=== PATIENT | female | born 1950 | race Caucasian/White ===

== ENCOUNTER 2024-05-01 10:45 | Outpatient (AMB) | payer MEDICARE, SELFPAY ==
--- NOTE | 2024-05-01 10:47 | MHC.OFFVIS ---
Vital Signs 05/01/24 10:48 Height 5 ft 4.5 in Weight 237 lb BMI 40.0 BP 169/80 H Blood Pressure Location Lt brachial Position Sitting Respiration 16 Pulse 108 H Pulse Source Pulse Oximeter Pulse Oximetry (%) 96 Oxygen Delivery Method Room Air Intake Visit Reasons: OCCIPITAL NEURALGIA Allergies cephalexin Allergy (Severe, Verified 05/01/24 10:51) Hives clindamycin Allergy (Severe, Verified 05/01/24 10:51) Hives Penicillins Allergy (Severe, Verified 05/01/24 10:51) Hives vancomycin Allergy (Severe, Verified 05/01/24 10:51) Hives Medication List - Last Reconciled 05/01/24 by Parvin Gifford LPN atorvastatin 10 mg PO BEDTIME cholecalciferol (vitamin D3) 1,250 mcg PO QWEEK folic acid 1 mg PO DAILY hydroxychloroquine (Plaquenil) 200 mg PO BID indapamide 2.5 mg PO QAM leucovorin calcium 5 mg PO DAILY levothyroxine 175 mcg PO DAILY methotrexate sodium 20 mg PO QWEEK montelukast 10 mg PO BEDTIME oxycodone-acetaminophen 5-325 mg (Percocet) 1 tab PO Q8H PRN sulfasalazine 1 g PO BID HPI HPI OCCIPITAL NEURALGIA: Details: 73-year-old female who presents today to the office for evaluation of occipital neuralgia. She was referred to us from [facility]. She has a long-standing history of around 10 years of left facial and occipital pain that started after a possible series of passive concussions. She had a concussion in high school and was diagnosed and treated for trigeminal neuralgia. The pain is described as a stabbing sensation on the left side of her face that starts in the back of her head and travels towards the ear in the front of your face. She describes this pain at 10/10 in intensity with episodes of unbearable pain. She states that the frequency of the pain is about every 3-4 months that lasts for two-three weeks and continue worsening. She states that her symptoms aggravates with stress. She denies any rhinorrhea, erythema, and watery eyes. She states that she was seen in the ER during her first episode of the symptoms and was treated with prednisone. Her pain is mostly continuous but seems to have had episodes of flares in the past. She was receiving occipital nerve blocks that seemed to provide some relief for two to four months at a time. Her primary care physician inquired about cluster headaches but was never diagnosed for them. She has not tried supraorbital nerve block or oxygen therapy. She has tried Celebrex. She also has pain in her left knee extensively secondary to arthritis. 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 History of malignant neoplasm of endometrium Solitary lung nodule Left-sided headache Abnormal gait Fatigue Osteoporosis Osteoarthritis of knee Localized primary osteoarthritis Inflammatory polyarthropathy Rheumatoid arthritis GERD (gastroesophageal reflux disease) Allergic asthma without acute exacerbation or status asthmaticus Adjustment disorder with mixed emotional features Mild major depression, single episode Morbid obesity Hyperlipidemia Mixed hyperlipidemia Vitamin D deficiency Hyperparathyroidism Hypothyroidism Postablative hypothyroidism Candidal intertrigo Review of Systems Const All systems reviewed & are unremarkable except as noted in HPI and below Physical Exam Vital Signs: Last Vital Signs Pulse 108 H 05/01/24 10:48 Resp 16 05/01/24 10:48 BP 169/80 H 05/01/24 10:48 Pulse Ox 96 05/01/24 10:48 Oxygen Delivery Method Room Air 05/01/24 10:48 BMI result Body Mass Index 40.0 General: Appears afebrile. Alert and oriented. Mood and affect appropriate. Follows and participates in conversation appropriately. Respiratory effort is unlabored. Able to transition from sit to stand unassisted. Ambulates with bilaterally normal heel strike and toe off. Results Reviewed Results Reviewed: No imaging is available for review. Assessment & Plan Assessment & Plan (1) Left-sided headache: Code(s): R51.9 - Headache, unspecified Category: Medical Plan 72-year-old female with a complex headache disorder that has been present for many years and has been so far treated as occipital neuralgia. She used to receive injections from her neurologist that provided some relief, but based on her history, I am not convinced that this is actually occipital neuralgia. Given her symptoms of severe debilitating periorbital headaches that come on every two to three months and last for 8 to 10 days at a time, I am concerned that she may have a cluster headache type syndrome, especially given her history of past concussions and symptoms of trigeminal irritation/abnormal activation earlier in her life. I recommended that she trial high-dose oxygen therapy as a potential abortive treatment next time she has flares, which would serve both diagnostic and therapeutic purposes to rule out cluster headache syndrome as a potential cause of her symptoms. We also discussed doing occipital, auricle, temporal, supraorbital/supratrochlear nerve blocks as needed if cluster headache syndrome is definitely ruled out.? If she does get a response to high-dose oxygen therapy with the future flares, then I would recommend referral to neurology for consideration of preventative medication therapy for cluster headaches such as calcium channel blockers or other newer agents. Patient expressed understanding and will visit an ER or urgent care center for high-dose oxygen therapy next time she starts to experience a flare. Scribed for Dr. Mae by Devon Souza, medical reimbursement manager, on 05/01/2024. I, Dr. Mae, have personally reviewed and agree with the information entered by the scribe. Coding Level of Care Code Est Pt Level 4 (75514) Diagnoses Left-sided headache R51.9
[2024-05-01 10:48] VITALS: BP 169/80; PULSE 108; RESP 16; O2SAT 96; BMI 40.0
== END 2024-05-01 11:39 | disposition home or self-care (01) ==
PROVIDERS: PCP Nurse Practitioner Adult Health; Visit Provider Internal Medicine
DX: R51.9 Headache, unspecified (principal)
CPT/HCPCS: 99214

== ENCOUNTER → 2024-05-01 10:45 | Outpatient (BNVA) | payer MEDICARE, SELFPAY | PROVIDERS: PCP Nurse Practitioner Adult Health; Visit Provider Internal Medicine | DX: R51.9 Headache, unspecified (principal) | CPT/HCPCS: 99212 ==

== ENCOUNTER 2024-07-20 11:55 | Outpatient (AMB) | payer MEDICARE, SELFPAY ==
--- NOTE | 2024-07-20 11:56 | MHC.OFFVIS ---
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: No Allergies cephalexin Allergy (Severe, Verified 07/20/24 12:02) Hives clindamycin Allergy (Severe, Verified 07/20/24 12:02) Hives Penicillins Allergy (Severe, Verified 07/20/24 12:02) Hives chlorhexidine [From ChloraPrep Clear] Adverse Reaction (Severe, Verified 07/20/24 12:02) Rash isopropyl alcohol [From ChloraPrep Clear] Adverse Reaction (Severe, Verified 07/20/24 12:02) Rash Medication List - Last Reconciled 07/20/24 by Parvin Gifford LPN atorvastatin 10 mg PO BEDTIME cholecalciferol (vitamin D3) 1,250 mcg PO QWEEK folic acid 1 mg PO DAILY hydroxychloroquine (Plaquenil) 200 mg PO BID indapamide 2.5 mg PO QAM letrozole 2.5 mg PO DAILY leucovorin calcium 5 mg PO DAILY levothyroxine 175 mcg PO DAILY methotrexate sodium 20 mg PO QWEEK montelukast 10 mg PO BEDTIME oxycodone-acetaminophen 5-325 mg (Percocet) 1 tab PO Q8H PRN sulfasalazine 1 g PO BID HPI HPI Follow Up: Details: History of Present Illness The patient is a 74-year-old female presenting with headache management issues. She has a complex psoriatic disorder and has been experiencing cluster headache syndrome. During a previous visit, it was recommended she try high-dose oxygen therapy for her headaches, but she was unable to obtain this treatment from an urgent care facility over the weekend. Her headaches worsened over the weekend, leading to a rough night requiring Excedrin and Xanax. She reports that her pain typically begins with mild symptoms but quickly escalates into an unbearable state. She has a history of neuralgia, which presents with a particular type of pain. Past treatments included nerve blocks performed by her previous neurologist, which involved the occipital nerve and regions around her ear. However, recent treatments have involved only local anesthetic without steroids. Pain Description - Onset: Worsened over the weekend. - Quality and character: Neuralgia type feel. - Primary Location: Left supraorbital and supratrochlear areas. - Radiation: Previously involved occipital and ear regions. - Exacerbating factors: - Relief: Temporary relief from Excedrin and Xanax. - Function interference: Progresses to an unbearable state. Physical Exam Results Pain Management - Affect: Patient's mood is affected due to exacerbation of symptoms. - Analgesia: Previously managed with Excedrin, Xanax, and nerve blocks. - Activities of Daily Living: Pain becomes unbearable, affecting daily functioning. - Aberrant Drug Related Behaviors: None reported. [facility] Medical History (Updated 05/12/24 @ 15:25 by Hermann Mae MD) Mucinous carcinoma of breast On long term care pharmacist 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 History of malignant neoplasm of endometrium Solitary lung nodule Left-sided headache Abnormal gait Fatigue Osteoporosis Osteoarthritis of knee Localized primary osteoarthritis Inflammatory polyarthropathy Rheumatoid arthritis GERD (gastroesophageal reflux disease) Allergic asthma without acute exacerbation or status asthmaticus Adjustment disorder with mixed emotional features Mild major depression, single episode Morbid obesity Hyperlipidemia Mixed hyperlipidemia Vitamin D deficiency Hyperparathyroidism Hypothyroidism Postablative hypothyroidism Candidal intertrigo Physical Exam Vital Signs: Last Vital Signs Pulse 87 07/20/24 12:00 Resp 16 07/20/24 12:00 BP 170/79 H 07/20/24 12:00 Pulse Ox 97 07/20/24 12:00 Oxygen Delivery Method Room Air 07/20/24 12:00 BMI result Body Mass Index 40.0 Office Procedures Nerve Block Details: Supraorbital and supratrochlear nerve block, left Physical exam was used to isolate the location of the targeted nerves. These injection sites were prepped with alcohol. Using sterile technique, a 27 gauge 1.5 inch needle was introduced into each each overlying nerve. A total of 2 mL 0.5% ropivacaine was injected around the left supraorbital and supratrochlear nerves. Time Out: Immediately prior to the procedure, the following was verbally confirmed that there is a signed consent form and that the correct patient, planned procedure, site and side are consistent with documentation and that necessary equipment and/or blood products are available prior to the start of the case. Complications: none EBL: <5 cc [id number] Peripheral Nerve Block Additional procedure code (CPT) needed Assessment & Plan Assessment & Plan (1) Left-sided headache: Code(s): R51.9 - Headache, unspecified Category: Medical Plan Plan - Continue follow-up with neurology for trial with indomethacin. - Arrange for potential high-dose oxygen therapy through ER if needed. Patient was informed and verbally consented to the use of an ambient scribe for clinic note documentation during this visit. Discussion Notes We discussed the patient's inability to access high-dose oxygen therapy at an urgent care facility and the need for ER visits in such cases. I explained that urgent care typically does not offer oxygen therapy. I outlined the proposed nerve blocks as a management strategy, which includes supraorbital, supratrochlear, and articular temporal nerve blocks. I informed the patient that this procedure involves using local anesthetic under the cranium and that it does not affect the brain itself. The patient agreed to the nerve blocks planned for today. Ongoing management of her blood pressure was advised, as it remains uncertain if her hypertension is a trigger or a response to her headache syndrome. Patient Instructions - Follow up with neurology for trial of indomethacin. - Seek high-dose oxygen therapy at the ER if necessary. - Monitor and report any changes in headache severity or patterns. - Continue managing blood pressure with primary care provider. - Rest and avoid activities known to exacerbate symptoms. Coding Level of Care Code Est Pt Level 3 (00729) Diagnoses Left-sided headache R51.9 CPT Codes Nerve Block - Nerve Block 8: [id number] Peripheral Nerve Block ([id number])
[2024-07-20 12:00] VITALS: BP 170/79; PULSE 87; RESP 16; O2SAT 97; BMI 40.0
--- OUTSIDE RECORDS SUMMARY | 2024-07-20 16:42 | XMS_ITS | Data Portability ---
Author Organization [facility], [facility] Address [address] [place] [address] Care Team Providers Care Carrier Operator Name Role Phone HIEU NELSON Referring Provider Assessment Encounter Date Assessment Date Assessment LastModified by Organization Details LastModified Time 10/30/2023 10/30/2023 Assessment: noticeable tightness along (L) biceps femoris during STM, decreased post stretching and STM. An increase in activity tolerance this session, while demonstrating good concentric and eccentric control during SLRs. Plan: Improve flexibility and strength. Frequency: 1x/wk for 4-6 wks Not available 10/30/2023 12:44:10 11/05/2023 11/05/2023 Assessment: Patient introduced to standing hip strengthening and tolerated well. Had increased pain in the (L) knee when trying to perform the standing exercises on the (R) LE. Standing exercises were only performed on the (L). Plan: Improve flexibility and strength. Frequency: 1x/wk for 4-6 wks [email or web address] Not available 11/05/2023 12:20:24 11/11/2023 11/11/2023 Assessment: Unable to shift weight properly during Std. exercises, regressed to weight shifting R/L, demonstrating proper weight bear on (L) without adverse effects. Instructed Pt. to practice weight shifting at home. Plan: Improve flexibility and strength. Frequency: 1x/wk for 4-6 wks [email or web address] Not available 11/11/2023 12:45:42 11/22/2023 11/22/2023 Assessment: Unable to perform SAQ into adduction dt an increase in patellar pain at end range. Continues to have difficulty to perform alternating Std. exercises dt a decrease in (L) LE strength. Plan: Improve flexibility and strength. Frequency: 1x/wk for 4-6 wks [email or web address] Not available 11/22/2023 11:42:27 Plan of Treatment Reminders Order Date Submit Date Provider Last Modified By Organization Details Last Modified Time Details Appointments None record ed. Lab None record ed. Referral None record ed. Procedures None record ed. Surgeries None record ed. Imaging None record ed. Medication Orders None record ed. Patient TargetsNo targets recorded. Patient InstructionsNo instructions recorded. Reason for Referral None Reported. Procedures Surgical History Date Name Laterality Status Provider Name and Address Organization Details Recorded Time 4 54620 Therapeutic Exercise (1:1) completed Mamadou Roman PTA [address], [place], [address], [facility] 11/22/2023 11:43:20 4 85186 Therapeutic Exercise (1:1) completed Mamadou Roman SHRINKING MACHINE OPERATOR [address], [place], [address], [facility] 11/11/2023 11:51:50 4 87495 Therapeutic Exercise (1:1) completed Guillaume Maher DPT [address], [place], [address], [facility] 11/04/2023 14:52:55 4 14389 Therapeutic Exercise (1:1) completed Mamadou Roman PTA [address], [place], [address], [facility] 10/30/2023 12:44:16 4 52688: Manual therapy completed Mamadou Roman SHRINKING MACHINE OPERATOR [address], [place], [address], [facility] 10/30/2023 12:44:14 4 28984 Therapeutic Exercise (1:1) completed Mamadou Roman SHRINKING MACHINE OPERATOR [address], [place], [address], [facility] 10/23/2023 14:56:41 4 41683: Manual therapy completed Mamadou Roman, SHRINKING MACHINE OPERATOR [address], [place], [address], [facility] 10/23/2023 14:56:31 4 42066 Therapeutic Exercise (1:1) completed Guillaume Maher, DPT [address], [place], [address], [facility] 10/01/2023 12:17:57 4 00875: Low complexity PT Eval completed Guillaume Ramachandrani, DPT [address], [place], [address], [facility] 10/01/2023 12:17:54 4 G8417 BMI Above Upper Parameters, F/U Documented completed Guillaume Maher, DPT [address], [place], [address], [facility] 10/01/2023 12:18:12 4 G8427 Current Medication Documented completed Guillaume Maher, DPT [address], [place], [address], [facility] 10/01/2023 12:18:15 Imaging Results None recorded. Procedure Notes None recorded. Medical Equipment None Reported. Allergies Allergen ID Allergen Name Allergen Category Reaction Reaction Severity Criticality Documentation Date Start Date Code Code System Note Provider Name and Address Organization Details Recorded Time 89289 Product containin g penicilli n and antibioti c (product) medicatio n Not available Not available Not available 08/26/20232006 10750 05 SNOMED Aller gyRea ction : 'Skin React ion'; Not Available [facility] 4 11:39:21 91928 clindamyc in phosphate medicatio n Not available Not available Not available 08/26/20232022 60549 2 RxNorm Not Available [facility] 4 11:39:22 69756 Iodinated contrast media (substanc e) medicatio n Not available Not available Not available 08/26/20232022 43282 2003 SNOMED Aller gyNam e: 'cont rast dye'; Not Available [facility] 11:39:22 Medications Name Sig Start Date Stop Date Status Note LastModified by Organization Details LastModified Time prednisone 10 mg tablet PLEASE SEE ATTACHED FOR DETAILED DIRECTIONS active Not Available Not Available N ot Available sulfasalazin e 500 mg tablet TAKE 2 TABLETS BY MOUTH TWICE A DAY WITH FOOD active Not Available Not Available No t Available erythromycin 500 mg tablet take 2 tabs 30 min before dental procedure 2024 active Not Available Not Available Not Avai lable albuterol sulfate 2.5 mg/3 mL (0.083 %) solution for nebulization INHALE 3 MILLILITERS (2.5 MG) BY NEBULIZATIO N ROUTE 3 TIMES PER DAY NEEDED active Not Available Not Available No t Available azithromycin 250 mg tablet TAKE 2 TABLET BY MOUTH DIRECTED TO START THEN TAKE 1 TABLET DAILY UNTIL FINISHED active Not Available Not Available No t Available indapamide 2.5 mg tablet TAKE 1 TABLET BY MOUTH EVERY DAY active Not Available Not Available No t Available ibuprofen 800 mg tablet TAKE 1 TABLET BY MOUTH THREE TIMES A DAY FOR SWELLING active Not Available Not Available No t Available nystatin 100,000 unit/gram topical ointment PLEASE SEE ATTACHED FOR DETAILED DIRECTIONS active Not Available Not Available N ot Available hydrocodone 5 mg-acetamino phen 325 mg tablet TAKE 1 TABLET BY MOUTH EVERY SIX HOURS NEEDED FOR PAIN active Not Available Not Available No t Available famotidine 40 mg tablet TAKE 1 TABLET (40 MG TOTAL) BY MOUTH NIGHTLY AT BEDTIME NEEDED FOR HEARTBURN active Not Available Not Available No t Available triazolam 0.125 mg tablet TAKE 2 TABLET BY MOUTH DIRECTED 90 MINUTES PRIOR TO PROCEDURE active Not Available Not Available No t Available oxycodone-ac etaminophen 5 mg-325 mg tablet TAKE 1 TABLET BY MOUTH EVERY 6 HOURS NEEDED FOR PAIN active Not Available Not Available No t Available alprazolam 0.25 mg tablet TAKE 1-2 TABLETS TWICE A DAY IF NEEDED active Not Available Not Available No t Available triamcinolon e acetonide 0.025 % topical cream APPLY TWICE A DAY NEEDED TO SKIN FOLDS FOR NO LONGER THAN ONE WK active Not Available Not Available No t Available methotrexate sodium 2.5 mg tablet TAKE 8 TABLETS ONCE WEEKLY ON FRIDAYS active Not Available Not Available N ot Available meclizine 25 mg tablet TAKE 1 TABLET BY MOUTH THREE TIMES A DAY NEEDED active Not Available Not Available No t Available benzonatate 100 mg capsule TAKE 1 CAPSULE BY MOUTH THREE TIMES A DAY NEEDED FOR COUGH active Not Available Not Available No t Available pseudoephedr елена-diamond sin ER 80-700 mg tablet,exten ded release DO NOT DRIVE WHILE ON THIS MEDICATION 2010 active Statu s: 'Curr ent'; Not Available Not Available Not Available prednisone 50 mg tablet TAKE 1 TABLET (50 MG TOTAL) BY MOUTH DAILY WITH BREAKFAST FOR 4 DAYS active Not Available Not Available N ot Available levothyroxin e 150 mcg tablet TAKE 1 TABLET BY MOUTH EVERY DAY active Not Available Not Available No t Available omeprazole 20 mg capsule,alla yed release TAKE 1 CAPSULE BY MOUTH EVERY DAY active Not Available Not Available No t Available leucovorin calcium 5 mg tablet TAKE 3 TABLETS BY MOUTH WEEKLY DIRECTED active Not Available Not Available No t Available folic acid 1 mg tablet TAKE 1 TABLET BY MOUTH EVERY DAY active Not Available Not Available No t Available montelukast 10 mg tablet TAKE 1 TABLET BY MOUTH EVERYDAY AT BEDTIME active Not Available Not Available No t Available ergocalcifer ol (vitamin D2) 1,250 mcg (50,000 unit) capsule TAKE 1 CAPSULE (50,000UNIT S) BY MOUTH EVERY WEEK active Not Available Not Available N ot Available nystatin 100,000 unit/gram topical powder APPLY ONCE DAILY TO SKIN FOLDS NEEDED active Not Available Not Available No t Available hydroxychlor oquine 200 mg tablet TAKE 1 TABLET BY MOUTH TWICE A DAY active Not Available Not Available No t Available albuterol sulfate HFA 90 mcg/actuatio n aerosol inhaler INHALE 2 PUFFS BY MOUTH 4 TIMES A DAY NEEDED active Not Available Not Available No t Available clotrimazole 1 % topical cream APPLY TO AFFECTED AREA TWICE A DAY IN THE MORNING AND IN THE EVENING active Not Available Not Available No t Available calcium 200 mg (as calcium citrate 950 mg) tablet TAKE 1 TABLET BY MOUTH TWICE A DAY (NOT COVERED BY INS) active Not Available Not Available No t Available Flovent HFA 220 mcg/actuatio n aerosol inhaler TAKE 2 PUFFS BY MOUTH TWICE A DAY active Not Available Not Available No t Available chlorhexidin e gluconate 0.12 % mouthwash RINSE GENTLY WITH 15 ML BY MOUTH TWICE A DAY SPIT OUT DO NOT SWALLOW active Not Available Not Available No t Available sulfasalazin e sulfaSALAzi ne 500MG Tablet 2022 active Statu s: 'Curr ent'; Not Available Not Available Not Available Advair HFA 115 mcg-21 mcg/actuatio n aerosol inhaler TAKE 2 PUFFS BY MOUTH TWICE A DAY active Not Available Not Available No t Available Xiidra 5 % eye drops in a dropperette active Not Available Not Available Not Available QuickVue At-Home COVID-19 Test kit USE DIRECTED active Not Available Not Available No t Available Vitals None Recorded Social History None recorded. Functional Status None recorded. Mental Status None recorded. Family History Nothing Reported. Medical History No medical history recorded. Gynecological HistoryNo gynecological history recorded. Obstetrics History GPAL:G 0 P 0 0 0 0 Past Encounters Encounter ID Performer Location Encounter Start Date Encounter Closed Date Diagnosis/Indication Diagnosis SNOMED-CT Code Diagnosis ICD10 Code Diagnosis Note [id number] Chas Osborn MD [facility] [address] [place] [address] 10/01/2023 11:01:06 10/01/2023 13:14:05 Osteoarthritis of knee 803423313 M17.12 [id number] Guillaume Maher DPT [facility] [address] [place] [address] 10/23/2023 11:27:42 10/23/2023 15:04:32 Osteoarthritis of knee 782332039 M17.12 [id number] [facility] [address] [place] [address] 10/30/2023 10:58:05 10/30/2023 13:00:46 Osteoarthritis of knee 060997359 M17.12 [id number] Guillaume Maher DPT [facility] [address] [place] [address] 11/05/2023 10:29:04 11/05/2023 12:58:21 Osteoarthritis of knee 787321617 M17.12 [id number] Guillaume Maher DPT [facility] [address] [place] [address] 11/11/2023 11:45:13 11/11/2023 12:56:07 Osteoarthritis of knee 591266346 M17.12 [id number] Guillaume Maher, T [facility] [address] [place] [address] 11/22/2023 10:03:00 11/22/2023 13:02:31 Osteoarthritis of knee 301866004 M17.12 [id number] JAQUELINE Rodriguez [address] [place] [address] 11/23/2023 13:46:01 11/23/2023 13:47:47 Health Concerns Section Related Observation LastModified by Organization Detai ls LastModified Time None Recorded Concern Status LastModified by Organization Details LastModified Time None Recorded Advance Directives Directive None Recorded Payers Encounter Date Sequence Insurance Name Policy Number Policy [place] Covered Member ID [place] Member ID Guarantor Name 10/30/2023 1 [place] [employer] [employer] Teresa Parson [id number] Teresa Parson 10/30/2023 2 [place] [id number] Teresa Parson [id number] Teresa Parson 11/05/2023 1 [place] Teresa Parson [id number] Teresa Parson 11/05/2023 2 [place] [id number] Teresa Parson [id number] Teresa Parson 11/11/2023 1 [place] [place] Teresa Parson [id number] Teresa Parson 11/11/2023 2 [place] [id number] Teresa Parson [id number] Teresa Parson 11/22/2023 1 [place] [place] Teresa Parson [id number] Teresa Parson 11/22/2023 2 [place] [id number] Teresa Parson [id number] Teresa Parson 11/23/2023 1 [place] Teresa Parson [id number] Teresa Parson 11/23/2023 2 [place] [id number] Teresa Parson [id number] Teresa Parson Notes Date Note Type Note Provider Name and Address Organization Details Recorded Time 10/30/2023 text/html Pt. reports mild improvement since last session stating that the stretching has helped. Mamadou Roman SHRINKING MACHINE OPERATOR [address], [place], [address], [facility] 10/30/2023 12:44:53 11/05/2023 text/html Patient reports continuing to be compliant with HEP. States that the supine ITB stretch is very challenging. Guillaume Maher DPT [address], [place], [address], [facility] 11/05/2023 12:20:37 11/11/2023 text/html Pt. reports that her knee is feeling stiff, while also stating that she hasn't been compliant with her HEP dt a busy schedule. Mamadou Roman PTA [address], [place], [address], [facility] 11/11/2023 12:46:13 11/22/2023 text/html Pt. reports to P T with an increase in (L) joint line discomfort with an increase in weightbearing. 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 Patient has upcoming breast surgery and has concerns over prophylactic antibiotics. Reassurance was given and recommended that we would defer to the surgeon for their preferred antibiotic choice. As they know the most likely organisms that she will be at risk for. Patient agrees to this treatment plan will call with any questions Sancho Martínez PA-C [address], [place], [address], [facility] 11/23/2023 13:47:46 OBGyn Episode No OBEpisode recorded.
--- OUTSIDE RECORDS SUMMARY | 2024-07-20 16:42 | XMS_ITS | Clinical Summary ---
Author Organization [facility] [address] [facility] Address [address] [place] [address] Care Team Providers Care Cosmetic Sales Advisor Name Role Phone Obtain, Unable To Primary Care Provider Unavaila ble Allergies Active Allergy Reactions Criticality Noted Date Comments Cats Unknown 03/23/1996 Cephalexin Hives High 01/05/2023 Clindamycin Hives High 01/05/2023 Iodine Rash Low 01/05/2023 Ed provider premedicated the patient on 01/05/23 for pe scan---diffuse rash the patient stated Penicillins Hives High 01/05/2023 Vancomycin GI Upset 01/05/2023 Colitis Social History Tobacco Use Types Packs/Day Years Used Date Smoking Tobacco: Never Assessed Comments Unknown Sex and Gender Information Value Date Recorded Sex Assigned at Female 01/07/2023 9:04 AM EDT Legal Sex Female 5:44 AM EST Gender Identity Female 01/07/2023 9:04 AM EDT Sexual Orientation Lesbian or Obrien 01/07/2023 9: 04 AM EDT Last Filed Vital Signs Vital Sign Reading Time Taken Comments Blood Pressure 149/70 01/05/2023 5:08 PM EDT Pulse 78 01/05/2023 5:08 PM EDT Temperature 36.4 ??C (97.6 ??F) 01/05/2023 5:08 PM ED T Respiratory Rate 15 01/05/2023 5:08 PM EDT Oxygen Saturation 96% 01/05/2023 5:08 PM EDT Inhaled Oxygen Concentration - - Weight 112.9 kg (249 lb) 01/05/2023 8:11 AM EDT Height 162.6 cm (5' 4 ) 01/05/2023 8:11 AM EDT Body Mass Index 42.74 01/05/2023 8:11 AM EDT Plan of Treatment Health Maintenance Due Date Last Done Comments HIV screening 1963 Hepatitis C screening 1968 Tetanus adult (Td q 10,TDAP once) 1970 Breast cancer screening 1990 Lipid disorder screening 1990 Colon cancer screening, Colonoscopy 1995 Shingles vaccine (Shingrix) (1 of 2 - Shingrix (RZV) 2 Dose Standard Series) 2000 RSV Discussion (1 - Risk 60- 74 years 1-dose series) 2010 Osteoporosis screening (bone density) 2015 Pneumo Vaccine 65+ (1 of 1 - PCV) 2015 Influenza vaccine 01/23/2024 03/14/2018 Covid-19 vaccine series (1 - season) 2024 Diabetes screening 01/05/2026 01/05/2023 Cervical cancer screening Discontinued Meningococcal Vaccine Aged Out No clemencia reji eligible based on patient's age to complete this topic Procedures Procedure Name Priority Date/Time Associated Diagnosis Comments BASIC METABOLIC PANEL STAT 01/05/2023 9:37 AM EDT from Last 3 Months or Most Recently Relevant to Health Maintenance Results * (ABNORMAL) Basic metabolic panel (01/05/2023 9:37 AM EDT) Sodium 139 136 - 144 mmol/L 01/05/2023 10:29 AM EDT [facility] DEPARTMENT OF [facility]ORATORY [facility]ICINE [facility] Comment:Sample slightly hemo lyzed. Results may be falsely decreased due to hemolysis. Potassium 01/05/2023 10:29 AM EDT [facility] DEPART[facility]AT[facility]IC[facility] Comment:Sample Hemolyzed. Chloride 101 98 - 107 mmol/L 01/05/2023 10:29 AM EDT [facility] DEPARTMENT OF LABORATORY MEDICINE [facility] CO2 24 20 - 30 mmol/L 01/05/2023 10:29 AM [facility] Anion Gap 14 7 - 17 01/05/2023 10:29 AM [facility] Glucose 135(H) 70 - 100 mg/dL 01/05/2023 10:29 AM [facility] BUN 18 8 - 23 mg/dL 01/05/2023 10:29 AM [facility] Creatinine 0.79 0.40 - 1.30 mg/dL 01/05/2023 10:29 AM [facility] Calcium 9.0 8.8 - 10.2 mg/dL 01/05/2023 10:29 AM [facility] BUN/Creatinine Ratio 22.8 8.0 - 23.0 01/05/2023 10:29 AM [facility] eGFR (Creatinine) >60 >=60 mL/min/1.7 3m2 01/05/2023 10:29 AM [facility] Comment: Values < 60 mL/min/1.73 m2 may indicate CKD if present for more than three months AND creatinine is at steady state. The eGFR provides a rough estimate of kidney function. On 02/06/22 all [facility] Clinical Labs and Epic began using a [id number] formula for estimating GFR called CKD-EPI Creatinine 2020. This equation reports eGFR based on creatinine, patient age, clinical sex, and is standardized to a body surface area of 1.73 m2. For the same creatinine, this new race-free eGFR will be lower than prior reported Black eGFR results and higher than prior Non-Black eGFR results. For further guidance, please refer to the CKD: Adult Satin Finisher Signature pathway. Blood Venipuncture / Unknown 01/05/2023 9:37 AM EDT 01/05/2023 9:42 AM EDT us James Lazo MD LAB BLOOD ORDERABLES Fi nal Result [facility] DEPARTMENT OF LABORATORY MEDICINE [facility] [address] [place] [address], [facility] [phone] from Last 3 Months or Most Recently Relevant to Health Maintenance Insurance MEDICARE [facility] MEDICARE [facility] MEDICARE [facility] Care Teams Cosmetic Sales Advisor Relationship Specialty Start Date End Date Obtain, Unable To PCP - General 01/05/23
--- OUTSIDE RECORDS SUMMARY | 2024-07-20 16:43 | XMS_ITS ---
Author Name [facility] Organization Unknown Results Test Name/Text Value Interpretation Date Range Source BKR LYME TOTAL ANTIBODY INTERPRETATION Negative Normal [id number] - [facility] BKR LYME TOTAL ANTIBODY 0.64Index Normal [id number] [facility] A phagocytoph DNA Bld Ql SUSANNE+probe Not Detected Normal [id number] - [facility] Ehrlichia DNA XXX Ql SUSANNE+probe Not Detected Normal [id number] - [facility] BKR QBC FOR BLOOD PARASITE Negative intra-erythrocy tic parasites Normal [id number] - [facility] BKR HAT AND CAP PARTS CUTTER HAND REVIEW Reviewed Normal [id number] [facility] CRP SerPl HS-mCnc 25.9mg/L Above high normal [id number] - [facility] Glucose Ur Strip.auto-mCnc Negative Normal [id number] - [facility] Color Ur Auto Yellow Normal [id number] - [facility] Hgb Ur Ql Strip.auto Negative Normal [id number] - [facility] Ketones Ur Strip.auto-mCnc Negative Normal [id number] - [facility] Prot Ur Strip.auto-mCnc Negative Normal [id number] - [facility] Bilirub Ur Ql Strip.auto Negative Normal [id number] - [facility] WBC # Ur Strip Negative Normal [id number] - [facility] Nitrite Ur Ql Strip.auto Negative Normal [id number] - [facility] Clarity Ur Refract.auto Clear Normal [id number] - [facility] pH Ur Strip.auto 6.5 Normal [id number] 5.5 - 7.5 [facility] Urobilinogen Ur Strip-mCnc 2mg/dL Normal [id number] - [facility] Sp Gr Ur Refract.auto 1.012 Normal [id number] 1.005 - 1.03 [facility] Troponin T SerPl HS-mCnc 9ng/L Normal [id number] - [facility] BNP Bld-mCnc 18pg/mL Normal [id number] 0 - 100 [facility] BUN SerPl-mCnc 18mg/dL Normal [id number] 8 - 23 [facility] Creat SerPl-mCnc 0.79mg/dL Normal [id number] 0.4 - 1.3 [facility] Anion Gap3 SerPl-sCnc 14 Normal [id number] 7 - 17 [facility] eGFRcr SerPlBld CKD-EPI 1 60mL/min/1.73m2 Normal [id number] - [facility] HCO3 SerPl-sCnc 24mmol/L Normal [id number] 20 - 30 [facility] Glucose SerPl-mCnc 135mg/dL Above high normal [id number] 70 - 100 [facility] BUN/Creat SerPl 22.8 Normal [id number] 8 - 23 [facility] Chloride SerPl-sCnc 101mmol/L Normal [id number] 98 - 10 7 [facility] Calcium SerPl-mCnc 9mg/dL Normal [id number] 8.8 - 10 .2 [facility] Sodium SerPl-sCnc 139mmol/L Normal [id number] 136 - 144 [facility] Potassium SerPl-sCnc Normal [id number] [facility] D dimer FEU PPP-mCnc 0.73mg/LFEU Above high normal [id number] - [facility] ESR Bld Qn 50mm/hr Above high normal [id number] 0 - 20 [facility] Hgb Bld-mCnc 12.4g/dL Normal [id number] 11.7 - 15.5 [facility] Eosinophil # Bld Auto 0.54v5506/uL Normal [id number] 0 - 1 [facility] MCHC RBC Auto-mCnc 34.1g/dL Normal [id number] 31 - 36 [facility] PMV Bld Auto 9.8fL Normal [id number] 8 - 12 [facility] Basophils/leuk NFr Bld Auto 0.9% Normal [id number] 0 - 1.4 [facility] Monocytes/leuk NFr Bld Auto 14.9% Above high normal [id number] 4 - 12 [facility] RDW RBC Auto-Rto 14.7% Normal [id number] 11 - 15 [facility] Monocytes # Bld Auto 0.55h5008/uL Normal [id number] 0 - 1 [facility] Imm Granulocytes # Bld Auto 0.17s1677/uL Normal [id number] 0 - 0.3 [facility] Neutrophils # Bld Auto 3.72f1076/uL Normal [id number] 2 - 7.6 [facility] Hct VFr Bld Auto 36.4% Normal [id number] 35 - 45 [facility] Lymphocytes/leuk NFr Bld Auto 18.4% Normal [id number] 17 - 50 [facility] Lymphocytes # Bld Auto 1.14x8592/uL Normal [id number] 0.6 - 3.7 [facility] nRBC/100 WBC Bld Auto-Rto 0% Normal [id number] 0 - 1 [facility] RBC # Bld Auto 4M/uL Normal [id number] 4 - 6 [facility] Neutrophils/leuk NFr Bld Auto 62.9% Normal [id number] 39 - 72 [facility] Eosinophil/leuk NFr Bld Auto 2.6% Normal [id number] 0 - 5 [facility] Imm Granulocytes/leuk NFr Bld Auto 0.3% Normal [id number] 0 - 1 [facility] WBC # Bld Auto 5.0m1855/uL Normal [id number] 4 - 11 [facility] nRBC # Bld Auto 0v4560/uL Normal [id number] 0 - 1 [facility] MCV RBC Auto 91fL Normal [id number] 80 - 100 [facility] MCH RBC Qn Auto 31pg Normal [id number] 27 - 33 [facility] BKR WAM BASOPHIL ABSOLUTE COUNT. 0.06n2656/uL Normal [id number] 0 - 1 [facility] Platelet # Bld Auto 552u5302/uL Normal [id number] 150 - 420 [facility]
== END 2024-07-20 12:27 | disposition home or self-care (01) ==
PROVIDERS: PCP Nurse Practitioner Adult Health; Visit Provider Internal Medicine
DX: R51.9 Headache, unspecified (principal)
CPT/HCPCS: 64400; 99213

== ENCOUNTER → 2024-07-20 11:55 | Outpatient (BNVA) | payer MEDICARE, SELFPAY | PROVIDERS: PCP Nurse Practitioner Adult Health; Visit Provider Internal Medicine | DX: G44.009 Cluster headache syndrome, unspecified, not intractable (principal) | CPT/HCPCS: 64400; 99212 ==

== ENCOUNTER 2024-11-07 20:36 | Emergency (ER) | payer MEDICARE, SELFPAY ==
[2024-11-07 20:59] VITALS: BP 154/72; PULSE 65; RESP 18; TEMP 36.8; O2SAT 99; BMI 41.0
[2024-11-07 21:19] VITALS: BP 167/72; PULSE 76; RESP 20; TEMP 36.8; O2SAT 99
--- NOTE | 2024-11-07 21:35 | PC.NURSE ---
Patient is a 74-year-old female presenting with headache management issues. She has a complex psoriatic disorder and has been experiencing cluster headache syndrome secondary to occipital neuralgia in which she was getting injections from the pain clinic. c/o left sided headache/ear pain intermittently for the past month. Respirations even and non-labored. Abdomen large, soft, non-tender. Ambulates utilizing a rolling walker
--- NOTE | 2024-11-07 22:27 | ED_ITS ---
HPI - General Adult General Chief complaint: Headache Stated complaint: left side head/ear pain Time Seen by Provider: 11/07/24 22:27 History of Present Illness ED Provider: Nelsy BASS narrative: The patient is a 74-year-old woman who has had problems with a headache syndrome for a decade. She has been seen by Neurology at [facility]. She has been treated for occipital neuralgia. She says that she has gotten injections to our occipital scalp in the past. More recently she was seen at the pain Clinic at [facility] and the pain doctor suggested that perhaps she could have atypical cluster headaches. He recommended that if she h as a bad headache that she come to the emergency department to receive oxygen as a tests to help determine whether these could be atypical cluster headaches. She says that she has had a headache for several days. Yesterday she went to her primary care doctor's and was given oxygen for awhile with some mild improvement in her headache. Her headache was worse today and she came to the emergency room for additional oxygen therapy. She says that she feels the pain in the left side of her head radiating from her left forehead to her left ear. She describes the headache as severe. It is typical of her usual headache syndromes. She says she has had extensive workups for her headaches including a temporal artery biopsy. The patient went on to say that if she does not get significant response to oxygen therapy that she would like an injection of ketorolac a prescription for a Medrol Dosepak. She says narcotics have never worked for her headaches. Related Data Home Medications ?Medication ?Instructions ?Recorded ?Confirmed atorvastatin 10 mg tablet 10 mg PO BEDTIME 05/01/24 07/20/24 cholecalciferol (vitamin D3) 1,250 1,250 mcg PO QWEEK 05/01/24 07/20/24 mcg (50,000 unit) oral wafer folic acid 1 mg tablet 1 mg PO DAILY 05/01/24 07/20/24 hydroxychloroquine 200 mg tablet 200 mg PO BID 05/01/24 07/20/24 (Plaquenil) indapamide 2.5 mg tablet 2.5 mg PO QAM 05/01/24 07/20/24 leucovorin calcium 5 mg tablet 5 mg PO DAILY 05/01/24 07/20/24 levothyroxine 175 mcg capsule 175 mcg PO DAILY 05/01/24 07/20/24 methotrexate sodium 2.5 mg tablet 20 mg PO QWEEK 05/01/24 07/20/24 montelukast 10 mg tablet 10 mg PO BEDTIME 05/01/24 07/20/24 oxycodone-acetaminophen 5 mg-325 1 tab PO Q8H PRN 05/01/24 07/20/24 mg tablet (Percocet) sulfasalazine 500 mg tablet 1 g PO BID 05/01/24 07/20/24 letrozole 2.5 mg tablet 2.5 mg PO DAILY 07/20/24 07/20/24 Previous Rx's ?Medication ?Instructions ?Recorded methylprednisolone 4 mg tablets in 4 mg PO DAILY #21 ea 11/07/24 a dose pack (Medrol (Ralph)) Allergies Allergy/AdvReac Type Severity Reaction Status Date / Time cephalexin Allergy Severe Hives Verified 11/07/24 21:03 clindamycin Allergy Severe Hives Verified 11/07/24 21:03 Penicillins Allergy Severe Hives Verified 11/07/24 21:03 Iodinated Contrast Media Allergy Hives Verified 11/07/24 21:03 chlorhexidine AdvReac Severe Rash Verified 11/07/24 21:03 [From ChloraPrep Clear] isopropyl alcohol AdvReac Severe Rash Verified 11/07/24 21:03 [From ChloraPrep Clear] Review of Systems Review of Systems: Yes all other systems are reviewed and are negative [facility] Past Medical History Medical History (Updated 11/07/24 @ 23:15 by Sandro Whittington MD) Mucinous carcinoma of breast 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 History of malignant neoplasm of endometrium Solitary lung nodule Left-sided headache Abnormal gait Fatigue Osteoporosis Osteoarthritis of knee Localized primary osteoarthritis Inflammatory polyarthropathy Rheumatoid arthritis GERD (gastroesophageal reflux disease) Allergic asthma without acute exacerbation or status asthmaticus Adjustment disorder with mixed emotional features Mild major depression, single episode Morbid obesity Hyperlipidemia Mixed hyperlipidemia Vitamin D deficiency Hyperparathyroidism Hypothyroidism Postablative hypothyroidism Candidal intertrigo Social History Social History Smoked in Last 30 Days: No Advance Directives: No Advance Directives Information Provided: No Physical Exam ED Vital Signs: Vital Signs - 24 hr 11/07/24 20:59 11/07/24 21:19 Temperature 98.2 F 98.2 F Pulse Rate 65 76 Respiratory Rate 18 20 Blood Pressure 154/72 H 167/72 H Pulse Oximetry 99 99 Oxygen Delivery Method Room Air BMI result Body Mass Index 41.0 Const Other: The patient is a 74-year-old woman who at first seemed to be rocking with dis comfort but who, once engaged in conversation, was awake and alert with a normal mental status and able to give a very good history. HENMT Other: Face is symmetrical, mucous membranes moist. Pharynx is normal. Eyes Other: Pupils are very small but equal. Extraocular movements are intact. Conjunctivae are clear. Neck Other: Moving her neck easily Resp Effort & Inspection: normal respiratory effort Auscultation: clear to auscultation bilaterally Cardio Rate: regular rate Rhythm: regular rhythm Heart sounds: S1 normal heart sound present and S2 normal heart sound present Skin Other: Skin is dry and unremarkable Neuro Other: The patient is awake, alert, pleasant, cooperative. Mental status is clear. Pupils are small and equal. Extraocular movements are intact. Face is symmetrical. Speech is clear. She moves her extremities symmetrically. Medical Decision Making Medical Decision Making [facility] Narrative: The patient is a 74-year-old female with a long history of intermittent severe headaches which has been managed as possible manifestations of occipital neuralgia. She says that she has had an extensive workup in the past. She has a neurologist at [facility]. She has received occipital injections in the past. More recently she was seen at the pain Clinic here at [facility]. She says that the pain doctor at that clinic suggested the perhaps her headaches could be atypical cluster headaches. He recommended that she come to the emergency room for a trial of oxygen therapy when she has a significant headache. She presents now with several days of her typical headache. She does not describe any symptoms that make me think this headache is significantly different from her previous headaches or requires any additional workup. The patient was given a 15 minute trial of 12 L/min of oxygen through a non- rebreather. She says that this provided significant improvement but did not abolish the headache. I explained I could not tell her if I felt this was a truly positive response from the therapy with regard to the question of could she have atypical cluster headaches. In any event the patient felt better and seemed comfortable going home. She will also be given a dose of ketorolac and a prescription for a Medrol Dosepak. She should follow up with her neurologist to discuss this trial of oxygen therapy and the significance it might have in her headache management. Discharge Plan Discharge Clinical Impression: Headache Patient Disposition: Home, Self-Care Additional Instructions: Please take the Medrol Dosepak as prescribed starting tomorrow morning. A prescription for this has been sent to the [facility] on [address] in [place]. Please follow up with your neurologist to discuss whether your response to the oxygen today constitutes a positive response with regard to the diagnosis of atypical cluster headaches. Otherwise follow up with your primary care doctor as well. Prescriptions: New methylprednisolone [Medrol (Ralph)] 4 mg tablets,dose pack 4 mg PO DAILY Qty: 21 0RF No Action sulfasalazine 500 mg tablet 1 g PO BID Rx Instructions: give with food (meal/snack) hydroxychloroquine [Plaquenil] 200 mg tablet 200 mg PO BID methotrexate sodium 2.5 mg tablet 20 mg PO QWEEK leucovorin calcium 5 mg tablet 5 mg PO DAILY levothyroxine 175 mcg capsule 175 mcg PO DAILY folic acid 1 mg tablet 1 mg PO DAILY montelukast 10 mg tablet 10 mg PO BEDTIME indapamide 2.5 mg tablet 2.5 mg PO QAM atorvastatin 10 mg tablet 10 mg PO BEDTIME cholecalciferol (vitamin D3) 1,250 mcg (50,000 unit) wafer 1,250 mcg PO QWEEK oxycodone-acetaminophen [Percocet] 5-325 mg tablet 1 tab PO Q8H PRN letrozole 2.5 mg tablet 2.5 mg PO DAILY Print Language: Yi
--- NOTE | 2024-11-07 22:48 | PC.NURSE ---
per MD Whittington pt placed on 12l O2 via non-re breather mask pt to have O2 for 15min. call palafox within reach
--- NOTE | 2024-11-07 23:04 | PC.NURSE ---
upon re-eval after O2 pt reports it has taken the edge off the pain pt reports pain is 9/10, down from 200/10 MD notified
[2024-11-07] MEDS: Ketorolac Tromethamine 30 MG/ML VIAL IM (23:36)
[2024-11-07 23:49] VITALS: BP 176/73; PULSE 64; RESP 16; TEMP 36.7; O2SAT 97
[2024-11-08 00:04] VITALS: BP 176/73; PULSE 64; RESP 16; TEMP 36.7; O2SAT 97
== END 2024-11-08 00:06 | disposition home or self-care (01) ==
PROVIDERS: Emergency Provider Emergency Medicine; PCP Nurse Practitioner Adult Health
DX: R51.9 Headache, unspecified (principal); E78.2 Mixed hyperlipidemia; E21.3 Hyperparathyroidism, unspecified; Z79.899 Other long term (current) 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
CPT/HCPCS: 96372; 99284; J1885

== ENCOUNTER 2025-03-16 11:06 | Outpatient (AMB) | payer MEDICARE, SELFPAY ==
--- NOTE | 2025-03-16 11:18 | A.OFFVIS_ITS ---
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: No Allergies cephalexin Allergy (Severe, Verified 03/16/25 11:20) Hives clindamycin Allergy (Severe, Verified 03/16/25 11:20) Hives Penicillins Allergy (Severe, Verified 03/16/25 11:20) Hives Iodinated Contrast Media Allergy (Verified 03/16/25 11:20) Hives chlorhexidine (From ChloraPrep Clear) Adverse Reaction (Severe, Verified 5 11:20) Rash isopropyl alcohol (From ChloraPrep Clear) Adverse Reaction (Severe, Verified 03/16/25 11:20) Rash Medication List - Last Reconciled 03/16/25 by Ginger Monge, ANAMARIA atorvastatin 10 mg PO BEDTIME cholecalciferol (vitamin D3) 1,250 mcg PO QWEEK divalproex 250 mg PO BID PRN exemestane 25 mg PO DAILY folic acid 1 mg PO DAILY galcanezumab-gnlm (Emgality Pen) mg subcut hydroxychloroquine (Plaquenil) 200 mg PO BID indapamide 2.5 mg PO QAM leucovorin calcium 5 mg PO DAILY levothyroxine 175 mcg PO DAILY methotrexate sodium 20 mg PO QWEEK montelukast 10 mg PO BEDTIME oxycodone-acetaminophen 5-325 mg (Percocet) 1 tab PO Q8H PRN sulfasalazine 1 g PO BID HPI Comments Details: Teresa is a 74-year-old female patient with a past medical history of anxiety, Graves disease, hypothyroid, osteoporosis, RA, bruxism, migraine, and obesity who I was following at [facility] for chronic left-sided headaches. She is here today to reestablish care with me at [facility]. Her headache history includes severe left-sided headaches often lasting a stretch of a couple of weeks with severe pain to the left temporal and parietal areas radiating sometimes into her face and preauricular areas. Her face and preauricular area often become tender to touch. She has historically denied any light sensitivity, dizziness, conjunctival reddening, lacrimation, rhinorrhea, nasal congestion, ptosis, or lid swelling. She does however have a profound history of bruxism. Because of her severe unilateral pain, there has always been some question of whether or not there is a component of TAC. She has however tried oxygen with only minimal improvement in her head pain. She has had some benefit in the past with left occipital nerve blocks and left auricular temporal nerve blocks. In November of 2024, she presented to the clinic at [facility] in severe pain at which time she received a left occipital and left auricular temporal nerve block, was started on Emgality, and was given a 5 day course of Depakote. This combination did improve her pain. Seemingly, after initiation of the Emgality, she has had some overall improvement. I did see her again in January of 2025 at which time she reported an overall improvement though she was starting to have some ?twitching? to the left side of her face which can often be a sign that a headache is coming. During that visit, I performed additional left occipital and left auricular temporal nerve blocks and sent for a trial of Ubrelvy. I also provided her with refills on Depakote (5 day courses 250 mg twice daily for rescue measures). Since that time, she tells me that later in January she developed her left-sided headache once again and at the same time developed left-sided hip pain. Her hip pain however was so severe that she ended up going to the emergency room and was admitted to the hospital for pain management and subsequent rehabilitation. Eventually in the hospital, they did provide her with course of Depakote and soon after a course of prednisone. She did finally have resolution of both her left-sided facial pain and left hip pain. It is at this point unclear whether or not the Depakote or prednisone was helpful in alleviating this acute attack. She has continued on the Emgality injections and did try the Ubrelvy during this most recent attack and she did not find it to be helpful. Today, she is not in any discomfort. She has not had any severe headache/head pains since late January when she was hospitalized. She does note that she had 1 further follow up with [facility]. The provider there did order an MRI of the brain with and without contrast. She has not had this yet. Her primary care also mentioned sending her to the [facility] for a 2nd opinion. [facility] Medical History (Updated 11/09/24 @ 00:00 by Background Alma) Mucinous carcinoma of breast On longterm 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 History of malignant neoplasm of endometrium Solitary lung nodule Left-sided headache Abnormal gait Fatigue Osteoporosis Osteoarthritis of knee Localized primary osteoarthritis Inflammatory polyarthropathy Rheumatoid arthritis GERD (gastroesophageal reflux disease) Allergic asthma without acute exacerbation or status asthmaticus Adjustment disorder with mixed emotional features Mild major depression, single episode Morbid obesity Hyperlipidemia Mixed hyperlipidemia Vitamin D deficiency Hyperparathyroidism Hypothyroidism Postablative hypothyroidism Candidal intertrigo Review of Systems Const All systems reviewed & are unremarkable except as noted in HPI and below Physical Exam Vital Signs: Last Vital Signs Pulse 76 03/16/25 11:19 Resp 16 03/16/25 11:19 BP 132/86 03/16/25 11:19 Pulse Ox 95 03/16/25 11:19 BMI result Body Mass Index 41.3 Const General: cooperative, healthy appearing, comfortable and no acute distress Nutritional Appearance: well nourished Orientation/consciousness: patient oriented x3 Limitations: no limitations HEENT Head: Yes normal to inspection and Yes normocephalic Eyes General: appearance normal, both eyes and all related structures Visual Loyola: normal visual loyola by confrontation Alignment and Position: alignment normal Periorbital: periorbital findings normal Eyelids: Yes eyelids normal Conjunctivae: conjunctivae normal Sclerae: sclerae normal Neuro General: patient oriented x3 and deep tendon reflexes 2+ bilaterally Cranial nerves: Yes CN's II-XII intact bilaterally and Yes Facial sensation intact/muscles of mastication intact Cognition (Neuro): normal cognition Gait exam (Neuro): Normal gait present Motor exam (neuro): 5/5 motor strength present throughout and no tremor noted Sensory Exam: double simultaneous stimulation for sensation normal Romberg Test: Negative Pupils: Normal pupillary reactivity/response: bilateral Psych Appearance: grossly normal Mental Status: mental status grossly normal Speech and movement: Normal speech and movement present and Clear speech present Affect: normal affect Attitude: cooperative Thought process: Normal thought process present Thought content: Normal thought content present Insight: Good insight present (Psych) Judgement: Good judgement present (Psych) Assessment & Plan Assessment & Plan (1) Left-sided headache: Code(s): R51.9 - Headache, unspecified Category: Medical Plan: . Plan Teresa is a 74-year-old female patient with a past medical history of anxiety, Graves disease, hypothyroid, osteoporosis, RA, bruxism, migraine, and obesity who I was following at [facility] for chronic left-sided headaches. She is here today to reestablish care with me at [facility]. Headaches are likely a combination of left occipital neuralgia with component of bruxism. We can not completely exclude possible TAC variant though she has not responded profoundly to oxygen in the past. I think would be reasonable for her to see a provider at the [facility] to get their opinion and to potentially optimize treatment. For now, we will continue her current treatment as outlined below. We will also switch the Ubrelvy to Nurtec as she did not have any profound benefit with the Ubrelvy. -switch Ubrelvy to Nurtec 75 mg as needed for abortive therapy -Depakote 250 mg twice daily for 5 days as needed for 2nd tier of rescue therapy -may consider further nerve blocks including left occipital and left auricular temporal nerve blocks -continue Emgality 120 mg subcutaneous monthly injection -follow-up in 2 months or sooner if needed -MRI of the brain with and without contrast pending from provider at [facility] -primary care has sent over referral to [facility] for 2nd opinion Medications: New divalproex Take 1 tablet twice daily by mouth for 5 days for migraine rescue therapy 250 mg PO BID PRN 14 tabs 3RF migraine headache rimegepant (Nurtec ODT) 75 mg PO DAILY PRN 8 tabs 5RF migraine headache 30 days Coding Level of Care Code New Pt Level 4 (59677) Diagnoses Left-sided headache R51.9
[2025-03-16 11:19] VITALS: BP 132/86; PULSE 76; RESP 16; O2SAT 95; BMI 41.3
--- OUTSIDE RECORDS SUMMARY | 2025-03-16 13:50 | XMS_ITS | Encounter Summary ---
Author Organization [facility] Address [address] [place] [address] Phone Care Team Providers Care Director Of Sports Performance Name Role Phone Imeldaerinkeenan Shahla Miles NP Primary Care Pro vider Self-Referred, Patient Unavailable Unavailab Mariluz Ivy MD Unavailable Soledad Mclean MD, MPH Unavailable Juan Manuel Mota MD Unavailable [phone] Encounter Details Date Type Department Care Team (Late st Contact Info) Description 09/06/2023 Procedure Pass [facility], [facility] [address] [place] [address] Social History Tobacco Use Types Packs/Day Years Used Date Smoking Tobacco: Never Smokeless Tobacco: Never Alcohol Use Standard Drinks/Week Comments No 0 (1 standard drink = 0.6 oz pur e alcohol) Education Answer Date Recorded Are you interested in more education? Not on greta e 10/22/2022 Are you concerned about learning? Not on file 10/22/2022 No 10/22/2022 No 10/22/2022 Digital Access Answer Date Recorded No 11/18/2022 No 11/18/2022 Reliable internet access at home? Not on file 11/18/2022 Device with a working camera? 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 Wish to be (Past 1 Month) No 024 3:50 PM EDT Magali Ya, KATHIE 2. Non-Specific Active Suici mihir Thoughts (Past 1 Month) No 09/06/2023 3:50 PM EDT Magali Ya , KATHIE 6. Suicidal Behavior (Lifetime) No 3:50 PM EDT Magali Ya, KATHIE documented as of this encounter Plan of Treatment Upcoming Encounters Date Type Department Care Team (Late st Contact Info) Description 09/18/2024 Procedure Pass [facility] [place], Mammography, Manjula Lank Imaging Department [address] [place] [address] 03/17/2025 1:00 AM EDT [facility] [address] [place] [address] Unscheduled, [facility] Clinical East [address] [place] [address] 03/18/2025 10:30 AM EDT [facility] [address] [place] [address] Louise Cuadra, PT [address] [place] [address] 03/24/2025 12:30 AM EDT Home [facility] Visit [facility] [address] [place] [address] Pily Miguel, KATHIE [address] [place] [address] 03/31/2025 10:30 AM EDT Office Visit [facility], [facility], [facility] [place] [facility] [place] [address] [address] [place] [address] Paz Naqvi, HEALTH SERVICES INFORMATION SPECIALIST [address] [place] [address] [email or web address] Soledad Mclean MD, MPH [address] [place] [address] Maria [email or web address] 04/01/2025 1:00 AM EDT Home Care Visit [facility] [address] [place] [phone] Pily Miguel RN [address] [place] [address] 04/07/2025 1:00 AM EDT Home Care Visit [facility] [address] [place] [address] Pily Miguel RN [address] [place] [address] 04/14/2025 1:00 AM EDT Home Care Visit [facility] [address] [place] [address] Pily Miguel RN [address] [place] [address] 04/21/2025 12:30 AM EDT Home [facility] Visit [facility] [address] [place] [address] Pily iMguel RN [address] [place] [address] 04/28/2025 1:00 AM EST Appointment [facility] [address] [place] [address] Pily Miguel RN [address] [place] [address] 05/07/2025 10:30 AM EST Office Visit [facility] [address] 3rd Floor, [address] [place] [address] Rober Matson DO 22 [facility] [address] [place] [address] [email or web address] 10/08/2025 10:30 AM EDT Appointment [facility] [place], Mammography, Manjula Lank Imaging Department [address] [place] [address] Fox Martinez MD [address] [place] [address] [email or web address] 10/08/2025 12:00 PM EDT Office Visit [facility], [facility], [facility] [place] [address] [facility], 9th [place] [address] Paz Prado PA-C [address] [place] [address] [email or web address] 11/08/2025 10:00 AM EDT Office Visit [facility] [address] [facility], [address] [place] [address] Raquel Henderson MD, PhD [address] [place] [address] [email or web address] documented as of this encounter Visit Diagnoses Not on filedocumented in this encounter Additional Health Concerns Infection Onset Date Last Indicated Resolved Time CoV-Risk Comment:Per note documentation 06/27/2024 06/27/2024 2:53 AM EST CDiff-Risk 06/28/2024 06/28/2024 06/28/2024 12:3 7 PM EST documented as of this encounter Care Teams Director Of Sports Performance Relationship Specialty Start Date End Date Shahla Madrigal NP [address] [place] [address] [email or web address] PCP - General Family Medicine 01/05/20 Self-Referred, Patient 10/30/23 04/02/24 Mariluz Be MD [email or web address] Obstetrics and Gynecology 10/30/23 Soledad Mclean MD, MPH [address] [place] [address] Maria [email or web address] Medical Oncology 01/14/24 Juan Manuel Mota MD [address] [place] [address] [email or web address] Endocrinology 04/03/24 documented as of this encounter Additional Source Comments The information contained in this document represents components of the legal health record. It is not the complete legal health record.[facility]
--- OUTSIDE RECORDS SUMMARY | 2025-03-16 13:50 | XMS_ITS | Encounter Summary ---
Author Organization [facility] Address [address] [place] [address] Phone Care Team Providers Care Senior Java Web Developer Name Role Phone Shahla Madrigal NP Primary Care Pro vider Mariluz Be MD Unavailable Soledad Mclean MD, MPH Unavailable [phone] Juan Manuel Mota MD Unavailable [phone] Encounter Details Date Type Department Care Team (Late st Contact Info) Description 11/09/2024 Procedure Pass [facility] [address] [place] [address] Social History Tobacco Use Types Packs/Day Years Used Date Smoking Tobacco: Never Smokeless Tobacco: Never Comments:None Alcohol Use Standard Drinks/Week Comments Never 0 (1 standard drink = 0.6 oz pur e alcohol) Home Health Assessment: Transportation Answer Date Recorded Lack of Transportation (Medical) No 08/05/2024 Lack of Transportation (Non-Medical) No 08/05/2024 Patient Unable or Declines to Respond No 08/05/2024 Child or Family Care Answer Date Record ed Do you have problems with on e of the following making it difficult for you to work, study, or receive health care? Family care (i.e. spouse, parents, other family) 11/08/2023 Education Answer Date Recorded Are you interested in more education? Not on greta e 10/22/2022 Are you concerned about learning? Not on file 10/22/2022 No 10/22/2022 No 10/22/2022 Food Answer Date Recorded Within the past 6 months we worried whether our food would run out before we got money to buy more. I choose not to answer 11/09/2024 Within the past 6 months the food we bought just didn't last and we didn't have enough money to get more. I choose not to answer 11/09/2024 Residential Stability Answer Date Recor ded What is your housing situation today? I choose n ot to answer 11/09/2024 How many times have you move d in the past 12 months? I choose not to answer 11/09/2024 Paying for Meds Answer Date Recorded Do you have trouble paying for medicines? I kevin se not to answer 11/09/2024 Paying Utility Bills Answer Date Record ed Do you have trouble paying y our heating or electricity bill? I choose not to answer 11/09/2024 Transportation Answer Date Recorded Has the lack of transportati on kept you from medical appointments or from getting medications? I choose not to answer 11/09/2024 Digital Access Answer Date Recorded No 11/09/2024 No 11/09/2024 Do you have reliable internet access at home? I choose not to answer 11/09/2024 Do you have a device (e.g., phone, tablet, computer) with a working camera? I choose not to answer 11/09/2024 Intimate Partner Violence Answer Date R ecorded Are you denied basic needs s uch as food, clothing, or medical care? No 11/09/2024 In the past 12 months have y ou been in a relationship with a person who hurts, threatens, or tries to control you? No 11/09/2024 Are you denied basic needs s uch as food, clothing, or medical care? No 11/09/2024 In the past 12 months have y ou been in a relationship with a person who hurts, threatens, or tries to control you? 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 Wish to be (Past 1 Month) No 11/09/2024 12:35 PM EDT Joi Carr RN 2. Non-Specific Active Suicidal Thoughts (Past 1 Month) No 11/09/2024 12:35 PM EDT Jio Carr RN 6. Suicidal Behavior (Lifetime) No 11/09/2024 12:35 PM EDT Joi Carr RN documented as of this encounter Plan of Treatment Upcoming Encounters Date Type Department Care Team (Late st Contact Info) Description 09/18/2024 Procedure Pass [facility] [place], Mammography, Manjula Lank Imaging Department [address] [place] [address] 03/17/2025 1:00 AM EDT [facility] [address] [place] [address] Unscheduled, [facility] Clinical East [address] [place] [address] 03/18/2025 10:30 AM EDT [facility] [address] [place] [address] Louise Cuadra, PT [address] [place] [address] 03/24/2025 12:30 AM EDT Home [facility] Visit [facility] [address] [place] [address] Pily Miguel RN [address] [place] [address] 03/31/2025 10:30 AM EDT Office Visit [facility], [facility], [facility] [place] [facility] [place] [address] [facility] [address]th [place] [address] Paz Naqvi, RESIDENTIAL RECYCLE DRIVER [address] [place] [address] [email or web address] Soledad Mclean MD, MPH [address] [place] [address] Maria [email or web address] 04/01/2025 1:00 AM EDT Home Care Visit [facility] [address] [place] [address] Pily Miguel RN [address] [place] [address] 04/07/2025 1:00 AM EDT Home Care Visit [facility] [address] [place] [address] Pily Miguel RN [address] [place] [address] 04/14/2025 1:00 AM EDT Home Care Visit [facility] [address] [place] [phone] Pily Miguel, KATHIE [address] [place] [address] 04/21/2025 12:30 AM EDT Home Care Visit [facility] [address] [place] [phone] Pily Miguel, RN [address] [place] [address] 04/28/2025 1:00 AM EST Appointment [facility] [address] [place] [phone] Pily Miguel RN [address] [place] [address] [email or web address] 05/07/2025 10:30 AM EST Office Visit [facility] [address] [facility] 3rd Floor, [address] [place] [address] Rober Matson DO [address] [facility] [address] [place] [address] [email or web address] 10/08/2025 10:30 AM EDT Appointment [facility] [place], Mammography, Manjula Lank Imaging Department [address] [place] [address] Fox Martinez MD [address] [place] [address] [email or web address] 10/08/2025 12:00 PM EDT Office Visit [facility], [facility], [facility] [address], 9th [place] [address] Paz Prado PA-C [address] [place] [address] [email or web address] 11/08/2025 10:00 AM EDT Office Visit [facility] Special[facility] [address] [facility], [address] [place] [address] Raquel Henderson MD, PhD [address] [place] [address] [email or web address] documented as of this encounter Visit Diagnoses Not on filedocumented in this encounter Care Teams Senior Java Web Developer Relationship Specialty Start Date End Date Shahla Madrigal NP [address] [place] [address] [email or web address] PCP - General Family Medicine 01/05/20 Mariluz Be MD [address] [place] [address] [email or web address] Obstetrics and Gynecology 10/30/23 Soledad Mclean MD, MPH [address] [place] [address] Maria [email or web address] Medical Oncology 01/14/24 Juan Manuel Mota MD [address] [place] [address] [email or web address] Endocrinology 04/03/24 documented as of this encounter Additional Source Comments The information contained in this document represents components of the legal health record. It is not the complete legal health record.[facility]
--- OUTSIDE RECORDS SUMMARY | 2025-03-16 13:50 | XMS_ITS | Encounter Summary ---
Author Organization [facility] Address [address] [facility] [address] [place] [address] Phone Care Team Providers Care Rail Doweling Machine Operator Name Role Phone Shahla Madrigal NP Primary Care Pro vider Mariluz Be MD Unavailable [phone] Soledad Mclean MD, MPH Unavailable [phone] Juan Manuel Mota MD Unavailable [phone] Encounter Details Date Type Department Care Team (Late st Contact Info) Description 02/13/2025 Procedure Pass [facility], Ct Scan [facility] [address] [place] [address] Social History Tobacco Use Types Packs/Day Years [...] as food, clothing, or medical care? No 02/13/2025 In the past 12 months have y ou been in a relationship with a person who hurts, threatens, or tries to control you? No 02/13/2025 Are you denied basic needs s uch as food, clothing, or medical care? No 02/13/2025 In the past 12 months have y ou been in a relationship with a person who hurts, threatens, or tries to control you? No 02/13/2025 Comments No Sex and Gender Information Value [...] Date of Assessment Author No Risk Indicated 02/13/2025 12:17 AM EDT Teresita Tang, KATHIE * [place] Suicide Severity Rating Scale (Screener/Recent Self-Report) Question Answer Date of Assessment Author 1. Wish to be (Past 1 Month) No 02/13/2025 12:17 AM EDT Parth Amador, KATHIE 2. Non-Specific Active Suici mihir Thoughts (Past 1 Month) No 02/13/2025 12:17 AM EDT William Amador, KATHIE 6. Suicidal Behavior (Lifetime) No 12:17 AM EDT Teresita Amador, KATHIE documented as of this encounter Plan of Treatment Upcoming Encounters Date Type Department Care Team (Late st Contact Info) Description 09/18/2024 Procedure Pass [facility] [place], Mammography, Manjula Lank Imaging Department [address] [place] [phone] 03/17/2025 1:00 AM EDT Home [facility] [address] [place], [place] [phone] Unscheduled, [facility] Clinical East [address] [place] [address] 03/18/2025 10:30 AM EDT Home [facility] Visit [facility] [address] [place], [place] [phone] Louise Cuadra, PT [address] [place] [address] 03/24/2025 12:30 AM EDT Home [facility] Visit [facility] [address] [place], [place] [phone] Pily Miguel RN [address] [place] [address] 03/31/2025 10:30 AM EDT Office Visit [facility], [facility], [facility] [place] [facility] [place] [address] [address] Paz Naqvi, MENTAL HYGIENIST 450 [place] [address] [email or web address] Soledad Mclean MD, MPH 450 [place] [address] Maria [email or web address] 04/01/2025 1:00 AM EDT Home [facility] [address] [place] [address] Pily Miguel RN [address] [place] [address] 04/07/2025 1:00 AM EDT Home [facility] [address] [place] [address] Pily Miguel RN [address] [place] [address] 04/14/2025 1:00 AM EDT Home [facility] [address] [place] [address] Pily Miguel, KATHIE [address] [place] [address] 04/21/2025 12:30 AM EDT Home [facility] Visit [facility] [address] [place] [phone] Pily Miguel RN [address] [place] [address] [email or web address] 04/28/2025 1:00 AM EST Appointment [facility] [address] [place] [phone] Pily Miguel RN 30 [place] [address] [email or web address] 05/07/2025 10:30 AM EST Office Visit [facility] [address] [place] [address] 3rd Floor, [address] [place] [address] Rober Matson DO [address] [facility] [address] [place] [address] [email or web address] 10/08/2025 10:30 AM EDT Appointment [facility] [place], Mammography, Manjula Lank Imaging Department [address] [place] [address] Fox Martinez MD [address] [place] [address] [email or web address] 10/08/2025 12:00 PM EDT Office Visit [facility], [facility], [facility] [address], 9th [place] [address] Paz Prado PA-C [address] [place] [address] [email or web address] 11/08/2025 10:00 AM EDT Office [facility] Specialties [address] [facility], [address] [place] [address] Raquel Henderson MD, PhD [address] [place] [address] [email or web address] documented as of this encounter Visit Diagnoses Not on filedocumented in this encounter Care Teams Rail Doweling Machine Operator Relationship Specialty Start Date End Date Kaitlin Shahla KERRY Miles [address] [place] [address] [email or web address] PCP - General Family Medicine 01/05/20 Mariluz Be MD [address] [place] [address] [email or web address] Obstetrics and Gynecology 10/30/23 Soledad Mclean MD, MPH [address] [place] [address] Maria [email or web address] Medical Oncology 01/14/24 Juan Manuel Mota MD [address] [place] [address] [email or web address] Endocrinology 04/03/24 documented as of this encounter Additional Source Comments The information contained in this document represents components of the legal health record. It is not the complete legal health record.[facility]
--- OUTSIDE RECORDS SUMMARY | 2025-03-16 13:50 | XMS_ITS | Encounter Summary ---
Author Organization [facility] Address [address] [facility] [address] [place] [address] Phone Care Team Providers Care Patient Sitter Name Role Phone Imeldamandiryan Shahla Miles PAD ASSEMBLER Primary Care Pro vider Self-Referred, Patient Unavailable Unavailab Mariluz Ivy MD Unavailable [phone] Soledad Mclean MD, MPH Unavailable [phone] Juan Manuel Mota MD Unavailable [phone] Encounter Details Date Type Department Care Team (Late st Contact Info) Description 07/03/2023 Transcribe Orders [facility] 30 [place] [address] Tono Lamb MD [address] [place] [address] [id number] [email or web address] Social History Tobacco Use Types Packs/Day Years [...] on file documented as of this encounter Plan of Treatment Upcoming Encounters Date Type Department Care Team (Late st Contact Info) Description 09/18/2024 Procedure Pass [facility] [place], Mammography, Manjula Lank Imaging Department [address] [place] [address] 03/17/2025 1:00 AM EDT [facility] 30 [place] [address] Unscheduled, [facility] Clinical East [address] [place] [address] 03/18/2025 10:30 AM EDT Home [facility] Visit [facility] 30 [place] [address] Louise Cuadra, PT 168 [place] [address] 03/24/2025 12:30 AM EDT Home Care Visit [facility] 30 [place] [address] Pily Miguel, RN 30 [place] [address] 03/31/2025 10:30 AM EDT Office Visit [facility], [facility], [facility] [place] [facility] [place] 300 [facility] 4th [place] [address] Paz Naqvi, LUMBER RACKER [address] [place] [address] [email or web address] Soledad Mclean MD, MPH 450 [place] [address] Maria [email or web address] 04/01/2025 1:00 AM EDT Home Care Visit [facility] [address] [place] [phone] Pily Miguel RN [address] [place] [address] 04/07/2025 1:00 AM EDT Home [facility] Visit [facility] [address] [place] [phone] Pily Miguel RN [address] [place] [address] 04/14/2025 1:00 AM EDT Home Care Visit [facility] [address] [place] [phone] Pily Miguel RN [address] [place] [address] 04/21/2025 12:30 AM EDT Home Care Visit [facility] [address] [place] [phone] Pily Miguel RN [address] [place] [address] 04/28/2025 1:00 AM EST Appointment [facility] [address] [place] [phone] Pily Miguel, KATHIE [address] [place] [address] 05/07/2025 10:30 AM EST Office Visit [facility] 22 [facility] 3rd Floor, [address] [place] [address] Rober Matson DO [address] [place] [address] [address] [place] [address] [email or web address] 10/08/2025 10:30 AM EDT Appointment [facility] [place], Mammography, Manjula Lank Imaging Department 450 [place] [address] Fox Martinez MD 450 [place] [address] maria [email or web address] 10/08/2025 12:00 PM EDT Office Visit [facility], [facility] [place] [facility], [facility] 450 [facility], 9th [place] [address] Paz Prado PA-C 450 [place] [address] [email or web address] 11/08/2025 10:00 AM EDT Office [facility] Medical [facility] Specialties [address] [facility], [address] [place] [address] Raquel Henderson MD, PhD 55 [place] [address] [email or web address] documented as of this encounter Visit Diagnoses Not on filedocumented in this encounter Additional Health Concerns Infection Onset Date Last Indicated Resolved Time CoV-Risk Comment:Per note documentation 06/27/2024 06/27/2024 2:53 AM EST CDiff-Risk 06/28/2024 06/28/2024 06/28/2024 12:3 7 PM EST documented as of this encounter Care Teams Patient Sitter Relationship Specialty Start Date End Date Kaitlin Shahla RayKERRY hernandez [address] [place] [address] [email or web address] PCP - General Family Medicine 01/05/20 Self-Referred, Patient 10/30/23 04/02/24 Mariluz Be MD [email or web address] Obstetrics and Gynecology 10/30/23 Soledad Mclean MD, MPH [address] [place] [address] Maria [email or web address] Medical Oncology 01/14/24 Juan Manuel Mota MD [address] [place] [address] [email or web address] Endocrinology 04/03/24 documented as of this encounter Additional Source Comments The information contained in this document represents components of the legal health record. It is not the complete legal health record.[facility]"
--- OUTSIDE RECORDS SUMMARY | 2025-03-16 13:50 | XMS_ITS | Encounter Summary ---
Author Organization [facility] Address [address] [facility] [address] [place] [address] Phone Care Team Providers Care Bar Back Name Role Phone Shahla Madrigal NP Primary Care Pro vider Self-Referred, Patient Unavailable Unavailab Mariluz Ivy MD Unavailable [phone] Soledad Mclean MD, MPH Unavailable [phone] Juan Manuel Mota MD Unavailable [phone] Encounter Details Date Type Department Care Team (Late st Contact Info) Description 03/09/2022 Procedure Pass [facility] Endoscopy Admitting Dept Virtual Department 30 [place] [address] Social History Tobacco Use Types Packs/Day Years Used Date Smoking Tobacco: Never Smokeless Tobacco: Never Alcohol Use Standard Drinks/Week Comments No 0 (1 standard drink = 0.6 oz pur e alcohol) Comments Unknown Sex and Gender Information Value [...] st Contact Info) Description 09/18/2024 Procedure Pass [facility] [place], Mammography, Manjula Lank Imaging Department [address] [place] [address] 03/17/2025 1:00 AM EDT [facility] [address] [place] [phone] Unscheduled, [facility] Clinical East 168 [place] [address] 03/18/2025 10:30 AM EDT Home Care Visit [facility] [address] [place] [phone] Louise Cuadra, PT 168 [place] [address] 03/24/2025 12:30 AM EDT Home [facility] [address] [place] [phone] Pily Miguel, KATHIE 30 [place] [address] 03/31/2025 10:30 AM EDT Office Visit [facility], [facility] [place] [facility], [facility] [place] [facility] [place] [address] [address] Paz Naqvi, BUSINESS CONTINUITY GLOBAL DIRECTOR 450 [place] [address] [email or web address] Soledad Mclean MD, MPH 450 [place] [address] [email or web address] 04/01/2025 1:00 AM EDT Home [facility] Visit [facility] [address] [place] [phone] Pily Miguel RN [address] [place] [address] 04/07/2025 1:00 AM EDT Home Care Visit [facility] [address] [place] [phone] Pily Miguel RN [address] [place] [address] 04/14/2025 1:00 AM EDT Home Care Visit [facility] [address] [place] [phone] Pily Miguel RN [address] [place] [address] 04/21/2025 12:30 AM EDT Home Care Visit [facility] [address] [place] [address] Pily Miguel RN [address] [place] [address] 04/28/2025 1:00 AM EST Appointment [facility] [address] [place] [phone] Pily Miguel RN [address] [place] [address] 05/07/2025 10:30 AM EST Office Visit [facility] [address] [place] [address] 3rd Floor, [address] [place] [address] Rober Matson DO [address] [facility] [address] [place] [address] 10/08/2025 10:30 AM EDT Appointment [facility] [place], Mammography, Manjula Lank Imaging Department 450 [place] [address] Fox Martinez MD 450 [place] [address] maria [email or web address] 10/08/2025 12:00 PM EDT Office Visit [facility], [facility] [place] [facility], [facility] [place] 450 [facility], 9th [place] [address] Paz Prado PA-C 450 [place] [address] [email or web address] 11/08/2025 10:00 AM EDT Office Visit [facility] Specialties 52 [facility], [address] [place] [address] Raquel Henderson MD, PhD [address] [place] [address] [email or web address] documented as of this encounter Visit Diagnoses Not on filedocumented in this encounter Additional Health Concerns Infection Onset Date Last Indicated Resolved Time CoV-Risk 01/17/2023 01/17/2023 01/28/2023 1:21 AM EDT CoV-Exposed Comment:Recent close contact documented in the COVID-19 PCR/PRO order 01/17/2023 01/17/2023 01/28/2023 1:21 AM E DT CoV-Risk Comment:Per note documentation 06/27/2024 06/27/2024 2:53 AM EST CDiff-Risk 06/28/2024 06/28/2024 06/28/2024 12:3 7 PM EST documented as of this encounter Care Teams Bar Back Relationship Specialty Start Date End Date Shahla Madrigal NP [address] [place] [address] [email or web address] PCP - General Family Medicine 01/05/20 Self-Referred, Patient 10/30/23 04/02/24 Mariluz Be MD [email or web address] Obstetrics and Gynecology 10/30/23 Soledad Mclean MD, MPH [address] [place] [address] Maria [email or web address] Medical Oncology 01/14/24 Juan Manuel Mota MD [address] [place] [address] [email or web address] Endocrinology 04/03/24 documented as of this encounter Additional Source Comments The information contained in this document represents components of the legal health record. It is not the complete legal health record.[facility]
--- OUTSIDE RECORDS SUMMARY | 2025-03-16 13:50 | XMS_ITS | Encounter Summary ---
Author Organization [facility] Address [address] [facility] [address] [place] [address] Phone Care Team Providers Care Fast Food Team Member Name Role Phone Kaitlin Shahla Miles NP Primary Care Pro vider Self-Referred, Patient Unavailable Unavailab Mariluz Ivy MD Unavailable [phone] Soledad Mclean MD, MPH Unavailable Juan Manuel Mota MD Unavailable [phone] Encounter Details Date Type Department Care Team (Late st Contact Info) Description 03/06/2023 Procedure Pass [facility], Ct Scan - [facility] [address] [place] [address] Social History Tobacco Use Types Packs/Day Years [...] 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 on file Not on file Not on file documented as of this encounter Plan of Treatment Upcoming Encounters Date Type Department Care Team (Late st Contact Info) Description 09/18/2024 Procedure Pass [facility] [place], Mammography, Manjula Lank Imaging Department 450 [place] [address] 03/17/2025 1:00 AM EDT Home [facility] Visit [facility] [address] [place] [phone] Unscheduled, [facility] East 168 [place] [address] 03/18/2025 10:30 AM EDT Home [facility] Visit [facility] 30 [place] [address] Louise Cuadra, PT 168 [place] [address] 03/24/2025 12:30 AM EDT Home Care Visit [facility] 30 [place] [address] Pily Miguel, RN 30 [place] [address] 03/31/2025 10:30 AM EDT Office Visit [facility], [facility], [facility] [place] [facility] [place] 300 [facility] 4th [place] [address] Paz Naqvi, STORE GROCERY MERCHANDISER [address] [place] [address] [email or web address] Soledad Mclean MD, MPH [address] [place] [address] Maria [email or web address] 04/01/2025 1:00 AM EDT Home Care Visit [facility] [address] [place] [address] Pily Miguel RN [address] [place] [address] 04/07/2025 1:00 AM EDT Home Care Visit [facility] [address] [place] [address] Pily Miguel RN [address] [place] [phone] 04/14/2025 1:00 AM EDT Home Care Visit [facility] [address] [place] [phone] Pily Miguel RN [address] [place] [address] 04/21/2025 12:30 AM EDT Home Care Visit [facility] [address] [place] [address] Pily Miguel, RN [address] [place] [address] 04/28/2025 1:00 AM EST Appointment [facility] [address] [place] [phone] Pily Miguel, RN [address] [place] [address] 05/07/2025 10:30 AM EST Office Visit [facility] [address] [place] [address] 3rd Floor, [address] [place], [place] [address] Rober Matson DO [address] [facility] [address] [place] [address] [email or web address] 10/08/2025 10:30 AM EDT Appointment [facility] [place], Mammography, Manjula Lank Imaging Department [address] [place] [address] Fox Martinez MD [address] [place] [address] maria [email or web address] 10/08/2025 12:00 PM EDT Office Visit [facility], [facility], [facility] [place] [address] [place] [address], 9th [place] [address] Paz Prado PA-C [address] [place] [address] [email or web address] 11/08/2025 10:00 AM EDT Office Visit [facility] Specialties 52 [facility], [address] [place] [address] Raquel Henderson MD, PhD 55 [place] [address] [email or web address] documented as of this encounter Visit Diagnoses Not on filedocumented in this encounter Additional Health Concerns Infection Onset Date Last Indicated Resolved Time CoV-Risk Comment:Per note documentation 06/27/2024 06/27/2024 2:53 AM EST CDiff-Risk 06/28/2024 06/28/2024 06/28/2024 12:3 7 PM EST documented as of this encounter Care Teams Fast Food Team Member Relationship Specialty Start Date End Date Shahla Madrigal NP [address] [place] [address] [place] [address] [email or web address] PCP - General Family Medicine 01/05/20 Self-Referred, Patient 10/30/23 04/02/24 Mariluz Be MD [email or web address] Obstetrics and Gynecology 10/30/23 Soledad Mclean MD, MPH [address] [place] [address] Maria [email or web address] Medical Oncology 01/14/24 Juan Manuel Mota MD [address] [place] [address] [email or web address] Endocrinology 04/03/24 documented as of this encounter Additional Source Comments The information contained in this document represents components of the legal health record. It is not the complete legal health record.[facility]
--- OUTSIDE RECORDS SUMMARY | 2025-03-16 13:50 | XMS_ITS | Encounter Summary ---
Author Organization [facility] Address [address] [facility] [address] [place] [address] Phone Care Team Providers Care Condenser Operator Name Role Phone Imeldaerinkeenan Shahla Miles NP Primary Care Pro vider Self-Referred, Patient Unavailable Unavailab Mariluz Ivy MD Unavailable [phone] Soledad Mclean MD, MPH Unavailable Juan Manuel Mota MD Unavailable [phone] Encounter Details Date Type Department Care Team (Late st Contact Info) Description 09/06/2023 Procedure Pass [facility], Ct Scan - [facility] 30 [place] [address] Social History Tobacco Use Types Packs/Day Years [...] 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 Not on file Not on file documented as of this encounter Functional Status * Calculated C-SSRS Risk Score (Lifetime/Recent) Answer Date of Assessment Author No Risk Indicated 09/06/2023 3:50 PM EDT Magali Ya RN * [place] Suicide Severity Rating Scale (Screener/Recent Self-Report) Question [...] st Contact Info) Description 09/18/2024 Procedure Pass [facility] [place], Mammography, Manjula Lank Imaging Department [address] [place] [address] 03/17/2025 1:00 AM EDT [facility] 30 [place] [address] Unscheduled, [facility] Clinical East 168 [place] [address] 03/18/2025 10:30 AM EDT Home Care Visit [facility] 30 [place] [address] Louise Cuadra, PT 168 [place] [address] 03/24/2025 12:30 AM EDT Home Care Visit [facility] 30 [place] [address] Pily Miguel, KATHIE [address] [place] [address] 03/31/2025 10:30 AM EDT Office Visit [facility], [facility] [place] [facility], [facility] [place] [facility] [place] 300 [facility] 4th [place] [address] Paz Naqvi, PACKAGING MACHINE SUPPLIES DISTRIBUTOR 450 [place] [address] [email or web address] Soledad Mclean MD, MPH 450 [place] [address] [email or web address] 04/01/2025 1:00 AM EDT Home Care Visit [facility] [address] [place] [phone] Pily Miguel RN [address] [place] [address] 04/07/2025 1:00 AM EDT Home Care Visit [facility] 30 [place] [address] Pily Miguel RN [address] [place] [address] 04/14/2025 1:00 AM EDT Home Care Visit [facility] 30 [place] [address] Pily Miguel RN [address] [place] [address] 04/21/2025 12:30 AM EDT Home Care Visit [facility] 30 [place] [address] Pily Miguel RN 30 [place] [address] 04/28/2025 1:00 AM EST Appointment [facility] 30 [place] [address] Pily Miguel RN 30 [place] [address] 05/07/2025 10:30 AM EST Office Visit [facility] 22 [facility] 3rd Floor, [address] [place] [address] Rober Matson DO 22 [facility] [address] [place] [address] [email or web address] 10/08/2025 10:30 AM EDT Appointment [facility] [place], Mammography, Manjula Lank Imaging Department [address] [place] [address] Fox Martinez MD [address] [place] [address] maria [email or web address] 10/08/2025 12:00 PM EDT Office Visit [facility], [facility], [facility] [place] [address] [facility], 9th [place] [address] Paz Prado PA-C 450 [place] [address] [email or web address] 11/08/2025 10:00 AM EDT Office Visit [facility] [place] [facility] Specialties [address] [facility], [address] [place] [address] Raquel Henderson MD, PhD 55 [place] [address] [email or web address] documented as of this encounter Visit Diagnoses Not on filedocumented in this encounter Additional Health Concerns Infection Onset Date Last Indicated Resolved Time CoV-Risk Comment:Per note documentation 06/27/2024 06/27/2024 2:53 AM EST CDiff-Risk 06/28/2024 06/28/2024 06/28/2024 12:3 7 PM EST documented as of this encounter Care Teams Condenser Operator Relationship Specialty Start Date End Date Shahla Madrigal NP [address] [place] [address] [email or web address] PCP - General Family Medicine 01/05/20 Self-Referred, Patient 10/30/23 04/02/24 Mariluz Be MD [email or web address] Obstetrics and Gynecology 10/30/23 Soledad Mclean MD, MPH [address] [place] [address] Maria [email or web address] Medical Oncology 01/14/24 Juan Manuel Mota MD [address] [place] [address] [email or web address] Endocrinology 04/03/24 documented as of this encounter Additional Source Comments The information contained in this document represents components of the legal health record. It is not the complete legal health record.[facility]
--- OUTSIDE RECORDS SUMMARY | 2025-03-16 13:50 | XMS_ITS | Encounter Summary ---
Author Organization [facility] Address [address] [place] [address] Phone Care Team Providers Care Shipping And Receiving Clerk Name Role Phone Jocelyn Chacon LAST SORTER Primary Care Provider Shahla Madrigal LAST SORTER Primary Care Pro vider Self-Referred, Patient Unavailable Unavailab Mariluz Ivy MD Unavailable [phone] Soledad Mclean MD, MPH Unavailable [phone] Juan Manuel Mota MD Unavailable Encounter Details Date Type Department Care Team (Late st Contact Info) Description 12/09/2017 Procedure Pass [facility], Ct Scan [facility] [address] [place] [address] Social History Tobacco Use Types Packs/Day Years Used Date Smoking Tobacco: Never Smokeless Tobacco: Never Comments Unknown Sex and Gender Information Value Date Recorded Sex Assigned at Female 09/24/2018 7:50 PM EDT Legal Sex Female 6:36 PM EST Gender Identity Female 09/24/2018 7:50 PM EDT Sexual Orientation Lesbian or Obrien 12/09/2020 3: 05 PM EDT documented as of this encounter Plan of Treatment Upcoming Encounters Date Type Department Care Team (Late st Contact Info) Description 09/18/2024 Procedure Pass [facility] [place], Mammography, Manjula Lank Imaging Department [address] [place] [address] 03/17/2025 1:00 AM EDT Home [facility] Visit [facility] 30 [place] [address] Unscheduled, [facility] Clinical East 168 [place] [address] 03/18/2025 10:30 AM EDT Home Care Visit [facility] [address] [place] [phone] Louise Cuadra, PT 168 [place] [address] 03/24/2025 12:30 AM EDT Home Care Visit [facility] [address] [place] [address] Pily Miguel, RN 30 [place] [address] 03/31/2025 10:30 AM EDT Office Visit [facility], [facility] [place], [facility] [place] [facility] [place] 300 [facility] 4th [place] [address] Paz Naqvi, SOLE TACKER [address] [place] [address] [email or web address] Soledad Mclean MD, MPH 450 [place] [address] Maria [email or web address] 04/01/2025 1:00 AM EDT Home Care Visit [facility] [address] [place] [phone] Pily Miguel RN [address] [place] [address] 04/07/2025 1:00 AM EDT Home Care Visit [facility] [address] [place] [phone] Pily Miguel RN [address] [place] [address] 04/14/2025 1:00 AM EDT Home Care Visit [facility] [address] [place] [phone] Pily Miguel RN [address] [place] [address] 04/21/2025 12:30 AM EDT Home Care Visit [facility] [address] [place] [phone] Pily Miguel RN [address] [place] [address] 04/28/2025 1:00 AM EST Appointment [facility] [address] [place] [phone] Pily Miguel, KATHIE [address] [place] [address] 05/07/2025 10:30 AM EST Office Visit [facility] [address] [place] [address] 3rd Floor, [address] [place] [address] Rober Matson DO [address] [place] [address] 10/08/2025 10:30 AM EDT Appointment [facility] [place], Mammography, Manjula Lank Imaging Department [address] [place] [address] Fox Martinez MD 450 [place] [address] [email or web address] [email or web address] 10/08/2025 12:00 PM EDT Office Visit [facility], [facility], [facility] [place] [address] [facility], 9th [place] [address] Paz Prado PA-C 450 [place] [address] [email or web address] 11/08/2025 10:00 AM EDT Office Visit [facility] Specialties [address] [facility], [address] [place] [address] Raquel Henderson MD, PhD 55 [place] [address] [email or web address] documented as of this encounter Visit Diagnoses Not on filedocumented in this encounter Additional Health Concerns Infection Onset Date Last Indicated Resolved Time Clearance-CoV Comment:Auto-resolved with negative COVID-19 PCR 10/23/2019 10/23/2019 10/23/2019 3:50 PM E DT CoV-Risk 01/17/2023 01/17/2023 01/28/2023 1:21 AM EDT CoV-Exposed Comment:Recent close contact documented in the COVID-19 PCR/PRO order 01/17/2023 01/17/2023 01/28/2023 1:21 AM E DT CoV-Risk Comment:Per note documentation 06/27/2024 06/27/2024 2:53 AM EST CDiff-Risk 06/28/2024 06/28/2024 06/28/2024 12:3 7 PM EST documented as of this encounter Care Teams Shipping And Receiving Clerk Relationship Specialty Start Date End Date Jocelyn Chacon NP [address] [place] [address] [place] [address] PCP - General 04/11/17 01/04/20 UtzShahla hussein NP [address] [place] [address] [email or web address] PCP - General [facility] Medicine 01/05/20 Self-Referred, Patient 10/30/23 04/02/24 Mariluz Be MD [email or web address] Obstetrics and Gynecology 10/30/23 Soledad Mclean MD, MPH [address] [place] [address] Maria [email or web address] Medical Oncology 01/14/24 Juan Manuel Mota MD [address] [place] [address] [email or web address] Endocrinology 04/03/24 documented as of this encounter Additional Source Comments The information contained in this document represents components of the legal health record. It is not the complete legal health record.[facility]
--- OUTSIDE RECORDS SUMMARY | 2025-03-16 13:50 | XMS_ITS | Encounter Summary ---
Author Organization [facility] Address [address] [facility] [address] [place] [address] Phone Care Team Providers Care Hardboard Coating Machine Operator Name Role Phone Jocelyn Chacon STOCKROOM CLERK Primary Care Provider Amaury Mcduffie MD Unavailable [phone] Shahla Madrigal STOCKROOM CLERK Primary Care Pro vider Self-Referred, Patient Unavailable Unavailab Mariluz Ivy MD Unavailable [phone] Soledad Mclean MD, MPH Unavailable [phone] Juan Manuel Mota MD Unavailable [phone] Encounter Details Date Type Department Care Team (Late st Contact Info) Description 08/07/2017 Transcribe Orders [facility] 30 [place] [address] Tono Lamb MD [address] [place] [id number] [email or web address] Social History Tobacco Use Types Packs/Day Years Used Date Smoking Tobacco: Never Smokeless Tobacco: Never Comments Unknown Sex and Gender Information Value Date Recorded Sex Assigned at Female 09/24/2018 7:50 PM EDT Legal Sex Female 6:36 PM EST Gender Identity Female 09/24/2018 7:50 PM EDT Sexual Orientation Lesbian or Obrien 12/09/2020 3 :05 PM EDT documented as of this encounter Plan of Treatment Upcoming Encounters Date Type Department Care Team (Late st Contact Info) Description 09/18/2024 Procedure Pass [facility] [place], Mammography, Manjula Lank Imaging Department [address] [place] [address] 03/17/2025 1:00 AM EDT Home [facility] Visit [facility] 30 [place] [address] Unscheduled, [facility] Clinical East 168 [place] [address] 03/18/2025 10:30 AM EDT Home Care Visit [facility] [address] [place], [place] [phone] Louise Cuadra, PT 168 [place] [address] 03/24/2025 12:30 AM EDT Home [facility] Visit [facility] 30 [place] [address] Pily Miguel, RN 30 [place] [address] 03/31/2025 10:30 AM EDT Office Visit [facility], [facility], [facility] [place] [facility] [place] 300 [facility] 4th [place] [address] Paz Naqvi, NEAR EAST ARCHEOLOGY PROFESSOR 450 [place] [address] [email or web address] Soledad Mclean MD, MPH 450 [place] [address] Maria [email or web address] 04/01/2025 1:00 AM EDT Home [facility] [address] [place] [phone] Pily Miguel, KATHIE [address] [place] [address] 04/07/2025 1:00 AM EDT Home Care Visit [facility] [address] [place] [phone] Pily Miguel RN [address] [place] [address] 04/14/2025 1:00 AM EDT Home Care Visit [facility] [address] [place] [phone] Pily Miguel RN [address] [place] [address] 04/21/2025 12:30 AM EDT Home Care Visit [facility] [address] [place] [phone] Pily Miguel, KATHIE [address] [place] [address] 04/28/2025 1:00 AM EST Appointment [facility] [address] [place] [phone] Pily Miguel, KATHIE [address] [place] [address] 05/07/2025 10:30 AM EST Office Visit [facility] [address] [place] [address] 3rd Floor, [address] [place] [address] Rober Matson DO [address] [facility] [address] [place] [address] 10/08/2025 10:30 AM EDT Appointment [facility] [place], Mammography, Manjula Lank Imaging Department 450 [place] [address] Fox Martinez MD 450 [place] [address] maria [email or web address] 10/08/2025 12:00 PM EDT Office Visit [facility], [facility] [place] [facility], [facility] [place] 450 [facility], 9th [place] [address] Paz Prado PA-C 450 [place] [address] [email or web address] 11/08/2025 10:00 AM EDT Office Visit [facility] Specialties [address] [facility], [address] [place] [address] Raquel Henderson MD, PhD 55 [place] [address] [email or web address] documented as of this encounter Visit Diagnoses [...] documented as of this encounter Care Teams Hardboard Coating Machine Operator Relationship Specialty Start Date End Date Jocelyn Chacon, STOCKROOM CLERK [address] [place] [address] [place] [address] PCP - General 04/11/17 01/04/20 Shahla Madrigal NP [address] [place] [address] [email or web address] PCP - General [facility] Medicine 01/05/20 Amaury Mcduffie MD [address] [place] [address] [place] [address] [email or web address] Rheumatology 09/20/17 09/20/17 Self-Referred, Patient 10/30/23 04/02/24 Mariluz Be MD [email or web address] Obstetrics and Gynecology 10/30/23 Soledad Mclean MD, MPH [address] [place] [address] Maria [email or web address] Medical Oncology 01/14/24 Juan Manuel Mota MD [address] [place] [address] [email or web address] Endocrinology 04/03/24 documented as of this encounter Additional Source Comments The information contained in this document represents components of the legal health record. It is not the complete legal health record.[facility]
--- OUTSIDE RECORDS SUMMARY | 2025-03-16 13:50 | XMS_ITS | Encounter Summary ---
Author Organization [facility] Address [address] [facility] [address] [place] [address] Phone Care Team Providers Care Commercial Intelligence Manager Name Role Phone Shahla Madrigal DIRECTOR REACTOR PROJECTS Primary Care Pro vider Mariluz Be MD Unavailable [phone] Soledad Mclean MD, MPH Unavailable [phone] Juan Manuel Mota MD Unavailable [phone] Reason for Visit * Auth/Cert (Routine) Specialty Diagnoses / Procedures Referred By Contac t Referred To Contact Referral ID Status Reason Start Date Expiration Date Visits Re quested Visits Authorized [id number] 1 1 Encounter Details Date Type Department Care Team (Late st Contact Info) Description 03/16/2025 Home Care Visit [facility] 30 [place] [address] Louise Cuadra, PT 168 [place] [address] [email or web address] TELEPHONE ENCOUNTER Social History Tobacco Use Types Packs/Day Years Used Date Smoking Tobacco: Never Smokeless Tobacco: Never Comments:None Alcohol Use Standard Drinks/Week Comments Never 0 (1 standard drink = 0.6 oz pur e alcohol) Home Health Assessment: Transportation Answer Date Recorded Lack of Transportation (Medical) No 03/03/2025 Lack of Transportation (Non-Medical) No 03/03/2025 Patient Unable or Declines to Respond No 03/03/2025 Child or Family Care Answer Date Record [...] st Contact Info) Description 09/18/2024 Procedure Pass [facility] [place], Mammography, Manjula Lank Imaging Department [address] [place] [address] 03/17/2025 1:00 AM EDT Home [facility] Visit [facility] 30 [place] [address] Unscheduled, [facility] Clinical East 168 [place] [address] 03/18/2025 10:30 AM EDT Home Care Visit [facility] 30 [place] [phone] Louise Cuadra, PT 168 [place] [address] 03/24/2025 12:30 AM EDT Home Care Visit [facility] 30 [place] [address] Pily Miguel, RN 30 [place] [address] 03/31/2025 10:30 AM EDT Office Visit [facility], [facility], [facility] [place] [facility] [place] [address] 4th [place] [address] Paz Naqvi, AIR TUCKER 450 [place] [address] [email or web address] Soledad Mclean MD, MPH 450 [place] [address] Maria [email or web address] 04/01/2025 1:00 AM EDT Home Care Visit [facility] [address] [place] [address] Pily Miguel RN [address] [place] [address] 04/07/2025 1:00 AM EDT Home Care Visit [facility] [address] [place] [address] Pily Miguel RN [address] [place] [address] 04/14/2025 1:00 AM EDT Home Care Visit [facility] [address] [place] [address] Pily Miguel RN [address] [place] [address] 04/21/2025 12:30 AM EDT Home Care Visit [facility] [address] [place] [address] Pily Miguel, KATHIE [address] [place] [address] 04/28/2025 1:00 AM EST Appointment [facility] [address] [place] [address] Pily Miguel, RN [address] [place] [address] [email or web address] 05/07/2025 10:30 AM EST Office Visit [facility] [address] [facility] 3rd Floor, [address] [place] [address] Rober Matson DO [address] [facility] [address] [place] [address] [email or web address] 10/08/2025 10:30 AM EDT Appointment [facility] Cancer [place], Mammography, Manjula Lank Imaging Department 450 [place] [address] Fox Martinez MD 450 [place] [address] maria [email or web address] 10/08/2025 12:00 PM EDT Office Visit [facility], [facility] [place] [facility], [facility] [place] 450 [facility], 9th [place] [address] Paz Prado PA-C 450 [place] [address] [email or web address] 11/08/2025 10:00 AM EDT Office Visit [facility] Specialties [address] [facility], [address] [place] [address] Raquel Henderson MD, PhD 55 [place] [address] [email or web address] documented as of this encounter Visit Diagnoses Not on filedocumented in this encounter Care Teams Commercial Intelligence Manager Relationship Specialty Start Date End Date Shahla Madrigal NP [address] [place] [address] [email or web address] PCP - General Family Medicine 01/05/20 Mariluz Be MD [address] [place] [address] [email or web address] Obstetrics and Gynecology 10/30/23 Soledad Mclean MD, MPH [address] [place] [address] Maria [email or web address] du Medical Oncology 01/14/24 Juan Manuel Mota MD [address] [place] [address] [email or web address] Endocrinology 04/03/24 documented as of this encounter Additional Source Comments The information contained in this document represents components of the legal health record. It is not the complete legal health record.[facility]
--- OUTSIDE RECORDS SUMMARY | 2025-03-16 13:50 | XMS_ITS | Encounter Summary ---
Author Organization [facility] Address [address] [facility] [address] [place] [address] Phone Care Team Providers Care Vp Human Resources Name Role Phone Jocelyn Chacon BRUSH MAKER Primary Care Provider Shahla Madrigal BRUSH MAKER Primary Care Pro vider Self-Referred, Patient Unavailable Unavailab Mariluz Ivy MD Unavailable [phone] Soledad Mclean MD, MPH Unavailable [phone] Juan Manuel Mota MD Unavailable [phone] Encounter Details Date Type Department Care Team (Late st Contact Info) Description 01/28/2018 Procedure Pass [facility] Endoscopy Admitting Dept Virtual Department 30 [place] [address] Social History Tobacco Use Types Packs/Day Years [...] Contact Info) Description 09/18/2024 Procedure Pass [facility] [place], Mammography, Manjula Lank Imaging Department [address] [place] [address] 03/17/2025 1:00 AM EDT Home [facility] Visit [facility] 30 [place] [address] Unscheduled, [facility] Clinical East 168 [place] [address] 03/18/2025 10:30 AM EDT Home Care Visit [facility] [address] [place] [phone] Louise Cuadra, PT [address] [place] [address] 03/24/2025 12:30 AM EDT Home Care Visit [facility] [address] [place] [phone] Pily Miguel, RN 30 [place] [address] 03/31/2025 10:30 AM EDT Office Visit [facility], [facility] [place] [facility], [facility] [place] at [address] [address] Paz Naqvi, TIRE MECHANIC [address] [place] [address] [email or web address] Soledad Mclean MD, MPH 450 [place] [address] Maria [email or web address] 04/01/2025 1:00 AM EDT Home Care Visit [facility] [address] [place] [address] Pily Miguel RN [address] [place] [address] 04/07/2025 1:00 AM EDT Home Care Visit [facility] [address] [place] [phone] Pily Miguel RN [address] [place] [address] 04/14/2025 1:00 AM EDT Home Care Visit [facility] [address] [place] [phone] Pily Miguel RN [address] [place] [address] 04/21/2025 12:30 AM EDT Home Care [facility] [address] [place] [address] Pily Miguel RN [address] [place] [address] 04/28/2025 1:00 AM EST Appointment [facility] [address] [place] [address] Pily Miguel RN [address] [place] [address] 05/07/2025 10:30 AM EST Office Visit [facility] [address] [place] [address] 3rd Floor, [address] [place] [address] Rober Matson DO [address] [place] [address] [place] [address] 10/08/2025 10:30 AM EDT Appointment [facility] [place] [facility] [place], Mammography, Manjula Lank Imaging Department 450 [place] [address] Fox Martinez MD 450 [place] [address] [email or web address] [email or web address] 10/08/2025 12:00 PM EDT Office Visit [facility], [facility], [facility] [place] 450 [facility], 9th [place] [address] Paz Prado PA-C 450 [place] [address] [email or web address] 11/08/2025 10:00 AM EDT Office Visit [facility] Specialties [address] [facility], [address] [place] [address] Raquel Henderson MD, PhD 55 [place] [address] [email or web address] documented as of this encounter Visit [...] documented as of this encounter Care Teams Vp Human Resources Relationship Specialty Start Date End Date Jocelyn Chacon, BRUSH MAKER [address] [place] [address] [place] [address] PCP - General 04/11/17 01/04/20 Shahla Madrigal NP [address] [place] [address] [email or web address] PCP - General Family Medicine 01/05/20 Self-Referred, Patient 10/30/23 04/02/24 Mariluz Be MD [email or web address] Obstetrics and Gynecology 10/30/23 Soledad Mclean MD, MPH [address] [place] [address] Maria [email or web address] Medical Oncology 01/14/24 Juan Manuel Mota MD [address] [place] [address] [email or web address] Endocrinology 04/03/24 documented as of this encounter Additional Source Comments The information contained in this document represents components of the legal health record. It is not the complete legal health record.[facility]
--- OUTSIDE RECORDS SUMMARY | 2025-03-16 13:50 | XMS_ITS | Encounter Summary ---
Author Organization [facility] Address [address] [place] [address] Phone Care Team Providers Care Mannequin Mounter Name Role Phone Shahla Madrigal NP Primary Care Pro vider Mariluz Be MD Unavailable Soledad Mclean MD, MPH Unavailable [phone] Juan Manuel Mota MD Unavailable [phone] Encounter Details Date Type Department Care Team (Late st Contact Info) Description 10/06/2024 Procedure Pass [facility], Ct Scan - [facility] 30 [place] [address] Social History Tobacco Use Types Packs/Day Years [...] before we got money to buy more. Never True 11/08/2023 Within the past 6 months the food we bought just didn't last and we didn't have enough money to get more. Never True Residential Stability Answer Date Recor ded Family situation today data Not on file 10/22 How many times have you move d in the past 12 months? Zero (I did not move) 11/08/2023 Paying for Meds Answer Date Recorded Do you have trouble paying for medicines? No 11/08/2023 Paying Utility Bills Answer Date Record ed Do you have trouble paying your heating or elect ricity bill? No 11/08/2023 Transportation Answer Date Recorded Has the lack of transportati on kept you from medical appointments or from getting medications? No 11/08/2023 Digital Access Answer Date Recorded No 11/18/2022 No 11/18/2022 Reliable internet access at home? Not on file 11/18/2022 Device with a working camera? Not on file Intimate Partner Violence Answer Date R ecorded Are you denied basic needs s uch as food, clothing, or medical care? No 06/27/2024 In the past 12 months have y ou been in a relationship with a person who hurts, threatens, or tries to control you? No 06/27/2024 Are you denied basic needs s uch as food, clothing, or medical care? No 06/27/2024 In the past 12 months have y ou been in a relationship with a person who hurts, threatens, or tries to control you? No 06/27/2024 Comments No Sex and Gender Information Value [...] st Contact Info) Description 09/18/2024 Procedure Pass [facility] [place], Mammography, [facility] Imaging Department [address] [place] [address] 03/17/2025 1:00 AM EDT [facility] 30 [place] [address] Unscheduled, [facility] [address] [place] [address] 03/18/2025 10:30 AM EDT Home Care Visit [facility] [address] [place] [phone] Louise Cuadra, PT 168 [place] [address] 03/24/2025 12:30 AM EDT Home Care Visit [facility] [address] [place] [phone] Pily Miguel, RN 30 [place] [address] 03/31/2025 10:30 AM EDT [facility], [facility] [place] [facility] [place] [address] [address] Paz Naqvi, MANGA ARTIST [address] [place] [address] [email or web address] Soledad Mclean MD, MPH 450 [place] [address] [email or web address] 04/01/2025 1:00 AM EDT Home Care Visit [facility] [address] [place] [phone] Pily Miguel, KATHIE [address] [place] [address] 04/07/2025 1:00 AM EDT Home Care Visit [facility] [address] [place] [phone] Pily Miguel RN [address] [place] [address] 04/14/2025 1:00 AM EDT Home [facility] Visit [facility] [address] [place] [phone] Pily Miguel RN [address] [place] [address] 04/21/2025 12:30 AM EDT Home Care Visit [facility] [address] [place] [phone] Pily Miguel, KATHIE [address] [place] [address] 04/28/2025 1:00 AM EST Appointment [facility] [address] [place] [phone] Pily Miguel, KATHIE [address] [place] [address] 05/07/2025 10:30 AM EST Office Visit [facility] [address] [place] [address] 3rd Floor, [address] [place] [phone] Rober Matson DO [address] [place] [address] [place] [address] 10/08/2025 10:30 AM EDT Appointment [facility], Mammography, Man[facility] Imaging Department [address] [place] [address] Fox Martinez MD 450 [place] [address] [email or web address] 10/08/2025 12:00 PM EDT Office Visit [facility], [facility], [facility] 450 [facility], 9th [place] [address] Paz Prado PA-C [address] [place] [address] [email or web address] 11/08/2025 10:00 AM EDT Office Visit [facility] Specialties [address] [facility], [address] [place] [address] Raquel Henderson MD, PhD [address] [place] [address] [email or web address] documented as of this encounter Visit Diagnoses Not on filedocumented in this encounter Care Teams Mannequin Mounter Relationship Specialty Start Date End Date Shahla Madrigal NP [address] [place] [address] [email or web address] PCP - General Family Medicine 01/05/20 Mariluz Be MD [address] [place] [address] [email or web address] Obstetrics and Gynecology 10/30/23 Soledad Mclean MD, MPH [address] [place] [address] Maria [email or web address] Medical Oncology 01/14/24 Juan Manuel Mota MD [address] [place], [place] [phone] [email or web address] Endocrinology 04/03/24 documented as of this encounter Additional Source Comments The information contained in this document represents components of the legal health record. It is not the complete legal health record.[facility]
--- OUTSIDE RECORDS SUMMARY | 2025-03-16 13:50 | XMS_ITS | Encounter Summary ---
Author Organization [facility] Address [address] [place] [address] Phone Care Team Providers Care Pocket Closer Name Role Phone Jocelyn Chacon ARTIFICIAL FLOWERS SUPERVISOR Primary Care Provider Amaury Mcduffie MD Unavailable [phone] Shahla Madrigal ARTIFICIAL FLOWERS SUPERVISOR Primary Care Pro vider Self-Referred, Patient Unavailable Unavailab Mariluz Ivy MD Unavailable [phone] Soledad Mclean MD, MPH Unavailable [phone] Juan Manuel Mota MD Unavailable [phone] Encounter Details Date Type Department Care Team (Late st Contact Info) Description 03/25/2017 Orders Only VIRTUAL DEPARTMENT Interface Provider, Scanning Social History Tobacco Use Types Packs/Day Years [...] st Contact Info) Description 09/18/2024 [facility] [place], Mammography, Manjula Lank Imaging Department [address] [place] [address] 03/17/2025 1:00 AM EDT Home Care Visit [facility] 30 [place] [address] Unscheduled, [facility] Clinical East 168 [place] [address] 03/18/2025 10:30 AM EDT Home Care Visit [facility] 30 [place] [phone] Louise Cuadra, PT 168 [place] [address] 03/24/2025 12:30 AM EDT Home Care Visit [facility] [address] [place] [phone] Pily Miguel RN 30 [place] [address] 03/31/2025 10:30 AM EDT Office Visit [facility], [facility], [facility] [place] [facility] [place] [address] [facility] [address] [place] [address] Paz Naqvi, BOW STRING MAKER 450 [place] [address] [email or web address] Soledad Mclean MD, MPH 450 [place] [address] [email or web address] 04/01/2025 1:00 AM EDT Home Care Visit [facility] 30 [place] [phone] Pily Miguel, RN [address] [place] [address] 04/07/2025 1:00 AM EDT Home Care Visit [facility] [address] [place] [phone] Piyl Miguel RN [address] [place] [address] 04/14/2025 1:00 AM EDT Home Care Visit [facility] [address] [place] [phone] Pily Miguel RN [address] [place] [address] 04/21/2025 12:30 AM EDT Home Care Visit [facility] [address] [place] [phone] Pily Miguel RN [address] [place] [address] 04/28/2025 1:00 AM EST Appointment [facility] [address] [place] [phone] Pily Miguel RN [address] [place] [address] 05/07/2025 10:30 AM EST Office Visit [facility] [address] [place] [address] 3rd Floor, [address] [place] [address] Rober Matson DO [address] [place] [address] [place] [address] 10/08/2025 10:30 AM EDT Appointment [facility] [place], Mammography, Manjula Lank Imaging Department [address] [place] [address] Fox Martinez MD 450 [place] [address] [email or web address] 10/08/2025 12:00 PM EDT Office Visit [facility], [facility], [facility] [place] [address] [facility], 9th [place] [address] Paz Prado PA-C 450 [place] [address] [email or web address] 11/08/2025 10:00 AM EDT Office Visit [facility] Specialties [address] [facility], [address] [place] [address] Raquel Henderson MD, PhD 55 [place] [address] [email or web address] documented as of this encounter Procedures Procedure Name Priority Date/Time Associated Diagnosis Comments OUTSIDE LAB Routine 03/25/2017 documented in this encounter Results * Outside Lab (03/25/2017) us Historical Provider LAB BLOOD ORDERABLES Paula l Result documented in this encounter Visit Diagnoses Not on filedocumented [...] documented as of this encounter Care Teams Pocket Closer Relationship Specialty Start Date End Date Jocelyn Chacon, ARTIFICIAL FLOWERS SUPERVISOR [address] [place] [address] [place] [address] PCP - General 04/11/17 01/04/20 Shahla Madrigal NP [address] [place] [address] [email or web address] PCP - General [facility] Medicine 01/05/20 Amaury Mcduffie MD [address] [place] [address] [place] [address] [email or web address] Rheumatology 09/20/17 09/20/17 Self-Referred, Patient 10/30/23 04/02/24 Mariluz Be MD [email or web address] Obstetrics and Gynecology 10/30/23 Soledad Mclean MD, MPH [address] [place] [address] Maria [email or web address] Medical Oncology 01/14/24 Juan Manuel Mota MD [address] [place] [address] [email or web address] Endocrinology 04/03/24 documented as of this encounter Additional Source Comments The information contained in this document represents components of the legal health record. It is not the complete legal health record.[facility]
--- OUTSIDE RECORDS SUMMARY | 2025-03-16 13:50 | XMS_ITS | Patient Health Record ---
Author Organization [facility] Address [address] [facility] [address] [place] [address] Care Team Providers Care Extermination Inspector Name Role Phone Oswaldo PAYNE, Jocelyn Primary Care Provider Unavail able Sree Joyce Unavailable [phone] Allergies Allergen (clinical drug ingredient) Drug/Non Drug Allergy documented on EMR Reaction Allergy Type Onset Date Status Iodine-Injectable only (uncoded) Unknown Allergy Active cephalexin Cephalexin Bowel irritation Drug Allergy Active clindamycin Clindamycin HCl Bowel irritation Drug Allergy Active vancomycin Vancomycin HCl Bowel irritation Drug Allergy Active Adhesive Bandages skin irritation Drug Allergy Active Penicillin rash Drug Allergy Active Merthiolate hives Drug Allergy Activ e Reason For Referral No Information Medications Medication SIG (Take, Route, Frequency, Duration) Notes Start Date End Date Status Ventolin HFA Active methylPREDNISolone 4 MG TAKE 6 TABLETS O N DAY 1 DIRECTED ON PACKAGE AND DECREASE BY 1 TAB EACH DAY FOR A TOTAL OF 6 DAYS Oral; Duration: 6 Not-Taking Percocet pt takes as needed for knee px Active Levothyroxine Sodium Active Methotrexate 2.5 MG TAKE 8 TABLETS BY MOUTH EVERY WEEK DIRECTED Oral; Duration: 28 Active ALPRAZolam 0.5 MG 1 tablet Orally pt takes prn Active OptiChamber Lisa - USE DIRECTED; Duration: 30 Active Benadryl Active predniSONE 10 MG TAKE 3 TABLETS BY MOUTH DAILY FOR 4 DAYS ,2TABS DAILY X4DAYS,1 TAB DAILY X4 DAYS. REPEAT IF NEEDED Oral; Duration: 24 Not-Taking Excedrin Migraine Ac tive Omeprazole 20 MG TAKE 1 CAPSULE BY MOUTH EVERY DAY Oral; Duration: 90 Active Leucovorin Calcium 5 MG TAKE 3 TABLETS B Y MOUTH WEEKLY DIRECTED Oral; Duration: 90 Active ProAir HFA 108 (90 Base) MCG/ACT INHALE 2 PUFFS BY MOUTH 4 TIMES A DAY NEEDED Inhalation; Duration: 20 Not-Taking Montelukast Sodium 10 MG TAKE 1 TABLET B Y MOUTH EVERY DAY AT NIGHT Oral; Duration: 90 Active CeleBREX 200 MG Orally Acti ve Plaquenil 200 MG Orally Act alfredo Gabapentin 100 MG TAKE ONE CAPSULE BY MOUTH AT BEDTIME MAY INCREASE BY 1 CAP EVERY 4-5 DAYS NEEDED UP TO 3 AT BED Oral; Duration: 90 Active Magnesium Active sulfaSALAzine 500 MG TAKE 2 TABLETS BY MOUTH TWICE A DAY Oral; Duration: 90 Active Vitamin D Active Erythromycin Base 500 MG TAKE 2 TABLETS BY MOUTH ONE HOUR BEFORE APPOINTMENT Oral; Duration: 15 Active [place] 3 Active Folic Acid 1 MG TAKE 1 TABLET BY MOUTH EVERY DAY Oral; Duration: 90 Active Calcium Active Social History Tobacco Use: Social History Observation Description Date Details (start date - stop date) Never Smoker NA - NA Tobacco Use/Smoking Question Answer Notes Are you a: nonsmoker Additional Findings: Tobacco Non-User Current no n-smoker Alcohol Screen Question Answer Notes Did you have a drink containing alcohol in the p ast year? No Points 0 Interpretation Negative Tobacco use other than smoking: Question Answer Notes Are you an other tobacco user? No Problems Problem Type SNOMED Code ICD Code Onset Dates Problem Status W/U Status Risk Notes Problem Acquired hallux valgus (24745695) Hallux valgus (acquired), left foot (M20.12) Active confirmed Problem Localized, primary osteoarthritis of the ankle and/or foot (735480874) Primary osteoarthrit is, right ankle and foot (M19.071) Active confirmed Problem Localized, primary osteoarthritis of the ankle and/or foot (085441467) Primary osteoarthrit is, left ankle and foot (M19.072) Active confirmed Problem Acquired hallux valgus (44931856) Hallux valgus (acquired), right foot (M20.11) Active confirmed Problem Acquired hammer toe of right foot (2468492226728260) Other hammer toe(s) (acquired), right foot (M20.41) Active confirmed Problem Acquired hammer toe of left foot (7387772662054586) Other hammer toe(s) (acquired), left foot (M20.42) Active confirmed Plan Of Treatment Pending Test Test Name Order Date X ray : Foot, left 2V 05/21/2018 X ray : Foot, right 2V 05/21/2018 96324-Hgun Destruction, 1-14 05/21/2018 16786- Nail Unit Biopsy 05/21/2018 Insurance Providers Payer Name Payer Address Payer Phone Subscriber Number Group Number Insured Name Patient Relationship to Insured Coverage Start Date Coverage End Date Medicare National [facility] [address] [place] [address] [id number] Teresa Parson Self - patient is the insured [employer] [address] [place] [address] [id number] Parson Teresa Self - patient is the insured Medical (General) History Medical History History ICD Code Anxiety Arthritis asthma hip pain Knee Pain Cancer Headaches/Migraines Measles Mumps Chicken pox Lyme disease Joint implants/screws Psoriasis Reflux ( GERD) Sjogren syndrome Thyroid disorder Graves disease Warts Whooping cough (pertussis) Sudanese measles Surgical History Surgery Date(Month/Year) right knee replacement [id number] hysterectomy 2007 fistula repair 2008 dental Hospitalization History Reason Date(Month/Year) [facility]- Asthma- 5 day stay 09/23 019
--- OUTSIDE RECORDS SUMMARY | 2025-03-16 13:50 | XMS_ITS | Encounter Summary ---
Author Organization [facility] Address [address] [place] [address] Phone Care Team Providers Care Chocolate Temperer Name Role Phone Shahla Madrigal NP Primary Care Pro vider Mariluz Be MD Unavailable [phone] Soledad Mclean MD, MPH Unavailable [phone] Juan Manuel Mota MD Unavailable [phone] Encounter Details Date Type Department Care Team (Late st Contact Info) Description 06/27/2024 Procedure Pass [facility], Ct Scan - [facility] 30 [place] [address] Social History Tobacco Use Types Packs/Day Years Used Date Smoking Tobacco: Never Smokeless Tobacco: Never Comments:None Alcohol Use Standard Drinks/Week Comments Never 0 (1 standard drink = 0.6 oz pur e alcohol) Child or Family Care Answer Date Record [...] Date of Assessment Author No Risk Indicated 06/27/2024 6:48 PM Selena Figueroa RN * [place] Suicide Severity Rating Scale (Screener/Recent Self-Report) Question Answer Date of Assessment Author 1. Wish to be (Past 1 Month) No 06/27/2024 6:48 PM Selena Figueroa RN 2. Non-Specific Active Suici mihir Thoughts (Past 1 Month) No 06/27/2024 6:48 PM Pamela Figueroa RN 6. Suicidal Behavior (Lifetime) No 6:48 PM Selena Figueroa RN documented as of this encounter Plan of Treatment Upcoming Encounters Date Type Department Care Team (Late st Contact Info) Description 09/18/2024 Procedure Pass [facility] [place], Mammography, Manjula Lank Imaging Department [address] [place] [address] 03/17/2025 1:00 AM EDT Home [facility] [address] [place] [phone] Unscheduled, [facility] Clinical East 168 [place] [address] 03/18/2025 10:30 AM EDT Home Care Visit [facility] [address] [place] [phone] Louise Cuadra, PT 168 [place] [address] 03/24/2025 12:30 AM EDT Home Care Visit [facility] [address] [place] [phone] Pily Miguel RN 30 [place] [address] 03/31/2025 10:30 AM EDT Office Visit [facility], [facility] [place] at [address] [address] Paz Naqvi, MEDIA ASSOCIATE 450 [place] [address] [email or web address] Soledad Mclean MD, MPH 450 [place] [address] Maria [email or web address] 04/01/2025 1:00 AM EDT Home Care Visit [facility] [address] [place] [phone] Pily Miguel RN [address] [place] [address] 04/07/2025 1:00 AM EDT Home Care Visit [facility] [address] [place] [address] Pily Miguel RN [address] [place] [address] 04/14/2025 1:00 AM EDT Home Care Visit [facility] [address] [place] [phone] Pily Miguel RN [address] [place] [address] 04/21/2025 12:30 AM EDT Home Care Visit [facility] [address] [place] [address] Pily Miguel RN [address] [place] [address] 04/28/2025 1:00 AM EST Appointment [facility] [address] [place] [phone] Pily Miguel RN [address] [place] [address] 05/07/2025 10:30 AM EST Office Visit [facility] [address] [facility] 3rd Floor, [address] [place] [address] Rober Matson DO [address] [facility] [address] [place] [address] 10/08/2025 10:30 AM EDT Appointment [facility] [place], Mammography, Manjula Lank Imaging Department 450 [place] [address] Fox Martinez MD 450 [place] [address] [email or web address] 10/08/2025 12:00 PM EDT Office Visit [facility], [facility], [facility] [place] 450 [facility], 9th [place] [address] Paz Prado PA-C 450 [place] [address] [email or web address] 11/08/2025 10:00 AM EDT Office Visit [facility] Specialties [address] [address], [address] [place] [address] Raquel Henderson MD, PhD [address] [place] [address] [email or web address] documented as of this encounter Visit Diagnoses Not on filedocumented in this encounter Additional Health Concerns Infection Onset Date Last Indicated Resolved Time CoV-Risk Comment:Per note documentation 06/27/2024 06/27/2024 2:53 AM EST CDiff-Risk 06/28/2024 06/28/2024 06/28/2024 12:3 7 PM EST documented as of this encounter Care Teams Chocolate Temperer Relationship Specialty Start Date End Date Shahla Madrigal PRODUCTION PLANNING MANAGER [address] [place] [address] [email or web address] PCP - General Family Medicine 01/05/20 Mariluz Be MD [address] [place] [address] [email or web address] Obstetrics and Gynecology 10/30/23 Soledad Mclean MD, MPH [address] [place] [address] Maria [email or web address] Medical Oncology 01/14/24 Juan Manuel Mota MD [address] [place] [address] [email or web address] Endocrinology 04/03/24 documented as of this encounter Additional Source Comments The information contained in this document represents components of the legal health record. It is not the complete legal health record.[facility]
--- OUTSIDE RECORDS SUMMARY | 2025-03-16 13:50 | XMS_ITS | Encounter Summary ---
Author Organization [facility] Address [address] [facility] [address] [place] [address] Phone Care Team Providers Care Document Control Coordinator Name Role Phone Shahla Madrigal NP Primary Care Pro vider Mariluz Be MD Unavailable Soledad Mclean MD, MPH Unavailable [phone] Juan Manuel Mota MD Unavailable [phone] Encounter Details Date Type Department Care Team (Late st Contact Info) Description 02/15/2025 Procedure Pass [facility], [facility] 30 [place] [address] Social History Tobacco Use Types Packs/Day Years [...] st Contact Info) Description 09/18/2024 Procedure Pass [facility], Mammography, Manjula Lank Imaging Department [address] [place] [address] 03/17/2025 1:00 AM EDT Home [facility] [address] [place] [phone] Unscheduled, [facility] Clinical East [address] [place] [address] 03/18/2025 10:30 AM EDT Home [facility] Visit [facility] [address] [place] [phone] Louise Cuadra, PT [address] [place] [address] 03/24/2025 12:30 AM EDT Home Care Visit [facility] [address] [place] [phone] Pily Miguel RN 30 [place] [address] 03/31/2025 10:30 AM EDT Office Visit [facility], [facility], [facility] [place] [address] [address] Paz Naqvi, BINGO CLERK [address] [place] [address] [email or web address] Soledad Mclean MD, MPH [address] [place] [address] [email or web address] 04/01/2025 1:00 AM EDT Home Care Visit [facility] [address] [place] [phone] Pily Miguel RN [address] [place] [address] 04/07/2025 1:00 AM EDT Home Care Visit [facility] [address] [place] [phone] Pily Miguel RN [address] [place] [address] 04/14/2025 1:00 AM EDT Home Care Visit [facility] [address] [place] [phone] Pily Miguel RN [address] [place] [address] 04/21/2025 12:30 AM EDT Home Care Visit [facility] [address] [place] [phone] Pily Miguel RN [address] [place] [address] 04/28/2025 1:00 AM EST Appointment [facility] [address] [place] [phone] Pily Miguel RN [address] [place] [address] 05/07/2025 10:30 AM EST Office Visit [facility] [address] [place] [address] 3rd Floor, [address] [place] [address] Rober Matson DO [address] [place] [address] [place] [address] 10/08/2025 10:30 AM EDT Appointment [facility], Mammography, Manjula Lank Imaging Department [address] [place] [address] Fox Martinez MD 450 [place] [address] [email or web address] 10/08/2025 12:00 PM EDT Office Visit [facility], [facility] [place] [facility], [facility] 450 [facility], 9th [place] [address] Paz Prado PA-C 450 [place] [address] [email or web address] 11/08/2025 10:00 AM EDT Office Visit [facility] Specialties [address] [facility], [address] [place] [address] Raquel Henderson MD, PhD [address] [place] [address] [email or web address] documented as of this encounter Visit Diagnoses Not on filedocumented in this encounter Care Teams Document Control Coordinator Relationship Specialty Start Date End Date Shahla Madrigal NP [address] [place] [address] [email or web address] PCP - General Family Medicine 01/05/20 Mariluz Be MD [address] [place] [address] [email or web address] Obstetrics and Gynecology 10/30/23 Soledad Mclean MD, MPH [address] [place] [address] Maria [email or web address] Medical Oncology 01/14/24 Juan Manuel Mota MD [address] [place] [address] [email or web address] Endocrinology 04/03/24 documented as of this encounter Additional Source Comments The information contained in this document represents components of the legal health record. It is not the complete legal health record.[facility]
--- OUTSIDE RECORDS SUMMARY | 2025-03-16 13:51 | XMS_ITS | Encounter Summary ---
Author Organization [facility] Address [address] [facility] [address] [place] [address] Phone Care Team Providers Care Rivet Bucker Name Role Phone Shahla Madrigal NP Primary Care Pro vider Self-Referred, Patient Unavailable Unavailab Mariluz Ivy MD Unavailable [phone] Soledad Mclean MD, MPH Unavailable Juan Manuel Mota MD Unavailable [phone] Encounter Details Date Type Department Care Team (Late st Contact Info) Description 11/25/2023 Procedure Pass [facility] Periop 75 [place] [address] Social History Tobacco Use Types Packs/Day Years [...] a working camera? Not on file Comments No Sex and Gender Information Value [...] st Contact Info) Description 09/18/2024 Procedure Pass [facility], Mammography, Manjula Lank Imaging Department 450 [place] [address] 03/17/2025 1:00 AM EDT Home [facility] 30 [place], [place] [phone] Unscheduled, [facility] Clinical East [address] [place] [address] 03/18/2025 10:30 AM EDT Home [facility] Visit [facility] 30 [place], [place] [phone] Louise Cuadra, PT [address] [place] [address] 03/24/2025 12:30 AM EDT Home Care Visit [facility] [address] [place] [address] Pily Miguel RN [address] [place] [address] 03/31/2025 10:30 AM EDT Office Visit [facility], [facility] [place] [facility], [facility] [place] [address] [address] Paz Naqvi, FACILITIES AND GROUNDS DIRECTOR 450 [place] [address] [email or web address] Soledad Mclean MD, MPH 450 [place] [address] Maria [email or web address] 04/01/2025 1:00 AM EDT Home Care Visit [facility] [address] [place] [address] Pily Miguel RN [address] [place] [address] 04/07/2025 1:00 AM EDT Home Care Visit [facility] [address] [place] [address] Pily Miguel RN [address] [place] [address] 04/14/2025 1:00 AM EDT Home Care Visit [facility] [address] [place] [phone] Pily Miguel RN [address] [place] [address] 04/21/2025 12:30 AM EDT Home Care Visit [facility] [address] [place] [phone] Pily Miguel RN [address] [place] [address] 04/28/2025 1:00 AM EST Appointment [facility] [address] [place] [phone] Pily Miguel RN [address] [place] [address] 05/07/2025 10:30 AM EST Office Visit [facility] [address] [place] [address] 3rd [facility], [address] [place] [address] Rober Matson DO [address] [place] [address] 10/08/2025 10:30 AM EDT Appointment [facility] Cancer [place], Mammography, Manjula Lank Imaging Department [address] [place] [address] Fox Martinez MD [address] [place] [address] maria [email or web address] 10/08/2025 12:00 PM EDT Office Visit [facility], [facility], [facility] [address] [place] [address], 9th [place] [address] Paz Prado PA-C [address] [place] [address] [email or web address] 11/08/2025 10:00 AM EDT Office Visit [facility] Specialties [address] [facility], [address] [place] [address] Raquel Henderson MD, PhD 55 [place] [address] [email or web address] documented as of this encounter Visit Diagnoses Not on filedocumented in this encounter Additional Health Concerns Infection Onset Date Last Indicated Resolved Time CoV-Risk Comment:Per note documentation 06/27/2024 06/27/2024 2:53 AM EST CDiff-Risk 06/28/2024 06/28/2024 06/28/2024 12:3 7 PM EST documented as of this encounter Care Teams Rivet Bucker Relationship Specialty Start Date End Date Shahla Madrigal NP [address] [place] [address] [email or web address] PCP - General Family Medicine 01/05/20 Self-Referred, Patient 10/30/23 04/02/24 Mariluz Be MD [email or web address] Obstetrics and Gynecology 10/30/23 Soledad Mclean MD, MPH [address] [place] [address] Maria [email or web address]. du Medical Oncology 01/14/24 Juan Manuel Mota MD [address] [place] [address] [email or web address] Endocrinology 04/03/24 documented as of this encounter Additional Source Comments The information contained in this document represents components of the legal health record. It is not the complete legal health record.[facility]
--- OUTSIDE RECORDS SUMMARY | 2025-03-16 13:51 | XMS_ITS | Encounter Summary ---
Author Organization [facility] Address [address] [facility] [address] [place] [address] Phone Care Team Providers Care Truck Driver Heavy Name Role Phone Shahla Madrigal NP Primary Care Pro vider Self-Referred, Patient Unavailable Unavailab Mariluz Ivy MD Unavailable [phone] Soledad Mclean MD, MPH Unavailable Juan Manuel Mota MD Unavailable [phone] Encounter Details Date Type Department Care Team (Late st Contact Info) Description 04/27/2020 Procedure Pass [place] Admitting Dept - Virtual Department 30 [place] [address] Social History Tobacco Use Types Packs/Day Years [...] st Contact Info) Description 09/18/2024 Procedure Pass [facility] [place], Mammography, Manjula Lank Imaging Department [address] [place] [address] 03/17/2025 1:00 AM EDT Home Care Visit [facility] [address] [place] [phone] Unscheduled, [facility] Clinical East 168 [place] [address] 03/18/2025 10:30 AM EDT Home Care Visit [facility] [address] [place] [phone] Louise Cuadra, PT 168 [place] [address] 03/24/2025 12:30 AM EDT Home Care Visit [facility] [address] [place] [phone] Pily Miguel, RN 30 [place] [address] 03/31/2025 10:30 AM EDT Office Visit [facility], [facility] [place] [facility], [facility] [place] [facility] [place] [address] [address] Paz Naqvi, DRAFTER CARTOGRAPHIC 450 [place] [address] [email or web address] Soledad Mclean MD, MPH 450 [place] [address] Maria [email or web address] 04/01/2025 1:00 AM EDT Home [facility] Visit [facility] [address] [place] [phone] Pily Miguel RN [address] [place] [address] 04/07/2025 1:00 AM EDT Home Care Visit [facility] [address] [place] [phone] Pily Miguel RN [address] [place] [address] 04/14/2025 1:00 AM EDT Home Care Visit [facility] [address] [place] [phone] Pily Miguel RN [address] [place] [address] 04/21/2025 12:30 AM EDT Home Care Visit [facility] [address] [place] [address] Pily Miguel RN [address] [place] [address] 04/28/2025 1:00 AM EST Appointment [facility] [address] [place] [address] Pily Miguel RN [address] [place] [address] 05/07/2025 10:30 AM EST Office Visit [facility] [address] [place] [address] 3rd Floor, [address] [place] [address] Rober Matson DO [address] [place] [address] [place] [address] 10/08/2025 10:30 AM EDT Appointment [facility] [place], Mammography, Manjula Lank Imaging Department 450 [place] [address] Fox Martinez MD 450 [place] [address] maria [email or web address] 10/08/2025 12:00 PM EDT Office Visit [facility], [facility] [place] [facility], [facility] [facility] [place] 450 [facility], 9th [place] [address] Paz Prado PA-C 450 [place] [address] [email or web address] 11/08/2025 10:00 AM EDT Office Visit [facility] Specialties [address] [facility], [address] [place] [address] Raquel Henderson MD, PhD [address] [place] [address] [email or web address] documented as of this encounter Visit [...] documented as of this encounter Care Teams Truck Driver Heavy Relationship Specialty Start Date End Date Shahla Madrigal NP [address] [place] [address] [email or web address] PCP - General Family Medicine 01/05/20 Self-Referred, Patient 10/30/23 04/02/24 Mariluz Be MD [email or web address] Obstetrics and Gynecology 10/30/23 Soledad Mclean MD, MPH [address] [place] [phone] Maria [email or web address] Medical Oncology 01/14/24 Juan Manuel Mota MD [address] [place] [address] [email or web address] Endocrinology 04/03/24 documented as of this encounter Additional Source Comments The information contained in this document represents components of the legal health record. It is not the complete legal health record.[facility]
--- OUTSIDE RECORDS SUMMARY | 2025-03-16 13:51 | XMS_ITS | Encounter Summary ---
Author Organization [facility] Address [address] [facility] [address] [place] [address] Phone Care Team Providers Care Screen Repairer Crusher Name Role Phone Shahla Madrigal NP Primary Care Pro vider Mariluz Be MD Unavailable [phone] Soledad Mclean MD, MPH Unavailable Juan Manuel Mota MD Unavailable [phone] Encounter Details Date Type Department Care Team (Late st Contact Info) Description 04/17/2024 Procedure Pass [facility] [place], Mammography, Manjula Lank Imaging Department 450 [place], [place] [id number] Social History Tobacco Use Types Packs/Day Years [...] st Contact Info) Description 09/18/2024 Procedure Pass [facility] [place], Mammography, Manjula Lank Imaging Department 450 [place] [address] 03/17/2025 1:00 AM EDT Home [facility] Visit [facility] 30 [place] [phone] Unscheduled, [facility] Clinical East [address] [place] [address] 03/18/2025 10:30 AM EDT Home [facility] Visit [facility] 30 [place], [place] [phone] Louise Cuadra, PT 168 [place] [address] 03/24/2025 12:30 AM EDT Home [facility] [address] [place] [address] Pily Miguel RN [address] [place] [address] 03/31/2025 10:30 AM EDT Office Visit [facility], [facility] [place] [facility], [facility] [place] [facility] [place] [address] [address] Paz Naqvi, FRUIT RANCHER 450 [place] [address] [email or web address] Soledad Mclean MD, MPH 450 [place] [address] [email or web address] 04/01/2025 1:00 AM EDT Home Care Visit [facility] [address] [place] [address] Pily Miguel RN 30 [place] [address] 04/07/2025 1:00 AM EDT Home [facility] Visit [facility] [address] [place] [address] Pily Miguel RN 30 [place] [address] 04/14/2025 1:00 AM EDT Home Care Visit [facility] [address] [place] [phone] Pily Miguel RN [address] [place] [address] 04/21/2025 12:30 AM EDT Home [facility] Visit [facility] [address] [place] [phone] Pily Miguel RN [address] [place] [address] 04/28/2025 1:00 AM EST Appointment [facility] [address] [place] [address] Pily Miguel RN [address] [place] [address] 05/07/2025 10:30 AM EST Office Visit [facility] [address] [place] [address] [address] [facility], [address] [place] [address] Rober Matson DO [address] [place] [address] 10/08/2025 10:30 AM EDT Appointment [facility] Cancer [place], Mammography, Manjula Lank Imaging Department [address] [place] [address] Fox Martinez MD [address] [place] [address] maria [email or web address] 10/08/2025 12:00 PM EDT Office Visit [facility], [facility], [facility] [place] [address] [place] [address], 9th [place] [address] Paz Prado PA-C [address] [place] [address] [email or web address] 11/08/2025 10:00 AM EDT Office Visit [facility] Specialties [address] [facility], [address] [place] [address] Raquel Henderson MD, PhD 55 [place] [address] [email or web address] documented as of this encounter Visit Diagnoses Not on filedocumented in this encounter Additional Health Concerns Infection Onset Date Last Indicated Resolved Time CoV-Risk Comment:Per note documentation 06/27/2024 06/27/2024 2:53 AM EST CDiff-Risk 06/28/2024 06/28/2024 06/28/2024 12:3 7 PM EST documented as of this encounter Care Teams Screen Repairer Crusher Relationship Specialty Start Date End Date Shahla Madrigal NP [address] [place] [address] [email or web address] PCP - General Family Medicine 01/05/20 Mariluz Be MD [address] [place] [address] [email or web address] Obstetrics and Gynecology 10/30/23 Soledad Mclean MD, MPH [address] [place] [address] Maria [email or web address]. du Medical Oncology 01/14/24 Juan Manuel Mota MD [address] [place] [address] [email or web address] Endocrinology 04/03/24 documented as of this encounter Additional Source Comments The information contained in this document represents components of the legal health record. It is not the complete legal health record.[facility]
--- OUTSIDE RECORDS SUMMARY | 2025-03-16 13:51 | XMS_ITS ---
Author Name [facility] Organization Unknown Encounters Encounter Type Encounter Reason Primary Diagnosis Location Date Emergency Other dyspnea an d respiratory abnormality [facility] 01/05/2023 Care Team Organization Name Specialty Phone Email Start Date End Da te [facility] 01/06/2002/10/2024 [facility] 01/06/2001/05/2023
--- OUTSIDE RECORDS SUMMARY | 2025-03-16 13:51 | XMS_ITS | Encounter Summary ---
Author Organization [facility] Address [address] [facility] [address] [place] [address] Phone Care Team Providers Care Claim Administrator Name Role Phone ImeldamandiShahla davis SLUBBER FRAME CHANGER Primary Care Pro vider Self-Referred, Patient Unavailable Unavailab Mariluz Ivy MD Unavailable [phone] Soledad Mclean MD, MPH Unavailable Juan Manuel Mota MD Unavailable [phone] Encounter Details Date Type Department Care Team (Latest Contact Info) Description 02/02/2020 Transcribe Orders Virtual Department [address] [place] [address] Daryl Fu MD [address] [facility], [address] [place] [address] [email or web address] Calculus of kidney (Primary Dx) Social History Tobacco Use Types Packs/Day Years [...] Contact Info) Description 09/18/2024 Procedure Pass [facility], Mammography, Manjula Lank Imaging Department [address] [place] [address] 03/17/2025 1:00 AM EDT Home [facility] Visit [facility] [address] [place] [phone] Unscheduled, [facility] East [address] [place] [address] 03/18/2025 10:30 AM EDT Home Care Visit [facility] [address] [place] [phone] Louise Cuadra, PT [address] [place] [address] 03/24/2025 12:30 AM EDT Home Care Visit [facility] [address] [place] [phone] Pily Miguel RN [address] [place] [address] 03/31/2025 10:30 AM EDT [facility], [facility] [place] [address] [address] Paz Naqvi CNP [address] [place] [address] [email or web address] Soledad Mclean MD, MPH [address] [place] [address] [email or web address] 04/01/2025 1:00 AM EDT Home Care Visit [facility] [address] [place] [phone] Pily iMguel RN [address] [place] [address] 04/07/2025 1:00 AM EDT Home [facility] Visit [facility] [address] [place] [phone] Pily Miguel RN [address] [place] [address] 04/14/2025 1:00 AM EDT Home Care Visit [facility] [address] [place] [phone] Pily Miguel RN [address] [place] [address] 04/21/2025 12:30 AM EDT Home Care Visit [facility] [address] [place] [phone] Pily Miguel RN [address] [place] [address] 04/28/2025 1:00 AM EST Appointment [facility] [address] [place] [phone] Pily Miguel RN [address] [place] [address] 05/07/2025 10:30 AM EST Office Visit [facility] [address] [place] [address] 3rd Floor, [address] [place] [address] Rober Matson DO 22 [facility] [address] [place] [address] 10/08/2025 10:30 AM EDT Appointment [facility], Mammography, Manjula Lank Imaging Department [address] [place] [address] Fox Martinez MD [address] [place] [address] [email or web address] [email or web address] 10/08/2025 12:00 PM EDT Office Visit [facility], [facility], [facility] [address] [facility], 9th [place] [address] Paz Prado PA-C [address] [place] [address] [email or web address] 11/08/2025 10:00 AM EDT Office Visit [facility] Medical [facility] Specialties [address] [facility], [address] [place] [address] Raquel Henderson MD, PhD [address] [place] [address] [email or web address] documented as of this encounter Results * US Kidneys and Bladder (05/13/2020 10:11 AM EST) Anatomical Region Laterality Modality Abdomen, Kidney Ultrasound 05/13/2020 10:4 2 AM EST Impressions 05/13/2020 10:46 AM EST 1.Small postvoid bladder residual. 2.Stable nonobstructive left nephrolithiasis and simple mid pole parapelvic cyst. 3.New 3 mm non-shadowing right lower renal pole echogenic focus which may represent a nonobstructive calculus. Narrative 05/13/2020 10:46 AM EST COMPARISON: Renal ultrasound 01/05/2020. CT abdomen pelvis 09/10/2019. RENAL AND BLADDER ULTRASOUND FINDINGS: Bladder: Prevoid volume is 113 cc. Postvoid volume is 16 cc or 14%. Ureteral jets are visualized. No bladder wall thickening, masses or calculi. Kidneys: Right kidney measures 11 x 4 cm. No hydronephrosis or masses. 3 mm lower pole non-shadowing echogenic focus. Cortical echogenicity and thickness are normal. No perinephric fluid collections. Left kidney measures 13 x 6 cm. No hydronephrosis or masses. 4 mm lower pole non-shadowing echogenic focus. 3.4 cm midpole simple parapelvic cyst. Cortical echogenicity and thickness are normal. No perinephric fluid collections. Procedure Note Chas Medeiros MD - 05/13/2020 COMPARISON: Renal ultrasound 01/05/2020. CT abdomen pelvis 09/10/2019. RENAL AND BLADDER ULTRASOUND FINDINGS: Bladder: Prevoid volume is 113 cc. Postvoid volume is 16 cc or 14%.Ureteral jets are visualized. No bladder wall thickening, masses orcalculi. Kidneys: Right kidney measures 11 x 4 cm. No hydronephrosis or masses. 3 mm lowerpole non-shadowing echogenic focus. Cortical echogenicity and thicknessare normal. No perinephric fluid collections. Left kidney measures 13 x 6 cm. No hydronephrosis or masses. 4 mm lowerpole non-shadowing echogenic focus. 3.4 cm midpole simple parapelvic cyst.Cortical echogenicity and thickness are normal. No perinephric fluidcollections. IMPRESSION: 1.Small postvoid bladder residual. 2.Stable nonobstructive left nephrolithiasis and simple mid poleparapelvic cyst. 3.New 3 mm non-shadowing right lower renal pole echogenic focus which mayrepresent a nonobstructive calculus. Daryl Fu MD [facility] Final Result documented in this encounter Visit Diagnoses Diagnosis Calculus of kidney- Primary Calculus of kidney documented in this encounter Additional Health Concerns Infection Onset Date Last Indicated Resolved Time CoV-Risk 01/17/2023 01/17/2023 01/28/2023 1:21 AM EDT CoV-Exposed Comment:Recent close contact documented in the COVID-19 PCR/PRO order 01/17/2023 01/17/2023 01/28/2023 1:21 AM E DT CoV-Risk Comment:Per note documentation 06/27/2024 06/27/2024 2:53 AM EST CDiff-Risk 06/28/2024 06/28/2024 06/28/2024 12:3 7 PM EST documented as of this encounter Care Teams Claim Administrator Relationship Specialty Start Date End Date Shahla Madrigal NP [address] [place] [address] [email or web address] PCP - General Family Medicine 01/05/20 Self-Referred, Patient 10/30/23 04/02/24 Mariluz Be MD [email or web address] Obstetrics and Gynecology 10/30/23 Soledad Mclean MD, MPH [address] [place] [address] [email or web address] du Medical Oncology 01/14/24 Juan Manuel Mota MD [address] [place] [address] [email or web address] Endocrinology 04/03/24 documented as of this encounter Additional Source Comments The information contained in this document represents components of the legal health record. It is not the complete legal health record.[facility]
--- OUTSIDE RECORDS SUMMARY | 2025-03-16 13:51 | XMS_ITS | Encounter Summary ---
Author Organization [facility] Address [address] [facility] [address] [place] [address] Phone Care Team Providers Care Program Evaluation Consultant Name Role Phone Jocelyn Chacon CAR VARNISHER Primary Care Provider [phone] Shahla Madrigal CAR VARNISHER Primary Care Pro vider Self-Referred, Patient Unavailable Unavailab Mariluz Ivy MD Unavailable Soledad Mclean MD, MPH Unavailable [phone] Juan Manuel Mota MD Unavailable Encounter Details Date Type Department Care Team (Late st Contact Info) Description 12/30/2019 Ancillary Orders Virtual Department 30 [place] [address] Zari Quiroga PA [address] [phone] [email or web address] Kidney stones; Flank pain Social History Tobacco Use Types Packs/Day Years [...] st Contact Info) Description 09/18/2024 Procedure Pass [facility], Mammography, Manjula Lank Imaging Department [address] [place] [address] 03/17/2025 1:00 AM EDT Home [facility] Visit [facility] [address] [place] [phone] Unscheduled, [facility] Clinical East [address] [place] [address] 03/18/2025 10:30 AM EDT Home Care Visit [facility] [address] [place] [phone] Louise Cuadra, PT [address] [place] [address] 03/24/2025 12:30 AM EDT Home Care Visit [facility] [address] [place] [phone] Pily Miguel RN [address] [place] [address] 03/31/2025 10:30 AM EDT Office Visit [facility], [facility], [facility] [place] [address] 4th [place] [address] Paz Naqvi, [employer]ORER [address] [place] [address] [email or web address] Soledad Mclean MD, MPH [address] [place] [address] Maria [email or web address] 04/01/2025 1:00 AM EDT Home Care Visit [facility] [address] [place] [phone] Pily Miguel RN [address] [place] [address] 04/07/2025 1:00 AM EDT Home [facility] Visit [facility] [address] [place] [phone] Pily Miguel RN [address] [place] [address] 04/14/2025 1:00 AM EDT Home Care Visit [facility] [address] [place] [phone] Pily Miguel RN [address] [place] [address] 04/21/2025 12:30 AM EDT Home Care Visit [facility] [address] [place] [phone] Pily Miguel RN [address] [place] [address] 04/28/2025 1:00 AM EST Appointment [facility] [address] [place] [phone] Pily Miguel RN [address] [place] [address] 05/07/2025 10:30 AM EST Office Visit [facility] [address] [place] [address] 3rd Floor, [address] [place] [address] Rober Matson DO 22 [facility] [address] [place] [address] 10/08/2025 10:30 AM EDT Appointment [facility] [place], Mammography, Manjula Lank Imaging Department [address] [place] [address] Fox Martinez MD [address] [place] [address] maria [email or web address] 10/08/2025 12:00 PM EDT Office Visit [facility], [facility], [facility] [address], 9th [place] [address] Paz Prado PA-C [address] [place] [address] [email or web address] 11/08/2025 10:00 AM EDT Office Visit [facility] Medical [facility] Specialties [address] [facility], [address] [place] [address] Raquel Henderson MD, PhD [address] [place] [address] [email or web address] documented as of this encounter Results * US Kidneys (01/05/2020 9:00 AM EDT) Anatomical Region Laterality Modality Abdomen, Kidney Ultrasound 01/05/2020 10:5 3 AM EDT Impressions 01/05/2020 10:58 AM EDT 1. Mild pelvocaliectasis on the left. Probable stable 4 mm calculus in the lower pole of the left kidney. 2. Simple cyst measuring near 4 cm in maximal diameter within the interpolar region of the left kidney. 3. Normal right kidney. POS [id number] Narrative 01/05/2020 10:58 AM EDT HISTORY: Flank pain, history of nephrolithiasis. Patient states a ureteral stone was removed 5 weeks ago. COMPARISON: Renal ultrasound 10/23/2019 FINDINGS: Right kidney: The kidney remains normal in size measuring 11.5 cm in the long axis similar to the previous ultrasound. No evidence of masses, calculi, pelvocaliectasis or significant cortical thinning. Left kidney: The kidney remains normal in size measuring 11.9 cm in the long axis. Mild pelvocaliectasis. Stable 4 mm echogenic focus within the lower pole near the cortical medullary junction suspicious for a calculus. Persistent anechoic cyst measuring 3.8 cm in maximal diameter in the lower pole. This is stable or mildly increased but has simple characteristics. No other significant changes. Procedure Note Trey Stanford MD - 01/05/2020 HISTORY: Flank pain, history of nephrolithiasis. Patient states aureteral stone was removed 5 weeks ago. COMPARISON: Renal ultrasound 10/23/2019 FINDINGS: Right kidney: The kidney remains normal in size measuring 11.5 cm in thelong axis similar to the previous ultrasound. No evidence of masses,calculi, pelvocaliectasis or significant cortical thinning. Left kidney: The kidney remains normal in size measuring 11.9 cm in thelong axis. Mild pelvocaliectasis. Stable 4 mm echogenic focus within thelower pole near the cortical medullary junction suspicious for a calculus.Persistent anechoic cyst measuring 3.8 cm in maximal diameter in the lowerpole. This is stable or mildly increased but has simple characteristics.No other significant changes. IMPRESSION: 1. Mild pelvocaliectasis on the left. Probable stable 4 mm calculus in thelower pole of the left kidney. 2. Simple cyst measuring near 4 cm in maximal diameter within theinterpolar region of the left kidney. 3. Normal right kidney. POS [id number] Zari JAIME [facility] Final Resu lt documented in this encounter Visit Diagnoses Diagnosis Kidney stones Calculus of kidney Flank pain Abdominal pain, unspecified site Kidney stones Calculus of kidney Flank pain Abdominal pain, unspecified site documented in this encounter Additional Health Concerns Infection Onset Date Last Indicated Resolved Time CoV-Risk 01/17/2023 01/17/2023 01/28/2023 1:21 AM EDT CoV-Exposed Comment:Recent close contact documented in the COVID-19 PCR/PRO order 01/17/2023 01/17/2023 01/28/2023 1:21 AM E DT CoV-Risk Comment:Per note documentation 06/27/2024 06/27/2024 2:53 AM EST CDiff-Risk 06/28/2024 06/28/2024 06/28/2024 12:3 7 PM EST documented as of this encounter Care Teams Program Evaluation Consultant Relationship Specialty Start Date End Date Jocelyn Chacon NP [address] [place] [address] [place] [address] PCP - General 04/11/17 01/04/20 Shahla Madrigal NP [address] [place], [place] [address] [address] [email or web address] PCP - General Family Medicine 01/05/20 Self-Referred, Patient 10/30/23 04/02/24 Mariluz Be MD [email or web address] Obstetrics and Gynecology 10/30/23 Soledad Mclean MD, MPH [address] [place] [address] Maria [email or web address]. du Medical Oncology 01/14/24 Juan Manuel Mota MD [address] [place] [address] [email or web address] Endocrinology 04/03/24 documented as of this encounter Additional Source Comments The information contained in this document represents components of the legal health record. It is not the complete legal health record.[facility]
--- OUTSIDE RECORDS SUMMARY | 2025-03-16 13:51 | XMS_ITS | Clinical Summary ---
Author Organization [facility] Address [address] [place] [address] Care Team Providers Care Building Rental Manager Name Role Phone Obtain, Unable To Primary [...] 78 01/05/2023 5:08 PM EDT Temperature 36.4 C (97.6 F) 01/05/2023 5:08 PM EDT Respiratory Rate 15 01/05/2023 5:08 PM EDT [...] screening 1990 Colon cancer screening, Colonoscopy 1995 Pneumococcal Vaccine (50+ ye ars) (1 of 1 - PCV) 2000 Shingles vaccine (Shingrix) (1 of 2 - Shingrix (RZV) 2 Dose Standard Series) 2000 RSV Immunization (1 - Risk 6 0-74 years 1-dose series) 2010 Osteoporosis screening (bone density) 2015 Influenza vaccine 01/22/2025 03/14/2018 Covid-19 vaccine series ( - season) 2025 Diabetes screening 01/05/2026 01/05/2023 Cervical cancer screening Discontinued Meningococcal B Vaccine Aged Out No l onger eligible based on patient's age to complete this topic Meningococcal Vaccine Aged Out No clemencia reji [...] [facility] Comment:Sample slightly hemo lyzed. Results may be falsely decreased due to hemolysis. Potassium 01/05/2023 10:29 AM EDT [facility] Comment:Sample Hemolyzed. Chloride 101 98 - 107 mmol/L 01/05/2023 10:29 AM [facility] CO2 24 20 - 30 mmol/L 01/05/2023 10:29 AM [facility] Anion Gap 14 7 - 17 01/05/2023 10:29 AM [facility] Glucose 135(H) 70 - 100 mg/dL 01/05/2023 10:29 AM [facility] BUN 18 8 - 23 mg/dL 01/05/2023 10:29 AM [facility] Creatinine 0.79 0.40 - 1.30 mg/dL 01/05/2023 10:29 AM [facility] Calcium 9.0 8.8 - 10.2 mg/dL 01/05/2023 10:29 AM [facility] BUN/Creatinine Ratio 22.8 8.0 - 23.0 01/05/2023 10:29 AM [facility] eGFR (Creatinine) >60 >=60 mL/min/1.7 3m2 01/05/2023 10:29 AM [facility] Comment: Values < 60 mL/min/1.73 m2 may indicate CKD if present for more than three months AND creatinine is at steady state. The eGFR provides a rough estimate of kidney function. On 02/06/22 all [facility] Clinical Labs and Epic began using a vca-jiwm-yvgnj formula for estimating GFR called CKD-EPI Creatinine 2020. This equation reports eGFR based on creatinine, patient age, clinical sex, and is standardized to a body surface area of 1.73 m2. For the same creatinine, this new race-free eGFR will be lower than prior reported Black eGFR results and higher than prior Non-Black eGFR results. For further guidance, please refer to the CKD: Adult Content Developer Signature pathway. Blood Venipuncture / Unknown 01/05/2023 9:37 AM EDT 01/05/2023 9:42 AM EDT James Lazo MD LAB BLOOD ORDERABLES Fi nal Result [facility] [address] [place] [address], [facility] [phone] from Last 3 Months or Most Recently Relevant to Health Maintenance Insurance MEDICARE [facility] MEDICARE BCBS MEDICARE [facility] Care Teams Building Rental Manager Relationship Specialty Start Date End Date Obtain, Unable To PCP - General 01/05/23
--- OUTSIDE RECORDS SUMMARY | 2025-03-16 13:51 | XMS_ITS | Encounter Summary ---
Author Organization [facility] Address [address] [place] [address] Phone Care Team Providers Care Methods Specialist Name Role Phone Imeldamandiryan Shahla Miles NP Primary Care Pro vider Self-Referred, Patient Unavailable Unavailab Mariluz Ivy MD Unavailable [phone] Soledad Mclean MD, MPH Unavailable Juan Manuel Mota MD Unavailable [phone] Encounter Details Date Type Department Care Team (Late st Contact Info) Description 07/19/2023 Procedure Pass [facility], Ct Scan 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 Not on file Not on file Not on file documented as of this encounter Plan of Treatment Upcoming Encounters Date Type Department Care Team (Late st Contact Info) Description 09/18/2024 Procedure Pass [facility] [place], Mammography, Manjula Lank Imaging Department [address] [place] [address] 03/17/2025 1:00 AM EDT [facility] [address] [place] [phone] Unscheduled, [facility] [address] [place] [address] 03/18/2025 10:30 AM EDT Home Care Visit [facility] [address] [place], [place] [phone] Louise Cuadra, PT 168 [place] [address] 03/24/2025 12:30 AM EDT Home Care Visit [facility] [address] [place], [place] [phone] Pily Miguel RN 30 [place] [address] 03/31/2025 10:30 AM EDT Office Visit [facility], [facility], [facility] [place] [facility] [place] [address] [facility] [address]th [place] [address] Paz Naqvi, POLYMER SCIENTIST [address] [place] [address] [email or web address] Soledad Mclean MD, MPH [address] [place] [address] [email or web address] 04/01/2025 1:00 AM EDT Home Care Visit [facility] [address] [place] [address] Pily Miguel RN [address] [place] [address] 04/07/2025 1:00 AM EDT [facility] Visit [facility] [address] [place] [address] Pily Miguel RN [address] [place] [address] 04/14/2025 1:00 AM EDT [facility] [address] [place] [phone] Pily Miguel, RN [address] [place] [address] 04/21/2025 12:30 AM EDT Home Care Visit [facility] [address] [place] [address] Pily Miguel, RN [address] [place] [address] 04/28/2025 1:00 AM EST Appointment [facility] [address] [place] [phone] Pily Miguel, RN [address] [place] [address] 05/07/2025 10:30 AM EST Office Visit [facility] [address] [place] [address] 3rd Floor, [address] [place] [address] Rober Matson DO [address] [place] [address] [email or web address] 10/08/2025 10:30 AM EDT Appointment [facility] [place], Mammography, Manjula Lank Imaging Department [address] [place] [address] Fox Martinez MD [address] [place] [address] [email or web address] 10/08/2025 12:00 PM EDT Office Visit [facility], [facility], [facility] [address], 9th [place] [address] Paz Prado PA-C [address] [place] [address] [email or web address] 11/08/2025 10:00 AM EDT Office Visit [facility] [address], [address] [place] [address] Raquel Henderson MD, PhD [address] [place] [address] [email or web address] documented as of this encounter Visit Diagnoses Not on filedocumented in this encounter Additional Health Concerns Infection Onset Date Last Indicated Resolved Time CoV-Risk Comment:Per note documentation 06/27/2024 06/27/2024 2:53 AM EST CDiff-Risk 06/28/2024 06/28/2024 06/28/2024 12:3 7 PM EST documented as of this encounter Care Teams Methods Specialist Relationship Specialty Start Date End Date Shahla Madrigal NP [address] [place] [address] [email or web address] PCP - General Family Medicine 01/05/20 Self-Referred, Patient 10/30/23 04/02/24 Mariluz Be MD [email or web address] Obstetrics and Gynecology 10/30/23 Soledad Mclean MD, MPH [address] [place] [address] Maria [email or web address] Medical Oncology 01/14/24 Juan Manuel Mota MD [address] [place] [address] [email or web address] Endocrinology 04/03/24 documented as of this encounter Additional Source Comments The information contained in this document represents components of the legal health record. It is not the complete legal health record.[facility]
--- OUTSIDE RECORDS SUMMARY | 2025-03-16 13:51 | XMS_ITS | Encounter Summary ---
Author Organization [facility] Address [address] [place] [address] Phone Care Team Providers Care Collet Gluer Name Role Phone ImeldamandiShahla davis NP Primary Care Pro vider Self-Referred, Patient Unavailable Unavailab Mariluz Ivy MD Unavailable [phone] Soledad Mclean MD, MPH Unavailable Juan Manuel Mota MD Unavailable [phone] Encounter Details Date Type Department Care Team (Latest Contact Info) Description 10/22/2022 Transcribe Orders Virtual Department [address] [place] [address] Juan Manuel Mota MD [address] [place] [address] [email or web address] Age-related osteoporosis without current pathological fracture (Primary Dx); Other halfway (current) 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 Social History Tobacco Use Types Packs/Day Years Used Date Smoking Tobacco: Never Smokeless Tobacco: Never Alcohol Use Standard Drinks/Week Comments No 0 (1 standard drink = 0.6 oz pur e alcohol) Education Answer Date Recorded Are you interested in more education? Not on greta e 10/22/2022 Are you concerned about learning? Not on file 10/22/2022 No 10/22/2022 No 10/22/2022 Comments Unknown Sex and Gender Information Value [...] Contact Info) Description 09/18/2024 Procedure Pass [facility] [place], Mammography, Manjula Lank Imaging Department [address] [place] [address] 03/17/2025 1:00 AM EDT [facility] [address] [place] [phone] Unscheduled, [facility] 168 [place] [address] 03/18/2025 10:30 AM EDT [facility] Visit [facility] [address] [place] [phone] Louise Cuadra, PT 168 [place] [address] 03/24/2025 12:30 AM EDT Home [facility] Visit [facility] [address] [place] [phone] Pily Miguel RN 30 [place] [address] 03/31/2025 10:30 AM EDT Office Visit [facility], [facility], [facility] [place] [facility] 300 [facility] 4th [place] [address] Paz Naqvi, UNDERWRITING SERVICE REPRESENTATIVE [address] [place] [address] [email or web address] Soledad Mclean MD, MPH 450 [place] [address] [email or web address] 04/01/2025 1:00 AM EDT Home Care Visit [facility] [address] [place] [phone] Pily Miguel RN [address] [place] [address] 04/07/2025 1:00 AM EDT [facility] [address] [place] [phone] Pily Miguel RN [address] [place] [address] 04/14/2025 1:00 AM EDT Home [facility] Visit [facility] [address] [place] [phone] Pily Migeul RN [address] [place] [address] 04/21/2025 12:30 AM EDT Home [facility] Visit [facility] [address] [place] [address] Pily Miguel RN [address] [place] [address] 04/28/2025 1:00 AM EST Appointment [facility] [address] [place] [phone] Pily Miguel RN [address] [place] [address] 05/07/2025 10:30 AM EST Office Visit [facility] [address] [place] [address] 3rd Floor, [address] [place] [address] Rober Matson, [address] [facility] [address] [place] [address] 10/08/2025 10:30 AM EDT Appointment [facility], Mammography, Manjula Lank Imaging Department [address] [place] [address] Fox Martinez MD [address] [place] [address] [email or web address] 10/08/2025 12:00 PM EDT Office Visit [facility], [facility], [address], 9th [place] [address] Paz Prado PA-C [address] [place] [address] [email or web address] 11/08/2025 10:00 AM EDT Office Visit [facility] [address] [facility], [address] [place] [address] Raquel Henderson MD, PhD [address] [place] [address] [email or web address] documented as of this encounter Visit Diagnoses Diagnosis Age-related osteoporosis without current pathological fracture- Primary Other sponge maker (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) 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 documented in this encounter Additional Health Concerns Infection Onset Date Last Indicated Resolved Time CoV-Risk 01/17/2023 01/17/2023 01/28/2023 1:21 AM EDT CoV-Exposed Comment:Recent close contact documented in the COVID-19 PCR/PRO order 01/17/2023 01/17/2023 01/28/2023 1:21 AM E DT CoV-Risk Comment:Per note documentation 06/27/2024 06/27/2024 2:53 AM EST CDiff-Risk 06/28/2024 06/28/2024 06/28/2024 12:3 7 PM EST documented as of this encounter Care Teams Collet Gluer Relationship Specialty Start Date End Date Shahla Madrigal NP [address] [place] [address] [email or web address] PCP - General Family Medicine 01/05/20 Self-Referred, Patient 10/30/23 04/02/24 Mariluz Be MD [email or web address] Obstetrics and Gynecology 10/30/23 Soledad Mclean MD, MPH [address] [place] [address] Maria [email or web address] Medical Oncology 01/14/24 Juan Manuel Mota MD [address] [place] [address] [email or web address] Endocrinology 04/03/24 documented as of this encounter Additional Source Comments The information contained in this document represents components of the legal health record. It is not the complete legal health record.[facility]
--- OUTSIDE RECORDS SUMMARY | 2025-03-16 13:51 | XMS_ITS | Encounter Summary ---
Author Organization [facility] Address [address] [facility] [address] [place] [address] Phone Care Team Providers Care Ceramic Design Engineer Name Role Phone Shahla Madrigal NP Primary Care Pro vider Self-Referred, Patient Unavailable Unavailab Mariluz Ivy MD Unavailable [phone] Soledad Mclean MD, MPH Unavailable Juan Manuel Mota MD Unavailable [phone] Reason for Referral * MRI/CAT Scan - Closed Specialty Diagnoses / Procedures Referred By Jefferson markham Referred To Contact Radiology Diagnoses Calculus of kidney Procedures CT Abdomen/Pelvis Daryl Fu MD Phone: tel: fax: [email or web address] Referral ID Status Reason Start Date Expiration Date Visits Re quested Visits Authorized [id number] Closed 03/28/2021 03/28/2022 1 1 Encounter Details Date Type Department Care Team (Latest Contact Info) Description 03/28/2021 Transcribe Orders Virtual Department 30 [place] [address] Daryl Fu MD [facility], [address] [place] [address] [email or web address] Calculus of kidney (Primary Dx) Social [...] st Contact Info) Description 09/18/2024 Procedure Pass [facility] [place], Mammography, Manjula Lank Imaging Department [address] [place] [address] 03/17/2025 1:00 AM EDT [facility] [address] [place] [phone] Unscheduled, [facility] 168 [place] [address] 03/18/2025 10:30 AM EDT Home [facility] Visit [facility] [address] [place] [address] Louise Cuadra, PT 168 [place] [address] 03/24/2025 12:30 AM EDT Home [facility] Visit [facility] [address] [place] [address] Pily Miguel, RN 30 [place] [address] 03/31/2025 10:30 AM EDT Office Visit [facility], [facility], [facility] [place] [facility] [place] [address] [address] Paz Naqvi, INSIDE SALES SPECIALIST 450 [place] [address] [email or web address] Soledad Mclean MD, MPH 450 [place] [address] Maria [email or web address] 04/01/2025 1:00 AM EDT Home Care Visit [facility] [address] [place] [phone] Pily Miguel RN [address] [place] [address] 04/07/2025 1:00 AM EDT Home Care Visit [facility] [address] [place] [phone] iPly Miguel RN [address] [place] [address] 04/14/2025 1:00 AM EDT Home Care Visit [facility] [address] [place] [phone] Pily Miguel RN [address] [place] [address] 04/21/2025 12:30 AM EDT Home Care Visit [facility] [address] [place] [phone] Pily Miguel RN [address] [place] [address] 04/28/2025 1:00 AM EST Appointment [facility] [address] [place] [phone] Pily Miguel RN 30 [place] [address] [email or web address] 05/07/2025 10:30 AM EST Office Visit [facility] [address] [place] [address] 3rd Floor, [address] [place] [address] Rober Matson DO [address] [place] [address] [place] [address] [email or web address] 10/08/2025 10:30 AM EDT Appointment [facility] [place], Mammography, Manjula Lank Imaging Department [address] [place] [address] Fox Martinez MD [address] [place] [address] [email or web address] [email or web address] 10/08/2025 12:00 PM EDT Office Visit [facility], [facility] [place] [facility], [facility] [address] [facility] [place] [facility], 9th [place] [address] Paz Prado PA-C 450 [place] [address] [email or web address] 11/08/2025 10:00 AM EDT Office Visit [facility] [address] [facility], [address] [place] [address] Raquel Henderson MD, PhD [address] [place] [address] [email or web address] documented as of this encounter Results * CT ABDOMEN/PELVIS (KIDNEY STONE) WITHOUT CONTRAST (06/22/2021 9:42 AM EST) Anatomical Region Laterality Modality Abdomen, Pelvis Computed Tomogra phy 06/22/2021 9:47 AM EST Impressions 06/22/2021 10:08 AM EST 1. No kidney stones or signs of obstruction. 2. Stable left pelvic sidewall benign-appearing cyst. 3. No new/other abdominal or pelvic pathology allowing for lack of contrast. POS - [id number] Narrative 06/22/2021 10:08 AM EST Nonenhanced exam. Compare 09/10/2019 FINDINGS: No intrarenal, ureteral or bladder calculi. Neither collecting system is dilated. Chronic left 3 cm parapelvic cyst unchanged. No new cystic or solid masses identified allowing for lack of IV contrast. Liver, gallbladder, biliary tree, pancreas, spleen and adrenals all unremarkable. Chronic 3.5 x 4 cm left pelvic sidewall cyst unchanged, presumably lymphocele or old seroma. Hysterectomy. No bowel pathology allowing for lack of oral contrast. No adenopathy or ascites. Lung bases and pleural spaces clear. No acute or worrisome bony normalities Procedure Note Yury Emanuel MD - 06/22/2021 Nonenhanced exam. Compare 09/10/2019 FINDINGS: No intrarenal, ureteral or bladder calculi. Neither collecting system isdilated. Chronic left 3 cm parapelvic cyst unchanged. No new cystic or solid massesidentified allowing for lack of IV contrast. Liver, gallbladder, biliary tree, pancreas, spleen and adrenals allunremarkable. Chronic 3.5 x 4 cm left pelvic sidewall cyst unchanged, presumablylymphocele or old seroma. Hysterectomy. No bowel pathology allowing for lack of oral contrast. No adenopathy or ascites. Lung bases and pleural spaces clear. No acute or worrisome bony normalities IMPRESSION: 1. No kidney stones or signs of obstruction. 2. Stable left pelvic sidewall benign-appearing cyst. 3. No new/other abdominal or pelvic pathology allowing for lack ofcontrast. POS - [id number] Daryl Fu MD IMG CT ABD/PELVIS Final Result documented in this encounter Visit [...] documented as of this encounter Care Teams Ceramic Design Engineer Relationship Specialty Start Date End Date Shahla Madrigal NP [address] [place] [address] [email or web address] PCP - General Family Medicine 01/05/20 Self-Referred, Patient 10/30/23 04/02/24 Mariluz Be MD [email or web address] Obstetrics and Gynecology 10/30/23 Soledad Mclean MD, MPH [address] [place] [address] Maria [email or web address] du Medical Oncology 01/14/24 Juan Manuel Mota MD [address] [place] [address] [email or web address] Endocrinology 04/03/24 documented as of this encounter Additional Source Comments The information contained in this document represents components of the legal health record. It is not the complete legal health record.[facility]
--- OUTSIDE RECORDS SUMMARY | 2025-03-16 13:51 | XMS_ITS | Encounter Summary ---
Author Organization [facility] Address [address] [facility] [address] [place] [address] Phone Care Team Providers Care Irrigation Foreman Name Role Phone Jocelyn Chacon NP Primary Care Provider [phone] Shahla Madrigal NP Primary Care Pro vider Self-Referred, Patient Unavailable Unavailab Mariluz Ivy MD Unavailable [phone] Soledad Mclean MD, MPH Unavailable [phone] Juan Manuel Mota MD Unavailable Encounter Details Date Type Department Care Team (Late st Contact Info) Description 12/31/2019 Ancillary Orders Virtual Department 30 [place] [address] Shahla Madrigal NP 31 [facility] [place] [address] [email or web address] Pelvic mass Social History Tobacco Use Types Packs/Day Years [...] st Contact Info) Description 09/18/2024 Procedure Pass [facility] [place], Mammography, Manjula Lank Imaging Department [address] [place] [address] 03/17/2025 1:00 AM EDT [facility] [address] [place] [phone] Unscheduled, [facility] [address] [place] [address] 03/18/2025 10:30 AM EDT Home [facility] Visit [facility] [address] [place] [phone] Louise Cuadra, PT 168 [place] [address] 03/24/2025 12:30 AM EDT Home Care Visit [facility] [address] [place] [phone] Pily Miguel RN 30 [place] [address] 03/31/2025 10:30 AM EDT Office Visit [facility], [facility] [place] [facility] [place] [address] [facility] 4th [place] [address] Paz Naqvi SLOT MACHINE FLOOR PERSON [address] [place] [address] [email or web address] Soledad Mclean MD, MPH [address] [place] [address] Maria [email or web address] 04/01/2025 1:00 AM EDT Home Care Visit [facility] [address] [place] [phone] Pily Miguel RN [address] [place] [address] 04/07/2025 1:00 AM EDT Home [facility] Visit [facility] [address] [place] [phone] Pily Miguel RN [address] [place] [address] 04/14/2025 1:00 AM EDT Home [facility] Visit [facility] [address] [place] [phone] Pily Miguel RN [address] [place] [address] 04/21/2025 12:30 AM EDT Home [facility] Visit [facility] [address] [place] [phone] Pily Miguel RN [address] [place] [address] 04/28/2025 1:00 AM EST Appointment [facility] [address] [place] [phone] Pily Miguel RN [address] [place] [address] 05/07/2025 10:30 AM EST Office Visit [facility] [address] [place] [address] 3rd Floor, [address] [place] [address] Rober Matson DO [address] [facility] [address] [place] [address] 10/08/2025 10:30 AM EDT Appointment [facility] [place], Mammography, Manjula Lank Imaging Department 450 [place] [address] Fox Martinez MD 450 [place] [address] [email or web address] 10/08/2025 12:00 PM EDT Office Visit [facility], [facility], [facility] [place] 450 [facility], 9th [place] [address] Paz Prado PA-C 450 [place] [address] [email or web address] 11/08/2025 10:00 AM EDT Office Visit [facility] Special[facility] [address] [facility], [address] [place] [address] Raquel Henderson MD, PhD [address] [place] [address] [email or web address] documented as of this encounter Visit Diagnoses Diagnosis Pelvic mass Abdominal or pelvic swelling, mass or lump, unspecified site documented in this encounter Additional [...] documented as of this encounter Care Teams Irrigation Foreman Relationship Specialty Start Date End Date Jocelyn Chacon, KERRY [address] [place] [address] [place] [address] PCP - General 04/11/17 01/04/20 Shahla Madrigal NP [address] [place] [address] [place] [address] [email or web address] PCP - General Family Medicine 01/05/20 Self-Referred, Patient 10/30/23 04/02/24 Mariluz Be MD [email or web address] Obstetrics and Gynecology 10/30/23 Soledad Mclean MD, MPH [address] [place] [address] Maria [email or web address] Medical Oncology 01/14/24 Juan Manuel Mota MD [address] [place] [address] [email or web address] Endocrinology 04/03/24 documented as of this encounter Additional Source Comments The information contained in this document represents components of the legal health record. It is not the complete legal health record.[facility]
--- OUTSIDE RECORDS SUMMARY | 2025-03-16 13:51 | XMS_ITS | Encounter Summary ---
Author Organization [facility] Address [address] [facility] [address] [place] [address] Phone Care Team Providers Care Camera Mechanic Name Role Phone Jocelyn Chacon OPTOMETRIST Primary Care Provider Shahla Madrigal OPTOMETRIST Primary Care Pro vider Self-Referred, Patient Unavailable Unavailab Mariluz Ivy MD Unavailable [phone] Soledad Mclean MD, MPH Unavailable Juan Manuel Mota MD Unavailable [phone] Encounter Details Date Type Department Care Team (Late st Contact Info) Description 12/30/2019 Ancillary Orders Virtual Department 30 [place] [address] Daryl Fu MD [address] [facility], [address] [place] [address] [email or web address] Kidney stones; Flank pain Social History Tobacco [...] st Contact Info) Description 09/18/2024 Procedure Pass [facility] [place], Mammography, Manjula Lank Imaging Department [address] [place] [address] 03/17/2025 1:00 AM EDT Home Care Visit [facility] [address] [place] [phone] Unscheduled, [facility] Clinical East [address] [place] [address] 03/18/2025 10:30 AM EDT Home Care Visit [facility] [address] [place] [phone] Louise Cuadra, PT [address] [place] [address] 03/24/2025 12:30 AM EDT Home Care Visit [facility] [address] [place] [phone] Pily Miguel RN 30 [place] [address] 03/31/2025 10:30 AM EDT Office Visit [facility], [facility], [facility] [place] [facility] [place] 300 [facility] 4th [place] [address] Paz Naqvi GAME PROGRAMER [address] [place] [address] [email or web address] Soledad Mclean MD, MPH [address] [place] [address] Maria [email or web address] 04/01/2025 1:00 AM EDT Home Care Visit [facility] [address] [place] [phone] Pily Miguel RN [address] [place] [address] 04/07/2025 1:00 AM EDT Home Care Visit [facility] [address] [place] [phone] Pily Miguel RN [address] [place] [address] 04/14/2025 1:00 AM EDT Home Care Visit [facility] [address] [place] [phone] Pily Miguel RN [address] [place] [address] 04/21/2025 12:30 AM EDT Home Care Visit [facility] [address] [place] [phone] Pily Miguel RN [address] [place] [address] 04/28/2025 1:00 AM EST Appointment [facility] [address] [place] [phone] Pily Miguel RN [address] [place] [address] 05/07/2025 10:30 AM EST Office Visit [facility] [address] [place] [address] 3rd Floor, [address] [place] [address] Rober Matson DO [address] [place] [address] [place] [address] 10/08/2025 10:30 AM EDT Appointment [facility] [place], Mammography, Manjula Lank Imaging Department [address] [place] [address] Fox Martinez MD [address] [place] [address] maria [email or web address] 10/08/2025 12:00 PM EDT Office Visit [facility], [facility], [facility] [address] [place] [address], 9th [place] [address] Paz Prado PA-C 450 [place] [address] [email or web address] 11/08/2025 10:00 AM EDT Office Visit [facility] Specialties [address] [facility], [address] [place] [address] Raquel Henderson MD, PhD [address] [place] [address] [email or web address] documented as of this encounter Visit Diagnoses Diagnosis Kidney stones [...] documented as of this encounter Care Teams Camera Mechanic Relationship Specialty Start Date End Date Jocelyn Chacon NP [address] [place] [address] [place] [address] PCP - General 04/11/17 01/04/20 Shahla Madrigal NP [address] [place] [address] [email or web address] PCP - General Family Medicine 01/05/20 Self-Referred, Patient 10/30/23 04/02/24 Mariluz Be MD [email or web address] Obstetrics and Gynecology 10/30/23 Soledad Mclean MD, MPH [address] [place] [address] Maria [email or web address] Medical Oncology 01/14/24 Juan Manuel Mota MD [address] [place] [address] [email or web address] Endocrinology 04/03/24 documented as of this encounter Additional Source Comments The information contained in this document represents components of the legal health record. It is not the complete legal health record.[facility]
--- OUTSIDE RECORDS SUMMARY | 2025-03-16 13:51 | XMS_ITS | Encounter Summary ---
Author Organization [facility] Address [address] [facility] [address] [place] [address] Phone Care Team Providers Care Program Advocate Name Role Phone Shahla Madrigal NP Primary Care Pro vider Self-Referred, Patient Unavailable Unavailab Mariluz Ivy MD Unavailable [phone] Soledad Mclean MD, MPH Unavailable Juan Manuel Mota MD Unavailable [phone] Encounter Details Date Type Department Care Team (Late st Contact Info) Description 09/27/2020 Procedure Pass [facility], [address] [place] [address] Social History Tobacco Use Types Packs/Day Years [...] st Contact Info) Description 09/18/2024 Procedure Pass [facility] [place], Mammography, Manjula Lank Imaging Department [address] [place] [address] 03/17/2025 1:00 AM EDT Home Care [facility] [address] [place] [phone] Unscheduled, [facility] Clinical East [address] [place] [address] 03/18/2025 10:30 AM EDT Home Care Visit [facility] [address] [place] [phone] Louise Cuadra, PT 168 [place] [address] 03/24/2025 12:30 AM EDT Home [facility] Visit [facility] [address] [place] [phone] Pily Miguel, KATHIE 30 [place] [address] 03/31/2025 10:30 AM EDT Office Visit [facility], [facility] [place] [facility], [facility] [place] [facility] [place] [address] [address] Paz Naqvi, REED OR WIND INSTRUMENT TUNER [address] [place] [address] [email or web address] Soledad Mclean MD, MPH 450 [place] [address] Maria [email or web address] 04/01/2025 1:00 AM EDT Home Care Visit [facility] [address] [place] [phone] Pily Miguel RN [address] [place] [address] 04/07/2025 1:00 AM EDT Home Care Visit [facility] [address] [place] [phone] Pily Miguel RN [address] [place] [address] 04/14/2025 1:00 AM EDT Home Care Visit [facility] [address] [place] [phone] Pily Miguel RN [address] [place] [address] 04/21/2025 12:30 AM EDT Home Care Visit [facility] [address] [place] [address] Pily Miguel RN [address] [place] [address] 04/28/2025 1:00 AM EST Appointment [facility] [address] [place] [phone] Pily Miguel RN [address] [place] [address] 05/07/2025 10:30 AM EST Office Visit [facility] [address] [place] [address] 3rd Floor, [address] [place] [address] Rober Matson DO [address] [facility] [address] [place] [address] 10/08/2025 10:30 AM EDT Appointment [facility] [place], Mammography, Manjula Lank Imaging Department [address] [place] [address] Fox Martinez MD [address] [place] [address] maria [email or web address] 10/08/2025 12:00 PM EDT Office Visit [facility], [facility] [place] [facility], [facility] [facility] [address] [facility], 9th [place] [address] Paz Prado PA-C 450 [place] [address] [email or web address] 11/08/2025 10:00 AM EDT Office Visit [facility] Specialties 52 [facility], [address] [place] [address] Raquel Henderson MD, PhD [address] [place] [address] [email or web address] documented as of this encounter Visit Diagnoses [...] as of this encounter Care Teams Program Advocate Relationship Specialty Start Date End Date Shahla Madrigal NP [address] [place] [address] [email or web address] PCP - General Family Medicine 01/05/20 Self-Referred, Patient 10/30/23 04/02/24 Mariluz Be MD [email or web address] Obstetrics and Gynecology 10/30/23 Soledad Mclean MD, MPH [address] [place] [address] Maria [email or web address] Medical Oncology 01/14/24 Juan Manuel Mota MD [address] [place] [address] [email or web address] Endocrinology 04/03/24 documented as of this encounter Additional Source Comments The information contained in this document represents components of the legal health record. It is not the complete legal health record.[facility]
--- OUTSIDE RECORDS SUMMARY | 2025-03-16 13:51 | XMS_ITS | Encounter Summary ---
Author Organization [facility] Address [address] [facility] [address] [place] [address] Phone Care Team Providers Care General Handling Supervisor Name Role Phone Shahla Madrigal NP Primary Care Pro vider Self-Referred, Patient Unavailable Unavailab Mariluz Ivy MD Unavailable [phone] Soledad Mclean MD, MPH Unavailable Juan Manuel Mota MD Unavailable [phone] Encounter Details Date Type Department Care Team (Late st Contact Info) Description 03/28/2021 Procedure Pass [facility], [facility] 30 [place] [address] Social History Tobacco Use Types Packs/Day Years [...] st Contact Info) Description 09/18/2024 Procedure Pass [facility] [place], Mammography, Manjula Lank Imaging Department [address] [place] [address] 03/17/2025 1:00 AM EDT Home Care Visit [facility] [address] [place] [phone] Unscheduled, [facility] Clinical East [address] [place] [address] 03/18/2025 10:30 AM EDT Home Care Visit [facility] [address] [place] [phone] Louise Cuadra, PT [address] [place] [address] 03/24/2025 12:30 AM EDT Home [facility] Visit [facility] [address] [place] [phone] Pily Miguel, RN 30 [place] [address] 03/31/2025 10:30 AM EDT Office Visit [facility], [facility] [place] [facility], [facility] [place] [facility] [place] [address] [address] Paz Naqvi, URBAN DESIGNER [address] [place] [address] [email or web address] Soledad Mclean MD, MPH 450 [place] [address] Maria [email or web address] 04/01/2025 1:00 AM EDT Home Care Visit [facility] [address] [place] [phone] Pily Miguel RN [address] [place] [address] 04/07/2025 1:00 AM EDT Home Care Visit [facility] [address] [place] [phone] Pily Miguel RN [address] [place] [address] 04/14/2025 1:00 AM EDT Home Care Visit [facility] [address] [place] [phone] Pily Miguel RN [address] [place] [address] 04/21/2025 12:30 AM EDT Home Care Visit [facility] [address] [place] [address] Pily Miguel RN [address] [place] [address] 04/28/2025 1:00 AM EST Appointment [facility] [address] [place] [phone] Pily Miguel RN [address] [place] [address] 05/07/2025 10:30 AM EST Office Visit [facility] [address] [place] [address] 3rd Floor, [address] [place] [address] Rober Matson DO 22 [facility] [address] [place] [address] 10/08/2025 10:30 AM EDT Appointment [facility] [place], Mammography, Manjula Lank Imaging Department [address] [place] [address] Fox Martinez MD 450 [place] [address] maria [email or web address] 10/08/2025 12:00 PM EDT Office Visit [facility], [facility] [place] [facility], [facility] [place] 450 [facility], 9th [place] [address] Paz Prado PA-C 450 [place] [address] [email or web address] 11/08/2025 10:00 AM EDT Office Visit [facility] Specialties [address] [facility], [address] [place] [address] Raquel Henderson MD, PhD [address] [place] [address] [email or web address] documented as of this encounter Visit [...] documented as of this encounter Care Teams General Handling Supervisor Relationship Specialty Start Date End Date Shahla Madrigal NP [address] [place] [address] [email or web address] PCP - General Family Medicine 01/05/20 Self-Referred, Patient 10/30/23 04/02/24 Mariluz Be MD [email or web address] Obstetrics and Gynecology 10/30/23 Soledad Mclean MD, MPH [address] [place] [address] Maria [email or web address] Medical Oncology 01/14/24 Juan Manuel Mota MD [address] [place] [address] [email or web address] Endocrinology 04/03/24 documented as of this encounter Additional Source Comments The information contained in this document represents components of the legal health record. It is not the complete legal health record.[facility]
--- OUTSIDE RECORDS SUMMARY | 2025-03-16 13:51 | XMS_ITS | Encounter Summary ---
Author Organization [facility] Address [address] [place] [address] Phone Care Team Providers Care Fur Mixer Operator Name Role Phone Shahla Madrigal NP Primary Care Pro vider Self-Referred, Patient Unavailable Unavailab Mariluz Ivy MD Unavailable [phone] Soledad Mclean MD, MPH Unavailable Juan Manuel Mota MD Unavailable [phone] Reason for Referral * Outpatient Procedure - Closed Specialty Diagnoses / Procedures Referred By [facility] t Referred To Contact Radiology Diagnoses Malignant neoplasm of upper-outer quadrant of right breast in female, estrogen receptor positive Procedures LONG TERM Breast Needle Localization (Right) Mammogram Needle Localization (Right) VT PERQ DEVICE PLACEMT BREAST LOC 1ST LES W Fox Whitney MD Phone: tel: fax: mailto:[email or web address] Referral ID Status Reason Start Date Expiration Date Visits Re quested Visits Authorized [id number] Closed 11/19/2023 02/23/2024 1 1 Encounter Details Date Type Department Care Team (Late st Contact Info) Description 11/25/2023 Ancillary Orders [facility] Breast Center Surgery [id number] [place] [address] Fox Martinez MD [address] [place] [address] 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 Not on file Not on file Not on file documented as of this encounter Plan of Treatment Upcoming Encounters Date Type Department Care Team (Late st Contact Info) Description 09/18/2024 Procedure Pass [facility] [place], Mammography, Manjula Lank Imaging Department [address] [place] [address] 03/17/2025 1:00 AM EDT Home Care Visit [facility] [address] [place] [phone] Unscheduled, [facility] Clinical East [address] [place] [address] 03/18/2025 10:30 AM EDT Home Care Visit [facility] [address] [place] [phone] Louise Cuadra, PT [address] [place] [address] 03/24/2025 12:30 AM EDT Home [facility] Visit [facility] [address] [place] [address] Pily Miguel, RN 30 [place] [address] 03/31/2025 10:30 AM EDT Office Visit [facility], [facility], [facility] [place] [facility] [place] [address] [facility] [address] [place] [address] Paz Naqvi, HOME OFFICE CLAIMS EXAMINER [address] [place] [address] [email or web address] Soledad Mclean MD, MPH [address] [place] [address] [email or web address] 04/01/2025 1:00 AM EDT Home Care Visit [facility] [address] [place] [address] Pily Miguel RN [address] [place] [phone] 04/07/2025 1:00 AM EDT Home Care Visit [facility] [address] [place] [address] Pily Miguel RN [address] [place] [address] 04/14/2025 1:00 AM EDT Home Care Visit [facility] [address] [place] [phone] Pily Miguel RN [address] [place] [address] 04/21/2025 12:30 AM EDT Home Care Visit [facility] [address] [place] [address] Pily Miguel, RN [address] [place] [address] 04/28/2025 1:00 AM EST Appointment [facility] [address] [place] [phone] Pily Miguel, RN [address] [place] [phone] 05/07/2025 10:30 AM EST Office Visit [facility] [address] [place] [address] [address]rd Floor, [address] [place], [place] [phone] Rober Matson [address] [facility] [facility] [address] [place] [address] [email or web address] 10/08/2025 10:30 AM EDT Appointment [facility], Mammography, [facility] Imaging Department [address] [place] [address] Fox Martinez MD [address] [place] [address] maria [email or web address] 10/08/2025 12:00 PM EDT Office Visit [facility], [facility], [address], 9th [place] [address] Paz Prado PA-C [address] [place] [address] [email or web address] 11/08/2025 10:00 AM EDT Office Visit [facility] Specialties [address], [address] [place] [address] Raquel Henderson MD, PhD [address] [place] [address] [email or web address] documented as of this encounter Results * LONG TERM Breast Needle Localization (Right) (11/25/2023 12:27 PM EDT) Anatomical Region Laterality Modality Breast Right, Breast Bilateral Right U ltrasound 11/25/2023 12:2 5 PM EDT Impressions 11/25/2023 12:37 PM EDT Mammographically guided needle localization of the right breast - please see report content for details. The attending physician, Henry Schultz, was present for the entire radiologic and bob portions of the procedure and was immediately available for the non-critical/bob portions. 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 The patient presents for single-site localization prior to surgery scheduled on another day. COMPARISON: Comparison is made with relevant prior imaging. TECHNIQUE: The procedure was explained to the patient, including discussion of risks and benefits, and written informed consent was obtained. A preprocedural timeout was performed to confirm patient identity with multiple identifiers, as well as the side of the procedure to be performed. Mammographic imaging was performed to localize the target. The procedure site was prepped using standard aseptic technique. Local anesthesia was administered and documented in the EMR. Under mammographic guidance, needle localization was performed of the target lesion. FINDINGS: SITE #1 Location: Right breast 10:00, 8 cm from the nipple. Target: A wing-shaped marker clip. Localizer device: Seed (radioactivity/dose documented in EMR). Mammogram: Localizer device in good position relative to the target. Specimen radiograph: Will be performed separately and dictated separately. The patient was discharged home in stable condition. Procedure Note Henry Schultz MD - 11/25/2023 BI MAMMOGRAM NEEDLE LOCALIZATION (RIGHT) Additional patient information: 73-year-old woman status postultrasound-guided core biopsy of a mass at 10:00, 8 cm from the nipple inthe right breast, showing mucinous carcinoma (denoted by a wing-shapedmarker clip). The patient presents for single-site localization prior tosurgery scheduled on another day. COMPARISON: Comparison is made with relevant prior imaging. TECHNIQUE: The procedure was explained to the patient, including discussion of risksand benefits, and written informed consent was obtained. A preproceduraltimeout was performed to confirm patient identity with multipleidentifiers, as well as the side of the procedure to be performed. Mammographic imaging was performed to localize the target. The proceduresite was prepped using standard aseptic technique. Local anesthesia wasadministered and documented in the EMR. Under mammographic guidance,needle localization was performed of the target lesion. FINDINGS: SITE #1 Location: Right breast 10:00, 8 cm from the nipple. Target: A wing-shaped marker clip. Localizer device: Seed (radioactivity/dose documented in EMR). Mammogram: Localizer device in good position relative to the target. Specimen radiograph: Will be performed separately and dictatedseparately. The patient was discharged home in stable condition. IMPRESSION: Mammographically guided needle localization of the right breast - pleasesee report content for details. The attending physician, Henry Schultz, was present for the entireradiologic and bob portions of the procedure and was immediately availablefor the non-critical/bob portions. [facility] Maddy Martinez MD IMG BI IRP GUIDED BREAST PROC Final Result documented in this encounter Visit Diagnoses Diagnosis Malignant neoplasm of upper-outer quadrant of right breast in female, estrogen receptor positive Malignant neoplasm of upper-outer quadrant of right breast in female, estrogen receptor positive- Primary documented in this encounter Additional Health Concerns Infection Onset Date Last Indicated Resolved Time CoV-Risk Comment:Per note documentation 06/27/2024 06/27/2024 2:53 AM EST CDiff-Risk 06/28/2024 06/28/2024 06/28/2024 12:3 7 PM EST documented as of this encounter Care Teams Fur Mixer Operator Relationship Specialty Start Date End Date Shahla Madrigal NP [address] [place] [phone] [email or web address] PCP - General Family Medicine 01/05/20 Self-Referred, Patient 10/30/23 04/02/24 Mariluz Be MD [email or web address] Obstetrics and Gynecology 10/30/23 Soledad Mclean MD, MPH [address] [place] [phone] Maria [email or web address] [facility] Medical Oncology 01/14/24 Juan Manuel Mota MD [address] [place] [address] [email or web address] Endocrinology 04/03/24 documented as of this encounter Additional Source Comments The information contained in this document represents components of the legal health record. It is not the complete legal health record.[facility]
--- OUTSIDE RECORDS SUMMARY | 2025-03-16 13:51 | XMS_ITS | Encounter Summary ---
Author Organization [facility] Address [address] [place] [address] Phone Care Team Providers Care Self Propelled Dredge Operator Name Role Phone Shahla Madrigal NP Primary Care Pro vider Self-Referred, Patient Unavailable Unavailab Mariluz Ivy MD Unavailable Soledad Mclean MD, MPH Unavailable [phone] Juan Manuel Mota MD Unavailable [phone] Encounter Details Date Type Department Care Team (Late st Contact Info) Description 09/27/2020 Procedure Pass [facility], [address] [place] [address] Social History Tobacco Use Types Packs/Day Years [...] st Contact Info) Description 09/18/2024 Procedure Pass [facility] [place], Mammography, Manjula Lank Imaging Department [address] [place] [address] 03/17/2025 1:00 AM EDT Home [facility] [address] [place] [phone] Unscheduled, [facility] Clinical East [address] [place] [address] 03/18/2025 10:30 AM EDT Home Care Visit [facility] [address] [place] [phone] Louise Cuadra, PT [address] [place] [address] 03/24/2025 12:30 AM EDT Home Care Visit [facility] [address] [place] [phone] Pily Miguel, KATHIE [address] [place] [address] 03/31/2025 10:30 AM EDT Office Visit [facility], [facility], [facility] [place] [facility] [place] [address] [address] Paz Naqvi, UMBRELLA TIPPER [address] [place] [address] [email or web address] Soledad Mclean MD, MPH [address] [place] [address] [email or web address] 04/01/2025 1:00 AM EDT Home [facility] Visit [facility] [address] [place] [phone] Pily Miguel RN [address] [place] [address] 04/07/2025 1:00 AM EDT Home [facility] Visit [facility] [address] [place] [phone] Pily Miguel RN [address] [place] [address] 04/14/2025 1:00 AM EDT Home Care Visit [facility] [address] [place] [phone] Pily Miguel RN [address] [place] [address] 04/21/2025 12:30 AM EDT Home Care Visit [facility] [address] [place] [address] Pily Miguel RN [address] [place] [address] 04/28/2025 1:00 AM EST Appointment [facility] [address] [place] [phone] Pily Miguel RN [address] [place] [address] 05/07/2025 10:30 AM EST Office Visit [facility] [address] [place] [address] 3rd Floor, [address] [place] [address] Rober Matson DO [address] [facility] [address] [place] [address] 10/08/2025 10:30 AM EDT Appointment [facility] [place], Mammography, Manjula Lank Imaging Department [address] [place] [address] Fox Martinez MD 450 [place] [address] maria [email or web address] 10/08/2025 12:00 PM EDT Office Visit [facility], [facility], [facility] [place] [address] [facility], 9th [place] [address] Paz Prado PA-C [address] [place] [address] [email or web address] 11/08/2025 10:00 AM EDT Office Visit [facility] Special[facility] [address] [place] [address] Raquel Henderson MD, PhD [address] [place] [address] [email or web address] documented as of [...] documented as of this encounter Care Teams Self Propelled Dredge Operator Relationship Specialty Start Date End Date Shahla Madrigal NP [address] [place] [address] [email or web address] PCP - General Family Medicine 01/05/20 Self-Referred, Patient 10/30/23 04/02/24 Mariluz Be MD [email or web address] Obstetrics and Gynecology 10/30/23 Soledad Mclean MD, MPH [address] [place] [address] Maria [email or web address] Medical Oncology 01/14/24 Juan Manuel Mota MD [address] [place] [address] [email or web address] Endocrinology 04/03/24 documented as of this encounter Additional Source Comments The information contained in this document represents components of the legal health record. It is not the complete legal health record.[facility]
--- OUTSIDE RECORDS SUMMARY | 2025-03-16 13:51 | XMS_ITS | Encounter Summary ---
Author Organization [facility] Address [address] [place] [address] Phone Care Team Providers Care Bean Picker Machine Operator Name Role Phone Jocelyn Chacon SENIOR SUSTAINABILITY CONSULTANT Primary Care Provider Shahla Madrigal SENIOR SUSTAINABILITY CONSULTANT Primary Care Pro vider Self-Referred, Patient Unavailable Unavailab Mariluz Ivy MD Unavailable [phone] Soledad Mclean MD, MPH Unavailable Juan Manuel Mota MD Unavailable Encounter Details Date Type Department Care Team (Late st Contact Info) Description 10/28/2019 Procedure Pass [place] Admitting Dept - Virtual Department [address] [place] [address] Social History Tobacco Use Types Packs/Day Years [...] st Contact Info) Description 09/18/2024 Procedure Pass [facility] [place], Mammography, Manjula Lank Imaging Department [address] [place] [address] 03/17/2025 1:00 AM EDT Home [facility] Visit [facility] [address] [place] [phone] Unscheduled, [facility] Clinical East [address] [place] [address] 03/18/2025 10:30 AM EDT Home Care Visit [facility] [address] [place] [phone] Louise Cuadra, PT [address] [place] [address] 03/24/2025 12:30 AM EDT Home Care Visit [facility] [address] [place] [phone] Pily Miguel RN 30 [place] [address] 03/31/2025 10:30 AM EDT Office Visit [facility], [facility], [facility] [place] [facility] [place] [address] [address] Paz Naqvi, MODERN LANGUAGES PROFESSOR [address] [place] [address] [email or web address] Soledad Mclean MD, MPH [address] [place] [address] Maria [email or web address] 04/01/2025 1:00 AM EDT Home Care Visit [facility] [address] [place] [phone] Pily Miguel RN [address] [place] [address] 04/07/2025 1:00 AM EDT Home Care Visit [facility] [address] [place] [phone] Pily Miguel RN [address] [place] [address] 04/14/2025 1:00 AM EDT Home Care Visit [facility] [address] [place] [phone] Pily Miguel RN [address] [place] [address] 04/21/2025 12:30 AM EDT Home Care Visit [facility] [address] [place] [phone] Pily Miguel RN [address] [place] [address] 04/28/2025 1:00 AM EST Appointment [facility] [address] [place] [phone] Pily Miguel RN [address] [place] [address] 05/07/2025 10:30 AM EST Office Visit [facility] [address] [place] [address] 3rd Floor, [address] [place] [phone] Rober Matson DO [address] [place] [address] 10/08/2025 10:30 AM EDT Appointment [facility] [place], Mammography, Manjula Lank Imaging Department [address] [place] [address] Fox Martinez MD 450 [place] [address] [email or web address] [email or web address] 10/08/2025 12:00 PM EDT Office Visit [facility], [facility] [place] [facility], [facility] [place] 450 [facility], 9th [place] [address] Paz Prado PA-C 450 [place] [address] [email or web address] 11/08/2025 10:00 AM EDT Office Visit [facility] [address] [facility], [address] [place] [address] Raquel Henderson MD, PhD 55 [place] [address] [email or web address] documented as of this encounter Visit Diagnoses [...] documented as of this encounter Care Teams Bean Picker Machine Operator Relationship Specialty Start Date End Date Jocelyn Chacon, KERRY [address] [place] [address] PCP - General 04/11/17 01/04/20 Shahla Madrigal NP [address] [place] [address] [email or web address] PCP - General Family Medicine 01/05/20 Self-Referred, Patient 10/30/23 04/02/24 Mariluz Be MD [email or web address] Obstetrics and Gynecology 10/30/23 Soledad Mclean MD, MPH [address] [place] [phone] Maria [email or web address] Medical Oncology 01/14/24 Juan Manuel Mota MD [address] [place] [address] [email or web address] Endocrinology 04/03/24 documented as of this encounter Additional Source Comments The information contained in this document represents components of the legal health record. It is not the complete legal health record.[facility]
--- OUTSIDE RECORDS SUMMARY | 2025-03-16 13:52 | XMS_ITS | Encounter Summary ---
Author Organization [facility] Address [address] [place] [address] Phone Care Team Providers Care Director Public Policy Name Role Phone Jocelyn Chacon [employer]IE[employer]ERK Primary Care Provider Shahla Madrigal [employer]IE[employer] CLERK Primary Care Pro vider Self-Referred, Patient Unavailable Unavailab Mariluz Ivy MD Unavailable [phone] Soledad Mclean MD, MPH Unavailable [phone] Juan Manuel Mota MD Unavailable Encounter Details Date Type Department Care Team (Late st Contact Info) Description 10/24/2019 Procedure Pass OR Admitting Dept - Virtual Department [address] [place] [address] Social History Tobacco Use Types Packs/Day Years [...] st Contact Info) Description 09/18/2024 Procedure Pass [facility] [place], Mammography, Manjula [facility] Imaging Department [address] [place] [phone] 03/17/2025 1:00 AM EDT Home Care Visit [facility] [address] [place] [phone] Unscheduled, [facility] [address] [place] [address] 03/18/2025 10:30 AM EDT Home Care Visit [facility] [address] [place] [phone] Louise Cuadra, PT [address] [place] [address] 03/24/2025 12:30 AM EDT Home Care Visit [facility] [address] [place] [phone] Pily Miguel RN [address] [place] [address] 03/31/2025 10:30 AM EDT Office Visit [facility], [facility], [facility] [place] [facility] [place] [address] [address] Paz Naqvi, GRAIN ELEVATOR AGENT [address] [place] [address] [email or web address] Soledad Mclean MD, MPH [address] [place] [address] [email or web address] 04/01/2025 1:00 AM EDT Home Care Visit [facility] [address] [place] [phone] Pily Miguel RN [address] [place] [phone] 04/07/2025 1:00 AM EDT Home Care Visit [facility] [address] [place] [phone] Pily Miguel RN [address] [place] [phone] 04/14/2025 1:00 AM EDT Home Care Visit [facility] [address] [place] [phone] Pily Miguel RN [address] [place] [phone] 04/21/2025 12:30 AM EDT Home Care Visit [facility] [address] [place] [phone] Pily Miguel RN [address] [place] [phone] 04/28/2025 1:00 AM EST Appointment [facility] [address] [place] [phone] Pily Miguel RN [address] [place] [phone] 05/07/2025 10:30 AM EST Office Visit [facility] [address] [place] [address] [address]rd Floor, [address] [place] [phone] Rober Matson DO [address] [place] [phone] 10/08/2025 10:30 AM EDT Appointment [facility] [place], Mammography, [facility] Imaging Department [address] [place] [phone] Fox Martinez MD [address] [place] [address] [email or web address] 10/08/2025 12:00 PM EDT Office Visit [facility], [facility], [facility] [place] [address] [place] [address] Paz Prado PA-C [address] [place] [address] [email or web address] 11/08/2025 10:00 AM EDT Office Visit [facility] [address], [address] [place] [address] Raquel Henderson MD, PhD [address] [place] [address] [email or web address] documented as of this encounter [...] as of this encounter Care Teams Director Public Policy Relationship Specialty Start Date End Date Jocelyn Chacon, KERRY [address] [place] [address] PCP - General 04/11/17 01/04/20 Shahla Madrigal NP [address] [place] [phone] [email or web address] PCP - General Family Medicine 01/05/20 Self-Referred, Patient 10/30/23 04/02/24 Mariluz Be MD [email or web address] Obstetrics and Gynecology 10/30/23 Soledad Mclean MD, MPH [address] [place] [phone] [email or web address] Medical Oncology 01/14/24 Juan Manuel Mota MD [address] [place] [phone] [email or web address] Endocrinology 04/03/24 documented as of this encounter Additional Source Comments The information contained in this document represents components of the legal health record. It is not the complete legal health record.[facility]
--- OUTSIDE RECORDS SUMMARY | 2025-03-16 13:52 | XMS_ITS | Clinical Summary ---
Author Organization [facility] Address [address] [place] [address] Phone Care Team Providers Care Manager Qa Name Role Phone Shahla Madrigal NP Primary Care Pro vider Mariluz Be MD Unavailable [phone] Soledad Mclean MD, MPH Unavailable Juan Manuel Mota MD Unavailable Allergies Active Allergy Reactions Criticality Noted Date Comments Adhesive Dermatitis 01/12/2025 Animal Dander 03/23/1996 Other reaction(s): Unknown Cephalexin Hives 03/04/2017 Chlorhexidin-Isopropyl Alcohol Rash Low 06/22/2024 Presumed allergic vs. contact dermatitis Clindamycin Hcl Hives 03/04/2017 Other Reaction(s): Bowel irritation Iodinated Contrast Media Itching,Rash Medium Ultravist 300 non ionic contrast. 09/04/07 patient developed a mild-moderate grade I-II reaction to Ultravist which was treated with Diphenhydramine 50 mg orally. Based on this event, recommnedations for future studies include pretreatement with corticosteroids followed by non-ionic contrast media. Other reaction(s): hives Penicillin Rash Low 01/12/2025 Penicillin G Potassium Itching 01/02/2018 After PCN allergy skin testing Amoxacillin OK Vancomycin Hcl Unknown 03/04/2017 Other Reaction(s): Bowel irritation Medications hydroxychloroqu ine (PLAQUENIL) 200 mg tablet Take 200 mg by mouth 2 (two) times a day. Active methotrexate 2.5 MG Oral tablet Take 20 mg by mouth every 7 days. Fridays Active OMEGA-3S/DHA/EP A/FISH OIL (OMEGA 3 ORAL)Indication s:1 tab daily Take 1 tablet by mouth every morning. Indications: 1 tab daily Active albuterol 90 mcg/actuation inhaler 2 puffs as needed Active aspirin-acetami nophen-caffeine (EXCEDRIN MIGRAINE) 250-250-65 mg per tablet Take 1 tablet by mouth every 6 (six) hours as needed for pain (specific location in comments). Active cetirizine (ZYRTEC) 10 MG tablet Take 10 mg by mouth daily as needed for allergies. 023 Active leucovorin (WELLCOVORIN) 5 mg tablet Take 10 mg by mouth once a week. Once a week after methotrexate 023 Active NYSTOP powder Apply 1 Application topically 2 (two) times a day as needed (rash). Apply to right groin/abdominal fold 2 times a day 025 Active triamcinolone acetonide 0.025 % cream Apply 1 Application topically 2 (two) times a day as needed (rash). 023 Active Medication-Free Text Nerve block every 3-4 months for occipital neuralgia Active atorvastatin (LIPITOR) 10 MG tablet Take 10 mg by mouth daily. Active indapamide (LOZOL) 2.5 mg tablet Take 2.5 mg by mouth daily. Active levothyroxine (SYNTHROID, LEVOTHROID) 175 MCG tablet Take 175 mcg by mouth daily. Active albuterol 2.5 mg /3 mL (0.083 %) nebulizer solution Take 2.5 mg by nebulization every 6 (six) hours as needed for wheezing. Active diphenhydrAMINE (BENADRYL) 25 mg capsule Take 25 mg by mouth every 6 (six) hours as needed for itching. Active sulfaSALAzine (AZULFIDINE ENTABS) 500 MG EC tablet Take 1,000 mg by mouth 2 (two) times a day. Active folic acid (FOLVITE) 1 MG tablet Take 1 mg by mouth daily. Active fluticasone propion-salmete roL (ADVAIR HFA) 115-21 mcg/actuation inhalerIndicati ons:Mild persistent asthma, unspecified whether complicated Inhale 2 puffs into the lungs 2 (two) times a day. 36 g 3 Active montelukast (SINGULAIR) 10 mg tabletIndicatio ns:Mild persistent asthma, unspecified whether complicated TAKE 1 TABLET BY MOUTH EVERYDAY AT BEDTIME 90 tablet 3 Active EMGALITY PEN 120 mg/mL subcutaneous injection Inject 120 mg under the skin every 30 (thirty) days. Active XIIDRA 5 % ophthalmic solution ISNTILL 1 DROP INTO BOTH EYES TWICE DAILY FOR 3 MONTHS Active ALPRAZolam (XANAX) 0.5 MG tablet Take 0.5 mg by mouth nightly at bedtime as needed for sleep. Just for procedure Active UBRELVY 100 mg tablet Take 100 mg by mouth daily as needed for migraine. Active carboxymethylce llulose-glyceri n, PF, (REFRESH OPTIVE SENSITIVE) 0.5-0.9 % Dpet Place into each eye 4 (four) times a day as needed. Active DEPAKOTE [address] tablet Take 250 mg by mouth 2 (two) times a day as needed (pain). 2 times a day for 5 days as needed for acute head and ear pain Active celecoxib (CELEBREX) 200 MG capsule Take 200 mg by mouth daily as needed for pain (specific location in comments). Active bisacodyl (DULCOLAX) 5 mg EC tablet Take 5 mg by mouth nightly at bedtime as needed for constipation. Active acetaminophen (TYLENOL) 325 mg tablet Take 3 tablets (975 mg total) by mouth every 8 (eight) hours. For one week then q 8 hrs prn moderate pain Active docusate sodium (COLACE) 100 MG capsule [The details of the medication are not available because there are pending changes by a home health clinician.] Active Additional Information Patient taking differently:100 mg Oral 2 times daily,taking PRN, Reported on 03/03/2025 famotidine (PEPCID) 20 MG tabletIndicatio ns:Gastroesopha geal reflux disease Take 1 tablet (20 mg total) by mouth daily. Active lidocaine 4 % [The details of the medication are not available because there are pending changes by a home health clinician.] Active Additional Information Patient taking differently:2 patch Transdermal Every 24 hours,using PRN, Reported on 03/03/2025 oxyCODONE HCl 10 mg Tab Take 0.5 tablets (5 mg total) by mouth every 6 (six) hours as needed (severe pain). Partial fill ok 20 tablet Active predniSONE (DELTASONE) 20 MG tablet [The details of the medication are not available because there are pending changes by a home health clinician.] Active Additional Information Patient not taking.Reason: Therapy complete, Reported on 03/03/2025 senna (SENOKOT) 8.6 mg tablet [The details of the medication are not available because there are pending changes by a home health clinician.] Active Additional Information Patient taking differently:2 tablet OralNightly PRN, constipation, Reported on 03/03/2025 tiZANidine (ZANAFLEX) 4 MG tablet Take 2 tablets (8 mg total) by mouth every 8 (eight) hours as needed (spasm). 20 tablet Active clotrimazole (LOTRIMIN) 1 % cream Apply 1 Application topically 2 (two) times a day. Active lactobacillus rhamnosus, GG, (CULTURELLE) 10 billion cell capsule Take 1 capsule by mouth daily. Active exemestane (AROMASIN) 25 mg tablet Take 25 mg by mouth daily. Active CALCIUM CITRATE ORAL Take 200 mg by mouth 3 (three) times a day. Active ID-ergocalcifer ol <CRC 1868> ([id number]) 88478 units capsule Take 50,000 Units by mouth once a week. Active B-complex with vitamin C (VITAMIN B COMPLEX WITH C ORAL) Take 1 tablet by mouth daily. Active L.brandan,acid,ferm ,rhm-B.bif,long (CONTROLLED DELIVERY PROBIOTIC) 126 mg (2 billion cell) TaDE daily. 2024 Discontinued(T herapy Completed/No Longer Necessary) nystatin ointment 023 2024 Discontinued clotrimazole (LOTRIMIN) 1 % cream 024 2024 Discontinued meclizine (ANTIVERT) 25 mg tablet Take 1 tablet (25 mg total) by mouth 3 (three) times a day as needed. 20 tablet 024 2024 Discontinued calcium citrate/vitamin D3 (CALCIUM CITRATE + ORAL) Take 200 mg by mouth 2 (two) times a day (once in the morning and once in the afternoon). 025 2024 Discontinued(N o longer taking) famotidine (PEPCID) 20 MG tabletIndicatio ns:Gastroesopha geal reflux disease Take 1-2 tablets (20-40 mg total) by mouth nightly at bedtime as needed for heartburn. 180 tablet 3 025 2024 Discontinued oxyCODONE-aceta minophen (PERCOCET) 5-325 mg per tablet TAKE 1 TABLET BY MOUTH EVERY SIX HOURS NEEDED FOR PAIN PARTIAL FILL OK 025 2024 Discontinued exemestane (AROMASIN) 25 mg tabletIndicatio ns:Malignant neoplasm of upper-outer quadrant of right breast in female, estrogen receptor positive Take 1 tablet (25 mg total) by mouth daily. 90 tablet 3 025 2024 Discontinued Medication-Free Text Periogard mouth wash 2024 Discontinued(T herapy Completed/No Longer Necessary) galcanezumab-gn lm (EMGALITY PEN SUBQ) Inject under the skin every 28 days. 2024 Discontinued ZINC LOZENGES ORAL Take by mouth. 2024 Discontinued(N o longer taking) Active Problems Problem Noted Date Diagnosed Date Elevated uric acid in blood 02/16/2025 Assessment & Plan (02/17/2025 12:48 PM EDT): Uric acid is mildly elevated at 7.8. Gout arthropathy is in the differential as above Assessment & Plan (02/16/2025 12:21 PM EDT): Uric acid is mildly elevated at 7.8. Gout arthropathy was considered for possible left hip pain though less likely given MRI findings. No indication for urate lowering therapy for now. Patient's diet is heavy on tuna, salmon. - Recommended to reduce her tuna, salmon intake -Recheck uric acid with PCP in a month Nonintractable headache, uns pecified chronicity pattern, unspecified headache type 02/14/2025 Assessment & Plan (02/17/2025 12:48 PM EDT): trigeminal and occipital neuralgia with possible cluster headaches, has had nerve blocks in the past with limited success. Follows up with neurology, possibility of cluster headaches. Has been on Emgality recently with limited improvement in symptoms. Has also tried divalproex PRN. Improved - Continue with Depakote 250 mg twice daily-day 4/5 Assessment & Plan (02/16/2025 12:20 PM EDT): Has a history of trigeminal and occipital neuralgia with possible cluster headaches, has had nerve blocks in the past with limited success. Follows up with neurology, possibility of cluster headaches. Has been on Emgality recently with limited improvement in symptoms. Has also tried divalproex PRN. There is improvement, patient anxious about there being rebound. - Continue with Depakote 250 mg twice daily-day 3 of 5 -Scheduling Toradol will complete this afternoon -As needed ibuprofen available following Toradol Assessment & Plan (02/15/2025 9:22 AM EDT): Has a history of trigeminal and occipital neuralgia with possible cluster headaches, has had nerve blocks in the past with limited success. Follows up with neurology, possibility of cluster headaches. Has been on Emgality recently with limited improvement in symptoms. Has also tried divalproex PRN. Some mild improvement overnight. - Continue with Depakote 250 mg twice daily-day 2 of 5 -Scheduling Toradol with above regimen Assessment & Plan (02/14/2025 9:33 PM EDT): Has a history of trigeminal and occipital neuralgia with possible cluster headaches, has had nerve blocks in the past with limited success. Follows up with neurology, possibility of cluster headaches. Has been on Emgality recently with limited improvement in symptoms. Has also tried divalproex, but not significantly improved, continue for now. Acute hip pain, left 02/14/2025 Assessment & Plan (02/17/2025 1:59 PM EDT): Sudden onset, trauma. No evidence of fracture or dislocation on CT hip, however there is trace hip effusion. Less likely to be septic arthritis, no fever, but could be considered. Inflammatory arthritis is a possibility given rheumatoid arthritis history, though no prior presentation similar. Hemarthrosis is on the differential as is gout/pseudogout. Will consult ortho. MRI is negative for fracture. Shows mild strain of left gluteus medial muscle with small intramuscular hematoma. Mild strain of the left obturator externus and adductor muscles. Mild left hip OA with focal cartilage defect. Small left hip joint effusion. - Pain management with scheduled Tylenol, lidocaine patch, tizanidine, heat or cold depending on response to treatment, NSAIDs, as needed oxycodone Ortho consult, check Lyme, RPR Assessment & Plan (02/16/2025 12:20 PM EDT): Sudden onset, no evidence of fracture or dislocation on CT hip, however there is trace hip effusion. Less likely to be septic arthritis, no fever, but could be considered. Inflammatory arthritis is a possibility given rheumatoid arthritis history, though no prior presentation similar. No recent trauma, but could osteoarthritis could be considered. Crystal arthropathy possible, but no history of gout. MRI is negative for fracture. Shows mild strain of left gluteus medial muscle with small intramuscular hematoma. Mild strain of the left obturator externus and adductor muscles. Mild left hip OA with focal cartilage defect. Small left hip joint effusion. Pain is improving with current regimen. Plan to transition scheduled Toradol to as needed ibuprofen this afternoon. Patient work with PT immobilized with assistance, slight flareup in her pain following this. Anticipating rehab. Patient is still waiting on bowel movement. - Pain management with scheduled Tylenol, lidocaine patch, tizanidine, ice scheduled Transitioning scheduled Toradol to as needed ibuprofen this afternoon As needed oxycodone for breakthrough - PT/OT; recommending rehab - Trending ESR/CRP; downtrending -Bowel regimen with MiraLAX, senna, Colace, Dulcolax - Holding steroids until there is more clarity in etiology Assessment & Plan (02/15/2025 9:22 AM EDT): Sudden onset, no evidence of fracture or dislocation on CT hip, however there is trace hip effusion. Less likely to be septic arthritis, no fever, but could be considered. Inflammatory arthritis is a possibility given rheumatoid arthritis history, though no prior presentation similar. No recent trauma, but could osteoarthritis could be considered. Crystal arthropathy possible, but no history of gout. Possible bursitis given history of this and tenderness with palpation of left bursa. Drug-induced arthralgia from Aromasin is considered. Will evaluate further with MRI as she is at risk for osteoporosis related fracture. -MRI hip to rule out occult fracture, pending - Pain management with scheduled Tylenol, Toradol, lidocaine patch, tizanidine As needed oxycodone for breakthrough - PT/OT following MRI - Considering Ortho consult for tap pending clinical course, MRI results - Trending ESR/CRP - Holding steroids until there is more clarity in etiology Assessment & Plan (02/14/2025 9:33 PM EDT): Sudden onset, no evidence of fracture or dislocation on CT hip, however there is trace hip effusion. Less likely to be septic arthritis, no fever, but could be considered. Inflammatory arthritis is a possibility given rheumatoid arthritis history. No recent trauma, but could osteoarthritis could be considered. Crystal arthropathy possible, but no history of gout. Check CRP. If pain not improving, consider orthopedics or IR consult for arthrocentesis, MRI hip. PT consulted Pain management, multimodal analgesia planned. Acetaminophen scheduled, oxycodone prn, ketorolac prn, tizanidine, lidocaine patch. MRI left hip if not improving. Holding steroids until there is more clarity in etiology Allergic contact dermatitis due to adhesives Overview (01/12/2025): Medical adhesive Assessment & Plan (01/12/2025 10:16 AM EDT): Contact dermatitis from medical adhesive from heart monitor. Tolerating gel. Should not can use with paper tape. For current rash, recommend medium to high potency topical steroid. She will check at home but if none remains, will send refill/new prescription. Palpitations 11/09/2024 Assessment & Plan (01/25/2025 4:13 PM EDT): Patient's recent monitor (preliminary report) reveals very rare ventricular and supraventricular ectopy, patient's symptoms do at times seem consistent with PACs/PVCs which we will continue to monitor. Monitor also reveals 13 short runs of SVT. She gives history of 3 episodes in recent months of tachycardia likely SVT, 1 episode did last 1 hour 45 minutes which is concerning which we did discuss, The other 2 less than 10 minutes. She had a recent echocardiogram which was unremarkable. Triggers discussed and patient recommended to continue to strive for better sleep and stress reduction. We discussed medical therapy, BB or CCB but will hold off at this time. Continue to monitor and add medical therapy if needed in the future as well as Repeat external monitoring or consider ILR should symptoms progress or change. Also reviewed blood work which was essentially unrevealing for culprit, will check a mag at the lab. Follow-up in 3 months. Assessment & Plan (11/09/2024 9:11 AM EDT): As mentioned they happen infrequent enough I usually order 7-day MCT monitors but for this patient I will get a 30-day Neck pain 06/30/2024 Assessment & Plan (06/30/2024 1:11 PM EST): Presented with neck pain, stiffness. No headache. No recent fall. No C-spine tenderness. Negative Kernig sign. She is able to touch her chin to chest. No encephalopathy. Neck discomfort has improved with muscle relaxant treatment. No systemic signs to suggest meningitis or encephalitis currently. -Monitor -Continue with Soma as needed Hypokalemia 06/30/2024 Assessment & Plan (02/17/2025 12:48 PM EDT): Resolved Assessment & Plan (02/16/2025 12:20 PM EDT): Mild hypokalemia at 3 on 02/16, likely due to reduced intake days prior. - Supplementing -Magnesium within normal limits -Trend Assessment & Plan (06/30/2024 1:11 PM EST): Presented with hypokalemia, persist today. This is secondary to poor intake in setting of GI viral illness. Her intake is just started to improve. -Supplement -Magnesium within normal limits -Monitor daily Enteritis 06/28/2024 Assessment & Plan (06/30/2024 1:11 PM EST): Presented with body aches, then vomiting and then diarrhea, in the setting of recent exposure to some sort of gastroenteritis in [place]. Notably patient is immunosuppressed on methotrexate and a recent steroid taper. She needed admission due to weakness and pre-syncopal feelings after large volume loss from diarrhea. There is a national and local uptake in norovirus cases. Influenza and SARS-CoV-[address] abdomen and pelvis showed small amount of fat stranding in the upper abdomen, felt to likely be inflammatory. Mild mesenteric fat stranding centrally, nonspecific infectious versus inflammatory. No bleeding, doubt ischemic colitis Vital signs stable no fever LFTs were normal on arrival 06/30: Still with mild hypokalemia, tolerating regular diet thus far. Feels uneasy, unsteady and anxious about possible discharge today. Giving ongoing electrolyte abnormalities we will replenish and monitor for any recurrence. Anticipate discharge tomorrow. -Ova and parasite testing pending -Stool culture negative. -C. difficile negative -Monitor off IV fluids -PRN zofran -Advance to regular diet today -Fall precautions -PT/OT, ambulate every shift, out of bed with meals Assessment & Plan (06/29/2024 10:15 AM EST): Presented with body aches, then vomiting and then diarrhea, in the setting of recent exposure to some sort of gastroenteritis in [place]. Notably patient is immunosuppressed on methotrexate and a recent steroid taper. She needed admission due to weakness and pre-syncopal feelings after large volume loss from diarrhea. There is a national and local uptake in norovirus cases. Influenza and SARS-CoV-[address] abdomen and pelvis showed small amount of fat stranding in the upper abdomen, felt to likely be inflammatory. Mild mesenteric fat stranding centrally, nonspecific infectious versus inflammatory. No bleeding, doubt ischemic colitis Signs stable no fever Phosphorus is borderline low, 2.4, I will replete, potassium 3.3, replete LFTs were normal on arrival Patient does not yet feel hungry but no longer feels nauseous, she had 1 loose stool this morning, still feels very tired and has bilateral neck pain, able to touch chin to chest, no stiffness or photophobia stool studies, culture pending C. difficile negative IV fluid PRN zofran clr liquids- abdvance to regular Fall precautions Will add muscle relaxant to see if this helps her neck, she is also on heat therapy lidocaine and Tylenol Assessment & Plan (06/28/2024 3:43 AM EST): Presented with body aches, then vomiting and then diarrhea, in the setting of recent exposure to some sort of gastroenteritis in [place]. Notably patient is immunosuppressed on methotrexate and a recent steroid taper. She needed admission due to weakness and pre-syncopal feelings after large volume loss from diarrhea. Check stool studies, culture, C diff IV fluid PRN zofran Monitor and replete electrolytes NPO except for meds and sips for now advance diet as tolerated Fall precautions Multiple drug allergies 04/21/2024 Assessment & Plan (01/12/2025 10:15 AM EDT): Multiple drug allergies with negative skin testing to ropivacaine. However, today reports was also administered bupivacaine. Will schedule for skin testing to bupivacaine. Assessment & Plan (10/06/2024 12:16 PM EDT): Local reaction following recent administration of ropivacaine. Requesting records from pain clinic to confirm and that no other drug was included. Once confirmed, we will schedule patient for local anesthetic skin testing. Ideally before upcoming cataract surgery but if not, certainly by the fall before knee replacement. She is aware will need to be off antihistamines for 5 days prior to testing. Assessment & Plan (04/21/2024 12:30 PM EDT): Patient with multiple medication allergies, including cephalexin and clindamycin and penicillin though tolerates amoxicillin. Recent reaction to either vancomycin or skin prep which presumably is tinted chlorhexidine. Teresa will contact our office to confirm. Given limited options for surgical prophylaxis, we will have her return for skin testing to vancomycin and skin prep solution. Will also check total IgE, eosinophil count and tryptase level to ensure there is no systemic mast cell disorder or significant atopy. Depending on skin test findings, if positive in particular, may refer to [place] for more extensive testing. Malignant neoplasm of upper- outer quadrant of right breast in female, estrogen receptor positive 11/15/2023 Assessment & Plan (02/17/2025 12:48 PM EDT): Has been on multiple aromatase inhibitors including anastrozole and exemestane, encouraged to continue outpatient regimen Patient is worried that the exemestane may be contributing to her symptoms of joint pain Assessment & Plan (02/16/2025 12:20 PM EDT): Has been on multiple aromatase inhibitors including anastrozole and exemestane, currently not taking. Patient had concerned that exemestane was contributing to left hip arthralgia though this is less likely given MRI findings. Agreeable to restart on discharge. 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 IHC was not repeated, but the biopsy was ER strongly positive >95%, IL positive 60%, and HER2 negative by IHC. No lymph nodes were sampled. 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 IHC was not repeated, but the biopsy was ER strongly positive >95%, IL positive 60%, and HER2 negative by IHC. No lymph nodes were sampled. Final margins were negative February 16- March 10, 2024 - adjuvant breast radiation Solitary pulmonary nodule on lung CT 03/06/2023 Assessment & Plan (01/12/2025 10:14 AM EDT): Tiny multiple pulmonary nodules many of which are either atelectasis or calcified representing granulomas. Several small nodules however are stable. Given her history of breast cancer, we will plan to repeat CT without contrast in 1 year. Assessment & Plan (10/06/2024 12:15 PM EDT): Stable right middle lobe nodule, no further follow-up required. New 6 to 7 mm right lower lobe lateral pleural-based nodule. Likely inflammatory but given increased risk of family history, will repeat CT in 3 months for a total 6-month follow-up. Assessment & Plan (04/21/2024 12:31 PM EDT): Stable 5 mm right middle lobe nodule since December 2022. Due for repeat in June with plans for at least 2 years of close monitoring. Assessment & Plan (07/19/2023 11:59 AM EST): Stable will approximate 5 mm right middle lobe nodule on recent 6-month follow- up scan. Given increased compared to 2018, we will continue to monitor. Repeat with 12 months follow-up study. Assessment & Plan (03/06/2023 2:54 PM EDT): Reported 5 mm right middle lobe nodule of unclear significance. Last available images here at [facility] from 2018 with a 3 mm right middle lobe nodule, unclear if it is the same nodule and representing growth, or new nodule of no clear significance. Given family history of lung cancer and concern for possible growth, we will repeat CT scan for 6-month follow-up. We will try to request images from [facility]. Obstructive uropathy 10/23/2019 Assessment & Plan (10/23/2019 3:47 PM EDT): History of nephrolithiasis, managed as an outpatient by Dr. Fu. Planned outpatient procedure was delayed due to COVID-19. Recurrent left flank pain now unmanageable at home with outpatient medications. Now with nausea and poor oral intake. Case was discussed with urology team. Patient brought into the hospital for inpatient management until procedure on 10/23 for stent and lithotripsy. -Urology consult pending. Case discussed between the covering urologist and the ED physician. -Levofloxacin 500 mg daily recommended by the urology team initiated in the ED. -N.p.o. at midnight for her procedure. Gentle IV fluids after midnight for hydration. -Regular diet today as tolerated -1 dose of Xanax available for preprocedure anxiety which has been a problem in the past -Continue pain management with scheduled acetaminophen, oxycodone 5 mg every 6 hours for moderate pain or IV morphine 2 mg for severe pain. -Antiemetic available if needed -MiraLAX as needed for constipation Mild persistent asthma without complication 09/2018 Assessment & Plan (01/12/2025 10:15 AM EDT): Asthma well-controlled currently on medium dose Advair typically once daily. Does have morning asthma symptoms frequently however. Encouraged twice daily use. Continue albuterol as needed. Once asthma well-controlled, can try holding montelukast to see if necessary/beneficial. Assessment & Plan (11/09/2024 9:11 AM EDT): Present but stable Assessment & Plan (06/30/2024 1:11 PM EST): Currently not in exacerbation, followed as an outpatient by Dr. Lamb Assessment & Plan (06/29/2024 10:15 AM EST): Currently in exacerbation, followed as an outpatient by Dr. Lamb Assessment & Plan (07/19/2023 12:02 PM EST): Mild asthma and likely intermittent with normal spirometry and no evidence of bronchial reactivity. Does have episodes where asthma is triggered with persistent symptoms lasting several weeks, these she believes are different from his other shortness of breath. Recommend have ICS/laba on hold that she can use for 2 weeks at a time if needed with worsening asthma symptoms. Sample of AirSupra (albuterol/budesonide) to use in place of her standard albuterol as an alternative to ICS/LABA. Assessment & Plan (10/23/2019 3:48 PM EDT): No current wheezing or concern for acute exacerbation. Patient does have inhalers and nebulizers which she rarely uses at home. Nebulizers not indicated per protocol during the COVID-19 pandemic. Albuterol inhaler available if needed for mild wheezing or shortness of breath refugio-procedurally. Assessment & Plan (05/04/2019 12:16 PM EST): Currently well controlled on montelukast with PRN albuterol. Exhaled nitric oxide test in office normal, though may be suppressed due to systemic prednisone. If asthma control worsens, recommend repeating off prednisone. Given severe exacerbation 6 months ago in the setting of respiratory infection, recommend have combination high-dose inhaled steroid / long-acting bronchodilator on hand. Should be used at first sign of persistent or worsening asthma symptoms. For mild symptoms, PRN albuterol should still suffice. Assessment & Plan (09/27/2018 6:37 PM EDT): Patient admitted for asthma exacerbation and bronchitis. Placed on steroids nebs antibiotics. Improving slowly over the hospital stay. Her lungs have fairly good air movement she is not hypoxic Describes shortness of breath with mild exertion still. She reports she sees Dr. Lamb, saw him in February 2018. He reports diagnosis asthma COPD overlap syndrome versus chronic obstructive asthma. Note he thought GERD played a significant role in her symptoms. Is she supposed to be on Zantac and omeprazole? (Acute hypoxic respiratory failure resolved) Rheumatoid arthritis involvi ng multiple sites with positive rheumatoid factor 09/25/2018 Assessment & Plan (06/30/2024 1:11 PM EST): Patient is immunocompromised, normally on methotrexate, hydroxychloroquine, sulfasalazine. She does regularly take sulfasalazine but not when she is sick with infection. -Holding methotrexate, sulfasalazine; resumed next week -Continues on hydroxychloroquine Assessment & Plan (06/29/2024 10:15 AM EST): Patient is immunocompromised, normally on methotrexate and hydroxychloroquine From her med dispense report, it looks like she was on prednisone briefly earlier and in May this does not look like a chronic medication for her. She does regularly take sulfasalazine but not when she is sick with infection, and is currently on hold. Assessment & Plan (09/27/2018 6:35 PM EDT): Continue plaquenil Continue sulfasalazine Will hold methotrexate which was due yesterday Is she on leucovorin as well? Acquired hypothyroidism 09/25/2018 Assessment & Plan (02/17/2025 12:48 PM EDT): Continue levothyroxine Assessment & Plan (02/16/2025 12:20 PM EDT): Continue levothyroxine Assessment & Plan (02/15/2025 9:22 AM EDT): Continue levothyroxine Assessment & Plan (02/14/2025 12:55 PM EDT): Continue levothyroxine Assessment & Plan (10/23/2019 3:42 PM EDT): History of Graves' disease status post treatment now on long-term management of hypothyroidism with levothyroxine. Home dose continued. Assessment & Plan (09/27/2018 6:33 PM EDT): Continue usual levothyroxine Rheumatoid arteritis 12/09/2017 Assessment & Plan (02/17/2025 12:48 PM EDT): On MTX (Fridays) and sulfasalazine and hydroxychloroquine Doubt RA flare Assessment & Plan (02/16/2025 12:20 PM EDT): On MTX (Fridays) and sulfasalazine and hydroxychloroquine Assessment & Plan (02/15/2025 9:22 AM EDT): On MTX (Fridays) and sulfasalazine and hydroxychloroquine Assessment & Plan (02/14/2025 9:33 PM EDT): On MTX and sulfasalazine and hydroxychloroquine Assessment & Plan (12/09/2017 10:08 AM EDT): Chest imaging as above. SOB (shortness of breath) on exertion 06/26/2017 Assessment & Plan (01/12/2025 10:14 AM EDT): Resolved shortness of breath related to atypical GERD. Remain on acid suppression therapy. Assessment & Plan (11/09/2024 9:11 AM EDT): Currently she is not complaining of this but I am going to get an echo to evaluate this Assessment & Plan (07/19/2023 12:00 PM EST): Episodes of shortness of breath with features of possible asthma versus GERD. RECOMMENDATIONS: If develops persistent symptoms, would start ICS/LABA for possible asthma. Similarly, could start famotidine 40 mg nightly. If no relief after a week, could convert to omeprazole 20 to 40 mg in the morning Assessment & Plan (03/06/2023 2:55 PM EDT): Presentation to the emergency room at an outside hospital 2 months ago with severe shortness of breath of unclear etiology. Patient did not feel it was related to asthma at that time, subsequently developing URI with asthma 2 weeks later. Etiologies could include atypical dyspnea related to GERD, vocal cord dysfunction or other. No PE seen on chest imaging. At this point, would continue to monitor clinically and if develops more subacute atypical dyspnea, could always resume PPI therapy. Assessment & Plan (03/14/2018 1:31 PM EDT): Gradual improvement in dyspnea since aggressive treatment for GERD. No evidence of significant cardiopulmonary disease without interstitial changes noted on CT despite history of rheumatoid arthritis. Continue regular exercise and therapy as outlined below. Assessment & Plan (12/09/2017 9:59 AM EDT): Improved with aggressive GERD therapy. Recommend continue to monitor with changes to med regimen. Assessment & Plan (09/11/2017 10:38 AM EDT): Modest improvement with initiation of low dose acid suppressant therapy. Suspect significant component related to GERD. Unclear if asthma also contributing. We will start with increase GERD therapy and then add on allergy and asthma therapy stepwise fashion. Assessment & Plan (06/26/2017 12:27 PM EST): Supect not due to lung or cardiac causes. Suspect may be from atypical GERD or vocal cord dysfunction. Will treate former and observe for any improvement. If resolves after 4-6 weeks on twice daily omeprazole, could then cancel Methacholine challenge chest and follow up with [facility]. Gastroesophageal reflux disease 06/26/2017 Assessment & Plan (01/12/2025 10:14 AM EDT): Continue famotidine 20 to 40 mg once daily as needed. Assessment & Plan (10/06/2024 12:14 PM EDT): Mild GERD masquerading as difficulty taking a full breath. Symptoms markedly better on famotidine 40 mg nightly. Okay to decrease to 20 mg nightly as tolerates. Assessment & Plan (04/21/2024 12:29 PM EDT): Atypical GERD findings with sensation of difficulty taking a full breath. Will continue as needed famotidine, or continue daily if necessary. Assessment & Plan (10/23/2019 3:47 PM EDT): PPI continued. Pantoprazole substituted per hospital formulary. Assessment & Plan (03/14/2018 1:33 PM EDT): Mild esophagitis noted on endoscopy though shortness of breath appears to be current equivalent. Given control of symptoms, recommend try stopping a.m. ranitidine dose. If symptoms worsen, but then resume twice daily therapy. Assessment & Plan (12/09/2017 10:09 AM EDT): SOB improved with acid suppressant therapy. Otherwise typically silent reflux. Given active therapy for rheumatoid arthritis and otherwise silent symptoms, will refer back to GI to determine if endoscopy indicated. Assessment & Plan (09/11/2017 10:41 AM EDT): likely GERD as a major cause of shortness of breath. Discussed mechanisms including laryngopharyngeal reflux as well as esophageal dysfunction alone. Could consider barium swallow, but would first trial of twice daily high-dose ranitidine for 2 months. After which, can decrease to once daily for 1 month and then try stopping. Information provided and reviewed regarding multiple lifestyle modifications. Assessment & Plan (06/26/2017 4:19 PM EST): Suspect element of silent reflux contributing to intermittent shortness of breath and/or vocal cord dysfunction. Recommend 1-2 month trial of twice daily omeprazole. Instructed to take on an empty stomach. After completing two-month trial, would decrease to once daily for 2 weeks before trying to stop completely in order to avoid rebound heartburn. Daytime somnolence 06/26/2017 Assessment & Plan (09/11/2017 10:40 AM EDT): May be related to excess nocturnal limb movements. Recommend follow-up with sleep medicine regarding indicated therapies. Should check with PCP and remote sensing specialist to ensure no evidence of iron deficiency anemia which can be a contributing factor. Assessment & Plan (06/26/2017 12:22 PM EST): Refer for sleep eval for possible sleep apnea Voice disturbance 06/26/2017 Assessment & Plan (06/26/2017 12:24 PM EST): Consider speech therapy referral if does not improve following acid reduction measure trial. History of positive PPD 06/26/2017 Assessment & Plan (09/11/2017 10:40 AM EDT): Negative QuantiFERON gold testing consistent with no evidence of latent TB infection. Assessment & Plan (06/26/2017 12:23 PM EST): Will check Quantiferon Gold. If negative, may be candidate for TNF inhibitors. Abnormal diffusion capacity determined by pulmonary function test 06/26/2017 Overview (06/26/2017): On PFT 02/04/17 Assessment & Plan (12/09/2017 10:10 AM EDT): Given history of rheumatoid arthritis, despite negative chest x-ray, will obtained chest CT to rule out interstitial disease and/or bronchial changes. Assessment & Plan (09/11/2017 10:42 AM EDT): Depending on results of above interventions, consider repeat PFTs in the future. Assessment & Plan (06/26/2017 4:20 PM EST): Given normal echocardiogram and chest x-ray, suspect related to basilar atelectasis from abdominal obesity rather than primary parenchymal lung process. Rheumatoid arthritis Overview (10/23/2019): on MTX and sulfasalazine and Plaquenil Assessment & Plan (10/23/2019 3:43 PM EDT): Rheumatoid arthritis for which she takes multiple chronic medications including methotrexate, sulfasalazine, Plaquenil and Celebrex. Well controlled. No acute flare. Home medical regimen continued. -Daily EKG monitoring to watch QTC with the addition of levofloxacin, Zofran as needed and underlying use of Plaquenil. Panic attack as reaction to stress Assessment & Plan (11/09/2024 9:11 AM EDT): She has been known to have panic attacks but this symptom does not sound like this at all Assessment & Plan (10/23/2019 3:49 PM EDT): As above, 1 dose of Xanax available preprocedure. Graves disease Asthma Overview (10/23/2019): Extrinsic Assessment & Plan (02/17/2025 4:14 PM EDT): Assessment & Plan (02/17/2025 12:48 PM EDT): No signs or symptoms of exacerbation Continue Duonebs every 6 hours, advair twice daily Assessment & Plan (02/16/2025 12:20 PM EDT): Not in exacerbation Continue Duonebs every 6 hours, advair twice daily Assessment & Plan (02/15/2025 9:22 AM EDT): Not in exacerbation Continue Duonebs every 6 hours, advair twice daily Assessment & Plan (02/14/2025 9:33 PM EDT): Not in exacerbation Continue Duonebs every 6 hours, advair twice daily Assessment & Plan (10/06/2024 12:15 PM EDT): Mild persistent asthma, much better on twice daily medium dose ICS/LAMA. Encouraged to continue twice daily use of her Advair HFA. Continue montelukast. Will continue albuterol as needed. At follow-up visit can recheck insurance formulary to see if Airsupra is covered. Assessment & Plan (04/21/2024 12:32 PM EDT): Would continue montelukast and continue albuterol as needed. Will prescribe medium dose Advair to use for mild exacerbations. Ideally, when covered by insurance, would switch to budesonide-formoterol which can be used as both maintenance and rescue. Assessment & Plan (03/06/2023 2:56 PM EDT): Essentially mild intermittent asthma versus mild persistent. Previously on montelukast given extensive allergies. Unclear whether needs ICS maintenance therapy now. We will obtain full pulmonary function studies and monitor closely off therapy. Resolved Problems Problem Noted Date Diagnosed Date Resolved Date Allergy to penicillin 12/09/20172024 Assessment & Plan (03/14/2018 1:34 PM EDT): Delayed reaction to penicillin skin testing. Would consider allergic to penicillin. In past has tolerated amoxicillin and thus can safely use unless rash develops subsequently. Assessment & Plan (01/01/2018 12:55 PM EDT): Negative skin testing to penicillins and ampicillin. Reviewed with patient very high negative predictive value though not 100%. However, given remote history of unclear severity of reaction, previous tolerance of amoxicillin, and negative skin testing, patient can safely take oral penicillins and amoxicillin without restriction. If were to develop urticarial rash in the future, would then need to determine specificity to particular agent. Assessment & Plan (12/09/2017 10:10 AM EDT): Remote childhood history of possible penicillin allergy, though reports historically tolerated ampicillin. Given additional multiple medication allergies, feels testing would be beneficial to attempt to rule out significant penicillin allergy. Arrange for penicillin allergy testing. Encounters Date Type Department Care Team Description 03/16/2025 Home Care Visit [facility] [address] [place] [phone] Louise Cuadra, PT TELEPHONE ENCOUNTER 03/08/2025 Episode Documentation Update [facility] [address] [place] [phone] Grecia Diehl 03/05/2025 Home Care Visit [facility] [address] [place] [phone] Evie Trinh, OT TELEPHONE ENCOUNTER 03/03/2025 12:30 PM EDT Home Care Visit [facility] [address] [place] [address] Renetta Lovett, RN SN OASIS START OF CARE (SOC) 03/03/2025 Plan of Care Documentation [facility] [address] [place] [address] 03/01/2025 Orders Only [facility] [address] [place] [phone] Homehealth, Interface MD Alison 02/19/2025 7:20 AM EDT - 02/19/2025 11:59 PM EDT Hospital Encounter [facility] [address] [place] [phone] Leonardo Sky MD Discharge Disposition: Home or Self Care 02/15/2025 Procedure Pass [facility], Mri - [address] [address] 02/13/2025 Procedure [facility], Ct Scan - [address] [address] 02/12/2025 11:46 PM EDT - 02/18/2025 4:32 PM EDT Hospital Encounter [facility] [address] [place] [address] Chas Gibbs MD Brewer, Allison V, MD Andrade, Olyn Amanda, MD Steinberg, Benjamin G, MD Perez, Alberto Juan Ignacio, MD Arepally, Sandeep, MD Altman, Evan K DO, MPH Mirta Lopez DO, MPH Felipe Echols MD Discharge Disposition: Long-Term Facility 02/10/2025 9:30 AM EDT Nurse Only [facility] [address] [facility] [place], [place] [id number] Tono Lamb MD Multiple drug allergies (Primary Dx) 01/26/2025 Orders Only [address] 3[address] Floor, [address] [place] [address] Rober Matson DO 01/25/2025 1:15 PM EDT - 01/25/2025 11:59 PM EDT Hospital Encounter [facility] [address] [place] [address] Bri Ramos PA-C Discharge Disposition: Home or Self Care 01/25/2025 12:30 PM EDT Office Visit [address] 3[address] Floor, [address] [place] [address] Bri Ramos PA-C Palpitations (Primary Dx) 01/14/2025 Telephone [facility], [facility], [facility] [address] [facility], [address]th [place] [address] Francy Hamilton RN 01/12/2025 9:30 AM EDT Office Visit [facility] [address] [place] [address] Tono Lamb MD Solitary pulmonary nodule on lung CT (Primary Dx); SOB (shortness of breath) on exertion; Gastroesophageal reflux disease, unspecified whether esophagitis present; Mild persistent asthma without complication; Multiple drug allergies; Allergic contact dermatitis due to adhesives 01/11/[address] 3rd [facility], [address] [place] [address] Yue Wong MA 01/07/2025 10:05 AM EDT - 01/07/2025 11:59 PM EDT Hospital Encounter [facility] [place] [place] [address] Rober Matson DO Discharge Disposition: Home or Self Care 01/01/2025 Orders Only [facility], [facility], [facility] [address] [facility], [address] [place] [address] Soledad Mclean MD, MPH Malignant neoplasm of upper-outer quadrant of right breast in female, estrogen receptor positive (Primary Dx) 01/01/2025 Telephone [facility], [facility], [facility] [address] [place] [address], [address] [place] [address] Vee Cook RN Care Coordination 12/23/2024 10:56 AM EDT - 12/23/2024 11:59 PM EDT Hospital Encounter [facility], [address] [address] Tono Lamb MD Discharge Disposition: Home or Self Care 11/09/2024 Procedure Pass [facility] [place] [place] [address] 10/06/2024 Procedure Pass [address] [address] from Last 3 Months Immunizations Immunization Administration Dates Next Due Influenza High-Dose Trivalent Preservative Free IM 03/14/2018 PPD Test 12/07/2020 Family History Medical History Relation Comments Lung cancer Brother Allergic rhinitis Father Cancer Father Lung Lung cancer Father Prostate cancer Father Breast cancer Mother Cancer Mother Colon Colon cancer Mother Prostate cancer Paternal Grandfather Breast cancer Sister 1 Cancer Sister 1 Melanoma Basal cell carcinoma Sister 2 Cancer Sister 2 Lung, & melanoma , my BROTHER, not listed as a choice Prostate cancer Sister 2 My Brother - not a listed choice Cancer Sister 3 CTCL, Melanoma Melanoma Sister 3 Cancer Sister 4 Basal cell carci noma Lymphoma Sister 4 Melanoma Sister 4 Breast cancer Sister 5 Left Relation Status Comments Brother Alive Father Mother Paternal Grandfather Sister 1 Alive Sister 2 Alive Sister 3 Alive Sister 4 Alive Sister 5 Social History Tobacco Use Types Packs/Day Years Used Date Smoking Tobacco: Never Smokeless Tobacco: Never Tobacco Cessation:Counseling Given: Not Answered Comments:None Alcohol Use Standard Drinks/Week Comments Never [...] file Not on file Not on file Last Filed Vital Signs Vital Sign Reading Time Taken Comments Blood Pressure 106/60 03/03/2025 12:36 PM EDT Pulse 65 03/03/2025 12:36 PM EDT Temperature 35.8 C (96.4 F) 03/03/2025 12:36 PM EDT Respiratory Rate 18 03/03/2025 12:36 PM EDT Oxygen Saturation 96% 03/03/2025 12:36 PM EDT Inhaled Oxygen Concentration - - Weight 99.9 kg (220 lb 3.8 oz) 02/17/2025 5:46 A M EDT Height 160.6 cm (5' 3.23 ) 02/14/2025 1:00 PM ED T Body Mass Index 38.73 02/14/2025 1:00 PM EDT Plan of Treatment Upcoming Encounters Date Type Department Care Team (Late st Contact Info) Description 09/18/2024 Procedure Pass [facility], Mammography, Manjula Lank Imaging Department [address] [place] [phone] 03/17/2025 1:00 AM EDT Home Care Visit [facility] [address] [place] [phone] Unscheduled, [facility] [address] [place] [address] 03/18/2025 10:30 AM EDT Home Care Visit [facility] [address] [place] [phone] Louise Cuadra, PT [address] [place] [address] 03/24/2025 12:30 AM EDT Home Care Visit [facility] [address] [place] [phone] Pily Miguel RN [address] [place] [phone] 03/31/2025 10:30 AM EDT Office Visit [facility], [facility], [facility] [place] [address] [address] Paz Naqvi, MARKETING AREA MANAGER [address] [place] [address] [email or web address] Soledad Mclean MD, MPH [address] [place] [address] [email or web address] 04/01/2025 1:00 AM EDT Home Care Visit [facility] [address] [place] [address] Pily Miguel RN [address] [place] [phone] 04/07/2025 1:00 AM EDT Home Care Visit [facility] [address] [place] [address] Pily Miguel RN [address] [place] [phone] 04/14/2025 1:00 AM EDT Home Care Visit [facility] [address] [place] [address] Pily Miguel, KATHIE [address] [place] [address] 04/21/2025 12:30 AM EDT Home Care Visit [facility] [address] [place] [phone] LafPily meléndez RN [address] [place] [address] 04/28/2025 1:00 AM EST Appointment [facility] [address] [place] [phone] Pily Miguel RN [address] [place] [address] 05/07/2025 10:30 AM EST Office Visit [facility] [address] [facility] 3rd Floor, [address] [place] [address] Rober Matson DO [address] [facility] [address] [place] [phone] [email or web address] 10/08/2025 10:30 AM EDT Appointment [facility], Mammography, Manjula Lank Imaging Department [address] [place] [address] [id number] Fox Martinez MD [address] [place] [id number] [email or web address] 10/08/2025 12:00 PM EDT Office Visit [facility], [facility], [facility] [address] [facility], 9th [place] [address] Paz Prado PA-C [address] [place] [phone] [email or web address] 11/08/2025 10:00 AM EDT Office Visit [facility] [address] [facility], [address] [place] [address] Raquel Henderson MD, PhD [address] [place] [address] [email or web address] Health Maintenance Due Date Last Done Comments LIPID PANEL 1950 TSH LEVEL 1950 VALPROIC ACID (DEPAKENE) LEVEL 1950 DEPRESSION SCREENING 1962 HEPATITIS C SCREENING 1968 COLOGUARD 1995 FIT TEST 1995 FOBT 1995 SIGMOIDOSCOPY 1995 VIRTUAL COLONOSCOPY 1995 RSV VACCINE (1 - Risk 60-74 years 1-dose series) 2010 OSTEOPOROSIS SCREENING INITIAL (ONE-TIME) 2015 Adult Td,Tdap Booster 09/01/2023 08/31/2013, 003 INFLUENZA VACCINE (#1) 2025 , 05/01/2023, 04/12/2022, Additional history exists COVID-19 VACCINE (9 - Moderna risk 2023- season) 2025 01/21/2025, 10/03/2023, 10/03/2023, Additional history exists POTASSIUM LEVEL 02/19/2026 02/19/2025, 01/23, 02/17/2025, Additional history exists MAMMOGRAM 09/18/2026 09/18/2024, 09/23, 09/12/2023, Additional history exists COLONOSCOPY 03/09/2032 03/09/2022 COLORECTAL CANCER SCREENING 03/09/2032 PNEUMOCOCCAL VACCINES (50+ years) Completed 08/28/2022, 05/28/2016, 04/09/2011, Additional history exists ZOSTER VACCINES Completed 03/29/2023, 0312/2022, 11/22/2012 SMOKING STATUS SCREENING (Once After 26 Yrs) Completed 01/25/2025 HEPATITIS A VACCINES Aged Out No long er eligible based on patient's age to complete this topic HIB VACCINES Aged Out No longer eligi ble based on patient's age to complete this topic MENINGOCOCCAL VACCINES (ACWY) Aged Out No longer eligible based on patient's age to complete this topic MENINGOCOCCAL VACCINES (B) Aged Out N o longer eligible based on patient's age to complete this topic Medical Devices Implanted Type Area Aeronautical Inspector Device Identifier Shelf Expiration Date Model / Serial / Lot Right Knee Hardware Seed Loose 7cm Needle W/Trailing Spacer For 2070 - [id number] Implanted:Qty: 1 on 11/25/2023 at [facility] Right: Breast [employer] 04/04/[id number] / / Explanted Type Area Aeronautical Inspector Device Identifier Shelf Expiration Date Model / Serial / Lot Stent Ureteral 6fr 22 To 30cm Stretch Coated Vincent - [id number] Implanted:Qty: 1 on 10/24/2019 by Daryl Fu MD at [facility] Left: Ureter [employer] ELVIA 04/14/2022 [id number] / / [id number] Procedures Procedure Name Priority Date/Time Associated Diagnosis Comments CBC Routine 02/19/2025 5:28 AM EDT Illness, unspecified BASIC METABOLIC PANEL Routine 02/19/2025 5:28 AM EDT Illness, unspecified SYPHILIS ANTIBODY SCREEN ASSAY Routine 02/18/2025 6:07 AM EDT C-REACTIVE PROTEIN Routine 02/18/2025 6: 07 AM EDT COMPREHENSIVE METABOLIC PANEL Routine 02/18/2025 6:07 AM EDT CBC Routine 02/18/2025 6:07 AM EDT LYME SCREEN WITH REFLEX TO WESTERN BLOT, BLOOD Routine 02/18/2025 6:07 AM EDT COMPREHENSIVE METABOLIC PANEL Routine 02/17/2025 6:10 AM EDT CBC Routine 02/17/2025 6:10 AM EDT MAGNESIUM Routine 02/16/2025 5:20 AM EDT SEDIMENTATION RATE (ESR) Routine 02/16/2025 5:20 AM EDT C-REACTIVE PROTEIN Routine 02/16/2025 5: 20 AM EDT COMPREHENSIVE METABOLIC PANEL Routine 02/16/2025 5:20 AM EDT CBC Routine 02/16/2025 5:20 AM EDT MRI HIP WITHOUT CONTRAST (LEFT) Routine 02/15/2025 11:49 AM EDT URIC ACID Routine 02/15/2025 5:21 AM EDT C-REACTIVE PROTEIN Routine 02/15/2025 5: 21 AM EDT SEDIMENTATION RATE (ESR) Routine 02/15/2025 5:21 AM EDT PHOSPHORUS Routine 02/15/2025 5:21 AM EDT MAGNESIUM Routine 02/15/2025 5:21 AM EDT COMPREHENSIVE METABOLIC PANEL Routine 02/15/2025 5:21 AM EDT CBC Routine 02/15/2025 5:[address] HIP WITHOUT CONTRAST (LEFT) Routine 02/13/2025 5:05 AM EDT C-REACTIVE PROTEIN Routine 02/13/2025 1: 42 AM EDT SEDIMENTATION RATE (ESR) Routine 02/13/2025 1:42 AM EDT BASIC METABOLIC PANEL STAT 02/13/2025 1:42 AM EDT CBC AND DIFFERENTIAL STAT 02/13/2025 1:42 AM EDT XR HIP 2 VW LEFT PLUS PELVIS Routine 02/13/2025 1:29 AM EDT OUTSIDE MONITOR Routine 01/26/2025 10:11 AM EDT MAGNESIUM Routine 01/25/2025 1:55 PM EDT Palpitations TTE COMPREHENSIVE Routine 01/07/2025 10: [address] CHEST WITHOUT CONTRAST Routine 12/23/2024 11:06 AM EDT Solitary pulmonary nodule on lung CT BI MAMMOGRAM SCREENING WITH TOMOSYNTHESIS WITH CAD (BILATERAL) Routine 09/18/2024 10:17 AM EDT Malignant neoplasm of upper-outer quadrant of right breast in female, estrogen receptor positive ENDOSCOPY, COLON 03/09/2022 9:21 AM EDT from Last 3 Months or Most Recently Relevant to Health Maintenance Results * (ABNORMAL) CBC (02/19/2025 5:28 AM EDT) Only the most recent of5 resultswithin the time period is included. WBC 8.30 4.00 - 11.00 K/uL [facility] RBC 3.87(L) 4.00 - 5.20 M/uL [facility] HGB 11.6(L) 12.0 - 16.0 g/dL [facility] HCT 36.1 36.0 - 46.0 % [facility] PLT 274 150 - 450 K/uL [facility] MCV 93.3 80.0 - 100.0 fL [facility] MCH 30.0 27.0 - 31.0 pg [facility] MCHC 32.1 32.0 - 36.0 g/dL [facility] RDW 14.9(H) 11.5 - 14.5 % [facility] MPV 10.2 8.4 - 12.0 fL [facility] NRBC 0.00 0.00 /100 WBCs [facility] ABSOLUTE NRBC 0.00 0.00 K/uL [facility] 02/19/2025 5:28 AM EDT 02/19/2025 7:30 AM EDT us Leonardo Sky MD LAB BLOOD ORDERABLES Final Resul t [facility] [address] [place] [address] * (ABNORMAL) Basic metabolic panel (02/19/2025 5:28 AM EDT) Only the most recent of2 resultswithin the time period is included. [facility] SODIUM 137 133 - 146 mmol/L [facility] CHLORIDE 99 96 - 108 mmol/L [facility] POTASSIUM 4.3 3.3 - 5.1 mmol/L [facility] CO2 26 21 - 35 mmol/L [facility] BUN 23(H) 6 - 19 mg/dL [facility] CREATININE 0.90 0.5 - 1.5 mg/dL [facility] GLUCOSE 111(H) 70 - 99 mg/dL [facility] CALCIUM 10.0 8.4 - 10.3 mg/dL [facility] EGFR 67 >59 mL/min/1.7 3m2 [facility] Comment:Estimated glomerular filtration rate calculated using the CKD-EPI refit equation. ANION GAP 16 10 - 20 mmol/L [facility] 02/19/2025 5:28 AM EDT 02/19/2025 7:30 AM EDT us Leonardo Sky MD LAB BLOOD ORDERABLES Final Resul t [address] [address] * Lyme Screen with Reflex to Immunoblot, Blood (02/18/2025 6:07 AM EDT) [facility] Lyme AB IgG Negative Negative [facility] Lyme AB IgM Negative Negative [facility] Blood 02/18/2025 6:07 AM EDT 02/18/2025 6:20 AM EDT us Kary Cancino NP LAB BLOOD ORDERABLES Fi nal Result [address] [address] * (ABNORMAL) Comprehensive metabolic panel (02/18/2025 6:07 AM EDT) Only the most recent of4 resultswithin the time period is included. [facility] SODIUM 136 133 - 146 mmol/L [facility] POTASSIUM 4.5 3.3 - 5.1 mmol/L [facility] CHLORIDE 101 96 - 108 mmol/L [facility] CO2 24 21 - 35 mmol/L [facility] BUN 17 6 - 19 mg/dL [facility] CREATININE 0.80 0.5 - 1.5 mg/dL [facility] GLUCOSE 134(H) 70 - 99 mg/dL [facility] ALBUMIN 4.1 3.9 - 4.8 g/dL [facility] TOTAL PROTEIN 7.2 6.5 - 8.0 g/dL [facility] CALCIUM 9.8 8.4 - 10.3 mg/dL [facility] ALKALINE PHOSPHATASE 85 39 - 117 U/L [facility] TOTAL BILIRUBIN <0.2 0.0 - 1.2 mg/dL [facility] AST 39(H) 0 - 37 U/L [facility] ALT 36 0 - 40 U/L [facility] GLOBULIN 3.1 1 - 4.8 g/dL [facility] EGFR 77 >59 mL/min/1.7 3m2 [facility] Comment:Estimated glomerular filtration rate calculated using the CKD-EPI refit equation. ANION GAP 16 10 - 20 mmol/L [facility] Blood 02/18/2025 6:07 AM EDT 02/18/2025 6:20 AM EDT us Kary Rosarioperance [employer] LAB BLOOD ORDERABLES Fi nal Result Performing Organization Address City/[facility] Co de Phone Number [address] [address] * Syphilis antibody screen (02/18/2025 6:07 AM EDT) RPR NON-REACTIV E NON-REACTI VE [facility] Blood 02/18/2025 6:07 AM EDT 02/18/2025 6:20 AM EDT Kary Covarrubias Julita [employer] [employer] [facility] LAB BLOOD ORDERABLES Fi nal Result Performing Organization Address [facility] Co de Phone Number [address] [address] * (ABNORMAL) C-Reactive Protein (02/18/2025 6:07 AM EDT) Only the most recent of4 resultswithin the time period is included. C REACTIVE PROTEIN 23.8(H) 0.0 - 4.0 mg/L [facility] Blood 02/18/2025 6:07 AM EDT 02/18/2025 6:20 AM EDT us Kary Cancino [employer] LAB BLOOD ORDERABLES Fi nal Result Performing Organization Address [facility] de Phone Number [address] [address] * (ABNORMAL) Sedimentation rate (ESR) (02/16/2025 5:20 AM EDT) Only the most recent of3 resultswithin the time period is included. ESR 48(H) 0 - 30 mm/h [facility] Blood 02/16/2025 5:20 AM EDT 02/16/2025 5:43 AM EDT us Kehinde Talley PA-C LAB BLOOD ORDERABLES Fi nal Result Performing Organization Address [facility] de Phone Number [address] [address] * Magnesium (02/16/2025 5:20 AM EDT) Only the most recent of3 resultswithin the time period is included. MAGNESIUM 2.1 1.6 - 2.6 mg/dL [facility] 02/16/2025 5:20 AM EDT 02/16/2025 5:43 AM EDT us Darryl Beltre MD LAB BLOOD ORDERABLES Final R esult Performing Organization Address [facility] Co de Phone Number [address] [place] [address] * MRI HIP WITHOUT CONTRAST (LEFT) (02/15/2025 11:49 AM EDT) Anatomical Region Laterality Modality Hip Left Magnetic Resonan ce 02/15/2025 1:26 PM EDT Impressions 02/15/2025 2:00 PM EDT 1. No fracture. 2. Mild strain of the left gluteus medius muscle with a small intramuscular hematoma. 3. Mild strain of the left obturator externus and adductor muscles. 4. Mild left hip OA with focal cartilage defect, as described above. 5. Small left hip joint effusion. Narrative 02/15/2025 2:00 PM EDT MRI HIP WITHOUT CONTRAST (LEFT) Referring clinician's provided indication for this examination in Epic: * Fracture, hip; * Hip pain, stress fracture suspected, neg xray TECHNIQUE: Multi-sequence, multi-planar MRI of the hip without intravenous contrast. COMPARISON: CT HIP WITHOUT CONTRAST (LEFT) ; XR HIP 2 VW LEFT PLUS PELVIS ; CT ABDOMEN/PELVIS (KIDNEY STONE) WITHOUT CONTRAST FINDINGS: ENTIRE PELVIS SCREENING: L4-5 disc desiccation. No fracture, sacroiliitis, or focal bone lesion. Moderate right hip OA on the large [id number]. Mild peritendinous edema surrounding the right gluteus medius/minimus. Low-grade partial-thickness tear of the right proximal hamstring tendon (3:21). 3.7 x 2.6 cm T2 hyperintense/T1 hypointense left adnexal cystic structure (8:10), previously 3.9 x 3.4 cm on the prior CT scan abdomen, O-RADS 2 lesion (almost certainly benign). DEDICATED HIP: Bone: No fracture or osteonecrosis. Joint: Intermediate signal along the anterosuperior labrum (7:18), likely degeneration. Intermediate signal at the superior labrum (5:10). Focal cartilage delamination at the superior acetabulum (7:19). Small joint effusion. Tendons: Mild peritendinous edema surrounding the gluteus medius/minimus. Mild intramuscular edema within the gluteus medius with a focal 1.2 x 0.9 x 1.9 cm intramuscular hematoma (4:18 and 3:15). The Iliopsoas, rectus femoris, and proximal hamstring tendons are intact. Soft Tissues: Mild intramuscular edema within the obturator externus and adductor muscles, likely strain. Mild subcutaneous edema overlying the left hip. No soft tissue mass. No bursal collection. Procedure Note Amaury Dawn MD - 02/15/2025 MRI HIP WITHOUT CONTRAST (LEFT) Referring clinician's provided indication for this examination in Epic: *Fracture, hip; * Hip pain, stress fracture suspected, neg xray TECHNIQUE: Multi-sequence, multi-planar MRI of the hip without intravenouscontrast. COMPARISON: CT HIP WITHOUT CONTRAST (LEFT) ; XR HIP 2 VW LEFTPLUS PELVIS ; CT ABDOMEN/PELVIS (KIDNEY STONE) WITHOUT [id number] FINDINGS: ENTIRE PELVIS SCREENING: L4-5 disc desiccation. No fracture, sacroiliitis,or focal bone lesion. Moderate right hip OA on the large [id number].Mild peritendinous edema surrounding the right gluteus medius/minimus.Low-grade partial-thickness tear of the right proximal hamstring tendon(3:21). 3.7 x 2.6 cm T2 hyperintense/T1 hypointense left adnexal cysticstructure (8:10), previously 3.9 x 3.4 cm on the prior CT scan abdomen,O-RADS 2 lesion (almost certainly benign). DEDICATED HIP: Bone: No fracture or osteonecrosis. Joint: Intermediate signal along the anterosuperior labrum (7:18), likelydegeneration. Intermediate signal at the superior labrum (5:10). Focalcartilage delamination at the superior acetabulum (7:19). Small jointeffusion. Tendons: Mild peritendinous edema surrounding the gluteus medius/minimus.Mild intramuscular edema within the gluteus medius with a focal 1.2 x 0.9x 1.9 cm intramuscular hematoma (4:18 and 3:15). The Iliopsoas, rectusfemoris, and proximal hamstring tendons are intact. Soft Tissues: Mild intramuscular edema within the obturator externus andadductor muscles, likely strain. Mild subcutaneous edema overlying theleft hip. No soft tissue mass. No bursal collection. IMPRESSION: 1. No fracture. 2. Mild strain of the left gluteus medius muscle with a smallintramuscular hematoma. 3. Mild strain of the left obturator externus and adductor muscles. 4. Mild left hip OA with focal cartilage defect, as described above. 5. Small left hip joint effusion. Kehinde Talley PA-C IMG MR EXTREMITY Final Result * (ABNORMAL) Uric acid (02/15/2025 5:21 AM EDT) URIC ACID 7.8(H) 2.4 - 7.0 mg/dL [facility] 02/15/2025 5:21 AM EDT 02/15/2025 5:52 AM EDT Darryl Beltre MD LAB BLOOD ORDERABLES Final R esult [address] [address] * Phosphorus (02/15/2025 5:21 AM EDT) PHOSPHORUS 3.2 2.7 - 4.5 mg/dL [facility] Blood 02/15/2025 5:21 AM EDT 02/15/2025 5:52 AM EDT Darryl Beltre MD LAB BLOOD ORDERABLES Final R esult Performing Organization Address [facility]/ZIP Co de Phone Number [address] [address] * CT HIP WITHOUT CONTRAST (LEFT) (02/13/2025 5:05 AM EDT) Anatomical Region Laterality Modality Hip Left Computed Tomogra phy 02/13/2025 7:14 AM EDT Impressions 02/13/2025 7:19 AM EDT 1. No acute fracture or dislocation. 2. Trace hip effusion. Narrative 02/13/2025 7:[address] HIP WITHOUT CONTRAST (LEFT) Referring clinician's provided indication for this examination in [facility]: * Hip pain, stress fracture suspected, neg xray TECHNIQUE: Multidetector-row CT of the hip, without intravenous contrast using dose-modulation techniques. Images were reconstructed in the axial, coronal, and sagittal planes. COMPARISON: June 2024 FINDINGS: Bones and Joints: No fracture. Normal alignment. Trace effusion. Mild degenerative changes. Soft Tissues: No soft tissue hematoma. Similar benign-appearing 3 cm left adnexal cyst. Procedure Note Anthony Tellez MBBS - 02/13/2025 CT HIP WITHOUT CONTRAST (LEFT) Referring clinician's provided indication for this examination in [facility]: *Hip pain, stress fracture suspected, neg xray TECHNIQUE: Multidetector-row CT of the hip, without intravenous contrastusing dose-modulation techniques. Images were reconstructed in the axial,coronal, and sagittal planes. COMPARISON: June 2024 FINDINGS: Bones and Joints: No fracture. Normal alignment. Trace effusion. Milddegenerative changes. Soft Tissues: No soft tissue hematoma. Similar benign-appearing 3 cm leftadnexal cyst. IMPRESSION: 1. No acute fracture or dislocation. 2. Trace hip effusion. us Xochitl Courtney PA-C IMG CT EXTREMITY Final Resu lt * (ABNORMAL) CBC and differential (02/13/2025 1:42 AM EDT) WBC 12.91(H) 4.00 - 11.00 K/uL [facility] RBC 4.16 4.00 - 5.20 M/uL [facility] HGB 12.7 12.0 - 16.0 g/dL [facility] HCT 39.0 36.0 - 46.0 % [facility] PLT 229 150 - 450 K/uL [facility] MCV 93.8 80.0 - 100.0 fL [facility] MCH 30.5 27.0 - 31.0 pg [facility] MCHC 32.6 32.0 - 36.0 g/dL [facility] RDW 15.4(H) 11.5 - 14.5 % [facility] MPV 9.7 8.4 - 12.0 fL [facility] NRBC 0.00 0.00 /100 WBCs [facility] ABSOLUTE NRBC 0.00 0.00 K/uL [facility] DIFF METHOD Auto [facility] NEUTS 83.1(H) 48.0 - 76.0 % [facility] LYMPHS 5.7(L) 18.0 - 41.0 % [facility] MONOS 9.9 4.0 - 11.0 % [facility] EOS 0.4 0.0 - 5.0 % [facility] BASOS 0.4 0.0 - 1.5 % [facility] Granulocytes, immature (%) 0.5 0.0 - 0.9 % [facility] ABSOLUTE NEUTS 10.74(H) 1.92 - 7.60 K/uL [facility] ABSOLUTE LYMPHS 0.73 0.72 - 4.10 K/uL [facility] ABSOLUTE MONOS 1.28(H) 0.16 - 1.10 K/uL [facility] ABSOLUTE EOS 0.05 0.00 - 0.50 K/uL [facility] ABSOLUTE BASOS 0.05 0.00 - 0.15 K/uL [facility] Granulocytes, immature 0.06 0.00 - 0.09 K/uL [facility] Blood 02/13/2025 1:42 AM EDT 02/13/2025 1:54 AM EDT us Xochitl Courtney PA-C LAB BLOOD ORDERABLES Final Result [facility] [address] [place] [address] * XR HIP 2 VW LEFT PLUS PELVIS (02/13/2025 1:29 AM EDT) Anatomical Region Laterality Modality Hip Left Computed Radiogr aphy 02/13/2025 3:00 AM EDT Impressions 02/13/2025 3:21 AM EDT No displaced fracture or malalignment of the pelvis or left hip. ATTESTATION: Yannick Rocha as teaching physician, have reviewed the images for this case and if necessary edited the report originally created by Pia Worrell. Narrative 02/13/2025 3:21 AM EDT XR HIP 2 VW LEFT PLUS PELVIS Referring clinician's provided indication for this examination in [facility]: Pain COMPARISON: CT ABDOMEN/PELVIS WITHOUT CONTRAST FINDINGS: Pelvis: No displaced fracture. Intact sacroiliac joints and pubic symphysis. Frontal evaluation of the right hip demonstrates mild degenerative changes. Left hip: No displaced fracture. Normal alignment. Mild degenerative changes. Procedure Note Yannick Farah MD - 02/13/2025 XR HIP 2 VW LEFT PLUS PELVIS Referring clinician's provided indication for this examination in [facility]:Pain COMPARISON: CT ABDOMEN/PELVIS WITHOUT CONTRAST FINDINGS: Pelvis: No displaced fracture. Intact sacroiliac joints and pubicsymphysis. Frontal evaluation of the right hip demonstrates milddegenerative changes. Left hip: No displaced fracture. Normal alignment. Mild degenerativechanges. IMPRESSION: No displaced fracture or malalignment of the pelvis or left hip. ATTESTATION: Yannick Rocha as teaching physician, have reviewedthe images for this case and if necessary edited the report originallycreated by Pia Worrell. us Xochitl Courtney PA-C IMG XR PELVIS Final Resul t * Outside Monitor Report Only (01/26/2025 10:11 AM EDT) us Rober Matson DO [facility] ORDERABLE S Final Result * TTE COMPREHENSIVE (01/07/2025 10:54 AM EDT) Height 163 cm Weight 109 kg Systolic BP 129 mmHg Diastolic BP 65 mmHg Interventricular Septum Thickness 9 6 - 11 mm Left Ventricle Internal Diameter End Diastole 48 37 - 52 mm Left Ventricle Internal Diameter End Systole 33 <35 mm Left Ventricular Outflow Tract Diameter 22.0 mm Left Ventricular Posterior Wall Thickness 8 6 - 11 mm Left Ventricle Ea Lateral Wave Speed 6.2 cm/s Left Ventricle Ea Septal Wave Speed 8.8 cm/s Ejection Fraction 60 50 - 75 Percent Aortic Valve Mean Gradient 5 mmHg Aortic Valve Time Velocity Integral 321.0 mm Aortic Valve Peak Velocity 1.6 m/s Aortic Valve Peak Gradient 10 mmHg Aortic Arch Diameter 25 mm Aortic Sinus Diameter 28 <40 mm Ascending Aorta Diameter 31 <36 mm Inferior Vena Cava Diameter 19 <21 mm Mitral Valve Deceleration Time 208 ms Left Ventricle A Wave Speed 77.7 cm/s Left Ventricle E Wave Speed 59.1 cm/s Right Ventricle Basal Diameter 35 25 - 41 mm Tricuspid Valve Peak Velocity 1.9 m/s Raw LV EF% 53 % MV E/E' Tissue Velocity Lateral 9.53 Relative Wall Thickness 0.33 0.22 - 0.42 MV E/A ratio 0.8 MV E/e' septal 6.72 Left Ventricle E/e' Average 8.1 Aortic Valve Prosthetic Peak Gradient 10 mmHg Aorta Sinus Index by Height 1.72 cm/m Aorta Sinus CSA index by Height 3.78 cm2/m Asc Aorta CSA Index by Height 4.63 cm2/m Right Ventricle to Right Atrium Pressure Gradient 14 mmHg Right Ventricle Peak Systolic Pressure (Assuming RAP 10) 24 mmHg MGB CV ECHO TV RVSP (ASSUMING RAP OF 5) 19 mmHg RVSP (Exclusive of RAP) 14 mmHg Echo E/Ea 6.72 Body Surface Area 2.11 m2 Left Ventricle indexed to BSA 65.0 g/m2 Aortic Valve Prosthetic Mean Gradient 5 mmHg Aortic Valve Sinus Index by BSA 13 mm/m2 Ascending Aorta Index 15 mm/m2 Ascending Aorta Index 15 mm Aortic Sinus Index 13 mm Ascending Aorta Diameter 15 mm Aortic Valve Sinus Index 1 13 19 - 27 mm AO ASC DIAM BSA INDEX 14.69 Left Atrial Volume Index 20 16 - 34 mL/m2 Right Ventricle Peak Systolic Pressure 17 mmHg Right Ventricle TAPSE 29 >=17 mm Right Ventricle Pulse Doppler S Wave 12.9 >=9.5 cm/s Left Atrial Volume 42 mL Left Atrial Volume Index by Height 26 mL/m Right Atrium Area 10 cm2 Right Atrium Area index 5 cm2/m2 Right Atrium Pressure Estimated 3 mmHg Anatomical Region Laterality Modality Heart Ultrasound Narrative 01/07/2025 12:09 PM EDT Images from the original result were not included. 1. The indication is palpitations the estimated ejection fraction of the left ventricle is 60 to 65%. Left ventricular thickness is normal left jugular wall motion is normal and diastolic function is normal. 2. Normal RV size and function 3. Trileaflet aortic valve there is no evidence of aortic stenosis with a mean gradient of 5 mmHg. The ascending aortic root is normal size. 4. Trace mitral and trace tricuspid and there is no prior echo available for comparison Left Ventricle The left ventricle is normal in size. There is normal wall thickness. There is normal left ventricular systolic function. The LV ejection fraction is 60% (calculated via the single dimension method). There are no wall motion abnormalities. LV diastolic function appears within normal limits for age. The E/A ratio is 0.8. The e' septal wave velocity is 8.8 cm/s. The e' lateral wave velocity is 6.2 cm/s. The average E/e' ratio is 8.1. Right Ventricle The right ventricle is normal in size. The RV basal dimension is 35 mm. There is normal right ventricular systolic function. TAPSE is 29 mm. RV S' wave is 12.9 cm/s. Left Atrium The left atrium is normal in size. The left atrial volume is 42 mL. There are normal flow patterns in the pulmonary vein. Right Atrium The right atrium is normal in size. The right atrial area is 10 cm2. The IVC is normal in size with normal inspiratory collapse. This is consistent with normal RA pressure. The IVC diameter is 19 mm (normal: <= 21 mm). Hepatic veins are normal in size. Mitral Valve There is mitral valve thickening. There is no mitral stenosis. There is trace mitral regurgitation. Tricuspid Valve The tricuspid valve appears normal. There is no tricuspid stenosis. There is trace tricuspid regurgitation. The RV systolic pressure was calculated at 17 mmHg (using TR peak velocity of 1.9 m/s and assuming an RA pressure of 3 mmHg). Aortic Valve The morphology of the valve cannot be determined (cannot rule out bicuspid valve). There is leaflet thickening without stenosis. The aortic valve peak velocity is 1.6 m/s. The peak and mean aortic valve gradients are 10 mmHg and 5 mmHg respectively. There is no aortic regurgitation. The visualized portions of the thoracic aorta appear normal in size. Pulmonic Valve The pulmonic valve appears normal. Pericardium There is no pericardial effusion. There are no pleural effusions. General Findings The study was technically difficult (4). Study quality explanation: obesity. Technique(s) used in the evaluation: Color flow Doppler and Spectral Doppler. The predominant rhythm during the study was sinus. IAS/IVS The interatrial septum appears normal. There is no evidence of patent foramen ovale (PFO). The interventricular septum appears normal. There is no evidence of a ventricular septal defect. us Rober Pierceolekassandra DO CV ECHO ORDERABLES Final Resu lt * CT CHEST WITHOUT CONTRAST (12/23/2024 11:06 AM EDT) Anatomical Region Laterality Modality Chest Computed Tomogra phy 12/24/2024 3:14 PM EDT Impressions 12/24/2024 4:01 PM EDT 1. Previously described as new right lower lobe lateral nodule is less prominent, and with the current appearance of a linear atelectasis. 2. Unchanged multiple additional pulmonary nodules. Narrative 12/24/2024 4:[address] CHEST WITHOUT CONTRAST Referring clinician's provided indication for this examination in Epic: * Lung nodule, 6-8mm TECHNIQUE: Multidetector CT of the chest was performed without intravenous contrast using tailored dose modulation. COMPARISON: CT CHEST WITHOUT CONTRAST FINDINGS: Devices/Tubes/Lines: None. Lungs: Central airways are patent. No focal consolidation. Scattered calcified granulomas. Similar linear scarring in the right middle lobe. Previously described decreasing right middle lobe nodule is unchanged measuring 2 mm (4:220). Previously suggested as new right lower lobe inferolateral nodule is less prominent, and appears to represent linear atelectasis in the current examination (4:272). Additional pulmonary nodules are unchanged, for example right upper lobe (4:67), 3 mm groundglass nodule in the left upper lobe (4:121), right middle lobe (4:220), right lower lobe along the fissure (4:230), right lower lobe (4:242), left lower lobe (4:257) Pleura: No pleural effusion or pneumothorax. Mediastinum: Heart is normal in size. No pericardial effusion. Mild amount of coronary calcifications. Scattered calcifications along the thoracic aorta. Lymph Nodes: No enlarged supraclavicular, axillary, mediastinal, or hilar lymph nodes. Upper Abdomen: Vascular calcifications. Chest Wall: Postsurgical changes with surgical clips in the right axilla, incompletely evaluated. Bones: Similar chronic sclerosis of the medial aspect of the right T9 posterior rib (5:87), and in lesser degree of the left 9th and 6th posterior ribs. Procedure Note Jerry Snow MD - 12/24/2024 CT CHEST WITHOUT CONTRAST Referring clinician's provided indication for this examination in Epic: *Lung nodule, 6-8mm TECHNIQUE: Multidetector CT of the chest was performed without intravenouscontrast using tailored dose modulation. COMPARISON: CT CHEST WITHOUT CONTRAST FINDINGS: Devices/Tubes/Lines: None. Lungs: Central airways are patent. No focal consolidation. Scatteredcalcified granulomas. Similar linear scarring in the right middle lobe.Previously described decreasing right middle lobe nodule is unchangedmeasuring 2 mm (4:220). Previously suggested as new right lower lobeinferolateral nodule is less prominent, and appears to represent linearatelectasis in the current examination (4:272). Additional pulmonarynodules are unchanged, for example right upper lobe (4:67), 3 mmgroundglass nodule in the left upper lobe (4:121), right middle lobe(4:220), right lower lobe along the fissure (4:230), right lower lobe(4:242), left lower lobe (4:257) Pleura: No pleural effusion or pneumothorax. Mediastinum: Heart is normal in size. No pericardial effusion. Mild amountof coronary calcifications. Scattered calcifications along the thoracicaorta. Lymph Nodes: No enlarged supraclavicular, axillary, mediastinal, or hilarlymph nodes. Upper Abdomen: Vascular calcifications. Chest Wall: Postsurgical changes with surgical clips in the right axilla,incompletely evaluated. Bones: Similar chronic sclerosis of the medial aspect of the right H7wfwldoowc rib (5:87), and in lesser degree of the left 9th and 6thposterior ribs. IMPRESSION: 1. Previously described as new right lower lobe lateral nodule is lessprominent, and with the current appearance of a linear atelectasis. 2. Unchanged multiple additional pulmonary nodules. Tono Lamb MD IMG CT CHEST Final Result * BI MAMMOGRAM SCREENING WITH TOMOSYNTHESIS WITH CAD (BILATERAL) (09/18/2024 10:17 AM EDT) Anatomical Region Laterality Modality Breast Left, Breast Right, Breast Bilateral Bila teral Mammography Other 09/20/2024 5:23 PM EDT Impressions 09/20/2024 5:27 PM EDT No mammographic evidence of malignancy in either breast. Annual screening mammography is recommended. BI-RADS 2 BENIGN The patient will be notified of the results and recommendations. Narrative 09/20/2024 5:27 PM EDT BI MAMMOGRAM SCREENING WITH TOMOSYNTHESIS WITH CAD (BILATERAL) Additional patient information: Screening. History of right breast cancer status post breast conserving therapy. This is the patient's first postlumpectomy mammogram. COMPARISON: Comparison is made with relevant prior imaging. Breast composition: There are scattered areas of fibroglandular density. FINDINGS: Post-treatment changes are present in the right breast. No abnormal masses, suspicious calcifications, or other significant findings are identified mammographically in either breast. Procedure Note Lynette Bellamy MD - 09/20/2024 BI MAMMOGRAM SCREENING WITH TOMOSYNTHESIS WITH CAD (BILATERAL) Additional patient information: Screening. History of right breast cancerstatus post breast conserving therapy. This is the patient's firstpostlumpectomy mammogram. COMPARISON: Comparison is made with relevant prior imaging. Breast composition: There are scattered areas of fibroglandular density. FINDINGS: Post-treatment changes are present in the right breast. No abnormal masses, suspicious calcifications, or other significantfindings are identified mammographically in either breast. IMPRESSION: No mammographic evidence of malignancy in either breast. Annual screening mammography is recommended. BI-RADS 2 BENIGN The patient will be notified of the results and recommendations. us Fox Martinez MD IMG MG EXAMS Final Result * ENDOSCOPY, COLON (03/09/2022 9:21 AM EDT) Narrative Transcriptions Trey Martinez MD - 03/09/2022 9:21 AM EDT Patient Name: Teresa Leyvaarthy Attending MD:: TREY MARITNEZ MD Procedure Date: 03/09/2022 9:21 AM Date of : 1950 Age: 71 Admit Type: Outpatient Gender: Female Room: [place] [address] Referring MD: Shahla Madrigal Exam Type: Colonoscopy Indications: Screening patient at increased risk: Family historyof 1st-degree relative with colorectal cancer at age60 years (or older) Medications: Monitored Anesthesia Care Procedure: Informed consent was obtained from the patientafter discussion of the indications, limitations, alternatives, benefits, and risks of the procedure. Risks specifically discussed include but are not limited to medication reactions, missed lesions, bleeding, perforation, or the need for emergent surgery. Throughout the procedure, the patient's blood pressure, pulse, end-tidal CO2, and oxygensaturations were monitored continuously. The Olympus adult variable colonoscope [id number] #4 was introduced through the anus and advanced to the terminal ileum. The colonoscopy was performedwithout difficulty. The patient tolerated the procedurewell. The quality of the bowel preparation was adequateto identify polyps. Anatomical landmarks were photographed. Complications: No immediate complications. Estimated blood loss:None. Findings: The perianal and digital rectal examinations were normal. Two sessile polyps were found in the transversecolon and ascending colon. The polyps were 5 mm in size. These polyps were removed with a cold snare.Resection and retrieval were complete. The rectum, recto-sigmoid colon, sigmoid colon, descending colon, splenic flexure, hepatic flexure, cecum, appendiceal orifice and rectum (on retroflexion) appeared normal. Impression: - Two 5 mm polyps in the transverse colon and inthe ascending colon, removed with a cold snare.Resected and retrieved. - The rectum, sigmoid colon, descending colon,splenic flexure, hepatic flexure, cecum, rectum (on retroflexion), recto-sigmoid colon and appendiceal orifice are normal. Recommendation: - Discharge patient to home. - Resume previous diet. - Continue present medications. - Await pathology results. - Repeat colonoscopy in 5 years for surveillance. - I will send you pathology results by letter. Ifyou do not get results in 3 weeks telephone myoffice. TREY MARTINEZ MD 03/09/2022 9:50:04 AM This report has been signed electronically. Number of Addenda: 0 Note Initiated On: 03/09/2022 9:21 AM Procedure Code(s): --- Professional --- 52047, Colonoscopy, flexible; with removal of tumor(s), polyp(s), or other lesion(s) by snare technique --- Technical --- 06896, Colonoscopy, flexible; with removal of tumor(s), polyp(s), or other lesion(s) by snare technique Diagnosis Code(s): --- Professional --- Z80.0, Family history of malignant neoplasm of digestive organs K63.5, Polyp of colon --- Technical --- Z80.0, Family history of malignant neoplasm of digestive organs K63.5, Polyp of colon CPT copyright 2020 [employer]. All rights reserved. The codes documented in this report are preliminary and upon radiation control worker reviewmay be revised to meet current compliance requirements. Procedure Date: 03/09/2022 9:21:31 AM [address] [place] [address] Shahla Madrigal [facility] GI PROCEDURE SAMARA GAMA Final Result from Last 3 Months or Most Recently Relevant to Health Maintenance Insurance MEDICARE PART A & B [facility] MEDEX SUPPLEMENT MEDICARE PART A & B [email or web address] MEDEX SUPPLEMENT MEDICARE PART A & B [email or web address] MEDEX SUPPLEMENT MEDICARE PART A & B [employer] MEDEX SUPPLEMENT MEDICARE PART A & B [employer] MEDEX SUPPLEMENT MEDICARE PART A & B Member Subscriber Plan / Payer (Ef fective 2015-Present) Name:Teresa Parson Member ID:[id number] Relation to Subscriber:Self Name:Teresa Parson Subscriber ID:[id number] Payer ID:[id number] Group ID:Not on file Type:Medicare Address: [employer] 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 10/23/2019 health care proxy * Full Code (Latest Code Status on File) Date Activated Date Inactivated Comments 02/14/2025 12:55 PM Question Answer Comments Code Status Confirmed With: Patient * Full Code Date Activated Date Inactivated Comments 06/28/2024 3:09 AM 02/14/2025 12:55 PM Question Answer Comments Code Status Confirmed With: Patient * Full Code (Confirmed) Date Activated Date Inactivated Comments 10/23/2019 3:45 PM 06/28/2024 3:09 AM Question Answer Comments Code Status Confirmed With: Patient * Full Code (Presumed) Date Activated Date Inactivated Comments 09/25/2018 7:24 AM 09/28/2018 6:51 PM Care Teams Manager Qa Relationship Specialty Start Date End Date Shahla Madrigal NP [address] [place] [id number] [email or web address] PCP - General Family Medicine 01/05/20 Mariluz Be MD [address] [place] [phone] [email or web address] Obstetrics and Gynecology 10/30/23 Soledad Mclean MD, MPH [address] [place] [phone] [email or web address] 01/14/24 Juan Manuel Mota MD [address] [place] [phone] [email or web address] End[facility]ology 04/03/24 Additional Source Comments The information contained in this document represents components of the legal health record. It is not the complete legal health record.[facility]
== END 2025-03-16 12:46 | disposition home or self-care (01) ==
LOC: HO.HSM 11:06
PROVIDERS: PCP Nurse Practitioner Adult Health; Visit Provider Nurse Practitioner
DX: R51.9 Headache, unspecified (principal)
CPT/HCPCS: 99204

== ENCOUNTER → 2025-03-16 11:06 | Outpatient (BNVA) | payer MEDICARE, SELFPAY | PROVIDERS: PCP Nurse Practitioner Adult Health; Visit Provider Nurse Practitioner | DX: R51.9 Headache, unspecified (principal); G89.29 Other chronic pain; F45.8 Other somatoform disorders; E05.00 Thyrotoxicosis with diffuse goiter without thyrotoxic crisis or storm; E03.9 Hypothyroidism, unspecified; M06.9 Rheumatoid arthritis, unspecified | CPT/HCPCS: 99202 ==

== ENCOUNTER 2025-05-11 11:04 | Outpatient (AMB) | payer MEDICARE, SELFPAY ==
--- NOTE | 2025-05-11 11:16 | A.OFFVIS_ITS ---
Vital Signs 05/11/25 11:23 Height 5 ft 3.5 in Weight 226 lb BMI 39.4 BP 122/64 Blood Pressure Location Lt brachial Position Sitting Respiration 16 Pulse 78 Pulse Oximetry (%) 96 Oxygen Delivery Method Room Air Intake Visit Reasons: 2m Circulation Supervisor Required: No Allergies cephalexin Allergy (Severe, Verified 05/11/25 11:27) Hives clindamycin Allergy (Severe, Verified 05/11/25 11:27) Hives Penicillins Allergy (Severe, Verified 05/11/25 11:27) Hives Iodinated Contrast Media Allergy (Verified 05/11/25 11:27) Hives chlorhexidine (From ChloraPrep Clear) Adverse Reaction (Severe, Verified 05/11/25 11:27) Rash HPI Comments Details: Teresa is a 74-year-old female patient with a past medical history of anxiety, Graves disease, hypothyroid, osteoporosis, RA, bruxism, migraine, and obesity who I was following at [facility] for chronic left-sided headaches. She is here today to reestablish care with me at [facility]. Her headache history includes severe left-sided headaches often lasting a stretch of a couple of weeks with severe pain to the left temporal and parietal areas radiating sometimes into her face and preauricular areas. Her face and preauricular area often become tender to touch. She has historically denied any light sensitivity, dizziness, conjunctival reddening, lacrimation, rhinorrhea, nasal congestion, ptosis, or lid swelling. She does however have a profound history of bruxism. Because of her severe unilateral pain, there has always been some question of whether or not there is a component of TAC. She has however tried oxygen with only minimal improvement in her head pain. She has had some benefit in the past with left occipital nerve blocks and left auricular temporal nerve blocks. In November of 2024, she presented to the clinic at [facility] in severe pain at which time she received a left occipital and left auricular temporal nerve block, was started on Emgality, and was given a 5 day course of Depakote. This combination did improve her pain. Seemingly, after initiation of the Emgality, she has had some overall improvement. Since this time, she has had only a couple of breakthrough headache events. She did try the Ubrelvy as prescribed for abortive therapy however this was not successful. She was prescribed Nurtec in place of the Ubrelvy for abortive therapy. When I saw her last, she had explain that she had gone in the hospital once for left-sided hip pain at which time she developed a left-sided headache and she had a course of prednisone and Depakote while in the hospital which did eventually alleviate the attack. Since this time, headaches has been stable. She has not had any further severe headaches and recently had her knee replaced. She premedicated with Tylenol prior to her knee replacement and has since then been taking morphine or tramadol for pain control though she has been using this sparingly. She has not had any recurrence of her headache since she has had her knee replaced. She has been consistent with her Emgality injections. She has not yet had the chance to try a Nurtec 75 mg that she is now prescribed for her abortive therapy. She is very happy with her headache control at this time though does worry that when she tapers off of the opiates that she is using for her knee, she is afraid for rebound headaches. 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 History of malignant neoplasm of endometrium Solitary lung nodule Left-sided headache Abnormal gait Fatigue Osteoporosis Osteoarthritis of knee Localized primary osteoarthritis Inflammatory polyarthropathy Rheumatoid arthritis GERD (gastroesophageal reflux disease) Allergic asthma without acute exacerbation or status asthmaticus Adjustment disorder with mixed emotional features Mild major depression, single episode Morbid obesity Hyperlipidemia Mixed hyperlipidemia Vitamin D deficiency Hyperparathyroidism Hypothyroidism Postablative hypothyroidism Candidal intertrigo Review of Systems Const All systems reviewed & are unremarkable except as noted in HPI and below Physical Exam Const General: cooperative, healthy appearing, comfortable and no acute distress Nutritional Appearance: well nourished Orientation/consciousness: patient oriented x3 Limitations: no limitations HEENT Head: Yes normal to inspection and Yes normocephalic Eyes General: appearance normal, both eyes and all related structures Visual Vee: normal visual vee by confrontation Alignment and Position: alignment normal Periorbital: periorbital findings normal Eyelids: Yes eyelids normal Conjunctivae: conjunctivae normal Sclerae: sclerae normal Neuro General: patient oriented x3 Cranial nerves: Yes CN's II-XII intact bilaterally and Yes Facial sensation intact/muscles of mastication intact Cognition (Neuro): normal cognition Gait exam (Neuro): Assisted gait required Gait assisted method: walker Motor exam (neuro): no tremor noted Sensory Exam: double simultaneous stimulation for sensation normal Romberg Test: Negative Pupils: Normal pupillary reactivity/response: bilateral Psych Appearance: grossly normal Mental Status: mental status grossly normal Speech and movement: Normal speech and movement present and Clear speech present Affect: normal affect Attitude: cooperative Thought process: Normal thought process present Thought content: Normal thought content present Insight: Good insight present (Psych) Judgement: Good judgement present (Psych) Assessment & Plan Assessment & Plan (1) Left-sided headache: Code(s): R51.9 - Headache, unspecified Category: Medical Plan: . Plan Teresa is a 74-year-old female patient with a past medical history of anxiety, Graves disease, hypothyroid, osteoporosis, RA, bruxism, migraine, and obesity who I was following at [facility] for chronic left-sided headaches. She is here today for a follow up visit. I think for the 1st time, may reports that she has been headache-free for a few weeks now. Her typical headaches are likely a combination of left occipital neuralgia with a component of bruxism though we can not completely exclude a possible TAC variant. For now, we will continue her current treatment as outlined below. -continue Emgality 120 mg subcutaneous monthly injection -Nurtec 75 mg as needed for abortive therapy -Depakote 250 mg twice daily for 5 days as needed for 2nd tier of rescue therapy -may consider further nerve blocks including left occipital and left auricular temporal nerve blocks -follow-up in 2 months or sooner if needed Coding Level of Care Code Est Pt Level 3 (46587) Diagnoses Left-sided headache R51.9
[2025-05-11 11:23] VITALS: BP 122/64; PULSE 78; RESP 16; O2SAT 96; BMI 39.4
== END 2025-05-11 11:42 | disposition home or self-care (01) ==
LOC: HO.HSM 11:04
PROVIDERS: PCP Nurse Practitioner Adult Health; Visit Provider Nurse Practitioner
DX: R51.9 Headache, unspecified (principal)
CPT/HCPCS: 99213

== ENCOUNTER → 2025-05-11 11:04 | Outpatient (BNVA) | payer MEDICARE, SELFPAY | PROVIDERS: PCP Nurse Practitioner Adult Health; Visit Provider Nurse Practitioner | DX: R51.9 Headache, unspecified (principal); E66.01 Morbid (severe) obesity due to excess calories; Z68.39 Body mass index [BMI] 39.0-39.9, adult; Z96.639 Presence of unspecified artificial wrist joint | CPT/HCPCS: 99212 ==

== ENCOUNTER 2025-06-04 12:03 | Outpatient (AMB) | payer MEDICARE, SELFPAY ==
--- NOTE | 2025-06-04 12:06 | MHC.OFFVIS ---
Vital Signs 06/04/25 12:15 Height 5 ft 3 in Weight 223 lb BMI 39.5 BP 116/72 Blood Pressure Location Lt brachial Position Sitting Respiration 16 Pulse 91 Pulse Oximetry (%) 98 Oxygen Delivery Method Room Air Intake Visit Reasons: nerve block Allergies cephalexin Allergy (Severe, Verified 06/04/25 12:18) Hives clindamycin Allergy (Severe, Verified 06/04/25 12:18) Hives Penicillins Allergy (Severe, Verified 06/04/25 12:18) Hives Iodinated Contrast Media Allergy (Verified 06/04/25 12:18) Hives chlorhexidine (From ChloraPrep Clear) Adverse Reaction (Severe, Verified 06/04/25 12:18) Rash HPI Comments Details: Teresa is a 74-year-old female patient with a past medical history of anxiety, Graves disease, hypothyroid, osteoporosis, RA, bruxism, migraine, and obesity who I follow for chronic left-sided headaches. Her headache history includes severe left-sided headaches often lasting a stretch of a couple of weeks with severe pain to the left temporal and parietal areas radiating sometimes into her face and preauricular areas. Her face and preauricular area often become tender to touch. She has historically denied any light sensitivity, dizziness, conjunctival reddening, lacrimation, rhinorrhea, nasal congestion, ptosis, or lid swelling. She does however have a profound history of bruxism. Because of her severe unilateral pain, there has always been some question of whether or not there is a component of TAC. She has however tried oxygen with only minimal improvement in her head pain. She has had some benefit in the past with left occipital nerve blocks and left auricular temporal nerve blocks. In November of 2024, she presented to the clinic at [facility] in severe pain at which time she received a left occipital and left auricular temporal nerve block, was started on Emgality, and was given a 5 day course of Depakote. This combination did improve her pain. Seemingly, after initiation of the Emgality, she has had some overall improvement. Since this time, she has had only a couple of breakthrough headache events. She did try the Ubrelvy as prescribed for abortive therapy however this was not successful. She was prescribed Nurtec in place of the Ubrelvy for abortive therapy. When I saw her last, she had explain that she had gone in the hospital once for left-sided hip pain at which time she developed a left-sided headache and she had a course of prednisone and Depakote while in the hospital which did eventually alleviate the attack. At the time of her last visit about 1 month ago, headaches has been stable. She had not had any further severe headaches and recently had her knee replaced. She premedicated with Tylenol prior to her knee replacement and has since then had been taking morphine or tramadol for pain control though she has been using this sparingly. She had been consistent with her Emgality injections. She at that point had not yet had the chance to try a Nurtec 75 mg that she is now prescribed for her abortive therapy. She was very happy with her headache control at that time though did worry that when she tapers off of the opiates that she is using for her knee, she is afraid for rebound headaches. She presents to the clinic today for the last couple of days her left sided headaches have started to set in. She has not tried the nurtec as she was not clear that she could take it when she was on NSAIDs. She would like to have a nerve block conducted today. In the past we have had success with left occipital and left auricular temporal nerve blocks. 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 History of malignant neoplasm of endometrium Solitary lung nodule Left-sided headache Abnormal gait Fatigue Osteoporosis Osteoarthritis of knee Localized primary osteoarthritis Inflammatory polyarthropathy Rheumatoid arthritis GERD (gastroesophageal reflux disease) Allergic asthma without acute exacerbation or status asthmaticus Adjustment disorder with mixed emotional features Mild major depression, single episode Morbid obesity Hyperlipidemia Mixed hyperlipidemia Vitamin D deficiency Hyperparathyroidism Hypothyroidism Postablative hypothyroidism Candidal intertrigo Review of Systems Const All systems reviewed & are unremarkable except as noted in HPI and below Physical Exam Const General: cooperative, healthy appearing, comfortable and no acute distress Nutritional Appearance: well nourished Orientation/consciousness: patient oriented x3 Limitations: no limitations HEENT Head: Yes normal to inspection and Yes normocephalic Eyes General: appearance normal, both eyes and all related structures Visual Loyola: normal visual loyola by confrontation Alignment and Position: alignment normal Periorbital: periorbital findings normal Eyelids: Yes eyelids normal Conjunctivae: conjunctivae normal Sclerae: sclerae normal Back/Spine/Pelvis Other: Left occipital notch tenderness, left auricular temporal tenderness, and a left-sided trigger point to the upper trapezius area Neuro General: patient oriented x3 Cranial nerves: Yes CN's II-XII intact bilaterally and Yes Facial sensation intact/muscles of mastication intact Cognition (Neuro): normal cognition Gait exam (Neuro): Assisted gait required Gait assisted method: walker Motor exam (neuro): no tremor noted Sensory Exam: double simultaneous stimulation for sensation normal Romberg Test: Negative Pupils: Normal pupillary reactivity/response: bilateral Psych Appearance: grossly normal Mental Status: mental status grossly normal Speech and movement: Normal speech and movement present and Clear speech present Affect: normal affect Attitude: cooperative Thought process: Normal thought process present Thought content: Normal thought content present Insight: Good insight present (Psych) Judgement: Good judgement present (Psych) Office Procedures Nerve Block Details: Auriculotemporal Nerve Block Procedure: Laterally:Left Indications:Headache/bruxism/TMJ dysfunction Allergies to medications reviewed with patient prior to procedure, consent was obtained, procedure was explained in detail to the patient prior to starting, time-out was performed prior to the procedure. Following universal hygiene protocol, patient's left auricular temporal area was located by drawing a line between the corner of the eye to the tragus. The site was located 1 fingerbreadth toward the midline. This corresponded to the point of maximum tenderness. Alcohol was applied to this area topically to the skin. A 30 gauge 0.5 inch needle was injected into the skin (aspirating during insertion). This was inserted at a 90 degree angle. The medication chosen by the provider and as documented in this office note was injected to this site. Pressure with gauze was applied to the site briefly after the puncture to minimize bleeding and to further spread the anesthetic subcutaneously. Patient tolerated the procedure well and was monitored postprocedure for 15 minutes. No complications occurred during or after the procedure. The patient was discharged home with instructions to apply ice to the injection site as needed throughout the remainder of the day. Bilateral Greater Occipital Nerve block procedure: Laterally: Left Indications: Occipital neuralgia Current allergies and current list of medications were reviewed prior to procedure, verbal consent was obtained, procedure was explained in detail to the patient prior to starting. Time-out was performed prior to procedure. Following universal hygiene protocols, patient's left occipital area was located by drawing a line between the external occipital protuberance and the mastoid process. The greater occipital nerve was located approximately 2/3 along this commercial lines assistant to the occiput, and corresponded with the point of maximum tenderness. Alcohol was applied topically to the skin. A 27 gauge needle (aspirating during insertion) was inserted at a 45 degree angle until just above the periosteum. The providers selected agent (s)/medications (as documented in this note) were injected on the left side (directing needle to center, left and right of painful focus any fanning technique). Pressure with gauze pad was held briefly upon the site of puncture to minimize bleeding and to further spread anesthetic subcutaneously. The patient was monitored for 15 minutes after the procedure and no complications were observed. Post procedure care was reviewed with the patient including application of ice intermittently to the injection sites over the course of the day to reduce inflammation. CPT: 83102-Whyjphe Occipital 74001 - Auriculotemporal Left Procedure code (CPT) selection complete Therapeutic Injection Therapeutic Injection Details: Trigger point injection procedure: Laterally:Left trapezius muscle Indications: Chronic headaches, myofascial pain Following universal hygiene protocol, after explaining the risks and benefits as well as hazards of the procedure to the patient, consent was signed and placed in the chart. Time-out prior to starting the procedure was performed. The areas over the left trapezius muscle were cleansed with alcohol. 1 Site in the left trapezius muscle injected with a 27 gauge 1.5 in needle with myofascial spasm. Patient tolerated the procedure well, localized bleeding was controlled. Patient monitored in the clinic for 15 minutes for complications. Patient was discharged home with instructions to apply ice to the back of their head as needed. 24032-Urtbkdq Point Injection 1 or 2 sites All charges added?: Procedure code (CPT) selection complete Office Meds bupivacaine (PF) 0.5 % (5 mg/mL) injection solution Performing Provider: Ginger Monge CNP Performing Location: [facility] [place] [facility] Administered by: Ginger Monge CNP on 06/04/25 12:46 Dose Route Admin Location Dispensed Lot Number Expiration Date [facility] [employer] 4 mL Infiltration 10 mL [id number] [employer] Total Dispensed Waste 10 mL 60 % bupivacaine (PF) 0.5 % (5 mg/mL) injection solution Performing Provider: Ginger Monge CNP Performing Location: [facility] [place] [facility] Administered by: Ginger Monge CNP on 06/04/25 12:46 Dose Route Admin Location Dispensed Lot Number Expiration Date [facility] [employer] 1.5 mL Infiltration 10 mL [id number] [employer] Total Dispensed Waste 10 mL 85 % Assessment & Plan Assessment & Plan (1) Left-sided headache: Code(s): R51.9 - Headache, unspecified Category: Medical (2) Bruxism: Code(s): F45.8 - Other somatoform disorders Category: Medical (3) Occipital neuralgia of left side: Code(s): M54.81 - Occipital neuralgia Category: Medical (4) Muscle pain, myofascial: Code(s): M79.18 - Myalgia, other site Category: Medical Plan Teresa is a 74-year-old female patient with a past medical history of anxiety, Graves disease, hypothyroid, osteoporosis, RA, bruxism, migraine, and obesity who I follow for chronic left-sided headaches. She is currently on Emgality which has been helpful in reducing the frequency and intensity of her headaches. She does however get breakthrough headaches which start off mild and often intensified. She has a responded well to left auricular temporal and left occipital nerve blocks in the past. On examination today, she also had a significant left-sided trigger point. I performed an injection there as well today. She tolerated all procedures well without any complications. She has not yet tried Nurtec. I have encouraged her to try Nurtec when she starts to feel headache onset. -continue Emgality injections monthly -try Nurtec 75 mg for abortive therapy -left auricular temporal nerve block, left occipital nerve block and left trigger point injections performed in office today -follow up in 1 month or sooner if needed Orders: Orders AMB Nerve Block Today F45.8 - Other somatoform disorders, M54.81 - Occipital neuralgia, R51.9 - Headache, unspecified AMB Trigger Point Injection Today M54.81 - Occipital neuralgia, M79.18 - Myalgia, other site Coding Level of Care Code Est Pt Level 3 (55872) Diagnoses Left-sided headache R51.9 Bruxism F45.8 Occipital neuralgia of left side M54.81 Muscle pain, myofascial M79.18 CPT Codes Nerve Block - CPT: 56339-Iotueib Occipital ([id number]) Therapeutic Injection - Ther Injection 1: 05941-Ijqqrdn Point Injection 1 or 2 sites ([id number])
[2025-06-04 12:15] VITALS: BP 116/72; PULSE 91; RESP 16; O2SAT 98; BMI 39.5
--- OUTSIDE RECORDS SUMMARY | 2025-06-04 17:21 | XMS_ITS | Clinical Summary ---
Author Organization [facility] [address] [facility] Address [address] [place] [address] Care Team Providers Care Manager Of Administration Name Role Phone Obtain, Unable To Primary [...] ars) (1 of 1 - PCV) 2000 RSV Immunization (1 - Risk 5 0-74 years 1-dose series) 2000 Shingles vaccine (Shingrix) (1 of 2 - Shingrix (RZV) 2 Dose Standard Series) 2000 Osteoporosis screening (bone density) 2015 Influenza vaccine [...] - 144 mmol/L 01/05/2023 10:29 AM EDT [facility] DEPARTMENT OF LABORATORY [facility] Comment:Sample slightly hemo lyzed. Results may be falsely decreased due to hemolysis. Potassium 01/05/2023 10:29 AM EDT [facility] DEPARTMENT OF LABORATORY [facility] Comment:Sample Hemolyzed. Chloride 101 98 - 107 mmol/L 01/05/2023 10:29 AM [facility] CO2 24 20 - 30 mmol/L 01/05/2023 10:29 AM [facility] Anion Gap 14 7 - 17 01/05/2023 10:29 AM [facility] Glucose 135(H) 70 - 100 mg/dL 01/05/2023 10:29 AM [facility] BUN 18 8 - 23 mg/dL 01/05/2023 10:29 AM [facility] Creatinine 0.79 0.40 - 1.30 mg/dL 01/05/2023 10:29 AM [facility] Calcium 9.0 8.8 - 10.2 mg/dL 01/05/2023 10:29 AM [facility] BUN/Creatinine Ratio 22.8 8.0 - 23.0 01/05/2023 10:29 AM [facility] eGFR (Creatinine) >60 >=60 mL/min/1.7 3m2 01/05/2023 10:29 AM [facility] Comment: Values < 60 mL/min/1.73 m2 may indicate CKD if present for more than three months AND creatinine is at steady state. The eGFR provides a rough estimate of kidney function. On 02/06/[address] [facility] Clinical Labs and Epic began using a [id number] formula for estimating GFR called CKD-EPI Creatinine 2020. This equation reports eGFR based on creatinine, patient age, clinical sex, and is standardized to a body surface area of 1.73 m2. For the same creatinine, this new race-free eGFR will be lower than prior reported Black eGFR results and higher than prior Non-Black eGFR results. For further guidance, please refer to the CKD: Adult Inweaver Signature pathway. Blood Venipuncture / Unknown 01/05/2023 9:37 AM EDT 01/05/2023 9:42 AM EDT James Lazo MD LAB BLOOD ORDERABLES Fi nal Result [facility] DEPARTMENT OF LABORATORY [facility] [address] [place] [address], [facility] [phone] from Last 3 Months or Most Recently Relevant to Health Maintenance Insurance MEDICARE [facility] MEDICARE BCBS MEDICARE [facility] Care Teams Manager Of Administration Relationship Specialty Start Date End Date Obtain, Unable To PCP - General 01/05/23
--- OUTSIDE RECORDS SUMMARY | 2025-06-04 17:21 | XMS_ITS | Continuity of Care Document ---
Author Organization [facility] Address [address] [place] [address] Assessment Encounter Date Assessment Date Assessment LastModified by Organization Details LastModified Time 04/07/2025 04/07/2025 DATE OF SURGERY:04/14/2025 ADMITTING DIAGNOSIS: Osteoarthritis LEFT knee REASON FOR ADMISSION: Left total knee arthroplasty at [facility] SURGEON: Dr. Osborn HISTORY: The patient presents today at the request of their surgeon for a preoperative history and physical examination, with the goal of risk assessment and medical optimization prior to surgery. This is a 74-year-old female who complains of knee pain related to osteoarthritis. The patient has failed conservative measures, their joint pain is having a significant impact on their daily activities and joint replacement is now planned. PAST MEDICAL HISTORY: Osteoarthritis Left Knee Asthma: Using maintenance inhaler and rescue inhaler more frequently last week d/t fall allergies. Anxiety Endometrial cancer Breast Cancer Epidermal cyst of vulva Graves' disease - Hypothyroid History of Infected prothetic knee joint in 2011 for which she completed 6 weeks of IV antibiotics. Obesity BMI 40.7 Osteoporosis Rheumatoid arthritis - Currently stable on poly-pharmacy for this, followed by Dr. Mari Pre-diabetes with A1c 6.1. Vaginal inclusion cyst Bruxism Migraine ALBERT / Recurrent Occipital and Trigeminal Neuralgia - Gets nerve blocks from the headache clinic, last one in the summer. She was in the [facility] with an exacerbation in January and was on a 2 week Prednisone Taper. POST OP NAUSEA PAST SURGICAL HISTORY: -Cystourethroscopy, with ureteroscopy and/or pyeloscopy; with lithotripsy including insertion of indwelling ureteral stent (eg, Castellano or double-J type) 10/24/2019 F istula Repair 2007 H istory of hysterectomy 2006 D ental implants R ight Knee replacement with Dr. Osborn 2010 R ight knee I&D, synovectomy and liner exchange for infection [address] Paul. - Breast lumpectomy Patient denies previous surgical or anesthetic complications, Difficulties with intubation or Family history of anesthesia problems. POST OP NAUSEA PERTINENANT FAMILY HISTORY: None MEDICATIONS: Advair bid Albuterol(albuterol 0.083% inhalation solution), 2.5 mg= 3 mL, Inhalation, Every 6 hours, PRN Albuterol(ProAir HFA 90 mcg/inh inhalation aerosol with adapter), 1 puffs, Inhalation, Every 4 hours, Atorvastatin 10 mg MG Celecoxib(Celebrex 200 mg oral capsule), 1 capsule, By Mouth, Daily PRN Exemestane 25 mg daily AM Famotidine 20 to 40 mg PM Folic Acid, Daily Hydroxychloroquine( Plaquenil Tablet), 200 mg, By Mouth, 2 times a day Indapamide(indapami de 2.5 mg oral tablet), 2.5 mg= 1 tablet, By Mouth, Daily in AM Leucovorin(leucovor in 5 mg oral tablet), 15 mg= 3 tablet, By Mouth, Every week Saturdays Levothyroxine(levot hyroxine 175 mcg (0.175 mg) oral tablet) AM Methotrexate(methot rexate 2.5 mg oral tablet), 12.5 mg= 5 tablet, By Mouth, Every week Montelukast(montelu kast 10 mg oral tablet) PM Nystatin Topical(Nystop 079295 u/gm powder) Nystatin Topical(Nystatin Ointment) SulfaSALAZINE(sulfa salazine 500 mg oral tablet), 1000 mg= 2 tablet, By Mouth, 2 times a day Refresh Eye Drops 2 to 4 times/day Xiidra Eye Drops bid galcanezumab(Emgali ty) 240 mg, Subcutaneous injection, Once per month ALLERGIES: Contrast Dye hives Cordran Tape rash, hives cephalexin clindamycin hives penicillins hives REACTION to CHLORAPREP SOCIAL HISTORY: Tobacco: none Alcohol: none Other substance use: Other CBD - AT NIGHT REVIEW OF SYSTEMS Constitutional: No weight change, No fever, No chills, No night sweats HEENT / DENTAL: no changes in vision, hearing: no changes, no dental concerns Cardiovascular: No chest pain, No palpitations, No dyspnea on exertion, No peripheral edema, Respiratory: No shortness of breath, No cough, No sputum production. Gastrointestinal: No nausea, No vomiting, OCC Heartburn, No dysphagia, No diarrhea, No abdominal pain, No Black stools or rectal bleeding, LUQ PAIN 04/07/25 Genitourinary: No urinary changes Neurologic: YES headache, -dizziness, - vertigo Musculoskeletal: No back pain, No Neck pain, + joint pain Psychiatric: No mood complaints Skin: No rash or open wounds PHYSICAL EXAM GENERAL: No acute distress, alert. SKIN: Warm, no rashes. HEENT: Supple, no masses. Conjunctiva clear, PERRL. No nasal discharge, hearing intact. LUNGS: Non l abored respirations. Lungs CTA b/L CARDIOVASCULAR: Regular rhythm, no edema. No R/G/M MUSCULOSKELETAL: Antalgic Gait, knee ROM R 0-120 , L 5-120 NEUROLOGIC: CN II X II intact. DIAGNOSTIC STUDIES: Orthopedic X-ray: End stage knee osteoarthritis EKG 04/07/25 in office today NSR 67 bpm LABORATORY DATA: CBC: WNL BMP: WNL A1C: 6.1 Coags: WNL ASSESSMENT AND PLAN: The patient has end stage osteoarthritis of the left knee and is now scheduled for left knee replacement surgery. This patient has no absolute medical contraindication to proceeding with surgery. See Below for Assessment and Recommendations. Specific Anesthesia Concerns: NONE The patient is an ASA Class: III Surgical Procedural Risk: Intermediate CARDIAC EVALUATION: The patient is at Low Cardiac Ischemic Risk of Complications. The patients GSCRI Score is 0.9%, they have a Adequate FUNCTIONAL CAPACITY, and according to the patients DASI score, they can perform 4 Mets without cardio-pulmonary complaints. This meets ACC/AHA guidelines for proceeding to non-cardiac surgery without additional testing. Hypertension: Controlled , initial BP elevate, however repeat manual blood pressure was very good. PULMONARY EVALUATION: LowRisk - ARISCAT Score: 3 points - The patient has the following intrinsic pulmonary disease: Asthma Asthma - Stable without recent exacerbation. She states she used albuterol last week more frequently. Lung exam clear, O2 sat good. - The patient was instructed to use and bring their inhaler with them to the hospital. - Post Operative Recommendations: Early mobilization, Incentive spirometry, Pulmonary toilet, Pain control with Epidurals or nerve blocks if possible. - EARNEST risk STOP BANG Score 2 points : Low Risk EARNEST Rheumatoid arthritis: Seen and evaluated by her fish egg packer who stated that she can continue with all her prescribed medications without interruption. HEMATOLOGIC EVALUATION - Surgical Bleeding Risk: Average - Patient Bleeding Risk: Average VTE Prophylaxis/Thrombo tic risk: - Joint Replacement Surgery is elevated thrombotic risk - VTE Prophylaxis Recommendations: 4 weeks of post operative Chemical prophylaxis with: Aspirin ENDOCRINE EVALUATION: No Concerns RENAL RISK: Low HEPATIC RISK: Low PONV and Vertigo: Consider multimodal prophylaxis. Patient may need ondanetron rx for home. Consider scopolamine patch if patient at high risk. Migraine Headache / Occipital-Trigimal Neuralgia - Prednisone taper in January. She states she usually is on a few prednisone tapers throughout the year d/t either asthma, rheumatoid or neuralgia. Patient may meet criteria for secondary adrenal insufficiency due toexogenous steroid exposure. Would monitor for adrenal insufficiency in the post operative period. Obesity (BMI 40) and immunosuppression with history refugio-prosthetic infection of prior of joint replacement: - Increased risk for wound-healing complications and surgical site infections. - Consider extended postoperative antibiotic prophylaxis as clinically appropriate. Geriatric Refugio-Operative Risk Assessment (Ages > 65) Frailty assessment: Clinical Frailty Scale Not Frail - No additional work up advised. Mobility/falls Fall Risk: Diaz Fall Scale High risk; implement comprehensive fall prevention strategies. Nutrition Risk: Mini Nutritional Assessment Normal nutritional status. Delirium risk factors: Maracantonio Clnical Prediction Rule Low Risk: Routine perioperative care. Encourage normal sleep, mobility, and pain management. MEDICATION RECOMMENDATION Summary: Medications to be taken the morning of surgery: Advair Albuterol Levothyroxine Special Medication Recommendations: NONE SUMMARY Refugio/Post Op Medication Recommendations: IV TXA Intraoperatively ASA DVT prophylaxis for 4 weeks post operatively Famotidine for GI protection while on A/C Colace and Miralax for constipation prophylaxis Celebrex for post op inflammation Narcotics: Tramadol, Oxycodone MONITORING RECOMMENDATIONS: POCs with SSI coverage DISCHARGE DISPOSITION: Home with services, overnight stay POST OP PRESCRIPTIONS PROVIDED BY SURGICAL TEAM UPON DISCHARGE: Tramadol Oxycodone Colace Miralax ASA Pantoprazole Zofran Cefadroxil *Celebrex rx sent at todays visit POST OP CONTACT: Thank you for referring your patient to [facility] for preoperative risk assessment. Please do not hesitate to reach out should you have any questions or if we can be of further service to you or your patients. Warm regards, Barbara Joseph PA-C Total time spent: 62 minutes today reviewing the chart/medical records, speaking with the patient, formulating and discussing the treatment plan, and documenting the findings and encounter. [email or web address] Not available 04/07/2025 12:32:47 Plan of Treatment Reminders Order Date Submit Date Provider Last Modified By Organization Details Last Modified Time Details Appointments None recorded. Lab None recorded. Referral None recorded. Procedures electrocard iogram, routine ECG, 12 leads min; interpretat ion and report (PROC) 2024 [id number] [email or web address] Not available 11:58:51 Surgeries None recorded. Imaging None recorded. Medication Orders None recorded. Patient TargetsNo targets recorded. Patient InstructionsNo instructions recorded. Reason for Referral None Reported. Medical Equipment None Reported. Medications Name Sig Start Date Stop Date Status Note LastModified by Organization Details LastModified Time carisoprodo l 350 mg tablet TAKE 1 TABLET TWICE A DAY BY ORAL ROUTE NEEDED. active Not Available Not Available No t Available celecoxib 200 mg capsule TAKE 1 CAPSULE BY MOUTH EVERY DAY NEEDED active Not Available Not Available No t Available levothyroxi ne 175 mcg tablet TAKE 6.5 TABS WEEK: 1/2 TAB ONCE WEEKLY BY MOUTH AND 1 TAB 6D A WEEK BY MOUTH active Not Available Not Available No t Available anastrozole 1 mg tablet TAKE 1 TABLET BY MOUTH EVERY DAY active Not Available Not Available No t Available butalbital- acetaminoph en-caffeine 50 mg-325 mg-40 mg capsule TAKE 1 CAPSULE BY MOUTH EVERY 4 HOURS NEEDED active Not Available Not Available No t Available prednisone 10 mg tablet TAKE 2 TABLETS DAILY FOR 3 DAYS, THEN TAKE 1 TABLET DAILY FOR 3 DAYS active Not Available Not Available No t Available sulfasalazi ne 500 mg tablet TAKE 2 TABLETS BY MOUTH TWICE A DAY WITH FOOD active Not Available Not Available No t Available erythromyci n 500 mg tablet TAKE 2 TABLETS BY MOUTH 30 MIN BEFORE DENTAL PROCEDURE 04/05 completed Not Available Not Available Not Available divalproex 250 mg tablet,alla yed release TAKE 1 TABLET TWICE DAILY BY MOUTH NEEDED FOR 5 DAYS FOR MIGRAINE RESCUE THERAPY active Not Available Not Available No t Available atorvastati n 10 mg tablet TAKE 1 TABLET BY MOUTH EVERY DAY active Not Available Not Available No t Available azithromyci n 250 mg tablet TAKE 2 TABLET BY MOUTH DIRECTED TO START THEN TAKE 1 TABLET DAILY UNTIL FINISHED 04/05 completed Not Available Not Available Not Available indapamide 2.5 mg tablet TAKE 1 [...] Not Available Not Available No t Available prednisone 20 mg tablet PLEASE SEE ATTACHED FOR DETAILED DIRECTION S active Not Available Not Available No t Available triazolam 0.125 mg tablet TAKE 2 TABLET BY MOUTH DIRECTED 90 MINUTES PRIOR TO PROCEDURE active Not Available Not Available No t Available ketorolac 0.5 % eye drops PLEASE SEE ATTACHED FOR DETAILED DIRECTION S active Not Available Not Available No t Available oxycodone-a cetaminophe n 5 mg-325 mg tablet TAKE 1 TABLET BY MOUTH EVERY SIX HOURS NEEDED FOR PAIN PARTIAL FILL OK active Not Available Not Available No t Available alprazolam 0.25 mg tablet TAKE 1-2 TABLETS TWICE A DAY NEEDED active Not Available Not Available No t Available famotidine 20 mg tablet TAKE 1-2 TABLETS (20-40 MG TOTAL) BY MOUTH NIGHTLY AT BEDTIME NEEDED FOR HEARTBURN . active Not Available Not Available No t Available exemestane 25 mg tablet TAKE 1 TABLET BY MOUTH EVERY DAY active Not Available Not Available No t Available methotrexat e sodium 2.5 mg tablet TAKE 8 TABLETS ONCE WEEKLY ON FRIDAYS active Not Available Not Available No t Available tamsulosin 0.4 mg capsule TAKE 1 CAPSULE BY MOUTH EVERY DAY active Not Available Not Available No t Available benzonatate 100 mg capsule TAKE 1 CAPSULE BY MOUTH THREE TIMES A DAY NEEDED FOR COUGH active Not Available Not Available No t Available prednisone 50 mg tablet TAKE 1 TABLET BY MOUTH DAILY WITH BREAKFAST . active Not Available Not Available No t Available indomethaci n 25 mg capsule PLEASE SEE ATTACHED FOR DETAILED DIRECTION S active Not Available Not Available No t Available betamethaso ne dipropionat e 0.05 % topical cream APPLY SPARINGLY TO AFFECTED AREA EVERY DAY active Not Available Not Available No t Available folic acid 1 mg tablet TAKE 1 TABLET BY MOUTH EVERY DAY active Not Available Not Available No t Available montelukast 10 mg tablet TAKE 1 TABLET BY MOUTH EVERYDAY AT BEDTIME active Not Available Not Available No t Available codeine 10 mg-guaifene sin 100 mg/5 mL oral liquid TAKE 10 MILLILITE RS BY MOUTH EVERY 4 TO 6 HOURS NEEDED active Not Available Not Available No t Available ergocalcife rol (vitamin D2) 1,250 mcg (50,000 unit) capsule TAKE 1 CAPSULE (50,000UN ITS) BY MOUTH EVERY OTHER WEEK active Not Available Not Available No t Available nystatin 100,000 unit/gram topical powder APPLY ONCE DAILY TO SKIN FOLDS NEEDED active Not Available Not Available No t Available hydroxychlo roquine 200 mg tablet TAKE 1 TABLET BY MOUTH TWICE A DAY active Not Available Not Available No t Available letrozole 2.5 mg tablet TAKE 1 TABLET BY MOUTH EVERY DAY active Not Available Not Available No t Available methylpredn isolone 4 mg tablets in a dose pack TAKE 6 TABLETS ON DAY 1 DIRECTED ON PACKAGE AND DECREASE BY 1 TAB EACH DAY FOR A TOTAL OF 6 DAYS active Not Available Not Available No t Available oxycodone 5 mg tablet TAKE 1 TABLET BY MOUTH EVERY SIX HOURS NEEDED FOR PAIN FOR 14 DAYS active Not Available Not Available No t Available moxifloxaci n 0.5 % eye drops PLEASE SEE ATTACHED FOR DETAILED DIRECTION S active Not Available Not Available No t Available chlorhexidi ne gluconate 0.12 % mouthwash SWITH AND SPIT 15 ML BY MOUTH TWICE A DAY GENTLY RINSE. DO NOT SWALLOW active Not Available Not Available No t Available Advair HFA 115 mcg-21 mcg/actuati on aerosol inhaler USE 2 INHALATIO NS ORALLY TWICE DAILY active Not Available Not Available No t Available Xiidra 5 % eye drops in a dropperette ISNTILL 1 DROP INTO BOTH EYES TWICE DAILY FOR 3 MONTHS active Not Available Not Available No t Available Lidocaine Pain Relief 4 % topical patch APPLY 1 PATCH ONTO THE SKIN DAILY FOR 5 DAYS active Not Available Not Available No t Available Emgality Pen 120 mg/mL subcutaneou s pen injector INJECT 1 PEN UNDER THE SKIN EVERY 30 DAYS (MAINTENA NCE DOSE) active Not Available Not Available No t Available Ubrelvy 100 mg tablet PLEASE SEE ATTACHED FOR DETAILED DIRECTION S active Not Available Not Available No t Available Nurtec ODT 75 mg disintegrat ing tablet TAKE 1 TABLET DAILY NEEDED FOR MIGRAINE HEADACHE FOR 30 DAYS active Not Available Not Available No t Available Paxlovid 300 mg (150 mg x 2)-100 mg tablets in a dose pack TAKE 3 TABLETS BY MOUTH TWICE A DAY FOR 5 DAYS active Not Available Not Available No t Available Vitals Date Recorded Heart rate Oxygen saturation Body temperature Body weight Body mass index (BMI) Body height Systolic And Diastolic Systolic And Diastolic Provider Name and Address Organization Details Last Updated DateTime 5 73 /min 99 % 97.3 [degF] 445163. 25 g 39.5 kg/m2 162.56 cm 160/87 mm[Hg] 118/70 mm[Hg] YENI HARMON [address], [place], [place], [address], [place] [facility] 5 10:51:05 Social History None recorded. Functional Status None recorded. Mental Status None recorded. Family History Nothing Reported. Medical History No medical history recorded. Gynecological HistoryNo gynecological history recorded. Obstetrics History GPAL:G 0 P 0 0 0 0 Past Encounters Encounter ID Performer Location Encounter Start Date Encounter Closed Date Diagnosis/Indication Diagnosis SNOMED-CT Code Diagnosis ICD10 Code Diagnosis IMO Codes Diagnosis Note [id number] Fortunato Méndez MD [facility] [address] [place] [address] 04/07/2025 09:28:25 04/07/2025 10:35:17 Preprocedural examination done 1214829105 56058 Z01.818 862382 Osteoarthr itis of left knee joint 8849521520 56362 M17.12 5184280 History of asthma 893109 007 Z87.09 477941 Rheumatoid arthritis of multiple joints 990588501 M06.9 [id number] Patient immunocompromised 067870255 D84.9 116785 Postoperat alfredo nausea and vomiting 5180322 R11.2 Z98.890 532120 Cervico-oc cipital neuralgia 10683812 M54.81 [id number] Health Concerns Section Related Observation LastModified by Organization Detai ls LastModified Time None Recorded Concern Status LastModified by Organization Details LastModified Time None Recorded Payers Encounter Date Sequence Insurance Name Policy Number Policy [place] Covered Member ID [place] Member ID Guarantor Name 04/07/2025 2 [place] [id number] Teresa Parson [id number] Teresa Parson 04/07/2025 1 [place] [facility] Teresa Parson [id number] Teresa Parson Notes Date Note Type Note Provider Name and Address Organization Details Recorded Time 04/07/2025 text/html Preop HPIReporte d by Patient Patient presents today for pre-operative evaluation. BARBARA HANNA-YENI GLYNN [address] [facility] [address], [place], [address], [place] [facility] [place] [facility] [place] [facility] 04/07/2025 12:34:07 OBGyn Episode No OBEpisode recorded.
--- OUTSIDE RECORDS SUMMARY | 2025-06-04 17:21 | XMS_ITS | Clinical Summary ---
Author Organization 299 [facility] Address [address] [place] [address] Phone Care Team Providers Care Applications Developer Name Role Phone Jocelyn Chacon NP Primary Care Provider Encounters Date Type Department Care Team Description 04/26/[address] [facility] Lab [address] [place] [address] Maria D Pringle PA Encounter for screening for other infectious and parasitic diseases 04/20/[address] [facility] Lab [address] [place] [address] Maria D Pringle PA Encounter for other general examination from Last 3 Months Social History Tobacco Use Types Packs/Day Years Used Date Smoking Tobacco: Never Assessed Comments Unknown Sex and Gender Information Value Date Recorded Sex Assigned at Not on file Legal Sex Female 11:55 PM EST Gender Identity Not on file Sexual Orientation Not on file Plan of Treatment Health Maintenance Due Date Last Done Comments Breast Cancer Screening 1950 Colorectal Cancer Screening: Colonoscopy 1950 DTaP,Tdap,and Td Vaccines (1 - Tdap) 1969 Pneumococcal Vaccine: 50+ Ye ars (1 of 1 - PCV) 2000 Zoster Vaccines (1 of 2) 2000 Falls Risk Assessment 07/24/2023 Hepatitis C Screening 07/24/2023 Medicare Annual Wellness Visit 07/24/2023 Osteoporosis Screening (Bone Density Screening) 07/24/2023 Social Influencers of Health Screening 07/24/2023 Depression Screening 06/24/2024 COVID-19 Vaccine (1 - 2024-2 6 season) 2025 Influenza Vaccine (#1) 2025 RSV Immunization Adult Patie nts (1 - 1-dose 75+ series) 2025 HIB Vaccines Aged Out No longer eligi ble based on patient's age to complete this topic HPV Vaccines Aged Out No longer eligi ble based on patient's age to complete this topic Hepatitis A Vaccines Aged Out No long er eligible based on patient's age to complete this topic Hepatitis B Vaccines Aged Out No long er eligible based on patient's age to complete this topic IPV Vaccines Aged Out No longer eligi ble based on patient's age to complete this topic MMR Vaccines Aged Out No longer eligi ble based on patient's age to complete this topic Meningococcal ACWY Vaccine Aged Out N o longer eligible based on patient's age to complete this topic Meningococcal B Vaccine Aged Out No l onger eligible based on patient's age to complete this topic RSV Immunization Patients Un jessica 20 months Aged Out No longer eligible b ased on patient's age to complete this topic Varicella Vaccines Aged Out No longer eligible based on patient's age to complete this topic Procedures Procedure Name Priority Date/Time Associated Diagnosis Comments CBC WITH AUTO DIFFERENTIAL Routine 04/26/2025 5:38 AM EST Encounter for screening for other infectious and parasitic diseases BASIC METABOLIC PANEL Routine 04/26/2025 5:38 AM EST Encounter for screening for other infectious and parasitic diseases CBC AND DIFFERENTIAL Routine 04/26/2025 5:38 AM EST Encounter for screening for other infectious and parasitic diseases CBC WITH AUTO DIFFERENTIAL Routine 04/20/2025 6:14 AM EDT Encounter for other general examination MAGNESIUM Routine 04/20/2025 6:14 AM EDT Encounter for other general examination COMPREHENSIVE METABOLIC PANEL Routine 04/20/2025 6:14 AM EDT Encounter for other general examination CBC AND DIFFERENTIAL Routine 04/20/2025 6:14 AM EDT Encounter for other general examination from Last 3 Months Results * (ABNORMAL) CBC auto differential (04/26/2025 5:38 AM EST) Only the most recent of2 resultswithin the time period is included. WBC 5.4 4.8 - 10.8 K/mcL LAB HEMETOLOGY METHOD 04/26/2025 9:05 AM [facility] LAB RBC 3.30(L) 3.80 - 4.80 M/mcL LAB HEMETOLOGY METHOD 04/26/2025 9:05 AM [facility] LAB Hemoglobin 9.3(L) 11.5 - 16.0 g/dL LAB HEMETOLOGY METHOD 04/26/2025 9:05 AM [facility] LAB Hematocrit 30.3(L) 35.0 - 47.0 % LAB HEMETOLOGY METHOD 04/26/2025 9:05 AM [facility] LAB MCV 92.9 79.0 - 98.0 FL LAB HEMETOLOGY METHOD 04/26/2025 9:05 AM [facility] LAB MCH 28.5 27.0 - 32.0 pcg LAB HEMETOLOGY METHOD 04/26/2025 9:05 AM [facility] LAB MCHC 30.7(L) 32.0 - 37.0 g/dL LAB HEMETOLOGY METHOD 04/26/2025 9:05 AM [facility] LAB RDW 15.7(H) 11.0 - 15.0 % LAB HEMETOLOGY METHOD 04/26/2025 9:05 AM [facility] LAB Platelets 358 130 - 400 K/mcL LAB HEMETOLOGY METHOD 04/26/2025 9:05 AM [facility] LAB MPV 8.9 7.0 - 11.0 FL LAB HEMETOLOGY METHOD 04/26/2025 9:05 AM [facility] LAB NRBC 0.0 <1.0 % LAB HEMETOLOGY METHOD 04/26/2025 9:05 AM [facility] LAB NRBC Absolute 0.00 <0.10 K/mcL LAB HEMETOLOGY METHOD 04/26/2025 9:05 AM [facility] LAB Neutrophils Relative 59.6 % LAB HEMETOLOGY METHOD 04/26/2025 9:05 AM [facility] LAB Lymphocytes Relative 20.7 % LAB HEMETOLOGY METHOD 04/26/2025 9:05 AM [facility] LAB Monocytes Relative 13.3 % LAB HEMETOLOGY METHOD 04/26/2025 9:05 AM [facility] LAB Eosinophils Relative 4.4 % LAB HEMETOLOGY METHOD 04/26/2025 9:05 AM [facility] LAB Basophils Relative 0.9 % LAB HEMETOLOGY METHOD 04/26/2025 9:05 AM [facility] LAB Immature Granulocytes Relative 1.1 % LAB HEMETOLOGY METHOD 04/26/2025 9:05 AM [facility] LAB Neutrophils Absolute 3.23 1.50 - 7.00 K/mcL LAB HEMETOLOGY METHOD 04/26/2025 9:05 AM [facility] LAB Lymphocytes Absolute 1.12 1.00 - 5.00 K/mcL LAB HEMETOLOGY METHOD 04/26/2025 9:05 AM [facility] LAB Monocytes Absolute 0.72 0.20 - 1.00 K/mcL LAB HEMETOLOGY METHOD 04/26/2025 9:05 AM [facility] LAB Eosinophils Absolute 0.24 0.00 - 0.50 K/mcL LAB HEMETOLOGY METHOD 04/26/2025 9:05 AM [facility] LAB Basophils Absolute 0.05 0.00 - 0.20 K/mcL LAB HEMETOLOGY METHOD 04/26/2025 9:05 AM [facility] LAB Immature Granulocytes Absolute 0.06(H) 0.00 - 0.03 K/mcL LAB HEMETOLOGY METHOD 04/26/2025 9:05 AM [facility] LAB Blood Venous blood specimen / Unknown Venipuncture / Unknown 04/26/2025 5:38 AM EST 04/26/2025 8:20 AM EST us Maria D JAIME LAB BLOOD ORDERABLES Final Resu lt [facility] LAB [address] [place] [address], [place] [phone] * Basic metabolic panel (04/26/2025 5:38 AM EST) Sodium 139 133 - 145 mmol/L LAB CHEMISTRY METHOD 04/26/2025 9:08 AM [facility] LAB Potassium 4.4 3.5 - 5.5 mmol/L LAB CHEMISTRY METHOD 04/26/2025 9:08 AM [facility] LAB Chloride 105 96 - 110 mmol/L LAB CHEMISTRY METHOD 04/26/2025 9:08 AM [facility] LAB CO2 30 21 - 32 mmol/L LAB CHEMISTRY METHOD 04/26/2025 9:08 AM [facility] LAB Anion Gap 4 3 - 11 LAB CHEMISTRY METHOD 04/26/2025 9:08 AM [facility] LAB Glucose 84 70 - 100 mg/dL LAB CHEMISTRY METHOD 04/26/2025 9:08 AM [facility] LAB BUN 13 5 - 25 mg/dL LAB CHEMISTRY METHOD 04/26/2025 9:08 AM [facility] LAB Creatinine 0.82 0.50 - 1.10 mg/dL LAB CHEMISTRY METHOD 04/26/2025 9:08 AM [facility] LAB eGFR 75 >=60 mL/min/1. 73m2 LAB CHEMISTRY METHOD 04/26/2025 9:08 AM [facility] LAB Comment:Calculation based on the Chronic Kidney Disease Epidemiology Collaboration (CKD-EPI) equation refit without adjustment for race. BUN/Creatinine Ratio 15.9 LAB CHEMISTRY METHOD 04/26/2025 9:08 AM EST [facility] Calcium 9.4 8.5 - 10.5 mg/dL LAB CHEMISTRY METHOD 04/26/2025 9:08 AM EST [facility] Blood Venous blood specimen / Unknown Venipuncture / Unknown 04/26/2025 5:38 AM EST 04/26/2025 8:20 AM EST Maria D JAIME LAB BLOOD ORDERABLES Final Resu lt [facility] [address] [place] [address], [place] [phone] * Magnesium (04/20/2025 6:14 AM EDT) Magnesium 2.5 1.9 - 2.6 mg/dL LAB CHEMISTRY METHOD 04/20/2025 11:40 AM EDT [facility] Blood Venous blood specimen / Unknown Venipuncture / Unknown 04/20/2025 6:14 AM EDT 04/20/2025 10:01 AM EDT Maria D JAIME LAB BLOOD ORDERABLES Final Resu lt [facility] [address] [place] [address], [place] [phone] * (ABNORMAL) Comprehensive metabolic panel (04/20/2025 6:14 AM EDT) Sodium 136 133 - 145 mmol/L LAB CHEMISTRY METHOD 04/20/2025 11:40 AM EDT [facility] Potassium 4.6 3.5 - 5.5 mmol/L LAB CHEMISTRY METHOD 04/20/2025 11:40 AM EDT [facility] Chloride 104 96 - 110 mmol/L LAB CHEMISTRY METHOD 04/20/2025 11:40 AM EDT [facility] CO2 28 21 - 32 mmol/L LAB CHEMISTRY METHOD 04/20/2025 11:40 AM [facility] LAB Anion Gap 4 3 - 11 LAB CHEMISTRY METHOD 04/20/2025 11:40 AM [facility] LAB Glucose 87 70 - 100 mg/dL LAB CHEMISTRY METHOD 04/20/2025 11:40 AM [facility] LAB BUN 16 5 - 25 mg/dL LAB CHEMISTRY METHOD 04/20/2025 11:40 AM [facility] LAB Creatinine 0.66 0.50 - 1.10 mg/dL LAB CHEMISTRY METHOD 04/20/2025 11:40 AM [facility] LAB eGFR 92 >=60 mL/min/1. 73m2 LAB CHEMISTRY METHOD 04/20/2025 11:40 AM [facility] LAB Comment:Calculation based on the Chronic Kidney Disease Epidemiology Collaboration (CKD-EPI) equation refit without adjustment for race. BUN/Creatinine Ratio 24.2 LAB CHEMISTRY METHOD 04/20/2025 11:40 AM [facility] LAB Calcium 8.4(L) 8.5 - 10.5 mg/dL LAB CHEMISTRY METHOD 04/20/2025 11:40 AM [facility] AST (SGOT) 20 10 - 42 unit/L LAB CHEMISTRY METHOD 04/20/2025 11:40 AM [facility] ALT (SGPT) 15 10 - 60 unit/L LAB CHEMISTRY METHOD 04/20/2025 11:40 AM [facility] LAB Alkaline Phosphatase 71 42 - 121 unit/L LAB CHEMISTRY METHOD 04/20/2025 11:40 AM [facility] LAB Total Protein 5.7(L) 6.0 - 8.0 g/dL LAB CHEMISTRY METHOD 04/20/2025 11:40 AM [facility] LAB Albumin 2.9(L) 3.2 - 5.0 g/dL LAB CHEMISTRY METHOD 04/20/2025 11:40 AM EDT [facility] Total Bilirubin 0.5 0.0 - 1.4 mg/dL LAB CHEMISTRY METHOD 04/20/2025 11:40 AM EDT [facility] Blood Venous blood specimen / Unknown Venipuncture / Unknown 04/20/2025 6:14 AM EDT 04/20/2025 10:01 AM EDT us Maria D JAIME LAB BLOOD ORDERABLES Final Resu lt [facility] [address] [place] [address], from Last 3 Months Insurance MEDICARE [facility] Care Teams Applications Developer Relationship Specialty Start Date End Date Jocelyn Chacon NP [address] [place] [id number] PCP - General 01/19/11
--- OUTSIDE RECORDS SUMMARY | 2025-06-04 17:21 | XMS_ITS | Data Portability ---
Author Organization [place] [facility], autoContract - [facility] Address [address], [address] [place] [address] Assessment Encounter Date Assessment Date Assessment LastModified by Organization Details LastModified Time 04/07/2025 04/07/2025 DATE OF SURGERY:04/14/2025 ADMITTING DIAGNOSIS: Osteoarthritis LEFT knee REASON FOR ADMISSION: Left total knee arthroplasty at [facility] SURGEON: Dr. Osborn HISTORY: The patient presents [...] in the summer. She was in the [facility] with an exacerbation in January and was on a 2 week Prednisone Taper. POST OP NAUSEA PAST SURGICAL HISTORY: -Cystourethroscopy, with ureteroscopy and/or pyeloscopy; with lithotripsy including insertion of indwelling ureteral stent (eg, Castellano or double-J type) 10/24/2019 F istula Repair 2008 H istory of hysterectomy 2006 D ental [...] 10 mg oral tablet) PM Nystatin Topical(Nystop 758341 u/gm powder) Nystatin Topical(Nystatin Ointment) SulfaSALAZINE(sulfa salazine [...] BANG Score 2 points : Low Risk EARNETS Rheumatoid arthritis: Seen and evaluated by her finished cigar maker who stated that she can continue with [...] Obesity (BMI 40) and immunosuppression with 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 - Consider extended postoperative antibiotic prophylaxis as clinically appropriate. Geriatric Sonya-Operative Risk Assessment (Ages > 65) Frailty assessment: [...] Albuterol Levothyroxine Special Medication Recommendations: NONE SUMMARY Sonya/Post Op Medication Recommendations: IV TXA Intraoperatively ASA [...] Thank you for referring your patient to [facility] for preoperative risk assessment. Please do [...] 5 73 /min 99 % 97.3 [degF] 568423. 25 g 39.5 kg/m2 162.56 cm 160/87 mm[Hg] 118/70 mm[Hg] YENI HARMON [address], [place], [place], [phone] 5 10:51:05 [...] Codes Diagnosis Note 547 Fortunato Méndez MD [facility] [address] [place] [address] 04/07/2025 09:28:25 04/07/2025 10:35:17 Preprocedural examination done 1232080348 96989 Z01.818 233692 Osteoarthr itis of left knee joint 3809431993 01795 M17.12 9157905 History of asthma 477629 007 Z87.09 300865 Rheumatoid arthritis of multiple joints 071353585 M06.9 [id number] Patient immunocompromised [id number] D84.9 253053 Postoperat alfredo nausea and vomiting 2613992 R11.2 Z98.890 523060 Cervico-oc cipital neuralgia 81189891 M54.81 [id number] Health Concerns Section Related Observation LastModified by Organization Detai ls LastModified Time None Recorded Concern Status LastModified by Organization Details LastModified Time None Recorded Advance Directives Directive None Recorded Payers Insurance Date Sequence Insurance Name Policy Number Policy Florence Covered Member ID [place] Member ID Guarantor Name 04/05/2025 2 [place] [id number] Teresa Parson [id number] Teresa Parson 04/05/2025 1 [place] B[place] [facility] Teresa Parson [id number] Teresa Parson Notes Date Note Type Note Provider Name and Address Organization Details Recorded Time 04/07/2025 text/html Preop HPIReporte d by Patient Patient presents today for pre-operative evaluation. BARBARA AHNNA-YENI GLYNN [address] [facility] [address], [place], [address], [place] 04/07/2025 12:34:07 OBGyn Episode No OBEpisode recorded.
--- OUTSIDE RECORDS SUMMARY | 2025-06-04 17:21 | XMS_ITS | Encounter Summary ---
Author Organization [facility] Address [address] [place] [phone] Care Team Providers Care Alumni Relations Manager Name Role Phone OswaldoJocelyn KERRY Primary Care Provider Encounter Details Date Type Department Care Team (Late st Contact Info) Description 04/26/2025 Lab Requisition [facility] [address] [place] [address] Maria D rPingle PA [address] [place] [phone] Encounter for screening for other infectious and parasitic diseases Social History Tobacco Use Types Packs/Day Years Used Date Smoking Tobacco: Never Assessed Comments Unknown Sex and Gender Information Value Date Recorded Sex Assigned at Not on file Legal Sex Female 11:55 PM EST Gender Identity Not on file Sexual Orientation Not on file documented as of this encounter Plan of Treatment Not on file documented as of this encounter Procedures Procedure [...] screening for other infectious and parasitic diseases documented in this encounter Results * (ABNORMAL) CBC auto differential (04/26/2025 5:38 AM EST) WBC 5.4 4.8 - 10.8 K/mcL LAB HEMETOLOGY METHOD 04/26/2025 9:05 AM [facility] RBC 3.30(L) 3.80 - 4.80 M/mcL LAB HEMETOLOGY METHOD 04/26/2025 9:05 AM [facility] LAB Hemoglobin 9.3(L) 11.5 - 16.0 g/dL LAB HEMETOLOGY METHOD 04/26/2025 9:05 AM [facility] LAB Hematocrit 30.3(L) 35.0 - 47.0 % LAB HEMETOLOGY METHOD 04/26/2025 9:05 AM [facility] LAB MCV 92.9 79.0 - 98.0 FL LAB HEMETOLOGY METHOD 04/26/2025 9:05 AM [facility] LAB MCH 28.5 27.0 - 32.0 pcg LAB HEMETOLOGY METHOD 04/26/2025 9:05 AM [facility] LAB MCHC 30.7(L) 32.0 - 37.0 g/dL LAB HEMETOLOGY METHOD 04/26/2025 9:05 AM [facility] LAB RDW 15.7(H) 11.0 - 15.0 % LAB HEMETOLOGY METHOD 04/26/2025 9:05 AM [facility] Platelets 358 130 - 400 K/mcL LAB HEMETOLOGY METHOD 04/26/2025 9:05 AM [facility] MPV 8.9 7.0 - 11.0 FL LAB HEMETOLOGY METHOD 04/26/2025 9:05 AM [facility] LAB NRBC 0.0 <1.0 % LAB HEMETOLOGY METHOD 04/26/2025 9:05 AM [facility] NRBC Absolute 0.00 <0.10 K/mcL LAB HEMETOLOGY METHOD 04/26/2025 9:05 AM [facility] Neutrophils Relative 59.6 % LAB HEMETOLOGY METHOD 04/26/2025 9:05 AM [facility] Lymphocytes Relative 20.7 % LAB HEMETOLOGY METHOD 04/26/2025 9:05 AM [facility] Monocytes Relative 13.3 % LAB HEMETOLOGY METHOD 04/26/2025 9:05 AM [facility] Eosinophils Relative 4.4 % LAB HEMETOLOGY METHOD 04/26/2025 9:05 AM [facility] Basophils Relative 0.9 % LAB HEMETOLOGY METHOD 04/26/2025 9:05 AM [facility] Immature Granulocytes Relative 1.1 % LAB HEMETOLOGY METHOD 04/26/2025 9:05 AM [facility] Neutrophils Absolute 3.23 1.50 - 7.00 K/mcL LAB HEMETOLOGY METHOD 04/26/2025 9:05 AM [facility] Lymphocytes Absolute 1.12 1.00 - 5.00 K/mcL LAB HEMETOLOGY METHOD 04/26/2025 9:05 AM [facility] Monocytes Absolute 0.72 0.20 - 1.00 K/mcL LAB HEMETOLOGY METHOD 04/26/2025 9:05 AM [facility] Eosinophils Absolute 0.24 0.00 - 0.50 K/mcL LAB HEMETOLOGY METHOD 04/26/2025 9:05 AM [facility] Basophils Absolute 0.05 0.00 - 0.20 K/mcL LAB HEMETOLOGY METHOD 04/26/2025 9:05 AM [facility] Immature Granulocytes Absolute 0.06(H) 0.00 - 0.03 K/mcL LAB HEMETOLOGY METHOD 04/26/2025 9:05 AM [facility] Blood Venous blood specimen / Unknown Venipuncture / Unknown 04/26/2025 5:38 AM EST 04/26/2025 8:20 AM EST us Maria D JAIME LAB BLOOD ORDERABLES Final Resu lt [facility] [address] [place] [address], [place] [phone] * Basic metabolic panel (04/26/2025 5:38 AM EST) Sodium 139 133 - 145 mmol/L LAB CHEMISTRY METHOD 04/26/2025 9:08 AM [facility] Potassium 4.4 3.5 - 5.5 mmol/L LAB CHEMISTRY METHOD 04/26/2025 9:08 AM [facility] Chloride 105 96 - 110 mmol/L LAB CHEMISTRY METHOD 04/26/2025 9:08 AM [facility] CO2 30 21 - 32 mmol/L LAB CHEMISTRY METHOD 04/26/2025 9:08 AM [facility] Anion Gap 4 3 - 11 LAB CHEMISTRY METHOD 04/26/2025 9:08 AM [facility] Glucose 84 70 - 100 mg/dL LAB CHEMISTRY METHOD 04/26/2025 9:08 AM [facility] BUN 13 5 - 25 mg/dL LAB CHEMISTRY METHOD 04/26/2025 9:08 AM [facility] Creatinine 0.82 0.50 - 1.10 mg/dL LAB CHEMISTRY METHOD 04/26/2025 9:08 AM [facility] eGFR 75 >=60 mL/min/1. 73m2 LAB CHEMISTRY METHOD 04/26/2025 9:08 AM [facility] Comment:Calculation based on the Chronic Kidney Disease Epidemiology Collaboration (CKD-EPI) equation refit without adjustment for race. BUN/Creatinine Ratio 15.9 LAB CHEMISTRY METHOD 04/26/2025 9:08 AM [facility] Calcium 9.4 8.5 - 10.5 mg/dL LAB CHEMISTRY METHOD 04/26/2025 9:08 AM EST [facility] Blood Venous blood specimen / Unknown Venipuncture / Unknown 04/26/2025 5:38 AM EST 04/26/2025 8:20 AM EST us Maria D JAIME LAB BLOOD ORDERABLES Final Resu lt [facility] [address] [place] [address], documented in this encounter Visit Diagnoses Diagnosis Encounter for screening for other infectious and parasitic diseases documented in this encounter Care Teams Alumni Relations Manager Relationship Specialty Start Date End Date Jocelyn Chacon, STEM FRAZER [address] [place] [address] PCP - General 01/19/11 documented as of this encounter
--- OUTSIDE RECORDS SUMMARY | 2025-06-04 17:21 | XMS_ITS | Encounter Summary ---
Author Organization [facility] Address [id number] [place] [phone] Care Team Providers Care Inspector Canvas Products Name Role Phone OswaldoJocelyn KERRY Primary Care Provider [phone] Encounter Details Date Type Department Care Team (Late st Contact Info) Description 04/20/2025 Lab Requisition [facility] - Main Lab [address] [place] [address] Maria D Pringle PA [address] [place] [phone] Encounter for other general examination Social History Tobacco Use Types Packs/Day Years [...] Diagnosis Comments CBC WITH AUTO DIFFERENTIAL Routine 04/20/2025 6:14 AM EDT Encounter for other general examination CBC AND DIFFERENTIAL Routine 04/20/2025 6:14 AM EDT Encounter for other general examination MAGNESIUM Routine 04/20/2025 6:14 AM EDT Encounter for other general examination COMPREHENSIVE METABOLIC PANEL Routine 04/20/2025 6:14 AM EDT Encounter for other general examination documented in this encounter Results * (ABNORMAL) CBC auto differential (04/20/2025 6:14 AM EDT) [facility] WBC 5.7 4.8 - 10.8 K/mcL LAB HEMETOLOGY METHOD 04/20/2025 11:00 AM [facility] LAB RBC 3.30(L) 3.80 - 4.80 M/mcL LAB HEMETOLOGY METHOD 04/20/2025 11:00 AM [facility] LAB Hemoglobin 9.5(L) 11.5 - 16.0 g/dL LAB HEMETOLOGY METHOD 04/20/2025 11:00 AM [facility] LAB Hematocrit 30.3(L) 35.0 - 47.0 % LAB HEMETOLOGY METHOD 04/20/2025 11:00 AM [facility] LAB MCV 92.7 79.0 - 98.0 FL LAB HEMETOLOGY METHOD 04/20/2025 11:00 AM [facility] LAB MCH 29.1 27.0 - 32.0 pcg LAB HEMETOLOGY METHOD 04/20/2025 11:00 AM [facility] LAB MCHC 31.4(L) 32.0 - 37.0 g/dL LAB HEMETOLOGY METHOD 04/20/2025 11:00 AM [facility] LAB RDW 15.1(H) 11.0 - 15.0 % LAB HEMETOLOGY METHOD 04/20/2025 11:00 AM [facility] LAB Platelets 300 130 - 400 K/mcL LAB HEMETOLOGY METHOD 04/20/2025 11:00 AM [facility] LAB MPV 9.6 7.0 - 11.0 FL LAB HEMETOLOGY METHOD 04/20/2025 11:00 AM [facility] LAB NRBC 0.0 <1.0 % LAB HEMETOLOGY METHOD 04/20/2025 11:00 AM [facility] LAB NRBC Absolute 0.00 <0.10 K/mcL LAB HEMETOLOGY METHOD 04/20/2025 11:00 AM [facility] LAB Neutrophils Relative 64.2 % LAB HEMETOLOGY METHOD 04/20/2025 11:00 AM [facility] LAB Lymphocytes Relative 15.8 % LAB HEMETOLOGY METHOD 04/20/2025 11:00 AM [facility] LAB Monocytes Relative 14.7 % LAB HEMETOLOGY METHOD 04/20/2025 11:00 AM [facility] LAB Eosinophils Relative 4.0 % LAB HEMETOLOGY METHOD 04/20/2025 11:00 AM [facility] Basophils Relative 0.9 % LAB HEMETOLOGY METHOD 04/20/2025 11:00 AM [facility] LAB Immature Granulocytes Relative 0.4 % LAB HEMETOLOGY METHOD 04/20/2025 11:00 AM [facility] Neutrophils Absolute 3.66 1.50 - 7.00 K/mcL LAB HEMETOLOGY METHOD 04/20/2025 11:00 AM [facility] Lymphocytes Absolute 0.90(L) 1.00 - 5.00 K/mcL LAB HEMETOLOGY METHOD 04/20/2025 11:00 AM [facility] Monocytes Absolute 0.84 0.20 - 1.00 K/mcL LAB HEMETOLOGY METHOD 04/20/2025 11:00 AM [facility] LAB Eosinophils Absolute 0.23 0.00 - 0.50 K/mcL LAB HEMETOLOGY METHOD 04/20/2025 11:00 AM [facility] Basophils Absolute 0.05 0.00 - 0.20 K/mcL LAB HEMETOLOGY METHOD 04/20/2025 11:00 AM [facility] Immature Granulocytes Absolute 0.02 0.00 - 0.03 K/mcL LAB HEMETOLOGY [facility] Blood Venous blood specimen / Unknown Venipuncture / Unknown 04/20/2025 6:14 AM EDT 04/20/2025 10:01 AM EDT Maria D JAIME LAB BLOOD ORDERABLES Final Resu lt [facility] [address] [place] [address], [place] [phone] * Magnesium (04/20/2025 6:14 AM EDT) Magnesium 2.5 1.9 - 2.6 mg/dL LAB CHEMISTRY METHOD 04/20/2025 11:40 AM EDT [facility] Blood Venous blood specimen / Unknown Venipuncture / Unknown 04/20/2025 6:14 AM EDT 04/20/2025 10:01 AM EDT Maria D JAIME LAB BLOOD ORDERABLES Final Resu lt [facility] [address] [place] [address], [place] [phone] * (ABNORMAL) Comprehensive metabolic panel (04/20/2025 6:14 AM EDT) Sodium 136 133 - 145 mmol/L LAB CHEMISTRY METHOD 04/20/2025 11:40 AM EDT [facility] Potassium 4.6 3.5 - 5.5 mmol/L LAB CHEMISTRY METHOD 04/20/2025 11:40 AM EDT [facility] Chloride 104 96 - 110 mmol/L LAB CHEMISTRY METHOD 04/20/2025 11:40 AM EDT [facility] CO2 28 21 - 32 mmol/L LAB CHEMISTRY METHOD 04/20/2025 11:40 AM EDT [facility] Anion Gap 4 3 - 11 LAB CHEMISTRY METHOD 04/20/2025 11:40 AM [facility] Glucose 87 70 - 100 mg/dL LAB CHEMISTRY METHOD 04/20/2025 11:40 AM [facility] BUN 16 5 - 25 mg/dL LAB CHEMISTRY METHOD 04/20/2025 11:40 AM [facility] Creatinine 0.66 0.50 - 1.10 mg/dL LAB CHEMISTRY METHOD 04/20/2025 11:40 AM [facility] LAB eGFR 92 >=60 mL/min/1. 73m2 LAB CHEMISTRY METHOD 04/20/2025 11:40 AM [facility] LAB Comment:Calculation based on the Chronic Kidney Disease Epidemiology Collaboration (CKD-EPI) equation refit without adjustment for race. BUN/Creatinine Ratio 24.2 LAB CHEMISTRY METHOD 04/20/2025 11:40 AM [facility] Calcium 8.4(L) 8.5 - 10.5 mg/dL LAB CHEMISTRY METHOD 04/20/2025 11:40 AM [facility] AST (SGOT) 20 10 - 42 unit/L LAB CHEMISTRY METHOD 04/20/2025 11:40 AM [facility] ALT (SGPT) 15 10 - 60 unit/L LAB CHEMISTRY METHOD 04/20/2025 11:40 AM [facility] Alkaline Phosphatase 71 42 - 121 unit/L LAB CHEMISTRY METHOD 04/20/2025 11:40 AM [facility] Total Protein 5.7(L) 6.0 - 8.0 g/dL LAB CHEMISTRY METHOD 04/20/2025 11:40 AM [facility] Albumin 2.9(L) 3.2 - 5.0 g/dL LAB CHEMISTRY METHOD 04/20/2025 11:40 AM [facility] Total Bilirubin 0.5 0.0 - 1.4 mg/dL LAB CHEMISTRY METHOD 04/20/2025 11:40 AM [facility] Blood Venous blood specimen / Unknown Venipuncture / Unknown 04/20/2025 6:14 AM EDT 04/20/2025 10:01 AM EDT Maria D JAIME LAB BLOOD ORDERABLES Final Resu lt [facility] [address] [place] [address], documented in this encounter Visit Diagnoses Diagnosis Encounter for other general examination documented in this encounter Care Teams Inspector Canvas Products Relationship Specialty Start Date End Date Jocelyn Chacon NP [address] [place] [address] [address] [place] [address] PCP - General 01/19/11 documented as of this encounter
== END 2025-06-04 12:42 | disposition home or self-care (01) ==
LOC: HO.HSM 12:04
PROVIDERS: PCP Nurse Practitioner Adult Health; Visit Provider Nurse Practitioner
DX: R51.9 Headache, unspecified (principal); F45.8 Other somatoform disorders; M54.81 Occipital neuralgia; M79.18 Myalgia, other site
CPT/HCPCS: 20552; 64405; 99213

== ENCOUNTER → 2025-06-04 12:03 | Outpatient (BNVA) | payer MEDICARE, SELFPAY | PROVIDERS: PCP Nurse Practitioner Adult Health; Visit Provider Nurse Practitioner | DX: R51.9 Headache, unspecified (principal); M79.18 Myalgia, other site; M54.81 Occipital neuralgia | CPT/HCPCS: 20552; 64405; 99212; J0665 ==

== ENCOUNTER 2025-06-10 14:16 | Emergency (ER) | payer MEDICARE, SELFPAY ==
--- OUTSIDE RECORDS SUMMARY | 2025-06-01 14:30 | XMS_ITS | Encounter Summary ---
Author Organization [facility] Address [address] [place] [address] Phone Care Team Providers Care Book Agent Name Role Phone Shahla Madrigal FILLETER Primary Care Pro vider Mariluz Be MD Unavailable [phone] Soledad Mclean MD, MPH Unavailable [phone] Juan Manuel Mota MD Unavailable [phone] Encounter Details Date Type Department Care Team (Latest Contact Info) Description 06/01/2025 2:30 PM EST Office Visit [facility] [address] [place] [address] 3rd Floor, [address] [place] [address] Sheree Devi, FARHANA 22 [facility], [address] [phone] Palpitations (Primary Dx); SOB (shortness of breath) on exertion Social History Tobacco Use Types Packs/Day Years Used Date Smoking Tobacco: Never Smokeless Tobacco: Never Tobacco Cessation:Counseling Given: Not Answered Comments:None Alcohol Use Standard Drinks/Week Comments Never 0 (1 standard drink = 0.6 oz pur e alcohol) Home Health Assessment: Transportation Answer Date Recorded Lack of Transportation (Medical) No 03/23/2025 Lack of Transportation (Non-Medical) No 03/23/2025 Patient Unable or Declines to Respond No 03/23/2025 Child or Family Care Answer Date Record [...] on file documented as of this encounter Last Filed Vital Signs Vital Sign Reading Time Taken Comments Blood Pressure 138/58 06/01/2025 2:25 PM EST Pulse 94 06/01/2025 2:25 PM EST Temperature - - Respiratory Rate - - Oxygen Saturation 95% 06/01/2025 2:25 PM EST Inhaled Oxygen Concentration - - Weight 101.6 kg (224 lb) 06/01/2025 2:25 PM EST Height 160.6 cm (5' 3.23 ) 06/01/2025 2:25 PM ES T Body Mass Index 39.39 06/01/2025 2:25 PM EST documented in this encounter Progress Notes * Sheree Devi, FARHANA - 06/01/2025 2:30 PM EST Identification: Teresa Parson is a 74 y.o. female; 1950 [id number] Reason for visit: Follow-up visit Ms. Parson is a 74-year-old female with a medical history for rheumatoid arthritis on methotrexate, Sjogren's, breast cancer s/p radiation, GERD, and possible vocal cord dysfunction with pulmonary nodule and multiple drug allergies, headaches resulting in hypertensive episodes, who is here today for a follow-up visit. She was last seen in the office by Bri in January 2025. During her last visitshe felt some palpitations and fast heart rates. Relevant testing- Echocardiogram 12/2024- . The indication is palpitations the estimated ejection fraction of the left ventricle is 60 to 65%. Left ventricular thickness is normal left jugular wall motion is normal and diastolic function isnormal. 2. Normal RV size and function 3. Trileaflet aortic valve there is no evidence of aortic stenosis with a mean gradient of 5 mmHg. The ascending aortic root is normal size. 4. Trace mitral and trace tricuspid and there is no prior echo available for comparison 11/2024 Holter monitor: MCT report Analysis duration-18 days and 21 hours Location-palpitations Heart rate ranged from 51 to 163 bpm with an average of 72 bpm Ventricular ectopic and supraventricular ectopic burden of less than 1% 13 runs of SVT noted up to 18 beats No episodes of A-fib, VT, pauses, AV block 2 symptomatic patient triggered events recorded, upon further review, consistent with sinus rhythm with PACs Recommendation-correlate clinically Today she reports she is doing okay from a cardiovascular standpoint though she continues to have episodes of palpitations that are usually not long in duration. She does have a lot of anxiety and stress in her life. She denies chest pain, shortness of breath, lightheadedness or syncopal episodes. Past Medical History: Diagnosis Date Abnormal gait Adverse effect of anesthetic Asthma Extrinsic Colon polyp 2022 Enteritis 06/28/2024 Fatigue Gastroesophageal reflux disease Graves disease History of hysterectomy Fall 2006 History of malignant neoplasm of endometrium History of oophorectomy, unilateral Fall 2006 Hx of breast cancer September 2023 Right Hx of radiation therapy 02/17/24 Hyperparathyroidism Malignant neoplasm Malignant neoplasm of endometrium 2006 Nephrolithiasis surgical removal of stone Obesity Occipital neuralgia Osteoarthritis Osteoporosis Panic attack as reaction to stress Post-operative nausea and vomiting PPD positive Recurrent occipital headache Rheumatoid arthritis on MTX and sulfasalazine and Plaquenil Shortness of breath Sjogren's syndrome Somnolence negative PSG (excess limb movements) Vertigo Past Surgical History: Procedure Laterality Date BREAST LUMPECTOMY BREAST NEEDLE BIOPSY cataract surgery October & November 2024 COLONOSCOPY N/A 03/09/2022 Performed by Trye Galeana MD at [facility] ENDOSCOPY ESOPHAGOGASTRODUODENOSCOPY N/A 03/09/2022 Performed by Trey Galeana MD at [facility] ENDOSCOPY ESOPHAGOGASTRODUODENOSCOPY N/A 01/28/2018 Performed by Trey Galeana MD at [facility] ENDOSCOPY fistual repair HYSTERECTOMY 2007 hysterectomy KIDNEY STONE SURGERY KNEE SURGERY R TKR, then infected and redone LASER LITHOTRIPSY CYSTOSCOPY URETEROSCOPY RETROGRADE STENT PLACEMENT Left 10/24/2019 Performed by Daryl Fu MD at [facility] OR OOPHORECTOMY 2007 OTHER EXTREMITY SURGERY 2010, 2011 Right knee replacement RIGHT LUMPECTOMY BREAST WITH RADIOACTIVE SEED LOCALIZATION Right 11/25/2023 [facility]OTAL ABDOMINAL HYSTERECTOMY Social History Tobacco Use Smoking status: Never Smokeless tobacco: Never Tobacco comments: None Vaping Use Vaping status: never used Substance Use Topics Alcohol use: Never Drug use: No Comment: CBD oil rarely Family History Problem Relation Age of Onset Breast cancer Mother Colon cancer Mother Cancer Mother Colon Allergic rhinitis Father Lung cancer Father Prostate cancer Father Cancer Father Lung Breast cancer Sister Cancer Sister Melanoma Basal cell carcinoma Sister Cancer Sister Lung, & melanoma, my BROTHER, not listed as a choice Prostate cancer Sister My Brother - not a listed choice Melanoma Sister Cancer Sister CTCL, Melanoma Lymphoma Sister Melanoma Sister Cancer Sister Basal cell carcinoma Lung cancer Brother Prostate cancer Paternal Grandfather Breast cancer Sister Left Current Outpatient Medications Medication Sig Dispense Refill Last Dispense acetaminophen (TYLENOL) 325 mg tablet Take 3 tablets (975 mg total) by mouth every 8 (eight) hours.For one week then q 8 hrs prn moderate pain Unknown (no pharmacy) albuterol 2.5 mg /3 mL (0.083 %) nebulizer solution Take 2.5 mg by nebulization every 6 (six) hoursas needed for wheezing. Unknown (patient-reported) albuterol 90 mcg/actuation inhaler 2 puffs as needed Unknown (patient-reported) ALPRAZolam (XANAX) 0.5 MG tablet Take 0.5 mg by mouth nightly at bedtime as needed for sleep. Just for procedure Unknown (patient-reported) atorvastatin (LIPITOR) 10 MG tablet Take 10 mg by mouth daily. Unknown (patient-reported) B-complex with vitamin C (VITAMIN B COMPLEX WITH C ORAL) Take 1 tablet by mouth daily. Unknown (patient-reported) CALCIUM CITRATE ORAL Take 200 mg by mouth 2 (two) times a day. Unknown (patient-reported) carboxymethylcellulose-glycerin, PF, (REFRESH OPTIVE SENSITIVE) 0.5-0.9 % Dpet Place into each eye 4 (four) times a day as needed. Unknown (patient-reported) celecoxib (CELEBREX) 200 MG capsule Take 200 mg by mouth daily as needed for pain (specific location in comments). Unknown (patient-reported) cetirizine (ZYRTEC) 10 MG tablet Take 10 mg by mouth daily as needed for allergies. Unknown (patient-reported) clotrimazole (LOTRIMIN) 1 % cream Apply 1 Application topically 2 (two) times a day. Unknown (patient-reported) diphenhydrAMINE (BENADRYL) 25 mg capsule Take 25 mg by mouth every 6 (six) hours as needed for itching. Unknown (patient-reported) EMGALITY PEN 120 mg/mL subcutaneous injection Inject 120 mg under the skin every 30 (thirty) days. Unknown (patient-reported) exemestane (AROMASIN) 25 mg tablet Take 1 tablet (25 mg total) by mouth daily. 90 tablet 3 Unknown (outside pharmacy) fluticasone propion-salmeteroL (ADVAIR HFA) 115-21 mcg/actuation inhaler Inhale 2 puffs into the lungs 2 (two) times a day. 36 g 3 Unknown (outside pharmacy) folic acid (FOLVITE) 1 MG tablet Take 1 mg by mouth daily. Unknown (patient-reported) hydroxychloroquine (PLAQUENIL) 200 mg tablet Take 200 mg by mouth 2 (two) times a day. Unknown (patient-reported) ID-ergocalciferol <[facility] 1868> ([id number]) 81364 units capsule Take 50,000 Units by mouth once a week. Unknown (patient-reported) indapamide (LOZOL) 2.5 mg tablet Take 2.5 mg by mouth daily. Unknown (patient-reported) lactobacillus rhamnosus, GG, (CULTURELLE) 10 billion cell capsule Take 1 capsule by mouth daily. Unknown (patient-reported) leucovorin (WELLCOVORIN) 5 mg tablet Take 10 mg by mouth once a week. Once a week after methotrexate Unknown (patient-reported) levothyroxine (SYNTHROID, LEVOTHROID) 175 MCG tablet Take 175 mcg by mouth daily. Unknown (patient-reported) methotrexate 2.5 MG Oral tablet Take 20 mg by mouth every 7 days. Fridays Unknown (patient-reported) montelukast (SINGULAIR) 10 mg tablet TAKE 1 TABLET BY MOUTH EVERYDAY AT BEDTIME 90 tablet 3 Unknown(outside pharmacy) NURTEC ODT 75 mg tablet Take 75 mg by mouth once as needed. Unknown (patient-reported) NYSTOP powder Apply 1 Application topically 2 (two) times a day as needed (rash). Apply to right groin/abdominal fold 2 times a day Unknown (patient-reported) OMEGA-3S/DHA/EPA/FISH OIL (OMEGA 3 ORAL) Take 1 tablet by mouth every morning. Indications: 1 tab daily Unknown (patient-reported) oxyCODONE HCl 10 mg Tab Take 0.5 tablets (5 mg total) by mouth every 6 (six) hours as needed (severe pain). Partial fill ok 20 tablet 0 Unknown (no pharmacy) sulfaSALAzine (AZULFIDINE ENTABS) 500 MG EC tablet Take 1,000 mg by mouth 2 (two) times a day. Unknown (patient-reported) triamcinolone acetonide 0.025 % cream Apply 1 Application topically 2 (two) times a day as needed (rash). Unknown (patient-reported) XIIDRA 5 % ophthalmic solution ISNTILL 1 DROP INTO BOTH EYES TWICE DAILY FOR 3 MONTHS Unknown (patient-reported) zoledronic acid (RECLAST) 5 mg/100 mL PgBk Inject 5 mg into the vein once. Unknown (patient-reported) propranoloL (INDERAL) 10 MG immediate release tablet Take 1 tablet (10 mg total) by mouth as needed(palpiations). 30 tablet 0 Unknown (outside pharmacy) No current facility-administered medications for this visit. GENERAL ROS: General Negative for:, fever, chills. HEENT Negative for: headache, sore throat, congestion. Cardiovascular Negative for:, chest pain. Respiratory Negative for:, cough, shortness of breath. GI/ Negative for:, abdominal pain, nausea, vomiting, diarrhea. Musculoskeletal Negative for:, joint pain, muscle pain. Extremities Negative for, edema. Skin Negative for:, rash, Negative. Neurological negative for headaches. Psychiatric Negative for:, anxiety, depression. Endocrinology negative for:, polyuria, polydipsia, polyphagia, weight loss. Examination BP 138/58 Pulse 94 Ht 160.6 cm (5' 3.23 ) Wt 101.6 kg (224 lb) SpO2 95% BMI 39.39 kg/m?? GENERAL APPEARANCE: NAD. Looks well. HEENT: NC/AT, conjunctiva pink and sclera clear. JVD: normal. HEART SOUNDS: normal S1, S2 LUNGS: clear to auscultation. ABDOMEN: no hepatomegaly; no hepato-jugular reflux. EXTREMITIES: no leg edema. PERIPHERAL PULSES: intact. NEUROLOGIC: grossly intact. Palpitations Everything was clear she did have a Holter monitor which did reveal 13 short runs of SVT. She does continue to have episodes of palpitations at times and has a lot of anxiety and stress in her life. We are going to go ahead and try propranolol 10 mg on an as-needed basis for palpitations that are not resolved. SOB (shortness of breath) on exertion Denies shortness of breath at this time. Follow-up in 6 months or sooner if needed Sheree Devi NP * Rober Matson DO - 06/01/2025 2:30 PM EST Subject Line: Provider Attestation I have reviewed the notes, assessments, and/or procedures performed by RUTHY and concur with her/his documentation. documented in this encounter Miscellaneous Notes * Assessment & Plan Note - Sheree Devi DNP - 06/01/2025 2:55 PM EST Associated Problem(s): SOB (shortness of breath) on exertion Denies shortness of breath at this time. * Assessment & Plan Note - Sheree Devi DNP - 06/01/2025 2:55 PM EST Associated Problem(s): Palpitations Everything was clear she did have a Holter monitor which did reveal 13 short runs of SVT. She does continue to have episodes of palpitations at times and has a lot of anxiety and stress in her life. We are going to go ahead and try propranolol 10 mg on an as-needed basis for palpitations that are not resolved. documented in this encounter Plan of Treatment Upcoming Encounters Date Type Department Care Team (Late st Contact Info) Description 09/18/2024 Procedure Pass [facility], Mammography, Manjula Lank Imaging Department [address] [place] [id number] 10/08/2025 10:30 AM EDT Appointment [facility], Mammography, Manjula Br[facility] Imaging Department [address] [place] [id number] Fox Martinez MD [address] [place] [phone] [email or web address] 10/08/2025 12:00 PM EDT Office Visit [facility], [facility], [address] [place] [address] Paz Prado PA-C [address] [place] [address] [email or web address] 11/08/2025 10:00 AM EDT Office Visit [address] [address] Raquel Henderson MD, PhD [address] [place] [phone] [email or web address] 11/30/2025 10:30 AM EDT Office Visit [facility] [address]rd Floor, [address] [place] [address] Sheree Devi DNP 22 [facility], [address] [place] [address] 04/06/2026 10:30 AM EDT Office Visit [facility], [facility], [facility] [place] [address] [address] Paz Naqvi CNP [address] [place] [address] [email or web address] Soledad Mclean MD, MPH [address] [place] [phone] [email or web address] documented as of this encounter Visit Diagnoses Diagnosis Palpitations- Primary SOB (shortness of breath) on exertion Shortness of breath documented in this encounter Care Teams Book Agent Relationship Specialty Start Date End Date Shahla Madrigal NP [address] [place] [phone] [email or web address] PCP - General Family Medicine 01/05/20 Mariluz Be MD [address] [place] [phone] [email or web address] Obstetrics and Gynecology 10/30/23 Soledad Mclean MD, MPH [address] [place] [phone] [email or web address] 01/14/24 Juan Manuel Mota MD [address] [place] [phone] [email or web address] Endocrinology 04/03/24 documented as of this encounter Additional Source Comments The information contained in this document represents components of the legal health record. It is not the complete legal health record.[facility]
--- NOTE | ~2025-06-10 | CT_ITS ---
CLINICAL HISTORY: granado CT head without contrast Comparison: None Findings: No intracranial mass, midline shift, hydrocephalus, or acute hemorrhage. No CT evidence of acute ischemia. Visualized paranasal sinuses and mastoid air cells normal. Orbits unremarkable. No skull fracture. Impression: 1. No acute intracranial abnormalities. This document has been electronically signed by: Bry Guajardo MD on 06/10/2025 17:49:40
[2025-06-10 14:43] VITALS: BP 127/86; PULSE 70
[2025-06-10 14:52] VITALS: BP 129/65; PULSE 80; RESP 16; TEMP 36.1; O2SAT 95; BMI 38.1
--- NOTE | 2025-06-10 15:06 | PC.NURSE ---
patient was seen in office by Ginger Urena and was given nerve block on 06/04 which she states helped. patient today comes in by ems from home after migraine that has been worsening the last few days, today severe, ems found her screaming in her home, given 100mcg of fentanyl pre hospital with 4mg zofran. patient states she has taken her prescribed meds including the ones she was recently prescribed. patient states that the pain is mainly on the left side of head, face and ear. patient describes pain at 10/10, states after she was given pain medication by ems she felt as if the stabbing in her face became slightly better but the pain remained. patient noted to have towel/blanket wrapped around head and eyes to alleviate pain. patient has an ems line #20 right wrist. patient is alert and oriented x4, ambulatory
[2025-06-10 15:44] LABS: MANUAL DIFF FLAG NO
[2025-06-10 15:45] LABS: Hematocrit 40.3 % (37.0-47.0); Hemoglobin 13.1 g/dl (12.0-16.0); Imm Gran Abs Auto 0.03 X10*3/uL (0.00-0.03); Imm Gran Pct Auto 0.4 % (0.0-0.4); Lymphocytes Absolute Auto 1.1 X10*3/uL (1.2-4.9); Mean Corpuscular HGB Conc 32.5 g/dl (31.0-35.0); Mean Corpuscular Hemoglobin 29.0 pg (27.0-33.0); Mean Corpuscular Volume 89.4 fL (80.0-98.0); NRBC Abs Auto 0.000 X10*3/uL (0.0-0.012); NRBC Pct Auto 0.0 /100WBC (0.0-0.2); Platelet Count 216 X10*3/uL (160-400); Red Blood Count 4.51 X10*6/uL (4.20-5.50); White Blood Count 7.1 X10*3/uL (4.8-10.8)
[2025-06-10 16:02] LABS: Alanine Aminotransferase 30 U/L (0-31); Albumin Level 4.7 g/dL (3.5-5.0); Alkaline Phosphatase 93 U/L (39-117); Anion Gap 13 (12-20); Aspartate Amino Transferase 25 U/L (5-31); Blood Urea Nitrogen 22 mg/dL (9-16); Calcium 9.7 mg/dL (8.4-10.2); Carbon Dioxide 27 mmol/L (22-29); Chloride 105 mmol/L (96-108); Creatinine Clr Calc Pharmacy 66.2; Estimated Glomerular Filt Rate > 60; Potassium 3.6 mmol/L (3.3-5.1); Sodium 141 mmol/L (135-145); Total Protein 7.4 g/dL (6.5-8.0)
[2025-06-10 16:13] VITALS: BP 125/64; PULSE 80; RESP 16; TEMP 36.9; O2SAT 97
--- NOTE | 2025-06-10 17:14 | ED.HA ---
HPI - Headache General Chief Complaint: Headache Stated Complaint: ALBERT,DIZZY,NEURALGIA FLARE UP PER EMS Time Seen by Provider: 06/10/25 16:04 History of Present Illness HPI Narrative: Patient is 74-year-old female with a history of nonspecific headache had a nerve block on June 04. Patient has a history of Synthroid migraine, history of neuropathy. Will patient presented today with having similar headaches today it is over the frontal and with the back. She was screaming in her home complaining of pain was given 100 of fentanyl by EMS and 4 Zofran with only moderate relief. Patient's stated that she takes her medication as prescribed and was not helping. No fever no neck pain no diaphoresis headache is exactly the same as previous has an MRI scheduled for tomorrow. No focal weakness there is no diaphoresis. Related Data Home Medications ?Medication ?Instructions ?Recorded ?Confirmed atorvastatin 10 mg tablet 10 mg PO BEDTIME 05/01/24 03/16/25 hydroxychloroquine 200 mg tablet 200 mg PO BID 05/01/24 03/16/25 (Plaquenil) indapamide 2.5 mg tablet 2.5 mg PO QAM 05/01/24 03/16/25 leucovorin calcium 5 mg tablet 5 mg PO DAILY 05/01/24 03/16/25 levothyroxine 175 mcg capsule 175 mcg PO DAILY 05/01/24 03/16/25 methotrexate sodium 2.5 mg tablet 20 mg PO QWEEK 05/01/24 03/16/25 montelukast 10 mg tablet 10 mg PO BEDTIME 05/01/24 03/16/25 oxycodone-acetaminophen 5 mg-325 1 tab PO Q8H PRN 05/01/24 03/16/25 mg tablet (Percocet) sulfasalazine 500 mg tablet 1 g PO BID 05/01/24 03/16/25 exemestane 25 mg tablet 25 mg PO DAILY 03/16/25 03/16/25 galcanezumab-gnlm 120 mg/mL mg subcut 03/16/25 03/16/25 subcutaneous pen injector (Emgality Pen) aspirin 325 mg tablet,delayed 325 mg PO BID blood clot 05/11/25 release celecoxib 200 mg capsule 200 mg PO DAILY 05/11/25 ergocalciferol (vitamin D2) 1,250 1,250 mcg PO Q2W 05/11/25 mcg (50,000 unit) capsule Previous Rx's ?Medication ?Instructions ?Recorded divalproex 250 mg tablet,delayed 250 mg PO BID PRN migraine 03/16/25 release headache #14 tabs rimegepant 75 mg disintegrating 75 mg PO DAILY PRN migraine 03/16/25 tablet (Nurtec ODT) headache 30 days #8 tabs ibuprofen 400 mg tablet 400 mg PO Q6H PRN pain #20 tabs 06/10/25 ondansetron 4 mg disintegrating 4 mg PO TID PRN nausea and 06/10/25 tablet vomiting 5 days #10 tabs Allergies Allergy/AdvReac Type Severity Reaction Status Date / Time cephalexin Allergy Severe Hives Verified 06/10/25 14:55 clindamycin Allergy Severe Hives Verified 06/10/25 14:55 Penicillins Allergy Severe Hives Verified 06/10/25 14:55 Iodinated Contrast Media Allergy Hives Verified 06/10/25 14:55 chlorhexidine (From AdvReac Severe Rash Verified 06/10/25 14:55 ChloraPrep Clear) Review of Systems Review of Systems: Positive headache PMFSH Past Medical History Medical History (Updated 06/10/25 @ 19:17 by Consuelo Mohamud MD) 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 History of malignant neoplasm of endometrium Solitary lung nodule Left-sided headache Abnormal gait Fatigue Osteoporosis Osteoarthritis of knee Localized primary osteoarthritis Inflammatory polyarthropathy Rheumatoid arthritis GERD (gastroesophageal reflux disease) Allergic asthma without acute exacerbation or status asthmaticus Adjustment disorder with mixed emotional features Mild major depression, single episode Morbid obesity Hyperlipidemia Mixed hyperlipidemia Vitamin D deficiency Hyperparathyroidism Hypothyroidism Postablative hypothyroidism Candidal intertrigo Social History Social History Advance Directives: No Advance Directives Information Provided: No Physical Exam Exam: Exam: Appearance: Alert. Oriented X3. No acute distress. Eyes: Pupils equal, round and reactive to light. ENT: Pharynx normal. Neck: Normal inspection. Neck supple. No lymph nodes noted. No crepitus CVS: Normal heart rate and rhythm. Pulses normal. Normal S1 and S2 Respiratory: No respiratory distress. Breath sounds normal. No Wheezing. No rales Abdomen: Soft and nontender. No rigidity. No distention. good BS x4 Skin: Skin warm and dry. Normal skin color. Normal skin turgor. Extremities: No lower extremity edema. Neurovascular intact to all extremities. No Lacerations. No Rash Neuro: Oriented X 3. No motor deficit. No sensory deficit. Moving all extermities. No slurred speech Vital Signs: Vital Signs: Last Vital Signs Temp 98.4 F 06/10/25 16:13 Pulse 80 06/10/25 16:13 Resp 16 06/10/25 16:13 BP 125/64 06/10/25 16:13 Pulse Ox 97 06/10/25 16:13 O2 Del Method Room Air 06/10/25 16:13 BMI result Body Mass Index 38.1 Medications Administered Discontinued Medications Generic Name Dose Route Start Last Admin Trade Name Freq PRN Reason Stop Dose Admin Dexamethasone Sodium Phosphate 10 mg 06/10/25 17:12 06/10/25 17:39 Dexamethasone Sod Phosphate 10 Mg/Ml Vial IVPUSH 06/10/25 17:13 10 mg ONCE ONE Administration Diphenhydramine HCl 50 mg 06/10/25 17:12 06/10/25 17:39 Diphenhydramine Hcl 50 Mg/Ml Vial IVPUSH 06/10/25 17:13 50 mg ONCE ONE Administration Sodium Chloride 1,000 mls @ 999 mls/hr 06/10/25 17:15 06/10/25 17:37 Ns IV 06/10/25 18:15 999 mls/hr .Q1H1M OWEN Administration Magnesium Sulfate 2 gm in 50 mls @ 150 mls/hr 06/10/25 17:12 06/10/25 18:06 Magnesium Sulfate/H2o IV 06/10/25 17:31 Infused ONCE ONE Infusion Metoclopramide HCl 10 mg 06/10/25 17:11 06/10/25 17:39 Metoclopramide Hcl 10 Mg/2 Ml Vial IVPUSH 06/10/25 17:12 10 mg ONCE ONE Administration Medical Decision Making Medical Decision Making MDM Narrative: Well-appearing neurologically intact. Patient had had a chronic history of headaches. Given migraine treatment including some steroids some Reglan some Benadryl with good relief. Patient fell asleep. Sed rate is 37 not significantly elevated patient's CRP is 0.23 normal. No evidence for temporal arteritis. CT scan of the head was done. There is no evidence of bleeding no mass. Patient to be discharged home. Has a history of similar headache in the past history not consistent with meningitis. Neurologically intact. Differential Diagnosis Differential Diagnoses: The differential diagnosis associated with the presentation includes Migraine, intracranial bleed, meningitis Admission/Observation Consideration of admission/observation: Escalation of care including admission/observation considered Lab Data MDM Lab Attestation statement: I reviewed the patient's lab results. 06/10/25 15:40 06/10/25 15:40 Labs: Lab Results 06/10/25 Range/Units 15:40 WBC 7.1 (4.8-10.8) X10*3/uL RBC 4.51 (4.20-5.50) X10*6/uL Hgb 13.1 (12.0-16.0) g/dl Hct 40.3 (37.0-47.0) % MCV 89.4 (80.0-98.0) fL MCH 29.0 (27.0-33.0) pg MCHC 32.5 (31.0-35.0) g/dl RDW 14.9 (11.0-16.0) % Plt Count 216 (160-400) X10*3/uL MPV 9.7 (9.4-12.3) fL Immature Gran % (Auto) 0.4 (0.0-0.4) % Neut % (Auto) 71.7 (45-73) % Lymph % (Auto) 14.9 L (20-40) % [place] % (Auto) 10.5 (2-11) % Eos % (Auto) 2.1 (0-4) % Baso % (Auto) 0.4 (0-2) % Lymph # (Auto) 1.1 L (1.2-4.9) X10*3/uL [place] # (Auto) 0.8 (0.1-1.2) X10*3/uL Eos # (Auto) 0.2 (0.0-0.4) X10*3/uL Baso # (Auto) 0.0 (0.0-0.2) X10*3/uL Abs Immat Gran (auto) 0.03 (0.00-0.03) X10*3/uL Absolute Neuts (auto) 5.1 (2.0-8.3) x10*3/uL Absolute Nucleated RBC 0.000 (0.0-0.012) X10*3/uL Nucleated RBC % (auto) 0.0 (0.0-0.2) /100WBC ESR 37 H (1-30) MM/HR Sodium 141 (135-145) mmol/L Potassium 3.6 (3.3-5.1) mmol/L Chloride 105 (96-108) mmol/L Carbon Dioxide 27 (22-29) mmol/L Anion Gap 13 (12-20) BUN 22 H (9-16) mg/dL Creatinine 0.86 (0.5-1.4) mg/dL Estim Creat Clear Calc 66.2 Estimated GFR > 60 Random Glucose 106 (60-115) mg/dL Calcium 9.7 (8.4-10.2) mg/dL Total Bilirubin 0.3 (0.0-1.0) mg/dL AST 25 (5-31) U/L ALT 30 (0-31) U/L Alkaline Phosphatase 93 (39-117) U/L C-Reactive Protein 0.23 (< or = 0.50) mg/dL Total Protein 7.4 (6.5-8.0) g/dL Albumin 4.7 (3.5-5.0) g/dL Independent Interpretation I performed an independent interpretation of an: CT Scan ( CT head negative) Radiology Impression Discussion of test interpretation with radiology: I have reviewed the radiologist's reading. Chronic Conditions chronic headache Social Determinants Patient?s care significantly limited by Social Determinants of Health including: Problems related to primary support group Discharge Plan Discharge Clinical Impression: Migraine Patient Disposition: Home, Self-Care Instructions: Migraine Headache (ED) Prescriptions: New ibuprofen 400 mg tablet 400 mg PO Q6H PRN (Reason: pain) Qty: 20 0RF ondansetron 4 mg tablet,disintegrating 4 mg PO TID PRN (Reason: nausea and vomiting) 5 Days Qty: 10 0RF No Action sulfasalazine 500 mg tablet 1 g PO BID Rx Instructions: give with food (meal/snack) hydroxychloroquine [Plaquenil] 200 mg tablet 200 mg PO BID methotrexate sodium 2.5 mg tablet 20 mg PO QWEEK leucovorin calcium 5 mg tablet 5 mg PO DAILY levothyroxine 175 mcg capsule 175 mcg PO DAILY montelukast 10 mg tablet 10 mg PO BEDTIME indapamide 2.5 mg tablet 2.5 mg PO QAM atorvastatin 10 mg tablet 10 mg PO BEDTIME oxycodone-acetaminophen [Percocet] 5-325 mg tablet 1 tab PO Q8H PRN exemestane 25 mg tablet 25 mg PO DAILY Rx Instructions: must administer after a meal divalproex 250 mg tablet,delayed release (DR/EC) 250 mg PO BID PRN (Reason: migraine headache) Qty: 14 3RF Rx Instructions: Take 1 tablet twice daily by mouth for 5 days for migraine rescue therapy Emgality Pen 120 mg/mL pen injector subcut Nurtec ODT 75 mg tablet,disintegrating 75 mg PO DAILY PRN (Reason: migraine headache) 30 Days Qty: 8 5RF celecoxib 200 mg capsule 200 mg PO DAILY aspirin 325 mg tablet,delayed release (DR/EC) 325 mg PO BID ergocalciferol (vitamin D2) 1,250 mcg (50,000 unit) capsule 1,250 mcg PO Q2W Referrals: Terence Blanca MD [Physician, Neurology] - 06/14/25 Print Language: Uzbek
[2025-06-10] MEDS: Magnesium Sulfate/H2O 2 GM/50 ML PIGGYBACK IV (17:38)
--- NOTE | 2025-06-10 17:42 | PC.NURSE ---
patient states her ems line fell out. #18 placed in the left AC, medicated per MAR. call palafox within reach
--- OUTSIDE RECORDS SUMMARY | 2025-06-10 19:31 | XMS_ITS | Encounter Summary ---
Author Organization [facility] Address [address] [place] [address] Phone Care Team Providers Care Rooter Operator Name Role Phone Shahla Madrigal NP Primary Care Pro vider Mariluz Be MD Unavailable [phone] Soledad Mcelan MD, MPH Unavailable [phone] Juan Manuel Mota MD Unavailable [phone] Encounter Details Date Type Department Care Team (Late st Contact Info) Description 10/06/2024 Procedure Pass [facility], Ct Scan - [facility] [address] [place] [address] Social History Tobacco Use Types Packs/Day Years [...] st Contact Info) Description 09/18/2024 Procedure Pass [facility], Mammography, Manjula Lank Imaging Department [address] [place] [phone] 10/08/2025 10:30 AM EDT Appointment [facility], Mammography, Manjula L[facility] Imaging Department [address] [place] [phone] Fox Martinez MD [address] [place] [phone] [email or web address] 10/08/2025 12:00 PM EDT Office [facility], [facility], [address] [place] [address] Paz Prado PA-C [address] [place] [phone] [email or web address] 11/08/2025 10:00 AM EDT Office Visit [facility] [address] [facility] [address] [facility] [place] [address] Raquel Henderson MD, PhD [address] [phone] [email or web address] 11/30/2025 10:30 AM EDT Office Visit [facility] [address] [place] [address] 3rd Floor, [address] [place] [address] Sheree Devi, FARHANA [address] [place] [address], [address] [place], [place] [phone] 04/06/2026 10:30 AM EDT Office Visit [facility], [facility], [facility] [place] [address] [facility] [address] [place] [address] Paz Naqvi CNP [address] [place] [phone] [email or web address] Soledad Mclean MD, MPH [address] [place] [phone] [email or web address] documented as of this encounter Visit Diagnoses Not on filedocumented in this encounter Care Teams Rooter Operator Relationship Specialty Start Date End Date Shahla Madrigal NP [address] [place] [phone] [email or web address] PCP - General Family Medicine 01/05/20 Mariluz Be MD [address] [place] [phone] [email or web address] Obstetrics and Gynecology 10/30/23 Soledad Mclean MD, MPH [address] [place] [phone] [email or web address] Medical Oncology 01/14/24 Juan Manuel Mota MD [address] [place] [phone] [email or web address] Endocrinology 04/03/24 documented as of this encounter Additional Source Comments The information contained in this document represents components of the legal health record. It is not the complete legal health record.[facility]
--- OUTSIDE RECORDS SUMMARY | 2025-06-10 19:31 | XMS_ITS | Encounter Summary ---
Author Organization [facility] Address [address] [facility] [address] [place] [address] Phone Care Team Providers Care Food Order Expediter Name Role Phone Shahla Madrigal NP Primary Care Pro vider Mariluz Be MD Unavailable [phone] Soledad Mclean MD, MPH Unavailable [phone] Juan Manuel Mota MD Unavailable [phone] Encounter Details Date Type Department Care Team (Late st Contact Info) Description 06/27/2024 Procedure Pass [facility], Ct Scan - [facility] 30 [place] [address] Social History Tobacco Use Types Packs/Day Years [...] No Risk Indicated 06/27/2024 6:48 PM Selena Figeuroa RN * [place] Suicide Severity Rating Scale (Screener/Recent Self-Report) Question [...] st Contact Info) Description 09/18/2024 [facility], Mammography, Manjula Lank Imaging Department [address] [place] [address] 10/08/2025 10:30 AM EDT Appointment [facility], Mammography, Manjula Lank Imaging Department [address] [place] [address] Fox Martinez MD [address] [place] [address] maria [email or web address] 10/08/2025 12:00 PM EDT Office Visit [facility], [facility], [facility] [address], 9th [place] [address] Paz Prado PA-C [address] [place] [address] [email or web address] [facility] 11/08/2025 10:00 AM EDT Office Visit [facility] [address] [facility] [address] [place] [address] Raquel Henderson MD, PhD [address] [place] [address] [phone] [email or web address] 11/30/2025 10:30 AM EDT Office Visit [facility] [address] [facility] 3rd Floor, [address] [place] [address] Sheree Devi, FARHANA 22 [facility], [address] [place] [address] [email or web address] 04/06/2026 10:30 AM EDT Office Visit [facility], [facility] [place] [facility], [facility] [place] [facility] [place] 300 [facility] 4th [place] [address] Paz Naqvi, 4TH GRADE MATH TEACHER 450 [place] [address] [email or web address] Soledad Mclean MD, MPH 450 [place] [address] Maria Guadalupe@[facility] documented as of this encounter Visit Diagnoses Not on filedocumented in this encounter Additional Health Concerns Infection Onset Date Last Indicated Resolved Time CoV-Risk Comment:Per note documentation 06/27/2024 06/27/2024 2:53 AM EST CDiff-Risk 06/28/2024 06/28/2024 06/28/2024 12:3 7 PM EST documented as of this encounter Care Teams Food Order Expediter Relationship Specialty Start Date End Date Shahla Madrigal NP [address] [place] [address] [email or web address] PCP - General Family Medicine 01/05/20 Mariluz Be MD [address] [place] [address] [email or web address] Obstetrics and Gynecology 10/30/23 Soledad Mclean MD, MPH [address] [place] [address] Maria Guaadlupe@[email or web address] Medical Oncology 01/14/24 Juan Manuel Mota MD [address] [place] [address] [email or web address] .[email or web address] Endocrinology 04/03/24 documented as of this encounter Additional Source Comments The information contained in this document represents components of the legal health record. It is not the complete legal health record.[facility]
--- OUTSIDE RECORDS SUMMARY | 2025-06-10 19:31 | XMS_ITS | Encounter Summary ---
Author Organization [facility] Address [address] [facility] [address] [place] [address] Phone Care Team Providers Care Legal Librarian Name Role Phone Shahla Madrigal NP Primary Care Pro vider Mariluz Be MD Unavailable [phone] Soledad Mclean MD, MPH Unavailable [phone] Juan Manuel Mota MD Unavailable [phone] Encounter Details Date Type Department Care Team (Late st Contact Info) Description 02/15/2025 Procedure Pass [facility], [facility] 30 [place] [address] Social History Tobacco Use Types Packs/Day Years [...] 09/18/2024 Procedure Pass [facility], Mammography, Manjula [facility] Imaging Department [address] [place] [address] 10/08/2025 10:30 AM EDT Appointment [facility], Mammography, Manjula [facility] Imaging Department [address] [place] [address] Fox Martinez MD [address] [place] [address] maria [email or web address] 10/08/2025 12:00 PM EDT Office Visit [facility], [facility], [address], 9th [place] [address] Paz Prado PA-C [address] [place] [address] [email or web address] 11/08/2025 10:00 AM EDT Office Visit [facility] [address] [place] [address] Raquel Henderson MD, PhD 55 [facility] [address] [place] [phone] [email or web address]@[email or web address] 11/30/2025 10:30 AM EDT Office Visit [facility] [address] [place] [address] 3rd Floor, [address] [place] [address] Sheree Devi, FARHANA 22 [facility], [address] [place] [address] [email or web address] 04/06/2026 10:30 AM EDT Office Visit [facility], [facility] [place] [facility], [facility] [place] [facility] [place] 300 [facility] 4th [place] [address] Paz Naqvi PIPE SETTER 450 [place] [address] [email or web address] Soledad Mclean MD, MPH [address] [place] [address] Maria Guadalupe@[facility] documented as of this encounter Visit Diagnoses Not on filedocumented in this encounter Care Teams Legal Librarian Relationship Specialty Start Date End Date Shahla Madrigal NP [address] [place] [address] [email or web address] PCP - General Family Medicine 01/05/20 Mariluz Be MD [address] [place] [address] [email or web address] Obstetrics and Gynecology 10/30/23 Soledad Mclean MD, MPH [address] [place] [address] Maria Guadalupe@[email or web address].[place] Medical Oncology 01/14/24 Juan Manuel Mota MD [address] [place] [address] [email or web address] Endocrinology 04/03/24 documented as of this encounter Additional Source Comments The information contained in this document represents components of the legal health record. It is not the complete legal health record.[facility]
--- OUTSIDE RECORDS SUMMARY | 2025-06-10 19:31 | XMS_ITS | Encounter Summary ---
Author Organization [facility] Address [address] [facility] [address] [place] [address] Phone Care Team Providers Care Corporate Buyer Name Role Phone Imeldamandiryan Shahla Miles MUSIC REHABILITATION THERAPIST Primary Care Pro vider Self-Referred, Patient Unavailable Unavailab Mariluz Ivy MD Unavailable [phone] Soledad Mclean MD, MPH Unavailable Juan Manuel Mota MD Unavailable [phone] Encounter Details Date Type Department Care Team (Late st Contact Info) Description 07/03/2023 Transcribe Orders [facility] 30 [place] [address] Tono Lamb MD [address] [place] [address] [phone] [email or web address] Social History Tobacco Use Types Packs/Day Years [...] st Contact Info) Description 09/18/2024 Procedure Pass [facility], Mammography, Manjula Lank Imaging Department [address] [place] [address] 10/08/2025 10:30 AM EDT Appointment [facility], Mammography, Manjula Lank Imaging Department [address] [place] [address] Fox Martinez MD [address] [place] [address] maria [email or web address] 10/08/2025 12:00 PM EDT Office Visit [facility], [facility], [address], 9th [place] [address] Paz Prado PA-C [address] [place] [address] [email or web address] 11/08/2025 10:00 AM EDT Office Visit [facility] [address] [facility] [address] [place] [address] Raquel Henderson MD, PhD [address] [place] [address] 835 [place] [phone] TEREZA@[facility] 11/30/2025 10:30 AM EDT Office Visit [facility] [address] [facility] 3rd Floor, [address] [place] [address] Sheree Devi, FARHANA 22 [facility], [address] [place] [address] [email or web address] 04/06/2026 10:30 AM EDT Office Visit [facility], [facility] [place] [facility], [facility] [place] [facility] [place] 300 [facility] 4th [place] [address] Paz Naqvi, BRAZER CONTROLLED ATMOSPHERIC FURNACE 450 [place] [address] [email or web address] Soledad Mclean MD, MPH 450 [place] [address] Maria Guadalupe@[email or web address] documented as of this encounter Visit Diagnoses Not on filedocumented in this encounter Additional Health Concerns Infection Onset Date Last Indicated Resolved Time CoV-Risk Comment:Per note documentation 06/27/2024 06/27/2024 2:53 AM EST CDiff-Risk 06/28/2024 06/28/2024 06/28/2024 12:3 7 PM EST documented as of this encounter Care Teams Corporate Buyer Relationship Specialty Start Date End Date Shahla Madrigal NP [address] [place] [address] PCP - General Family Medicine 01/05/20 Self-Referred, Patient 10/30/23 04/02/24 Mariluz Be MD [email or web address] Obstetrics and Gynecology 10/30/23 Soledad Mclean MD, MPH [address] [place] [address] Maria Guadalupe@[email or web address]. [facility] Medical Oncology 01/14/24 Juan Manuel Mota MD [address] [place] [address] [email or web address] Endocrinology 04/03/24 documented as of this encounter Additional Source Comments The information contained in this document represents components of the legal health record. It is not the complete legal health record.[facility]
--- OUTSIDE RECORDS SUMMARY | 2025-06-10 19:31 | XMS_ITS | Encounter Summary ---
Author Organization [facility] Address [address] [facility] [address] [place] [address] Phone Care Team Providers Care Communications Scientist Name Role Phone Jocelyn Chacon PHOTOENGRAVING PROOFER Primary Care Provider Shahla Love PHOTOENGRAVING PROOFER Primary Care Pro vider Self-Referred, Patient Unavailable Unavailab Mariluz Ivy MD Unavailable [phone] Soledad Mclean MD, MPH Unavailable [phone] Juan Manuel Mota MD Unavailable [phone] Encounter Details Date Type Department Care Team (Late st Contact Info) Description 01/28/2018 Procedure Pass [facility]oscopy Admitting Dept Virtual Department 30 [place] [address] Social History Tobacco Use Types Packs/Day Years [...] st Contact Info) Description 09/18/2024 Procedure Pass [facility] [place], Mammography, Manjula Lank Imaging Department [address] [place] [address] 10/08/2025 10:30 AM EDT Appointment [facility], Mammography, Manjula [facility] Imaging Department [address] [place] [address] Fox Martinez MD [address] [place] [address] maria [email or web address] 10/08/2025 12:00 PM EDT Office Visit [facility], [facility] [place] [facility], [address], 9th [place] [address] Paz Prado PA-C 450 [place] [address] [email or web address] 11/08/2025 10:00 AM EDT Office Visit [facility] [address] [place] [address] [address] Raquel Henderson MD, PhD [address] [place] [phone] [email or web address] 11/30/2025 10:30 AM EDT Office Visit [facility] [address] [place] [address] 3rd Floor, [address] [place] [address] Sheree Devi, FARHANA [address] [place] [address], [address] [place] [address] 04/06/2026 10:30 AM EDT Office Visit [facility], [facility], [facility] [place] [facility] [place] 300 [facility] 4th [place] [address] Paz Naqvi CNP 450 [place] [address] GuilledanaeLarry@[facility] Soledad Mclean MD, MPH 450 [place] [address] Maria Guadalupe@[facility] documented as of this encounter Visit Diagnoses [...] documented as of this encounter Care Teams Communications Scientist Relationship Specialty Start Date End Date Jocelyn Chacon NP PCP - General 04/11/17 01/04/20 Shahla Madrigal NP [address] [place] [address] [email or web address] PCP - General Family Medicine 01/05/20 Self-Referred, Patient 10/30/23 04/02/24 Mariluz Be MD [email or web address] Obstetrics and Gynecology 10/30/23 Soledad Mclean MD, MPH [address] [place] [address] Maria Guadalupe@[facility] Medical Oncology 01/14/24 Juan Manuel Mota MD [address] [place] [address] [email or web address] .[email or web address] Endocrinology 04/03/24 documented as of this encounter Additional Source Comments The information contained in this document represents components of the legal health record. It is not the complete legal health record.[facility]
--- OUTSIDE RECORDS SUMMARY | 2025-06-10 19:31 | XMS_ITS | Encounter Summary ---
Author Organization [facility] Address [address] [facility] [address] [place] [address] Phone Care Team Providers Care Carton Liner Name Role Phone Shahla Madrigal NP Primary Care Pro vider Mariluz Be MD Unavailable [phone] Soledad Mclean MD, MPH Unavailable [phone] Juan Manuel Mota MD Unavailable [phone] Encounter Details Date Type Department Care Team (Late st Contact Info) Description 11/09/2024 Procedure Pass [facility] [address] [place] [address] Social History Tobacco Use Types Packs/Day Years [...] 12:35 PM EDT Brandy [place] RN * [place] Suicide Severity Rating Scale (Screener/Recent Self-Report) Question Answer Date of Assessment Author 1. Wish to be (Past 1 Month) No 11/09/2024 12:35 PM EDT Joi Carr RN 2. Non-Specific Active Suicidal Thoughts (Past 1 Month) No 11/09/2024 12:35 PM EDT Joi Carr RN 6. Suicidal Behavior (Lifetime) No 11/09/2024 12:35 PM EDT Joi Carr RN documented as of this encounter Plan of Treatment Upcoming Encounters Date Type Department Care Team (Late st Contact Info) Description 09/18/2024 Procedure Pass [facility] [place], Mammography, Manjula Lank Imaging Department [address] [place] [address] 10/08/2025 10:30 AM EDT Appointment [facility] [place], Mammography, Manjula Lank Imaging Department [address] [place] [address] Fox Martinez MD [address] [place] [address] [email or web address] [email or web address] 10/08/2025 12:00 PM EDT Office Visit [facility], [facility], [facility] [place] [address] [place] [address], 9th [place] [address] Paz Prado PA-C 450 [place] [address] [email or web address] [facility] 11/08/2025 10:00 AM EDT Office Visit [facility] 52 Second [facility], [facility] [address] [place] [address] Raquel Henderson MD, PhD 55 [facility] 835 [place] [phone] [email or web address]@[email or web address] 11/30/2025 10:30 AM EDT Office Visit [facility] 22 [facility] 3rd Floor, [address] [place] [address] Sheree Devi, FARHANA 22 [facility], [address] [place] [address] 04/06/2026 10:30 AM EDT Office Visit [facility], [facility]ee Carrillo [place] [facility], [facility] [place] [facility] [place] 300 [facility] 4th [place] [address] Paz Naqvi ALARM MECHANISM ADJUSTER 450 [place] [address] [email or web address] Soledad Mclean MD, MPH 450 [place] [address] Maria Guadalupe@[facility] documented as of this encounter Visit Diagnoses Not on filedocumented in this encounter Care Teams Carton Liner Relationship Specialty Start Date End Date Shahla Madrigal NP [address] [place] [address] [email or web address] PCP - General Family Medicine 01/05/20 Mariluz Be MD [address] [place] [address] [email or web address] Obstetrics and Gynecology 10/30/23 Soledad Mclean MD, MPH [address] [place] [address] Maria Guadalupe@[email or web address] Medical Oncology 01/14/24 Juan Manuel Mota MD [address] [place] [address] [email or web address] Endocrinology 04/03/24 documented as of this encounter Additional Source Comments The information contained in this document represents components of the legal health record. It is not the complete legal health record.[facility]
--- OUTSIDE RECORDS SUMMARY | 2025-06-10 19:31 | XMS_ITS | Encounter Summary ---
Author Organization [facility] Address [address] [facility] [address] [place] [address] Phone Care Team Providers Care Legal Aide Name Role Phone Imeldaerinkeenan Shahla Miles NP Primary Care Pro vider Self-Referred, Patient Unavailable Unavailab Mariluz Ivy MD Unavailable [phone] Soledad Mclean MD, MPH Unavailable [phone] Juan Manuel Mota MD Unavailable [phone] Encounter Details Date Type Department Care Team (Late st Contact Info) Description 09/06/2023 Procedure Pass [facility], Ct [facility] - [facility] 30 [place] [address] Social History Tobacco Use Types Packs/Day Years [...] or Obrien 12/09/2020 3 :05 PM EDT Occupation Industry Job Start Date Job End Date 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 Not on file Not on file Not on file documented as of this encounter Functional Status * Calculated C-SSRS Risk Score (Lifetime/Recent) Answer Date of Assessment Author No Risk Indicated 09/06/2023 3:50 PM EDT Magali Ya, KATHIE * [place] Suicide Severity Rating Scale (Screener/Recent Self-Report) Question [...] st Contact Info) Description 09/18/2024 Procedure Pass [facility] [place], Mammography, Manjula Lank Imaging Department [address] [place] [address] 10/08/2025 10:30 AM EDT Appointment [facility] [place], Mammography, Manjula Lank Imaging Department [address] [place] [address] Fox Martinez MD [address] [place] [address] maria [email or web address] 10/08/2025 12:00 PM EDT Office Visit [facility], [facility], [facility] Cancer [address], 9th [place] [address] Paz Prado PA-C 450 [place] [address] [email or web address] 11/08/2025 10:00 AM EDT Office Visit [facility] 52 [facility] [address] [place] [address] Raquel Henderson MD, PhD 55 [facility] 835 [place] [phone] [email or web address] 11/30/2025 10:30 AM EDT Office Visit [facility] [address] [place] [address] 3rd Floor, [address] [place] [address] Sheree Devi, FARHANA [address] [address] [email or web address] 04/06/2026 10:30 AM EDT Office Visit [facility], [facility], [facility] [place] [facility] [place] 300 [facility] 4th [place] [address] Paz Naqvi, LIVESTOCK SPECULATOR 450 [facility] [place] [address] Rafael@[email or web address] Soledad Mclean MD, MPH 450 [place] [address] Maria Guadalupe@[email or web address] documented as of this encounter Visit Diagnoses Not on filedocumented in this encounter Additional Health Concerns Infection Onset Date Last Indicated Resolved Time CoV-Risk Comment:Per note documentation 06/27/2024 06/27/2024 5 2:53 AM EST CDiff-Risk 06/28/2024 06/28/2024 06/28/2024 12:3 7 PM EST documented as of this encounter Care Teams Legal Aide Relationship Specialty Start Date End Date Shahla Madrigal NP [address] [place] [address] [email or web address] PCP - General Family Medicine 01/05/20 Self-Referred, Patient 10/30/23 04/02/24 Mariluz Be MD [email or web address] Obstetrics and Gynecology 10/30/23 Soledad Mclean MD, MPH [address] [place] [address] Maria Guadalupe@[email or web address]. [facility] Medical Oncology 01/14/24 Juan Manuel Mota MD [address] [place] [address] [email or web address] .[facility] Endocrinology 04/03/24 documented as of this encounter Additional Source Comments The information contained in this document represents components of the legal health record. It is not the complete legal health record.[facility]
--- OUTSIDE RECORDS SUMMARY | 2025-06-10 19:31 | XMS_ITS | Patient Health Record ---
Author Organization [facility] Phil justin Castanon Address [address] [facility] [address] [place] [address] Care Team Providers Care Sorority Supervisor Name Role Phone Oswaldo PAYNE, Jocelyn Primary Care Provider Unavail able Sree Chowdhury Unavailable [phone] Allergies Allergen (clinical drug ingredient) Drug/Non Drug [...] HOUR BEFORE APPOINTMENT Oral; Duration: 15 Active Garrison 3 Active Folic Acid 1 MG TAKE [...] Status Risk Notes Problem Acquired hallux valgus (78567539) Hallux valgus (acquired), left foot (M20.12) Active confirmed Problem Localized, primary osteoarthritis of the ankle and/or foot (751824553) Primary osteoarthrit is, right ankle and foot (M19.071) Active confirmed Problem Localized, primary osteoarthritis of the ankle and/or foot (563837982) Primary osteoarthrit is, left ankle and foot (M19.072) Active confirmed Problem Acquired hallux valgus (70291494) Hallux valgus (acquired), right foot (M20.11) Active confirmed Problem Acquired hammer toe of right foot (2206483257362720) Other hammer toe(s) (acquired), right foot (M20.41) Active confirmed Problem Acquired hammer toe of left foot (8566930315231638) Other hammer toe(s) (acquired), left foot (M20.42) Active confirmed Plan Of Treatment Pending Test Test Name Order Date X ray : Foot, left 2V 05/21/2018 X ray : Foot, right 2V 05/21/2018 [id number] Destruction, 1-14 05/21/2018 96033- Nail Unit Biopsy 05/21/2018 Insurance Providers Payer Name Payer Address Payer Phone Subscriber Number Group Number Insured Name Patient Relationship to Insured Coverage Start Date Coverage End Date Medicare National Govt [employer] [address] [place] [address] [id number] Parson Teresa Self - patient is the insured [employer] [address] [place] [address] [id number] Teresa Parson Self - patient is the insured Medical (General) History Medical History History ICD Code Anxiety Arthritis asthma hip pain Knee Pain Cancer Headaches/Migraines Measles Mumps Chicken pox Lyme disease Joint implants/screws Psoriasis Reflux ( GERD) Sjogren syndrome Thyroid disorder Graves disease Warts Whooping cough (pertussis) Uzbek measles Surgical History Surgery Date(Month/Year) right knee replacement 2767-1941 hysterectomy 2007 fistula repair 2008 dental Hospitalization History Reason Date(Month/Year) Rita Owens- Asthma- 5 day stay 09/23
--- OUTSIDE RECORDS SUMMARY | 2025-06-10 19:31 | XMS_ITS | Encounter Summary ---
Author Organization [facility] Address [address] [place] [address] Phone Care Team Providers Care Senior Information Systems Architect Name Role Phone Imeldaerinkeenan Shahla Miles NP Primary Care Pro vider Self-Referred, Patient Unavailable Unavailab Mariluz Ivy MD Unavailable [phone] Soledad Mclean MD, MPH Unavailable Juan Manuel Mota MD Unavailable [phone] Encounter Details Date Type Department Care Team (Late st Contact Info) Description 09/06/2023 Procedure Pass [facility], Ct [facility] - [facility] [address] [place] [address] Social History Tobacco Use Types Packs/Day Years Used Date Smoking Tobacco: Never Smokeless Tobacco: Never Alcohol Use Standard Drinks/Week Comments No 0 (1 standard drink = 0.6 oz pur e alcohol) Education Answer Date Recorded Are you interested in more education? Not on rgeta e 10/22/2022 Are you concerned about learning? 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 Not on file Not on file Not on file documented as of this encounter Functional Status * Calculated C-SSRS Risk Score (Lifetime/Recent) Answer Date of Assessment Author No Risk Indicated 09/06/2023 3:50 PM EDT Magali Ya, KATHIE * [place] Suicide Severity Rating Scale (Screener/Recent Self-Report) Question [...] st Contact Info) Description 09/18/2024 Procedure Pass [facility], Mammography, Manjula Lank Imaging Department [address] [place] [address] 10/08/2025 10:30 AM EDT Appointment [facility] Bee, Mammography, Manjula Lank Imaging Department [address] [place] [address] Fox Martinez MD [address] [place] [address] [email or web address] [email or web address] 10/08/2025 12:00 PM EDT Office Visit [facility], [facility] Cancer [address], 9th [place] [address] Paz Prado PA-C [address] [place] [address] [email or web address] 11/08/2025 10:00 AM EDT Office Visit [facility] [address] [facility] [address] [place] [address] Raquel Henderson MD, PhD 55 [facility] 835 [place] [phone] [email or web address] 11/30/2025 10:30 AM EDT Office Visit [facility] [address] [place] [address] 3rd Floor, [address] [place] [address] Sheree Devi, FARHANA [address] [address] [email or web address] 04/06/2026 10:30 AM EDT Office Visit [facility], [facility], [facility] [place] 300 [facility] 4[address] [place] [address] Paz Naqvi, CONE MACHINE FEEDER 450 [facility] [place] [address] [email or web address] Soledad Mclean MD, MPH [address] [place] [address] Maria [email or web address] documented as of this encounter Visit Diagnoses Not on filedocumented in this encounter Additional Health Concerns Infection Onset Date Last Indicated Resolved Time CoV-Risk Comment:Per note documentation 06/27/2024 06/27/2024 5 2:53 AM EST CDiff-Risk 06/28/2024 06/28/2024 06/28/2024 12:3 7 PM EST documented as of this encounter Care Teams Senior Information Systems Architect Relationship Specialty Start Date End Date Shahla Madrigal NP [address] [place] [address] [email or web address] PCP - General Family Medicine 01/05/20 Self-Referred, Patient 10/30/23 04/02/24 Mariluz Be MD [email or web address] Obstetrics and Gynecology 10/30/23 Soledad Mclean MD, MPH [address] [place] [address] Maria [email or web address]. du Medical Oncology 01/14/24 Juan Manuel Mota MD [address] [place] [address] [email or web address] Endocrinology 04/03/24 documented as of this encounter Additional Source Comments The information contained in this document represents components of the legal health record. It is not the complete legal health record.[facility]
--- OUTSIDE RECORDS SUMMARY | 2025-06-10 19:31 | XMS_ITS | Encounter Summary ---
Author Organization [facility] Address [address] [facility] [address] [place] [address] Phone Care Team Providers Care Steward/Stewardess Third Class Name Role Phone Imeldaerinkeenan Shahla Miles NP Primary Care Pro vider Self-Referred, Patient Unavailable Unavailab Mariluz Ivy MD Unavailable [phone] Soledad Mclean MD, MPH Unavailable Juan Manuel Mota MD Unavailable [phone] Encounter Details Date Type Department Care Team (Late st Contact Info) Description 03/06/2023 Procedure Pass [facility], Ct Scan - [facility] 30 [place] [address] Social History Tobacco Use Types Packs/Day Years [...] 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 file Not on file Not on file documented as of this encounter Plan of Treatment Upcoming Encounters Date Type Department Care Team (Late st Contact Info) Description 09/18/2024 Procedure Pass [facility], Mammography, Manjula Lank Imaging Department [address] [place] [address] 10/08/2025 10:30 AM EDT Appointment [facility], Mammography, [facility] Imaging Department [address] [place] [address] Fox Martinez MD [address] [place] [address] maria [email or web address] 10/08/2025 12:00 PM EDT Office Visit [facility], [facility], [address], 9th [place] [address] Paz Prado PA-C [address] [place] [address] [email or web address] 11/08/2025 10:00 AM EDT Office Visit [facility] [address] [facility] [address] [place] [address] Raquel Henderson MD, PhD [address] [phone] [email or web address]@[email or web address] 11/30/2025 10:30 AM EDT Office Visit [facility] [address] [facility] 3rd Floor, [address] [place] [address] Sheree Devi, FARHANA [address] [facility], [address] [place] [address] [email or web address] 04/06/2026 10:30 AM EDT Office Visit [facility], [facility], [facility] [place] [facility] [place] [address] [facility] 4th [place] [address] Paz Naqvi RED HAT LINUX ADMINISTRATOR [address] [place] [address] [email or web address] Soledad Mclean MD, MPH [address] [place] [address] Maria [email or web address]@[email or web address] documented as of this encounter Visit Diagnoses Not on filedocumented in this encounter Additional Health Concerns Infection Onset Date Last Indicated Resolved Time CoV-Risk Comment:Per note documentation 06/27/2024 06/27/2024 2:53 AM EST CDiff-Risk 06/28/2024 06/28/2024 06/28/2024 12:3 7 PM EST documented as of this encounter Care Teams Steward/Stewardess Third Class Relationship Specialty Start Date End Date Shahla Madrigal NP [address] [place] [address] [email or web address] PCP - General Family Medicine 01/05/20 Self-Referred, Patient 10/30/23 04/02/24 Mariluz Be MD [email or web address] Obstetrics and Gynecology 10/30/23 Soledad Mclean MD, MPH [address] [place] [address] Maria Guadalupe@[email or web address].[facility] Medical Oncology 01/14/24 Juan Manuel Mota MD [address] [place] [address] [email or web address] .[email or web address] 04/03/24 documented as of this encounter Additional Source Comments The information contained in this document represents components of the legal health record. It is not the complete legal health record.[facility]
--- OUTSIDE RECORDS SUMMARY | 2025-06-10 19:31 | XMS_ITS | Encounter Summary ---
Author Organization [facility] Address [address] [facility] [address] [place] [address] Phone Care Team Providers Care Power Wheelchair Mechanic Name Role Phone Shahla Madrigal NP Primary Care Pro vider Mariluz Be MD Unavailable [phone] Soledad Mclean MD, MPH Unavailable [phone] Juan Manuel Mota MD Unavailable [phone] Encounter Details Date Type Department Care Team (Late st Contact Info) Description 02/13/2025 Procedure Pass [facility], Ct Scan - [facility] 30 [place] [address] Social History Tobacco Use Types Packs/Day Years [...] 12:17 AM EDT Teresita Tang, KATHIE * [place] Suicide Severity Rating Scale (Screener/Recent Self-Report) Question Answer Date of Assessment Author 1. Wish to be (Past 1 Month) No 02/13/2025 12:17 AM EDT Parth Amador RN 2. Non-Specific Active Suici mihir Thoughts (Past 1 Month) No 02/13/2025 12:17 AM EDT William Amador, KATHIE 6. Suicidal Behavior (Lifetime) No 12:17 AM EDT Teresita Amador, KATHIE documented as of this encounter Plan of Treatment Upcoming Encounters Date Type Department Care Team (Late st Contact Info) Description 09/18/2024 Procedure Pass [facility] [place], Mammography, Manjula Lank Imaging Department [address] [place] [address] 10/08/2025 10:30 AM EDT Appointment [facility] [place], Mammography, Manjula Lank Imaging Department [address] [place] [address] Fox Martinez MD [address] [place] [address] maria [email or web address] 10/08/2025 12:00 PM EDT Office Visit [facility], [facility], [facility] [place] [address] [place] [address], 9th [place] [address] Paz Prado PA-C [address] [place] [address] [email or web address]. [facility] 11/08/2025 10:00 AM EDT Office Visit [facility] [address] [facility] [address] [place] [address] Raquel Henderson MD, PhD 55 [facility] [address] [place] [phone] TEREZA@[email or web address] 11/30/2025 10:30 AM EDT Office Visit [facility] [address] [facility] 3rd Floor, [address] [place] [address] Sheree Devi, FARHANA 22 [facility], [address] [place] [address] 04/06/2026 10:30 AM EDT Office Visit [facility], [facility] [place] [facility], [facility] [place] [facility] [address] [address] Paz Naqvi, SOFTWARE CONFIGURATION SPECIALIST 450 [place] [address] [email or web address] Soledad Mclean MD, MPH 450 [place] [address] Maria [email or web address] documented as of this encounter Visit Diagnoses Not on filedocumented in this encounter Care Teams Power Wheelchair Mechanic Relationship Specialty Start Date End Date Shahla Madrigal NP [address] [place] [address] [email or web address] PCP - General Family Medicine 01/05/20 Mariluz Be MD [address] [place] [address] [email or web address] Obstetrics and Gynecology 10/30/23 Soledad Mclean MD, MPH [address] [place] [address] Maria Guadalupe@[email or web address] Medical Oncology 01/14/24 Juan Manuel Mota MD [address] [place] [address] [email or web address] Endocrinology 04/03/24 documented as of this encounter Additional Source Comments The information contained in this document represents components of the legal health record. It is not the complete legal health record.[facility]
--- OUTSIDE RECORDS SUMMARY | 2025-06-10 19:31 | XMS_ITS | Encounter Summary ---
Author Organization [facility] Address [address] [facility] [address] [place] [address] Phone Care Team Providers Care Sales Representatives Name Role Phone Jocelyn Chacon RETORT PRESS OPERATOR Primary Care Provider UnaAmaury Mason MD Unavailable Shahla Madrigal RETORT PRESS OPERATOR Primary Care Pro vider Self-Referred, Patient Unavailable Unavailab Mariluz Ivy MD Unavailable [phone] Soledad Mclean MD, MPH Unavailable Juan Manuel Mota MD Unavailable Encounter Details Date Type Department Care Team (Late st Contact Info) Description 08/07/2017 Transcribe Orders [facility] 30 [place], [place] [id number] Tono Lamb MD [address] [place] [phone] Social History Tobacco Use Types Packs/Day Years [...] st Contact Info) Description 09/18/2024 Procedure Pass [facility], Mammography, Manjula Lank Imaging Department [address] [place] [address] 10/08/2025 10:30 AM EDT Appointment [facility], Mammography, Manjula Lank Imaging Department [address] [place] [address] Fox Martinez MD [address] [place] [address] maria [email or web address] 10/08/2025 12:00 PM EDT Office Visit [facility], [facility], [address], 9th [place] [address] Paz Prado PA-C [address] [place] [address] [email or web address] [facility] 11/08/2025 10:00 AM EDT Office Visit [facility] 52 [facility] [address] [place] [address] Raquel Henderson MD, PhD [address] [place] [phone] [email or web address] 11/30/2025 10:30 AM EDT Office Visit [facility] [address] [place] [address] 3rd Floor, [address] [place] [address] Sheree Devi, FARHANA [address] [place] [address], [address] [place], [place] [phone] 04/06/2026 10:30 AM EDT Office Visit [facility], [facility] [place] [facility], [facility] [place] 300 [facility] 4th [place] [address] Paz Naqvi CNP 450 [place] [address] [email or web address] Soledad Mclean MD, MPH 450 [place] [address] Maria Guadalupe@[email or web address] documented as of this encounter Visit Diagnoses [...] documented as of this encounter Care Teams Sales Representatives Relationship Specialty Start Date End Date Jocelyn Chacon NP PCP - General 04/11/17 01/04/20 Shahla Madrigal NP [address] [place] [address] [email or web address] PCP - General Family Medicine 01/05/20 Amaury Mcduffie MD [email or web address] Rheumatology 09/20/17 09/20/17 Self-Referred, Patient 10/30/23 04/02/24 Mariluz Be MD [email or web address] Obstetrics and Gynecology 10/30/23 Soledad Mclean MD, MPH [address] [place] [address] Maria Guadalupe@[facility].[place].[facility] Medical Oncology 01/14/24 Juan Manuel Mota MD [address] [place] [address] [email or web address] .[email or web address] Endocrinology 04/03/24 documented as of this encounter Additional Source Comments The information contained in this document represents components of the legal health record. It is not the complete legal health record.[facility]
--- OUTSIDE RECORDS SUMMARY | 2025-06-10 19:31 | XMS_ITS | Encounter Summary ---
Author Organization [facility] Address [address] [facility] [address] [place] [address] Phone Care Team Providers Care Maintenance Service Supervisor Name Role Phone Jocelyn Chacon CREDIT ASSISTANT Primary Care Provider Amaury Nagy MD Unavailable [phone] Shahla Madrigal CREDIT ASSISTANT Primary Care Pro vider Self-Referred, Patient Unavailable Unavailab Mariluz Ivy MD Unavailable [phone] Soledad Mclean MD, MPH Unavailable Juan Manuel Mota MD Unavailable [phone] Encounter Details Date Type Department Care Team (Late Contact Info) Description 03/25/2017 Orders Only VIRTUAL [...] Encounters Date Type Department Care Team (Late Contact Info) Description 09/18/2024 Procedure Pass [facility], Mammography, Manjula Lank Imaging Department [address] [place] [address] 10/08/2025 10:30 AM EDT Appointment [facility], Mammography, Manjula Lank Imaging Department [address] [place] [address] Fox Martinez MD [address] [place] [address] maria [email or web address] 10/08/2025 12:00 PM EDT Office Visit [facility], [facility], [facility] Cancer [address], 9th [place] [address] Paz Prado PA-C [address] [place] [address] [email or web address] 11/08/2025 10:00 AM EDT Office Visit [facility] 52 [facility] [address] [facility] [place] [address] Raquel Henderson MD, PhD [address] [place] [phone] TEREZA@[email or web address] 11/30/2025 10:30 AM EDT Office Visit [facility] [address] [place] [address] 3rd Floor, [address] [place], [place] [phone] Sheree Devi, FARHANA 22 [facility], [address] [place] [address] 04/06/2026 10:30 AM EDT Office Visit [facility], [facility], [facility] Cancer [place] at [address] 4th [place] [address] Paz Naqvi RADIO ANTENNA INSTALLER 450 [facility] [place] [address] [email or web address] Soledad Mclean MD, MPH 450 [place] [address] Maria [email or web address] documented as of this encounter Procedures Procedure Name Priority Date/Time Associated Diagnosis Comments OUTSIDE LAB Routine 03/25/2017 documented in this encounter Results * Outside Lab (03/25/2017) us Historical Provider LAB BLOOD BKR ORDERABLES Final Result documented in this encounter Visit [...] documented as of this encounter Care Teams Maintenance Service Supervisor Relationship Specialty Start Date End Date Jocelyn Chacon NP PCP - General 04/11/17 01/04/20 Shahla Madrigal NP [address] [place] [address] [email or web address] PCP - General Family Medicine 01/05/20 Amaury Mcduffie MD [email or web address] Rheumatology 09/20/17 09/20/17 Self-Referred, Patient 10/30/23 04/02/24 Mariluz Be MD [email or web address] Obstetrics and Gynecology 10/30/23 Soledad Mclean MD, MPH [address] [place] [address] Maria Guadalupe@[email or web address]. du Medical Oncology 01/14/24 Juan Manuel Mota MD [address] [place] [address] [email or web address] Endocrinology 04/03/24 documented as of this encounter Additional Source Comments The information contained in this document represents components of the legal health record. It is not the complete legal health record.[facility]
--- OUTSIDE RECORDS SUMMARY | 2025-06-10 19:32 | XMS_ITS | Encounter Summary ---
Author Organization [facility] Address [address] [facility] [facility] [address] [place] [address] Phone Care Team Providers Care Pet Training Instructor Name Role Phone Shahla Madrigal NP Primary Care Pro vider Self-Referred, Patient Unavailable Unavailab Mariluz Ivy MD Unavailable [phone] Soledad Mclean MD, MPH Unavailable [phone] Juan Manuel Mota MD Unavailable [phone] Encounter Details Date Type Department Care Team (Late st Contact Info) Description 11/25/2023 Procedure Pass [facility] Periop [address] [place] [address] Social History Tobacco Use Types Packs/Day Years [...] st Contact Info) Description 09/18/2024 Procedure Pass [facility] [place], Mammography, [facility] Imaging Department [address] [place] [address] 10/08/2025 10:30 AM EDT Appointment [facility] [place], Mammography, [facility] Imaging Department [address] [place] [address] Fox Martinez MD [address] [place] [address] [email or web address] 10/08/2025 12:00 PM EDT Office [facility], [facility] [address], 9th [place] [address] Paz Prado PA-C [address] [place] [address] [email or web address] 11/08/2025 10:00 AM EDT Office Visit [facility] [address] [address] Raquel Henderson MD, PhD [address] [place] [phone] [email or web address] 11/30/2025 10:30 AM EDT Office Visit [facility] [address] [place] [address] 3rd Floor, [address] [place] [address] Sheree Devi, [address] [address] 04/06/2026 10:30 AM EDT Office Visit [facility], [facility] [place] [facility] [place] [address] [facility] 4th [place] [address] Paz Naqvi CNP [address] [place] [address] [email or web address] Soledad Mclean MD, MPH [address] [place] [address] [email or web address] documented as of this encounter Visit Diagnoses Not on filedocumented in this encounter Additional Health Concerns Infection Onset Date Last Indicated Resolved Time CoV-Risk Comment:Per note documentation 06/27/2024 06/27/2024 2:53 AM EST CDiff-Risk 06/28/2024 06/28/2024 06/28/2024 12:3 7 PM EST documented as of this encounter Care Teams Pet Training Instructor Relationship Specialty Start Date End Date Shahla Madrigal NP [address] [place] [address] [email or web address] PCP - General Family Medicine 01/05/20 Self-Referred, Patient 10/30/23 04/02/24 Mariluz Be MD [email or web address] Obstetrics and Gynecology 10/30/23 Soledad Mclean MD, MPH [address] [place] [address] Maria [email or web address] Medical Oncology 01/14/24 Juan Manuel Mota MD [address] [place] [address] [email or web address] Endocrinology 04/03/24 documented as of this encounter Additional Source Comments The information contained in this document represents components of the legal health record. It is not the complete legal health record.[facility]
--- OUTSIDE RECORDS SUMMARY | 2025-06-10 19:32 | XMS_ITS | Clinical Summary ---
Author Organization [address] [facility] Address [address] [place] [address] Phone Care Team Providers Care Mincing Machine Operator Name Role Phone Jocelyn Chacon NP Primary Care Provider Encounters Date Type Department Care Team Description 04/26/2025 Lab Requisition [facility] Lab [address] [place] [address] Maria D Pringle PA Encounter for screening for other infectious and parasitic diseases 04/20/2025 Lab Requisition [facility] Lab [address] [place] [address] Maria D Pringle PA Encounter [...] K/mcL LAB HEMETOLOGY METHOD 04/26/2025 9:05 AM [facility] LAB RBC 3.30(L) 3.80 - 4.80 M/mcL LAB HEMETOLOGY METHOD 04/26/2025 9:05 AM [facility] LAB Hemoglobin 9.3(L) 11.5 - 16.0 g/dL LAB HEMETOLOGY METHOD 04/26/2025 9:05 AM [facility] LAB Hematocrit 30.3(L) 35.0 - 47.0 % LAB HEMETOLOGY METHOD 04/26/2025 9:05 AM [facility] LAB MCV 92.9 79.0 - 98.0 FL LAB HEMETOLOGY METHOD 04/26/2025 9:05 AM [facility] LAB MCH 28.5 27.0 - 32.0 pcg LAB HEMETOLOGY METHOD 04/26/2025 9:05 AM [facility] LAB MCHC 30.7(L) 32.0 - 37.0 g/dL LAB HEMETOLOGY METHOD 04/26/2025 9:05 AM [facility] LAB RDW 15.7(H) 11.0 - 15.0 % LAB HEMETOLOGY METHOD 04/26/2025 9:05 AM [facility] LAB Platelets 358 130 - 400 K/mcL LAB HEMETOLOGY METHOD 04/26/2025 9:05 AM [facility] LAB MPV 8.9 7.0 - 11.0 FL LAB HEMETOLOGY METHOD 04/26/2025 9:05 AM [facility] LAB NRBC 0.0 <1.0 % LAB HEMETOLOGY METHOD 04/26/2025 9:05 AM [facility] LAB NRBC Absolute 0.00 <0.10 K/mcL LAB HEMETOLOGY METHOD 04/26/2025 9:05 AM [facility] LAB Neutrophils Relative 59.6 % LAB HEMETOLOGY METHOD 04/26/2025 9:05 AM [facility] LAB Lymphocytes Relative 20.7 % LAB HEMETOLOGY METHOD 04/26/2025 9:05 AM [facility] Monocytes Relative 13.3 % LAB HEMETOLOGY METHOD 04/26/2025 9:05 AM [facility] LAB Eosinophils Relative 4.4 % LAB HEMETOLOGY METHOD 04/26/2025 9:05 AM [facility] Basophils Relative 0.9 % LAB HEMETOLOGY METHOD 04/26/2025 9:05 AM [facility] LAB Immature Granulocytes Relative 1.1 % LAB HEMETOLOGY METHOD 04/26/2025 9:05 AM [facility] LAB Neutrophils Absolute 3.23 1.50 - 7.00 K/mcL LAB HEMETOLOGY METHOD 04/26/2025 9:05 AM [facility] LAB Lymphocytes Absolute 1.12 1.00 - 5.00 K/mcL LAB HEMETOLOGY METHOD 04/26/2025 9:05 AM [facility] Monocytes Absolute 0.72 0.20 - 1.00 K/mcL LAB HEMETOLOGY METHOD 04/26/2025 9:05 AM [facility] LAB Eosinophils Absolute 0.24 0.00 - 0.50 K/mcL LAB HEMETOLOGY METHOD 04/26/2025 9:05 AM [facility] Basophils Absolute 0.05 0.00 - 0.20 K/mcL LAB HEMETOLOGY METHOD 04/26/2025 9:05 AM [facility] LAB Immature Granulocytes Absolute 0.06(H) 0.00 - 0.03 K/mcL LAB HEMETOLOGY METHOD 04/26/2025 9:05 AM [facility] Blood Venous blood specimen / Unknown Venipuncture / Unknown 04/26/2025 5:38 AM EST 04/26/2025 8:20 AM EST us Maria D JAIME LAB BLOOD ORDERABLES Final Resu lt [facility] [address] [place] [address], [place] [phone] * Basic metabolic panel (04/26/2025 5:38 AM EST) Sodium 139 133 - 145 mmol/L LAB CHEMISTRY METHOD 04/26/2025 9:08 AM [facility] LAB Potassium 4.4 3.5 - 5.5 mmol/L LAB CHEMISTRY METHOD 04/26/2025 9:08 AM [facility] Chloride 105 96 - 110 mmol/L LAB CHEMISTRY METHOD 04/26/2025 9:08 AM [facility] CO2 30 21 - 32 mmol/L LAB CHEMISTRY METHOD 04/26/2025 9:08 AM [facility] Anion Gap 4 3 - 11 LAB CHEMISTRY METHOD 04/26/2025 9:08 AM [facility] LAB Glucose 84 70 - 100 mg/dL LAB CHEMISTRY METHOD 04/26/2025 9:08 AM [facility] BUN 13 5 - 25 mg/dL LAB CHEMISTRY METHOD 04/26/2025 9:08 AM [facility] LAB Creatinine 0.82 0.50 - 1.10 mg/dL LAB CHEMISTRY METHOD 04/26/2025 9:08 AM [facility] LAB eGFR 75 >=60 mL/min/1. 73m2 LAB CHEMISTRY METHOD 04/26/2025 9:08 AM [facility] LAB Comment:Calculation based on the Chronic Kidney Disease Epidemiology Collaboration (CKD-EPI) equation refit without adjustment for race. BUN/Creatinine Ratio 15.9 LAB CHEMISTRY METHOD 04/26/2025 9:08 AM EST [facility] Calcium 9.4 8.5 - 10.5 mg/dL LAB CHEMISTRY METHOD 04/26/2025 9:08 AM EST [facility] Blood Venous blood specimen / Unknown Venipuncture / Unknown 04/26/2025 5:38 AM EST 04/26/2025 8:20 AM EST Maria D JAIME LAB BLOOD ORDERABLES Final Resu lt [facility] [address] [place] [address], [place] [phone] * Magnesium (04/20/2025 6:14 AM EDT) Magnesium 2.5 1.9 - 2.6 mg/dL LAB CHEMISTRY METHOD 04/20/2025 11:40 AM EDT [facility] Blood Venous blood specimen / Unknown Venipuncture / Unknown 04/20/2025 6:14 AM EDT 04/20/2025 10:01 AM EDT Maria D JAIME LAB BLOOD ORDERABLES Final Resu lt [facility] [address] [place] [address], [place] [phone] * (ABNORMAL) Comprehensive metabolic panel (04/20/2025 6:14 AM EDT) Sodium 136 133 - 145 mmol/L LAB CHEMISTRY METHOD 04/20/2025 11:40 AM EDT [facility] Potassium 4.6 3.5 - 5.5 mmol/L LAB CHEMISTRY METHOD 04/20/2025 11:40 AM EDT [facility] Chloride 104 96 - 110 mmol/L LAB CHEMISTRY METHOD 04/20/2025 11:40 AM EDT [facility] CO2 28 21 - 32 mmol/L LAB CHEMISTRY METHOD 04/20/2025 11:40 AM [facility] LAB Anion Gap 4 3 - 11 LAB CHEMISTRY METHOD 04/20/2025 11:40 AM [facility] LAB Glucose 87 70 - 100 mg/dL LAB CHEMISTRY METHOD 04/20/2025 11:40 AM [facility] LAB BUN 16 5 - 25 mg/dL LAB CHEMISTRY METHOD 04/20/2025 11:40 AM [facility] LAB Creatinine 0.66 0.50 - 1.10 mg/dL LAB CHEMISTRY METHOD 04/20/2025 11:40 AM [facility] LAB eGFR 92 >=60 mL/min/1. 73m2 LAB CHEMISTRY METHOD 04/20/2025 11:40 AM [facility] LAB Comment:Calculation based on the Chronic Kidney Disease Epidemiology Collaboration (CKD-EPI) equation refit without adjustment for race. BUN/Creatinine Ratio 24.2 LAB CHEMISTRY METHOD 04/20/2025 11:40 AM [facility] LAB Calcium 8.4(L) 8.5 - 10.5 mg/dL LAB CHEMISTRY METHOD 04/20/2025 11:40 AM [facility] AST (SGOT) 20 10 - 42 unit/L LAB CHEMISTRY METHOD 04/20/2025 11:40 AM [facility] ALT (SGPT) 15 10 - 60 unit/L LAB CHEMISTRY METHOD 04/20/2025 11:40 AM [facility] LAB Alkaline Phosphatase 71 42 - 121 unit/L LAB CHEMISTRY METHOD 04/20/2025 11:40 AM [facility] Total Protein 5.7(L) 6.0 - 8.0 g/dL LAB CHEMISTRY METHOD 04/20/2025 11:40 AM [facility] Albumin 2.9(L) 3.2 - 5.0 g/dL LAB CHEMISTRY METHOD 04/20/2025 11:40 AM EDT [facility] Total Bilirubin 0.5 0.0 - 1.4 mg/dL LAB CHEMISTRY METHOD 04/20/2025 11:40 AM EDT [facility] Blood Venous blood specimen / Unknown Venipuncture / Unknown 04/20/2025 6:14 AM EDT 04/20/2025 10:01 AM EDT us Maria D JAIME LAB BLOOD ORDERABLES Final Resu lt [facility] [address] [place] [address], from Last 3 Months Insurance MEDICARE [facility] Care Teams Mincing Machine Operator Relationship Specialty Start Date End Date Jocelyn Chacon NP Ted [address] [place] [address] PCP - General 01/19/11
--- OUTSIDE RECORDS SUMMARY | 2025-06-10 19:32 | XMS_ITS | Encounter Summary ---
Author Organization [facility] Address [address] [place] [address] Phone Care Team Providers Care Systems Testing Laboratory Technician Name Role Phone ImeldamandiShahla davis NP Primary Care Pro vider Self-Referred, Patient Unavailable Unavailab Mariluz Ivy MD Unavailable [phone] Soledad Mclean MD, MPH Unavailable [phone] Juan Manuel Mota MD Unavailable [phone] Encounter Details Date Type Department Care Team (Latest Contact Info) Description 10/22/2022 Transcribe Orders Virtual Department [address] [place] [address] Juan Manuel Mota MD [address] [place] [phone] [email or web address] Age-related osteoporosis without current pathological fracture (Primary Dx); Other intermodal customer service (current) 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 Social History Tobacco Use [...] st Contact Info) Description 09/18/2024 Procedure Pass [facility] [place], Mammography, Manjula Lank Imaging Department [address] [place] [address] 10/08/2025 10:30 AM EDT Appointment [facility] [place], Mammography, Manjula Lank Imaging Department [address] [place] [address] Fox Martinez MD [address] [place] [address] [email or web address] 10/08/2025 12:00 PM EDT Office Visit [facility], [facility], [address] 9th [place] [address] Paz Prado PA-C [address] [place] [address] [email or web address] 11/08/2025 10:00 AM EDT Office Visit [facility] [address] [facility] [address] [place] [address] Raquel Henderson MD, PhD [address] [phone] [email or web address] 11/30/2025 10:30 AM EDT Office Visit [facility] [address] [facility] 3rd Floor, [address] [place] [address] Sheree Devi, FARHANA [address] [facility], [address] [place] [address] 04/06/2026 10:30 AM EDT Office Visit [facility], [facility], [facility] [place] [address] [facility] 4th [place] [address] Paz Naqvi, SENSOR OPERATOR [address] [place] [address] [email or web address] Soledad Mclean MD, MPH [address] [place] [address] Maria [email or web address] documented as of this encounter Visit Diagnoses Diagnosis Age-related osteoporosis without current pathological fracture- Primary Other intermodal customer service (current) 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 documented in this encounter [...] documented as of this encounter Care Teams Systems Testing Laboratory Technician Relationship Specialty Start Date End Date Shahla Madrigal NP [address] [place] [address] [email or web address] PCP - General [facility] Medicine 01/05/20 Self-Referred, Patient 10/30/23 04/02/24 Mariluz Be MD [email or web address] Obstetrics and Gynecology 10/30/23 Soledad Mclean MD, MPH [address] [place] [address] Maria [email or web address] Medical Oncology 01/14/24 Juan Manuel Mota MD [address] [place] [address] [email or web address] Endocrinology 04/03/24 documented as of this encounter Additional Source Comments The information contained in this document represents components of the legal health record. It is not the complete legal health record.[facility]
--- OUTSIDE RECORDS SUMMARY | 2025-06-10 19:32 | XMS_ITS | Encounter Summary ---
Author Organization [facility] Address [address] [place] [phone] Care Team Providers Care Nail Galvanizer Name Role Phone OswaldoJocelyn KERRY Primary Care Provider Encounter Details Date Type Department Care Team (Late st Contact Info) Description 04/26/2025 Lab Requisition [facility] Lab [address] [place] [address] Maria D Pringle PA [address] [place] [phone] Encounter for screening for other infectious and [...] K/mcL LAB HEMETOLOGY METHOD 04/26/2025 9:05 AM [facility] LAB RBC 3.30(L) 3.80 - 4.80 M/mcL LAB HEMETOLOGY METHOD 04/26/2025 9:05 AM [facility] LAB Hemoglobin 9.3(L) 11.5 - 16.0 g/dL LAB HEMETOLOGY METHOD 04/26/2025 9:05 AM [facility] LAB Hematocrit 30.3(L) 35.0 - 47.0 % LAB HEMETOLOGY METHOD 04/26/2025 9:05 AM [facility] LAB MCV 92.9 79.0 - 98.0 FL LAB HEMETOLOGY METHOD 04/26/2025 9:05 AM [facility] LAB MCH 28.5 27.0 - 32.0 pcg LAB HEMETOLOGY METHOD 04/26/2025 9:05 AM [facility] LAB MCHC 30.7(L) 32.0 - 37.0 g/dL LAB HEMETOLOGY METHOD 04/26/2025 9:05 AM [facility] LAB RDW 15.7(H) 11.0 - 15.0 % LAB HEMETOLOGY METHOD 04/26/2025 9:05 AM [facility] LAB Platelets 358 130 - 400 K/mcL LAB HEMETOLOGY METHOD 04/26/2025 9:05 AM [facility] LAB MPV 8.9 7.0 - 11.0 FL LAB HEMETOLOGY METHOD 04/26/2025 9:05 AM [facility] LAB NRBC 0.0 <1.0 % LAB HEMETOLOGY METHOD 04/26/2025 9:05 AM [facility] LAB NRBC Absolute 0.00 <0.10 K/mcL LAB HEMETOLOGY METHOD 04/26/2025 9:05 AM [facility] LAB Neutrophils Relative 59.6 % LAB HEMETOLOGY METHOD 04/26/2025 9:05 AM [facility] LAB Lymphocytes Relative 20.7 % LAB HEMETOLOGY METHOD 04/26/2025 9:05 AM [facility] Monocytes Relative 13.3 % LAB HEMETOLOGY METHOD 04/26/2025 9:05 AM [facility] Eosinophils Relative 4.4 % LAB HEMETOLOGY METHOD 04/26/2025 9:05 AM [facility] Basophils Relative 0.9 % LAB HEMETOLOGY METHOD 04/26/2025 9:05 AM [facility] LAB Immature Granulocytes Relative 1.1 % LAB HEMETOLOGY METHOD 04/26/2025 9:05 AM [facility] LAB Neutrophils Absolute 3.23 1.50 - 7.00 K/mcL LAB HEMETOLOGY METHOD 04/26/2025 9:05 AM [facility] LAB Lymphocytes Absolute 1.12 1.00 - 5.00 K/mcL LAB HEMETOLOGY METHOD 04/26/2025 9:05 AM [facility] LAB Monocytes Absolute 0.72 0.20 - 1.00 K/mcL LAB HEMETOLOGY METHOD 04/26/2025 9:05 AM [facility] LAB Eosinophils Absolute 0.24 0.00 - 0.50 K/mcL LAB HEMETOLOGY METHOD 04/26/2025 9:05 AM [facility] LAB Basophils Absolute 0.05 0.00 - 0.20 K/mcL LAB HEMETOLOGY METHOD 04/26/2025 9:05 AM [facility] LAB Immature Granulocytes Absolute 0.06(H) 0.00 - 0.03 K/mcL LAB HEMETOLOGY METHOD 04/26/2025 9:05 AM [facility] LAB Blood Venous blood specimen / Unknown Venipuncture / Unknown 04/26/2025 5:38 AM EST 04/26/2025 8:20 AM EST us Maria D JAIME LAB BLOOD ORDERABLES Final Resu lt [facility] [address] [place] [address], [place] [phone] * Basic metabolic panel (04/26/2025 5:38 AM EST) Sodium 139 133 - 145 mmol/L LAB CHEMISTRY METHOD 04/26/2025 9:08 AM [facility] Potassium 4.4 3.5 - 5.5 mmol/L LAB CHEMISTRY METHOD 04/26/2025 9:08 AM [facility] LAB Chloride 105 96 - 110 mmol/L LAB CHEMISTRY METHOD 04/26/2025 9:08 AM [facility] CO2 30 21 - 32 mmol/L LAB CHEMISTRY METHOD 04/26/2025 9:08 AM [facility] LAB Anion Gap 4 3 - 11 LAB CHEMISTRY METHOD 04/26/2025 9:08 AM [facility] LAB Glucose 84 70 - 100 mg/dL LAB CHEMISTRY METHOD 04/26/2025 9:08 AM [facility] BUN 13 5 - 25 mg/dL LAB CHEMISTRY METHOD 04/26/2025 9:08 AM [facility] LAB Creatinine 0.82 0.50 - 1.10 mg/dL LAB CHEMISTRY METHOD 04/26/2025 9:08 AM [facility] LAB eGFR 75 >=60 mL/min/1. 73m2 LAB CHEMISTRY METHOD 04/26/2025 9:08 AM [facility] Comment:Calculation based on the Chronic Kidney Disease Epidemiology Collaboration (CKD-EPI) equation refit without adjustment for race. BUN/Creatinine Ratio 15.9 LAB CHEMISTRY METHOD 04/26/2025 9:08 AM [facility] LAB Calcium 9.4 8.5 - 10.5 mg/dL LAB CHEMISTRY METHOD 04/26/2025 9:08 AM EST [facility] Blood Venous blood specimen / Unknown Venipuncture / Unknown 04/26/2025 5:38 AM EST 04/26/2025 8:20 AM EST us Maria D JAIME LAB BLOOD ORDERABLES Final Resu lt [facility] [address] [place] [address], documented in this encounter Visit Diagnoses Diagnosis Encounter for screening for other infectious and parasitic diseases documented in this encounter Care Teams Nail Galvanizer Relationship Specialty Start Date End Date Jocelyn Chacon, GIFTS OFFICER [address] [place] [address] PCP - General 01/19/11 documented as of this encounter
--- OUTSIDE RECORDS SUMMARY | 2025-06-10 19:32 | XMS_ITS | Clinical Summary ---
Author Organization [facility] [address] [facility] Address [address] [place] [address] Care Team Providers Care Economic Analyst Name Role Phone Obtain, Unable To Primary [...] - 144 mmol/L 01/05/2023 10:29 AM EDT [facility] DEPARTMENT OF LABORATORY MEDICINE [facility] LAB Comment:Sample slightly hemo lyzed. Results may be falsely decreased due to hemolysis. Potassium 01/05/2023 10:29 AM EDT [facility] DEPARTMENT [facility] LABORATORY MEDICINE [facility] Comment:Sample Hemolyzed. Chloride 101 98 - 107 mmol/L 01/05/2023 10:29 AM [facility] CO2 24 20 - 30 mmol/L 01/05/2023 10:29 AM [facility] Anion Gap 14 7 - 17 01/05/2023 10:29 AM [facility] Glucose 135(H) 70 - 100 mg/dL 01/05/2023 10:29 AM [facility] BUN 18 8 - 23 mg/dL 01/05/2023 10:29 AM [facility]OR[facility] LAB Creatinine 0.79 0.40 - 1.30 mg/dL 01/05/2023 10:29 AM [facility] Calcium 9.0 8.8 - 10.2 mg/dL 01/05/2023 10:29 AM [facility] BUN/Creatinine Ratio 22.8 8.0 - 23.0 01/05/2023 10:29 AM [facility] eGFR (Creatinine) >60 >=60 mL/min/1.7 3m2 01/05/2023 10:29 AM [facility] Comment: Values < 60 mL/min/1.73 m2 may indicate CKD if present for more than three months AND creatinine is at steady state. The eGFR provides a rough estimate of kidney function. On 02/06/22 all [facility] Clinical Labs and Epic began using a [id number] formula for estimating GFR called CKD-EPI Creatinine 2020. This equation reports eGFR based on creatinine, patient age, clinical sex, and is standardized to a body surface area of 1.73 m2. For the same creatinine, this new race-free eGFR will be lower than prior reported Black eGFR results and higher than prior Non-Black eGFR results. For further guidance, please refer to the CKD: Adult Bridge Carpenter Signature pathway. Blood Venipuncture / Unknown 01/05/2023 9:37 AM EDT 01/05/2023 9:42 AM EDT James Lazo MD LAB BLOOD ORDERABLES Fi nal Result [facility] DEPARTMENT OF LABORATORY MEDICINE [facility] [address] [place] [address], [facility] [phone] from Last 3 Months or Most Recently Relevant to Health Maintenance Insurance MEDICARE [facility] MEDICARE BCBS MEDICARE [facility] Care Teams Economic Analyst Relationship Specialty Start Date End Date Obtain, Unable To PCP - General 01/05/23
--- OUTSIDE RECORDS SUMMARY | 2025-06-10 19:32 | XMS_ITS | Encounter Summary ---
Author Organization [facility] Address [id number] [place] [phone] Care Team Providers Care Cut Off Saw Operator Metal Name Role Phone OswaldoJocelyn KERRY Primary Care Provider + [phone] Encounter Details Date Type Department Care Team (Late st Contact Info) Description 04/20/2025 Lab Requisition [facility] - Main Lab [address] [facility] [place] [address] Maria D Pringle PA [address] [place] [phone] Encounter for other general examination Social History [...] CBC auto differential (04/20/2025 6:14 AM EDT) [facility] WBC 5.7 4.8 - 10.8 K/mcL LAB HEMETOLOGY METHOD 04/20/2025 11:00 AM [facility] RBC 3.30(L) 3.80 - 4.80 M/mcL LAB HEMETOLOGY METHOD 04/20/2025 11:00 AM [facility] Hemoglobin 9.5(L) 11.5 - 16.0 g/dL LAB HEMETOLOGY METHOD 04/20/2025 11:00 AM [facility] Hematocrit 30.3(L) 35.0 - 47.0 % LAB HEMETOLOGY METHOD 04/20/2025 11:00 AM [facility] MCV 92.7 79.0 - 98.0 FL LAB HEMETOLOGY METHOD 04/20/2025 11:00 AM [facility] MCH 29.1 27.0 - 32.0 pcg LAB HEMETOLOGY METHOD 04/20/2025 11:00 AM [facility] MCHC 31.4(L) 32.0 - 37.0 g/dL LAB HEMETOLOGY METHOD 04/20/2025 11:00 AM [facility] RDW 15.1(H) 11.0 - 15.0 % LAB HEMETOLOGY METHOD 04/20/2025 11:00 AM [facility] Platelets 300 130 - 400 K/mcL LAB HEMETOLOGY METHOD 04/20/2025 11:00 AM [facility] MPV 9.6 7.0 - 11.0 FL LAB HEMETOLOGY METHOD 04/20/2025 11:00 AM [facility] NRBC 0.0 <1.0 % LAB HEMETOLOGY METHOD 04/20/2025 11:00 AM [facility] NRBC Absolute 0.00 <0.10 K/mcL LAB HEMETOLOGY METHOD 04/20/2025 11:00 AM [facility] Neutrophils Relative 64.2 % LAB HEMETOLOGY METHOD 04/20/2025 11:00 AM [facility] Lymphocytes Relative 15.8 % LAB HEMETOLOGY METHOD 04/20/2025 11:00 AM [facility] Monocytes Relative 14.7 % LAB HEMETOLOGY METHOD 04/20/2025 11:00 AM [facility] Eosinophils Relative 4.0 % LAB HEMETOLOGY METHOD 04/20/2025 11:00 AM [facility] Basophils Relative 0.9 % LAB HEMETOLOGY METHOD 04/20/2025 11:00 AM [facility] Immature Granulocytes Relative 0.4 % LAB HEMETOLOGY METHOD 04/20/2025 11:00 AM [facility] Neutrophils Absolute 3.66 1.50 - 7.00 K/mcL LAB HEMETOLOGY METHOD 04/20/2025 11:00 AM [facility] Lymphocytes Absolute 0.90(L) 1.00 - 5.00 K/mcL LAB HEMETOLOGY METHOD 04/20/2025 11:00 AM [facility] Monocytes Absolute 0.84 0.20 - 1.00 K/mcL LAB HEMETOLOGY METHOD 04/20/2025 11:00 AM [facility] Eosinophils Absolute 0.23 0.00 - 0.50 K/mcL LAB HEMETOLOGY METHOD 04/20/2025 11:00 AM [facility] Basophils Absolute 0.05 0.00 - 0.20 K/mcL LAB HEMETOLOGY METHOD 04/20/2025 11:00 AM [facility] Immature Granulocytes Absolute 0.02 0.00 - 0.03 K/mcL LAB HEMETOLOGY METHOD 04/20/2025 [facility] Blood Venous blood specimen / Unknown Venipuncture / Unknown 04/20/2025 6:14 AM EDT 04/20/2025 10:01 AM EDT Maria D JAIME LAB BLOOD ORDERABLES Final Resu lt [facility] [address] [place] [address], [place] [phone] * Magnesium (04/20/2025 6:14 AM EDT) Magnesium 2.5 1.9 - 2.6 mg/dL LAB CHEMISTRY METHOD 04/20/2025 11:40 AM EDT [facility] Blood Venous blood specimen / Unknown Venipuncture / Unknown 04/20/2025 6:14 AM EDT 04/20/2025 10:01 AM EDT Maria D JAIME LAB BLOOD ORDERABLES Final Resu lt [facility] [address] [place] [address], [place] [phone] * (ABNORMAL) Comprehensive metabolic panel (04/20/2025 6:14 AM EDT) Sodium 136 133 - 145 mmol/L LAB CHEMISTRY METHOD 04/20/2025 11:40 AM EDT [facility] Potassium 4.6 3.5 - 5.5 mmol/L LAB CHEMISTRY METHOD 04/20/2025 11:40 AM EDT [facility] Chloride 104 96 - 110 mmol/L LAB CHEMISTRY METHOD 04/20/2025 11:40 AM EDT [facility] CO2 28 21 - 32 mmol/L LAB CHEMISTRY METHOD 04/20/2025 11:40 AM EDT [facility] Anion Gap 4 3 - 11 LAB CHEMISTRY METHOD 04/20/2025 11:40 AM [facility] Glucose 87 70 - 100 mg/dL LAB CHEMISTRY METHOD 04/20/2025 11:40 AM [facility] BUN 16 5 - 25 mg/dL LAB CHEMISTRY METHOD 04/20/2025 11:40 AM [facility] Creatinine 0.66 0.50 - 1.10 mg/dL LAB CHEMISTRY METHOD 04/20/2025 11:40 AM [facility] eGFR 92 >=60 mL/min/1. 73m2 LAB CHEMISTRY METHOD 04/20/2025 11:40 AM [facility] Comment:Calculation based on the Chronic Kidney Disease Epidemiology Collaboration (CKD-EPI) equation refit without adjustment for race. BUN/Creatinine Ratio 24.2 LAB CHEMISTRY METHOD 04/20/2025 11:40 AM [facility] Calcium 8.4(L) 8.5 - 10.5 mg/dL LAB CHEMISTRY METHOD 04/20/2025 11:40 AM [facility] AST (SGOT) 20 10 - 42 unit/L LAB CHEMISTRY METHOD 04/20/2025 11:40 AM [facility] ALT (SGPT) 15 10 - 60 unit/L LAB CHEMISTRY METHOD 04/20/2025 11:40 AM [facility] Alkaline Phosphatase 71 42 - 121 unit/L LAB CHEMISTRY METHOD 04/20/2025 11:40 AM [facility] Total Protein 5.7(L) 6.0 - 8.0 g/dL LAB CHEMISTRY METHOD 04/20/2025 11:40 AM [facility] Albumin 2.9(L) 3.2 - 5.0 g/dL LAB CHEMISTRY METHOD 04/20/2025 11:40 AM [facility] Total Bilirubin 0.5 0.0 - 1.4 mg/dL LAB CHEMISTRY METHOD 04/20/2025 11:40 AM [facility] Blood Venous blood specimen / Unknown Venipuncture / Unknown 04/20/2025 6:14 AM EDT 04/20/2025 10:01 AM EDT Maria D JAIME LAB BLOOD ORDERABLES Final Resu lt [facility] [address] [place] [address], documented in this encounter Visit Diagnoses Diagnosis Encounter for other general examination documented in this encounter Care Teams Cut Off Saw Operator Metal Relationship Specialty Start Date End Date Jocelyn Chacon NP [address] [place] [address] Dr [address] [place] [phone] PCP - General 01/19/11 documented as of this encounter
--- OUTSIDE RECORDS SUMMARY | 2025-06-10 19:32 | XMS_ITS | Encounter Summary ---
Author Organization [facility] Address [address] [facility] [address] [place] [address] Phone Care Team Providers Care Web Development Consultant Name Role Phone ImeldamandiShahla davis FOLDING MACHINE FEEDER Primary Care Pro vider Self-Referred, Patient Unavailable Unavailab Mariluz Ivy MD Unavailable [phone] Soledad Mclean MD, MPH Unavailable Juan Manuel Mota MD Unavailable [phone] Encounter Details Date Type Department Care Team (Latest Contact Info) Description 02/02/2020 Transcribe Orders Virtual Department [address] [place] [address] Daryl Fu MD [address] [facility] [place] [address] [email or web address] Calculus of kidney (Primary Dx) Social [...] st Contact Info) Description 09/18/2024 Procedure Pass [facility], Mammography, Manjula Lank Imaging Department [address] [place] [address] 10/08/2025 10:30 AM EDT Appointment [facility], Mammography, Manjula [facility] Imaging Department [address] [place] [address] Fox Martinez MD [address] [place] [address] [email or web address] 10/08/2025 12:00 PM EDT Office Visit [facility], Vee Carrillo [place] [facility], [address], 9th [place] [address] Paz Prado PA-C [address] [place] [address] [email or web address] 11/08/2025 10:00 AM EDT Office Visit [facility] [address] [facility] [address] [place] [address] Raquel Henderson MD, PhD [address] [facility] [address] [place] [address] [email or web address] 11/30/2025 10:30 AM EDT Office Visit [facility] [address] [facility] 3rd Floor, [address] [place] [address] Sheree Devi, DNP [address] [facility], [address] [place] [address] 04/06/2026 10:30 AM EDT Office Visit [facility], Vee Carrillo [place] [facility], [facility] [place] [facility] [place] [address] [address] Paz Naqvi, CLAIM AGENT [address] [place] [address] [email or web address] Soledad Mclean MD, MPH [address] [place] [address] Maria [email or web address] documented as of this encounter Results * [...] mayrepresent a nonobstructive calculus. Daryl Fu MD [facility] Final Result documented in this encounter [...] documented as of this encounter Care Teams Web Development Consultant Relationship Specialty Start Date End Date Shahla Madrigal NP [address] [place] [address] [email or web address] PCP - General Family Medicine 01/05/20 Self-Referred, Patient 10/30/23 04/02/24 Mariluz Be MD [email or web address] Obstetrics and Gynecology 10/30/23 Soledad Mclean MD, MPH [address] [place] [phone] Maria [email or web address] Medical Oncology 01/14/24 Juan Manuel Mota MD [address] [place] [address] [email or web address] .[email or web address] Endocrinology 04/03/24 documented as of this encounter Additional Source Comments The information contained in this document represents components of the legal health record. It is not the complete legal health record.[facility]
--- OUTSIDE RECORDS SUMMARY | 2025-06-10 19:32 | XMS_ITS | Encounter Summary ---
Author Organization [facility] Address [address] [facility] [address] [place] [address] Phone Care Team Providers Care Reconciliation Machine Operator Name Role Phone Shahla Madrigal NP Primary Care Pro vider Self-Referred, Patient Unavailable Unavailab Mariluz Ivy MD Unavailable [phone] Soledad Mclean MD, MPH Unavailable Juan Manuel Mota MD Unavailable [phone] Encounter Details Date Type Department Care Team (Late st Contact Info) Description 03/28/2021 Procedure Pass [facility], Ct Scan - [facility] 30 [place] [address] Social History Tobacco Use Types Packs/Day Years [...] st Contact Info) Description 09/18/2024 Procedure Pass [facility], Mammography, Manjula Lank Imaging Department [address] [place] [address] 10/08/2025 10:30 AM EDT Appointment [facility], Mammography, Manjula Lank Imaging Department [address] [place] [address] Fox Martinez MD [address] [place] [address] [email or web address] 10/08/2025 12:00 PM EDT Office Visit [facility], [facility], [address], 9th [place] [address] Paz Prado PA-C [address] [place] [address] [email or web address] 11/08/2025 10:00 AM EDT Office Visit [facility] [address] [facility], [facility] [address] [facility] [place] [address] Raquel Henderson MD, PhD [address] [place] [phone] [email or web address] 11/30/2025 10:30 AM EDT Office Visit [facility] [address] [place] [address] 3rd Floor, [address] [place] [address] Sheree Devi, FARHANA [address] [facility], [address] [place] [address] 04/06/2026 10:30 AM EDT Office Visit [facility], Vee Carr[facility] [place] [facility], [facility] [place] [facility] [place] [address] [facility] 4th [place] [address] Paz Naqvi DIAMOND SAW OPERATOR [address] [place] [address] [email or web address] Soledad Mclean MD, MPH [address] [place] [address] Maria Guadalupe@[email or web address] documented as of this encounter Visit [...] documented as of this encounter Care Teams Reconciliation Machine Operator Relationship Specialty Start Date End Date Shahla Madrigal NP [address] [place] [address] PCP - General Family Medicine 01/05/20 Self-Referred, Patient 10/30/23 04/02/24 Mariluz Be MD [email or web address] Obstetrics and Gynecology 10/30/23 Soledad Mclean MD, MPH [address] [place] [address] Maria [email or web address] Medical Oncology 01/14/24 Juan Manuel Mota MD [address] [place] [address] [email or web address] Endocrinology 04/03/24 documented as of this encounter Additional Source Comments The information contained in this document represents components of the legal health record. It is not the complete legal health record.[facility]
--- OUTSIDE RECORDS SUMMARY | 2025-06-10 19:32 | XMS_ITS | Encounter Summary ---
Author Organization [facility] Address [address] [facility] [address] [place] [address] Phone Care Team Providers Care Spinning Operator Name Role Phone Imeldamandiryan Shahla Miles NP Primary Care Pro vider Self-Referred, Patient Unavailable Unavailab Mariluz Ivy MD Unavailable [phone] Soledad Mclean MD, MPH Unavailable Juan Manuel Mota MD Unavailable [phone] Encounter Details Date Type Department Care Team (Late st Contact Info) Description 07/19/2023 Procedure Pass [facility], Ct Scan - [facility] [address] [place] [address] Social History Tobacco Use Types Packs/Day Years [...] 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 Not on file Not on file Not on file documented as of this encounter Plan of Treatment Upcoming Encounters Date Type Department Care Team (Late st Contact Info) Description 09/18/2024 Procedure Pass [facility], Mammography, [facility]ula [facility] Imaging Department [address] [place] [address] 10/08/2025 10:30 AM EDT Appointment [facility], Mammography, Manjula [facility] Imaging Department [address] [place] [address] Fox Martinez MD [address] [place] [address] [email or web address] 10/08/2025 12:00 PM EDT Office Visit [facility], [facility], [facility] [address] [facility], 9th [place] [address] Paz Prado PA-C [address] [place] [address] [email or web address] 11/08/2025 10:00 AM EDT Office Visit [facility] [address] [facility] [address] [place] [address] Raquel Henderson MD, PhD [address] [phone] [email or web address] 11/30/2025 10:30 AM EDT Office Visit [facility] [address] [facility] 3rd Floor, [address] [place] [address] Sheree Devi, FARHANA [address] [facility], [address] [place] [address] [email or web address] 04/06/2026 10:30 AM EDT Office Visit [facility], Vee Carrillo [place] [facility], [facility] [place] [facility] [place] [address] [facility] 4th [place] [address] Paz Naqvi PUBLIC RELATIONS CONSULTANT [address] [place] [address] [email or web address] Soledad Mclean MD, MPH [address] [place] [address] Maria [email or web address]@[email or web address] documented as of this encounter Visit Diagnoses Not on filedocumented in this encounter Additional Health Concerns Infection Onset Date Last Indicated Resolved Time CoV-Risk Comment:Per note documentation 06/27/2024 06/27/2024 2:53 AM EST CDiff-Risk 06/28/2024 06/28/2024 06/28/2024 12:3 7 PM EST documented as of this encounter Care Teams Spinning Operator Relationship Specialty Start Date End Date Shahla Madrigal NP [address] [place] [address] [email or web address] PCP - General Family Medicine 01/05/20 Self-Referred, Patient 10/30/23 04/02/24 Mariluz Be MD [email or web address] Obstetrics and Gynecology 10/30/23 Soledad Mclean MD, MPH [address] [place] [address] Maria [email or web address] Medical Oncology 01/14/24 Juan Manuel Mota MD [address] [place] [address] [email or web address] 04/03/24 documented as of this encounter Additional Source Comments The information contained in this document represents components of the legal health record. It is not the complete legal health record.[facility]
--- OUTSIDE RECORDS SUMMARY | 2025-06-10 19:32 | XMS_ITS | Encounter Summary ---
Author Organization [facility] Address [address] [facility] [address] [place] [address] Phone Care Team Providers Care Superintendent Drivers Name Role Phone Shahla Madrigal NP Primary Care Pro vider Self-Referred, Patient Unavailable Unavailab Mariluz Ivy MD Unavailable [phone] Soledad Mclean MD, MPH Unavailable [phone] Juan Manuel Mota MD Unavailable [phone] Encounter Details Date Type Department Care Team (Late st Contact Info) Description 09/27/2020 Procedure Pass [facility], [address] [place] [phone] Social History Tobacco Use Types Packs/Day Years [...] st Contact Info) Description 09/18/2024 Procedure Pass [facility], Mammography, Manjula Lank Imaging Department [address] [place] [address] 10/08/2025 10:30 AM EDT Appointment [facility], Mammography, Manjula Lank Imaging Department [address] [place] [address] Fox Martinez MD [address] [place] [address] maria [email or web address] 10/08/2025 12:00 PM EDT Office Visit [facility], Vee Carrillo [place] [facility], [address], 9th [place] [address] Paz Prado PA-C [address] [place] [address] [email or web address] 11/08/2025 10:00 AM EDT Office Visit [facility] [address] [facility] [address] [facility] [place] [address] Raquel Henderson MD, PhD [address] [place] [phone] [email or web address] 11/30/2025 10:30 AM EDT Office Visit [facility] [address] [place] [address] 3rd Floor, [address] [place] [address] Sheree Devi, FARHANA [address] [facility], [address] [place] [address] 04/06/2026 10:30 AM EDT Office Visit [facility], Vee Carrillo [place] [facility], [facility] [place] [facility] [place] [address] [facility] 4th [place] [address] Paz Naqvi DISTRIBUTION ESTIMATOR [address] [place] [address] [email or web address] Soledad Mclean MD, MPH [address] [place] [address] Maria [email or web address] documented as of this encounter Visit [...] documented as of this encounter Care Teams Superintendent Drivers Relationship Specialty Start Date End Date Shahla Madrigal NP [address] [place] [address] [email or web address] PCP - General Family Medicine 01/05/20 Self-Referred, Patient 10/30/23 04/02/24 Mariluz Be MD [email or web address] Obstetrics and Gynecology 10/30/23 Soledad Mclean MD, MPH [address] [place] [address] Maria Guadalupe@[email or web address] Medical Oncology 01/14/24 Juan Manuel Mota MD [address] [place] [address] [email or web address] .[email or web address] Endocrinology 04/03/24 documented as of this encounter Additional Source Comments The information contained in this document represents components of the legal health record. It is not the complete legal health record.[facility]
--- OUTSIDE RECORDS SUMMARY | 2025-06-10 19:32 | XMS_ITS | Encounter Summary ---
Author Organization [facility] Address [address] [place] [address] Phone Care Team Providers Care Ammunition Assembly I Laborer Name Role Phone Shahla Madrigal NP Primary Care Pro vider Self-Referred, Patient Unavailable Unavailab Mariluz Ivy MD Unavailable [phone] Soledad Mclean MD, MPH Unavailable [phone] Juan Manuel Mota MD Unavailable [phone] Encounter Details Date Type Department Care Team (Late st Contact Info) Description 04/27/2020 Procedure Pass OR Admitting Dept - Virtual Department 30 [place] [address] Social History Tobacco Use Types Packs/Day Years [...] st Contact Info) Description 09/18/2024 Procedure Pass [facility], Mammography, Manjula Lank Imaging Department [address] [place] [address] 10/08/2025 10:30 AM EDT Appointment [facility], Mammography, Manjula Lank Imaging Department [address] [place] [address] Fox Martinez MD [address] [place] [address] maria [email or web address] 10/08/2025 12:00 PM EDT Office Visit [facility], Vee Carrillo [place], [address], 9th [place] [address] Paz Prado PA-C [address] [place] [address] [email or web address]. replaced by [facility] 11/08/2025 10:00 AM EDT Office Visit [facility] [address] [facility] [address] [facility] [place] [address] Raquel Henderson MD, PhD [address] [place] [phone] [email or web address]@[email or web address] 11/30/2025 10:30 AM EDT Office Visit [facility] [address] [place] [address] 3rd Floor, [address] [place] [address] Sheree Devi, FARHANA [address] [facility], [address] [place] [address] 04/06/2026 10:30 AM EDT Office Visit [facility], Vee Carrillo [place], [facility] [place] [facility] [place] 300 [facility] 4th [place] [address] Paz Naqvi TRUCK UNLOADER 450 [place] [address] [email or web address] Soledad Mclean MD, MPH [address] [place] [address] Maria Guadalupe@[facility] documented as of this encounter [...] documented as of this encounter Care Teams Ammunition Assembly I Laborer Relationship Specialty Start Date End Date Shahla Madrigal NP [address] [place] [address] PCP - General Family Medicine 01/05/20 Self-Referred, Patient 10/30/23 04/02/24 Mariluz Be MD [email or web address] Obstetrics and Gynecology 10/30/23 Soledad Mclean MD, MPH [address] [place] [address] Maria Guadalupe@[facility].[place].[facility] Medical Oncology 01/14/24 Juan Manuel Mota MD [address] [place] [address] [email or web address] .[facility] Endocrinology 04/03/24 documented as of this encounter Additional Source Comments The information contained in this document represents components of the legal health record. It is not the complete legal health record.[facility]
--- OUTSIDE RECORDS SUMMARY | 2025-06-10 19:32 | XMS_ITS | Encounter Summary ---
Author Organization [facility] Address [address] [facility] [address] [place] [address] Phone Care Team Providers Care Cpc Name Role Phone Jocelyn Chacon NP Primary Care Provider Shahla Love NP Primary Care Pro vider Self-Referred, Patient Unavailable Unavailab Mariluz Ivy MD Unavailable Soledad Mclean MD, MPH Unavailable Juan Manuel Mota MD Unavailable [phone] Encounter Details Date Type Department Care Team (Late st Contact Info) Description 12/31/2019 Ancillary Orders Virtual Department 30 [place] [address] Shahla Madrigal NP 31 [facility] [place] [address] [email or web address] Pelvic mass Social History Tobacco Use [...] st Contact Info) Description 09/18/2024 Procedure Pass [facility], Mammography, Manjula [facility] Imaging Department [address] [place] [address] 10/08/2025 10:30 AM EDT Appointment [facility], Mammography, Manjula [facility] Imaging Department [address] [place] [address] Fox Martinez MD [address] [place] [address] maria [email or web address] 10/08/2025 12:00 PM EDT Office Visit [facility], [facility], [address], 9th [place] [address] Paz Prado PA-C [address] [place] [address] [email or web address]. [facility] 11/08/2025 10:00 AM EDT Office Visit [facility] 52 [facility] [address] [place] [address] Raquel Henderson MD, PhD 55 [facility] [address] [place] [phone] [email or web address]@[email or web address] 11/30/2025 10:30 AM EDT Office Visit [facility] [address] [place] [address] 3rd Floor, [address] [place] [address] Sheree Devi, FARHANA 22 [facility], [address] [place] [address] 04/06/2026 10:30 AM EDT Office Visit [facility], Vee Carr[facility] [place] [facility], [facility] [place] [facility] [place] 300 [facility] 4th [place] [address] Paz Naqvi SOLAR INSTALLATION SUPERVISOR 450 [place] [address] [email or web address] Soledad Mclean MD, MPH 450 [place] [address] Maria Guadalupe@[email or web address] documented as of this encounter Visit Diagnoses [...] documented as of this encounter Care Teams Cpc Relationship Specialty Start Date End Date Jocelyn Chacon NP PCP - General 04/11/17 01/04/20 Shahla Madrigal NP [address] [place] [address] [email or web address] PCP - General Family Medicine 01/05/20 Self-Referred, Patient 10/30/23 04/02/24 Mariluz Be MD [email or web address] Obstetrics and Gynecology 10/30/23 Soledad Mclean MD, MPH [address] [place] [address] Maria Guadalupe@[email or web address]. [facility] Medical Oncology 01/14/24 Juan Manuel Mota MD [address] [place] [address] [email or web address] Endocrinology 04/03/24 documented as of this encounter Additional Source Comments The information contained in this document represents components of the legal health record. It is not the complete legal health record.[facility]
--- OUTSIDE RECORDS SUMMARY | 2025-06-10 19:32 | XMS_ITS | Continuity of Care Document ---
Author Organization [facility] Address [address] [facility] [address] [place] [address] Assessment Encounter Date Assessment Date Assessment LastModified by Organization Details LastModified Time 04/07/2025 04/07/2025 DATE OF SURGERY:04/14/2025 ADMITTING DIAGNOSIS: Osteoarthritis LEFT knee REASON FOR ADMISSION: Left total knee arthroplasty at [facility] SURGEON: Dr. Osborn HISTORY: The patient presents [...] 10 mg oral tablet) PM Nystatin Topical(Nystop 262505 u/gm powder) Nystatin Topical(Nystatin Ointment) SulfaSALAZINE(sulfa salazine [...] Rheumatoid arthritis: Seen and evaluated by her pharmacist in charge owner who stated that she can continue with [...] Thank you for referring your patient to [facility] for preoperative risk assessment. Please do not [...] 5 73 /min 99 % 97.3 [degF] 049417. 25 g 39.5 kg/m2 162.56 cm 160/87 mm[Hg] 118/70 mm[Hg] YENI HARMON [address], [place], [place], [phone], [facility] [place] [facility] [place] [facility] [...] Codes Diagnosis Note 547 Fortunato Méndez MD [facility] [address] [place] [address] 04/07/2025 09:28:25 04/07/2025 10:35:17 Preprocedural examination done 2582771381 26236 Z01.818 724814 Osteoarthr itis of left knee joint 3149149076 80396 M17.12 0426411 History of asthma 352492 007 Z87.09 160078 Rheumatoid arthritis of multiple joints 194787601 M06.9 [id number] Patient immunocompromised 284006383 D84.9 827064 Postoperat alfredo nausea and vomiting 9700104 R11.2 Z98.890 691896 Cervico-oc cipital neuralgia 82033670 M54.81 [id number] Health Concerns Section Related Observation LastModified by Organization Detai ls LastModified Time None Recorded Concern Status LastModified by Organization Details LastModified Time None Recorded Payers Encounter Date Sequence Insurance Name Policy Number Policy [place] Covered Member ID [place] Member ID Guarantor Name 04/07/2025 2 [place] [id number] Teresa Parson [id number] Teresa Parson 04/07/2025 1 MEDICARE B-[place]: [facility] Teresa Parson [id number] Teresa Parson Notes Date Note Type Note Provider Name and Address Organization Details Recorded Time 04/07/2025 text/html Preop HPIReporte d by Patient Patient presents today for pre-operative evaluation. BARBARA HANNA-YENI GLYNN [address] [facility], [place], [address], [place] [facility] [place] [facility] 04/07/2025 12:34:07 OBGyn Episode No OBEpisode recorded.
--- OUTSIDE RECORDS SUMMARY | 2025-06-10 19:32 | XMS_ITS | Encounter Summary ---
Author Organization [facility] Address [address] [facility] [address] [place] [address] Phone Care Team Providers Care Glove Machine Operator Name Role Phone Jocelyn Chacon LEAD MECHANIC Primary Care Provider Shahla Love LEAD MECHANIC Primary Care Pro vider Self-Referred, Patient Unavailable Unavailab Mariluz Ivy MD Unavailable [phone] Soledad Mlcean MD, MPH Unavailable Juan Manuel Mota MD Unavailable [phone] Encounter Details Date Type Department Care Team (Late st Contact Info) Description 12/09/2017 Procedure Pass [facility], Ct [facility] 30 [place] [address] Social History Tobacco Use Types Packs/Day Years [...] Procedure Pass [facility], Mammography, Manjula [facility] Imaging Department [address] [place] [address] 10/08/2025 10:30 AM EDT Appointment [facility], Mammography, Manjula [facility] Imaging Department [address] [place] [address] Fox Martinez MD [address] [place] [address] maria [email or web address] 10/08/2025 12:00 PM EDT Office Visit [facility], [facility], [address], 9th [place] [address] Paz Prado PA-C [address] [place] [address] [email or web address] [facility] 11/08/2025 10:00 AM EDT Office Visit [address] [place] [address] Raquel Henderson MD, PhD [address] [place] [phone] TEREZA@[facility] 11/30/2025 10:30 AM EDT Office Visit [facility] [address] [place] [address] 3rd Floor, [address] [place] [address] Sheree Devi, FARHANA [address] [place] [address], [address] [place] [address] 04/06/2026 10:30 AM EDT Office Visit [facility], [facility], [facility] Cancer [place] [facility] [place] 300 [facility] 4th [place] [address] Paz Naqvi BOOK TRIMMER 450 [facility] [place] [address] [email or web address] Soledad Mclean MD, MPH 450 [place] [address] Maria [email or web address]@[facility] documented as of this encounter Visit [...] documented as of this encounter Care Teams Glove Machine Operator Relationship Specialty Start Date End Date Jocelyn Chacon NP PCP - General 04/11/17 01/04/20 Shahla Madrigal NP [address] [place] [address] [place] [address] [email or web address] PCP - General Family Medicine 01/05/20 Self-Referred, Patient 10/30/23 04/02/24 Mariluz Be MD [email or web address] Obstetrics and Gynecology 10/30/23 Soldead Mclean MD, MPH [address] [place] [address] Maria Guadalupe@[email or web address].[place].[facility] Medical Oncology 01/14/24 Juan Manuel Mota MD [address] [place] [address] [email or web address] .[facility] 04/03/24 documented as of this encounter Additional Source Comments The information contained in this document represents components of the legal health record. It is not the complete legal health record.[facility]
--- OUTSIDE RECORDS SUMMARY | 2025-06-10 19:32 | XMS_ITS | Encounter Summary ---
Author Organization [facility] Address [address] [place] [address] Phone Care Team Providers Care Artificial Breeding Distributor Name Role Phone Shahla Madrigal NP Primary Care Pro vider Self-Referred, Patient Unavailable Unavailab Mariluz Ivy MD Unavailable [phone] Soledad Mclean MD, MPH Unavailable Juan Manuel Mota MD Unavailable [phone] Encounter Details Date Type Department Care Team (Late st Contact Info) Description 09/27/2020 Procedure Pass [facility], [address] [place] [phone] Social History Tobacco Use Types Packs/Day Years [...] st Contact Info) Description 09/18/2024 Procedure Pass [facility], Mammography, Manjula Lank Imaging Department [address] [place] [address] 10/08/2025 10:30 AM EDT Appointment [facility], Mammography, Manjula Lank Imaging Department [address] [place] [address] Fox Martinez MD [address] [place] [address] maria [email or web address] 10/08/2025 12:00 PM EDT Office Visit [facility], Vee Carrillo [place] [facility], [address], 9th [place] [address] Paz Prado PA-C 450 [place] [address] [email or web address] [email or web address] 11/08/2025 10:00 AM EDT Office Visit [facility] 52 [facility] Suite [facility] [place] [address] Raquel Henderson MD, PhD [address] [place] [phone] TEREZA@[email or web address] 11/30/2025 10:30 AM EDT Office Visit [facility] [address] [place] [address] 3rd Floor, [address] [place] [address] Sheree Devi, FARHANA 22 [facility], [address] [place] [address] 04/06/2026 10:30 AM EDT Office Visit [facility], Vee Carrillo [place] [facility], [facility] [place] [facility] [place] 300 [facility] 4th [place] [address] Paz Naqvi BUILDING CONSTRUCTION IRONWORKER 450 [place] [address] [email or web address] Soledad Mclean MD, MPH 450 [place] [address] Maria Guadalupe@[facility] documented as of this encounter Visit Diagnoses [...] documented as of this encounter Care Teams Artificial Breeding Distributor Relationship Specialty Start Date End Date Shahla Madrigal NP [address] [place] [address] [email or web address] PCP - General Family Medicine 01/05/20 Self-Referred, Patient 10/30/23 04/02/24 Mariluz Be MD [email or web address] Obstetrics and Gynecology 10/30/23 Soledad Mclean MD, MPH [address] [place] [address] Maria Guadalupe@[email or web address].[facility] Medical Oncology 01/14/24 Juan Manuel Mota MD [address] [place] [address] [email or web address] .[facility] Endocrinology 04/03/24 documented as of this encounter Additional Source Comments The information contained in this document represents components of the legal health record. It is not the complete legal health record.[facility]
--- OUTSIDE RECORDS SUMMARY | 2025-06-10 19:32 | XMS_ITS | Encounter Summary ---
Author Organization [facility] Address [address] [facility] [address] [place] [address] Phone Care Team Providers Care Bead Machine Operator Name Role Phone Joeclyn Chacon POLYGRAPH TECHNICIAN Primary Care Provider Shahla Love POLYGRAPH TECHNICIAN Primary Care Pro vider Self-Referred, Patient Unavailable Unavailab Mariluz Ivy MD Unavailable [phone] Soeldad Mclean MD, MPH Unavailable [phone] Juan Manuel Mota MD Unavailable [phone] Encounter Details Date Type Department Care Team (Late st Contact Info) Description 10/28/2019 Procedure Pass [place] Admitting Dept - Virtual Department 30 [place] [address] Social History Tobacco Use Types Packs/Day Years [...] st Contact Info) Description 09/18/2024 Procedure Pass [facility], Mammography, Manjula Lank Imaging Department [address] [place] [address] 10/08/2025 10:30 AM EDT Appointment [facility], Mammography, Manjula Lank Imaging Department [address] [place] [address] Fox Martinez MD [address] [place] [address] maria [email or web address] 10/08/2025 12:00 PM EDT Office Visit [facility], [facility], [address], 9th [place] [address] Paz Prado PA-C [address] [place] [address] [email or web address]. [facility] 11/08/2025 10:00 AM EDT Office Visit [facility] [address] [facility] [address] [place] [address] Raquel Henderson MD, PhD [address] [place] [phone] TEREZA@[email or web address] 11/30/2025 10:30 AM EDT Office Visit [facility] [address] [place] [address] 3rd Floor, [address] [place] [address] Sheree Devi, FARHANA [address] [place] [address], [address] [place] [address] 04/06/2026 10:30 AM EDT Office Visit [facility], [facility], [facility] [place] [facility] [place] 300 [facility] 4th [place] [address] Paz Naqvi CNP 450 [place] [address] [email or web address] Soledad Mclean MD, MPH 450 [place] [address] Maria Guadalupe@[facility] documented as of this encounter Visit Diagnoses [...] documented as of this encounter Care Teams Bead Machine Operator Relationship Specialty Start Date End Date Jocelyn Chacon NP PCP - General 04/11/17 01/04/20 Shahla Madrigal NP [address] [place] [address] [email or web address] PCP - General Family Medicine 01/05/20 Self-Referred, Patient 10/30/23 04/02/24 Mariluz Be MD [email or web address] Obstetrics and Gynecology 10/30/23 Soledad Mclean MD, MPH [address] [place] [address] Maria Guadalupe@[facility].[place].[facility] Medical Oncology 01/14/24 Juan Manuel Mota MD [address] [place] [address] [email or web address] .[facility] 04/03/24 documented as of this encounter Additional Source Comments The information contained in this document represents components of the legal health record. It is not the complete legal health record.[facility]
--- OUTSIDE RECORDS SUMMARY | 2025-06-10 19:32 | XMS_ITS | Encounter Summary ---
Author Organization [facility] Address [address] [facility] [address] [place] [address] Phone Care Team Providers Care Public Relations Counselor Name Role Phone Shahla Madrigal NP Primary Care Pro vider Mariluz Be MD Unavailable [phone] Soledad Mclean MD, MPH Unavailable Juan Manuel Mota MD Unavailable [phone] Encounter Details Date Type Department Care Team (Late st Contact Info) Description 04/17/2024 Procedure Pass [facility] [place], Mammography, Manjula Lank Imaging Department 450 [place], [place] [phone] Social History Tobacco Use Types Packs/Day Years [...] st Contact Info) Description 09/18/2024 Procedure Pass [facility] [place], Mammography, Manjula Lank Imaging Department 450 [place] [address] 10/08/2025 10:30 AM EDT Appointment [facility] [place], Mammography, Manjula Lank Imaging Department 450 [place] [address] Fox Martinez MD 450 [place] [address] maria [email or web address] 10/08/2025 12:00 PM EDT Office Visit [facility], [facility], [address], 9th [place] [address] Paz Prado PA-C [address] [place] [address] [email or web address] 11/08/2025 10:00 AM EDT Office Visit [facility] 52 [facility] 3100 [place] [address] Raquel Henderson MD, PhD [address] [place] [phone] [email or web address]@[facility] 11/30/2025 10:30 AM EDT Office Visit [facility] [address] [place] [address] [address] [facility], [address] [place] [address] Sheree Devi, [address] [address] 04/06/2026 10:30 AM EDT Office Visit [facility], [facility], [facility] [place] [facility] [place] 300 [facility] 4th [place] [address] Paz Naqvi CNP [address] [place] [address] Rafael@[facility] Soledad Mclean MD, MPH 450 [place] [address] Maria Guadalupe@[facility] documented as of this encounter Visit Diagnoses Not on filedocumented in this encounter Additional Health Concerns Infection Onset Date Last Indicated Resolved Time CoV-Risk Comment:Per note documentation 06/27/2024 06/27/2024 2:53 AM EST CDiff-Risk 06/28/2024 06/28/2024 06/28/2024 12:3 7 PM EST documented as of this encounter Care Teams Public Relations Counselor Relationship Specialty Start Date End Date Shahla Madrigal NP [address] [place] [address] [email or web address] PCP - General Family Medicine 01/05/20 Mariluz Be MD [address] [place] [address] [email or web address] Obstetrics and Gynecology 10/30/23 Soledad Mclean MD, MPH [address] [place] [address] Maria Guadalupe@[facility] Medical Oncology 01/14/24 Juan Manuel Mota MD [address] [place] [address] [email or web address] .[facility] Endocrinology 04/03/24 documented as of this encounter Additional Source Comments The information contained in this document represents components of the legal health record. It is not the complete legal health record.[facility]
--- OUTSIDE RECORDS SUMMARY | 2025-06-10 19:32 | XMS_ITS | Encounter Summary ---
Author Organization [facility] Address [address] [place] [address] Phone Care Team Providers Care Molding Supervisor Name Role Phone Shahla Madrigal NP Primary Care Pro vider Self-Referred, Patient Unavailable Unavailab Mariluz Ivy MD Unavailable [phone] Soledad Mclean MD, MPH Unavailable [phone] Juan Manuel Mota MD Unavailable [phone] Reason for Referral * MRI/CAT Scan - Closed Specialty Diagnoses / Procedures Referred By Jefferson markham Referred To Contact Radiology Diagnoses Calculus of kidney Procedures CT Abdomen/Pelvis Daryl Fu MD Phone: tel: fax: mailto:[email or web address] Referral ID Status Reason Start Date Expiration Date Visits Re quested Visits Authorized [id number] Closed 03/28/2021 03/28/2022 1 1 Encounter Details Date Type Department Care Team (Latest Contact Info) Description 03/28/2021 Transcribe Orders Virtual Department [address] [place] [address] Daryl Fu MD [facility], [address] [place] [address] [email or web address] Calculus of kidney (Primary Dx) [...] Contact Info) Description 09/18/2024 Procedure Pass [facility] [place], Mammography, Manjula Lank Imaging Department [address] [place] [address] 10/08/2025 10:30 AM EDT Appointment [facility], Mammography, Manjula Lank Imaging Department [address] [place] [address] Fox Martinez MD [address] [place] [address] maria [email or web address] 10/08/2025 12:00 PM EDT Office Visit [facility], [facility], [facility] [address], 9th [place] [address] Paz Prado PA-C [address] [place] [address] [email or web address]. [facility] 11/08/2025 10:00 AM EDT Office Visit [facility] [address] [facility] [address] [place] [address] Raquel Henderson MD, PhD 55 [facility] 835 [place] [phone] TEREZA@[facility] 11/30/2025 10:30 AM EDT Office Visit [facility] [address] [facility] 3rd Floor, [address] [place] [address] Sheree Devi, [facility] [address] [facility], [address] [place] [address] 04/06/2026 10:30 AM EDT Office Visit [facility], Vee Carrillo [place] [facility], [facility] [place] [facility] [place] [address] [facility] 4th [place] [address] Paz Naqvi, SUPERVISOR SLASHING DEPARTMENT 450 [place] [address] Rafael@[facility] Soledad Mclean MD, MPH 450 [place] [address] Maria Guadalupe@[facility] documented as of this encounter Results [...] documented as of this encounter Care Teams Molding Supervisor Relationship Specialty Start Date End Date Shahla Madrigal NP [address] [place] [address] [email or web address] PCP - General Family Medicine 01/05/20 Self-Referred, Patient 10/30/23 04/02/24 Mariluz Be MD [email or web address] Obstetrics and Gynecology 10/30/23 Soledad Mclean MD, MPH [address] [place] [address] Maria Guadalupe@[email or web address] Medical Oncology 01/14/24 Juan Manuel Mota MD [address] [place] [address] [email or web address] Endocrinology 04/03/24 documented as of this encounter Additional Source Comments The information contained in this document represents components of the legal health record. It is not the complete legal health record.[facility]
--- OUTSIDE RECORDS SUMMARY | 2025-06-10 19:32 | XMS_ITS | Encounter Summary ---
Author Organization [facility] Address [address] [place] [address] Phone Care Team Providers Care Machinist Class B Name Role Phone Shahla Madrigal NP Primary Care Pro vider Self-Referred, Patient Unavailable Unavailab Mariluz Ivy MD Unavailable [phone] Soledad Mclean MD, MPH Unavailable [phone] Juan Manuel Mota MD Unavailable [phone] Reason for Referral * Outpatient Procedure - Closed Specialty Diagnoses / Procedures Referred By Jefferson t Referred To Contact Radiology Diagnoses Malignant neoplasm of upper-outer quadrant of right breast in female, estrogen receptor positive Procedures [facility] Breast Needle Localization (Right) Mammogram Needle Localization (Right) NE PERQ DEVICE PLACEMT BREAST LOC 1ST LES W Fox Whitney MD Phone: tel: fax: mailto:[email or web address] Referral ID Status Reason Start Date Expiration Date Visits Re quested Visits Authorized [id number] Closed 11/19/2023 02/23/2024 1 1 Encounter Details Date Type Department Care Team (Late st Contact Info) Description 11/25/2023 Ancillary Orders [facility] [address] [place] [address] Fox Martinez MD [address] [place] [address] maria [email or web address] Malignant neoplasm of upper-outer quadrant of right [...] Info) Description 09/18/2024 Procedure Pass [facility], Mammography, Manjula [facility] Imaging Department [address] [place] [address] 10/08/2025 10:30 AM EDT Appointment [facility], Mammography, Manjula [facility] Imaging Department [address] [place] [address] Fox Martinez MD [address] [place] [address] maria [email or web address] 10/08/2025 12:00 PM EDT Office Visit [facility], [facility], [facility] 450 [facility], 9th [place] [address] Paz Prado PA-C 450 [place] [address] [email or web address]. [facility] 11/08/2025 10:00 AM EDT Office Visit [facility] [address] [facility] [address] [place] [address] Raquel Henderson MD, PhD [address] [phone] [email or web address] 11/30/2025 10:30 AM EDT Office Visit [facility] [address] [facility] 3rd Floor, [address] [place] [address] Sheree Devi, FARHANA 22 [facility], [address] [place] [address] 04/06/2026 10:30 AM EDT Office Visit [facility], [facility], [facility] [place] [facility] [place] 300 [facility] 4th [place] [address] Paz Naqvi BROADCASTER 450 [place] [address] Rafael@[email or web address] Soledad Mclean MD, MPH 450 [place] [address] Maria Guadalupe@[facility] documented as of this encounter Results * [facility] Breast Needle Localization (Right) (11/25/2023 12:27 PM [...] and was immediately availablefor the non-critical/bob portions. Fox Maddy Martinez MD IMG BI IRP GUIDED [...] documented as of this encounter Care Teams Machinist Class B Relationship Specialty Start Date End Date Shahla Madrigal NP [address] [place] [address] [email or web address] PCP - General Family Medicine 01/05/20 Self-Referred, Patient 10/30/23 04/02/24 Mariluz Be MD [email or web address] Obstetrics and Gynecology 10/30/23 Soledad Mclean MD, MPH [address] [place] [address] Maria Guadalupe@[facility].[place]. du Medical Oncology 01/14/24 Juan Manuel Mota MD [address] [place] [address] [email or web address] Endocrinology 04/03/24 documented as of this encounter Additional Source Comments The information contained in this document represents components of the legal health record. It is not the complete legal health record.[facility]
--- OUTSIDE RECORDS SUMMARY | 2025-06-10 19:32 | XMS_ITS | Encounter Summary ---
Author Organization [facility] Address [address] [facility] [address] [place] [address] Phone Care Team Providers Care Telephone Interviewer Name Role Phone Jocelyn Chacon GRAPHICS EDITOR Primary Care Provider Shahla Love GRAPHICS EDITOR Primary Care Pro vider Self-Referred, Patient Unavailable Unavailab Mariluz Ivy MD Unavailable Soledad Mclean MD, MPH Unavailable Juan Manuel Mota MD Unavailable [phone] Encounter Details Date Type Department Care Team (Late st Contact Info) Description 12/30/2019 Ancillary Orders Virtual Department 30 [place] [address] Daryl Fu MD [address] [facility], [address] [place] [address] [email or web address] Kidney stones; Flank pain Social History Tobacco [...] [facility], [facility], Manjula Lank Imaging Department [address] [place] [address] 10/08/2025 10:30 AM EDT Appointment [facility], Mammography, Manjula [facility] Imaging Department [address] [place] [address] Fox Martinez MD [address] [place] [address] maria [email or web address] 10/08/2025 12:00 PM EDT Office Visit [facility], [facility], [address], 9th [place] [address] Paz Prado PA-C 450 [place] [address] [email or web address]. [facility], [facility] 11/08/2025 10:00 AM EDT Office Visit [facility] [address] [facility] [address] [place] [address] Raquel Henderson MD, PhD 55 [facility] 835 [place] [address] [email or web address]@[email or web address] 11/30/2025 10:30 AM EDT Office Visit [facility] [address] [place] [address] 3rd Floor, [address] [place] [address] Sheree Devie, DNP [address] [facility], [address] [place] [address] 04/06/2026 10:30 AM EDT Office Visit [facility], Vee Carrillo [place] [facility], [facility] [place] [facility] [place] [address] [address] Paz Naqvi RELISH BLENDER 450 [place] [address] [email or web address] Soledad Mclean MD, MPH 450 [place] [address] Maria Guadalupe@[facility] documented as of this encounter Visit [...] documented as of this encounter Care Teams Telephone Interviewer Relationship Specialty Start Date End Date Jocelyn Chacon NP PCP - General 04/11/17 01/04/20 Shahla Madrigal NP [address] [place] [address] [email or web address] PCP - General Family Medicine 01/05/20 Self-Referred, Patient 10/30/23 04/02/24 Mariluz Be MD [email or web address], [facility] Obstetrics and Gynecology 10/30/23 Soledad Mclean MD, MPH [address] [place] [address] Maria Guadalupe@[facility].[place] Medical Oncology 01/14/24 Juan Manuel Mota MD [address] [place] [address] [email or web address] Endocrinology 04/03/24 documented as of this encounter Additional Source Comments The information contained in this document represents components of the legal health record. It is not the complete legal health record.[facility]
--- OUTSIDE RECORDS SUMMARY | 2025-06-10 19:32 | XMS_ITS | Data Portability ---
Author Organization [facility], [employer] - [facility] Address [address] [place] [address] Assessment Encounter Date Assessment Date Assessment LastModified by Organization Details LastModified Time 04/07/2025 04/07/2025 DATE OF SURGERY:04/14/2025 ADMITTING DIAGNOSIS: Osteoarthritis LEFT knee REASON FOR ADMISSION: Left total knee arthroplasty at [facility] SURGEON: Dr. Osborn HISTORY: The patient [...] in the summer. She was in the [facility] with an exacerbation in January and was [...] 10 mg oral tablet) PM Nystatin Topical(Nystop 171728 u/gm powder) Nystatin Topical(Nystatin Ointment) SulfaSALAZINE(sulfa salazine [...] Rheumatoid arthritis: Seen and evaluated by her pie baker who stated that she can continue with [...] Thank you for referring your patient to [facility] for preoperative risk assessment. Please do [...] 5 73 /min 99 % 97.3 [degF] 243217. 25 g 39.5 kg/m2 162.56 cm 160/87 mm[Hg] 118/70 mm[Hg] YENI HARMON [address], [place], [place]IR, [address] 1TANVIR - [place] 5 [...] Codes Diagnosis Note 547 Fortunato Méndez MD [facility] [address] [place] [address] 04/07/2025 09:28:25 04/07/2025 10:35:17 Preprocedural examination done 8862300773 10704 Z01.818 605738 Osteoarthr itis of left knee joint 4716524936 72815 M17.12 2556601 History of asthma 338950 007 Z87.09 990084 Rheumatoid arthritis of multiple joints 719940346 M06.9 [id number] Patient immunocompromised 720358700 D84.9 148609 Postoperat alfredo nausea and vomiting 0049312 R11.2 Z98.890 517417 Cervico-oc cipital neuralgia 96308317 M54.81 [id number] Health Concerns Section Related Observation LastModified by Organization Detai ls LastModified Time None Recorded Concern Status LastModified by Organization Details LastModified Time None Recorded Advance Directives Directive None Recorded Payers Insurance Date Sequence Insurance Name Policy Number Policy [place] Covered Member ID [place] Member ID Guarantor Name 04/05/2025 2 [place] [id number] Teresa Parson [id number] Teresa Parson 04/05/2025 1 MEDICARE B-[place]: [facility] Teresa Parson [id number] Teresa Parson Notes Date Note Type Note Provider Name and Address Organization Details Recorded Time 04/07/2025 text/html Preop HPIReporte d by Patient Patient presents today for pre-operative evaluation. BARBARA HANNA-YENI GLYNN [address] [facility] [address], [place], [address], [facility]AN[facility]IR - ACSPER DE LA [place] 04/07/2025 12:34:07 OBGyn Episode No OBEpisode recorded.
--- OUTSIDE RECORDS SUMMARY | 2025-06-10 19:32 | XMS_ITS | Encounter Summary ---
Author Organization [facility] Address [address] [place] [address] Phone Care Team Providers Care Parts Sales Advisor Name Role Phone Jocelyn Chacon PELLET POST INSPECTOR Primary Care Provider Shahla Love PELLET POST INSPECTOR Primary Care Pro vider Self-Referred, Patient Unavailable Unavailab Mariluz Ivy MD Unavailable Soledad Mclean MD, MPH Unavailable [phone] Juan Manuel Mota MD Unavailable [phone] Encounter Details Date Type Department Care Team (Late st Contact Info) Description 12/30/2019 Ancillary Orders Virtual Department 30 [place] [address] Zari Quiroga PA [address] [address] [email or web address] behavioral [email or web address] [email or web address] Kidney stones; Flank pain Social History Tobacco [...] st Contact Info) Description 09/18/2024 Procedure Pass [facility], Mammography, Manjula [facility] Imaging Department [address] [place] [address] 10/08/2025 10:30 AM EDT Appointment [facility], Mammography, Manjula [facility] Imaging Department [address] [place] [address] Fox Martinez MD [address] [place] [address] maria [email or web address] 10/08/2025 12:00 PM EDT Office Visit [facility], [facility], [facility] [address], 9th [place] [address] Paz Prado PA-C 450 [place] [address] [email or web address]. [facility] 11/08/2025 10:00 AM EDT Office Visit [facility] 52 [address] [facility] [address] [place], [place] [address] Raquel Henderson MD, PhD [address] [address] TEREZA@[email or web address] 11/30/2025 10:30 AM EDT Office Visit [facility] [address] [place] [address] 3rd Floor, [address] [place] [address] Sheree Devi, FARHANA 22 [facility], [address] [place] [address] 04/06/2026 10:30 AM EDT Office Visit [facility], Vee Carrillo [place] [facility], [facility] [place] [facility] [place] 300 [facility] 4th [place] [address] Paz Naqvi BUSINESS INTEGRATION MANAGER 450 [place] [address] Rafael@[facility] Soledad Mclean MD, MPH 450 [place] [address] Maria Guadalupe@[facility] documented as of this encounter Results [...] Normal right kidney. POS [id number] Zari [facility] RENAL Final Resu lt documented in this [...] documented as of this encounter Care Teams Parts Sales Advisor Relationship Specialty Start Date End Date Jocelyn Chacon NP PCP - General 04/11/17 01/04/20 Shahla Madrigal NP [address] [place] [address] [email or web address] PCP - General Family Medicine 01/05/20 Self-Referred, Patient 10/30/23 04/02/24 Mariluz Be MD [email or web address] Obstetrics and Gynecology 10/30/23 Soledad Mclean MD, MPH [address] [place] [address] Maria Guadalupe@[facility] Medical Oncology 01/14/24 Juan Manuel Mota MD [address] [place] [address] [email or web address] .[email or web address] Endocrinology 04/03/24 documented as of this encounter Additional Source Comments The information contained in this document represents components of the legal health record. It is not the complete legal health record.[facility]
--- OUTSIDE RECORDS SUMMARY | 2025-06-10 19:32 | XMS_ITS | Encounter Summary ---
Author Organization [facility] Address [address] [facility] [address] [place] [address] Phone Care Team Providers Care Evening Or Night Nurse Supervisor Name Role Phone Shahla Madrigal NP Primary Care Pro vider Self-Referred, Patient Unavailable Unavailab Mariluz Ivy MD Unavailable [phone] Soledad Mclean MD, MPH Unavailable [phone] Juan Manuel Mota MD Unavailable Encounter Details Date Type Department Care Team (Late st Contact Info) Description 03/09/2022 Procedure Pass [facility] Endoscopy Admitting Dept Virtual Department 30 [place] [address] Social History Tobacco Use Types Packs/Day Years [...] st Contact Info) Description 09/18/2024 Procedure Pass [facility], Mammography, Manjula Lank Imaging Department [address] [place] [address] 10/08/2025 10:30 AM EDT Appointment [facility], Mammography, Manjula Lank Imaging Department [address] [place] [address] Fox Martinez MD [address] [place] [address] maria [email or web address] 10/08/2025 12:00 PM EDT Office Visit [facility], Vee Carrillo [place] [facility], [address], 9th [place] [address] Paz Prado PA-C 450 [place] [address] [email or web address]. [facility] 11/08/2025 10:00 AM EDT Office Visit [facility] [address] [facility] [address] [facility] [place] [address] Raquel Henderson MD, PhD [address] [place] [phone] TEREZA@[facility] 11/30/2025 10:30 AM EDT Office Visit [facility] [address] [place] [address] 3rd Floor, [address] [place] [address] Sheree Devi, FARHANA 22 [facility], [address] [place] [address] 04/06/2026 10:30 AM EDT Office Visit [facility], Vee Carrillo [place] [facility], [facility] [place] [facility] [place] 300 [facility] 4th [place] [address] Paz Naqvi CAP CUTTER 450 [place] [address] [email or web address] Soledad Mclean MD, MPH 450 [place] [address] Maria Guadalupe@[facility] documented as of this encounter Visit [...] documented as of this encounter Care Teams Evening Or Night Nurse Supervisor Relationship Specialty Start Date End Date Shahla Madrigal NP [address] [place] [address] [email or web address] PCP - General Family Medicine 01/05/20 Self-Referred, Patient 10/30/23 04/02/24 Mariluz Be MD [email or web address] Obstetrics and Gynecology 10/30/23 Soledad Mclean MD, MPH [address] [place] [address] Maria Guadalupe@[email or web address].[facility] Medical Oncology 01/14/24 Juan Manuel Mota MD [address] [place] [address] [email or web address] .[facility] Endocrinology 04/03/24 documented as of this encounter Additional Source Comments The information contained in this document represents components of the legal health record. It is not the complete legal health record.[facility]
--- OUTSIDE RECORDS SUMMARY | 2025-06-10 19:33 | XMS_ITS | Clinical Summary ---
Author Organization [facility] Address [address] [place] [address] Phone Care Team Providers Care Riverboat Captain Name Role Phone Shahla Madrigal NP Primary Care Pro vider Mariluz Be MD Unavailable [phone] Soledad Mclean MD, MPH Unavailable [phone] Juan Manuel Mota MD Unavailable [phone] Allergies Active Allergy Reactions Criticality Noted Date Comments Adhesive Dermatitis 01/12/2025 Animal Dander 03/23/1996 Other reaction(s): Unknown Cephalexin Hives 03/04/2017 Chlorhexidin-Isopropyl Alcohol Rash Low 06/22/2024 Presumed allergic vs. contact dermatitis Chlorhexidine Rash Low 06/01/2025 Clindamycin Hcl Hives 03/04/2017 Other Reaction(s): Bowel [...] Unknown 03/04/2017 Other Reaction(s): Bowel irritation Medications hydroxychloroqui ne (PLAQUENIL) 200 mg tablet Take 200 mg by mouth 2 (two) times a day. 10/01/19 19 Active methotrexate 2.5 MG Oral tablet Take 20 mg by mouth every 7 days. Fridays Active OMEGA-3S/DHA/EPA /FISH OIL (OMEGA 3 ORAL)Indications :1 tab daily Take 1 tablet by mouth every morning. Indications: 1 tab daily Active albuterol 90 mcg/actuation inhaler 2 puffs as needed Active cetirizine (ZYRTEC) 10 MG tablet Take 10 mg by mouth daily as needed for allergies. 01/15/20 23 Active leucovorin (WELLCOVORIN) 5 mg tablet Take 10 mg by mouth once a week. Once a week after methotrexate 02/13/20 23 Active NYSTOP powder Apply 1 Application topically 2 (two) times a day as needed (rash). Apply to right groin/abdominal fold 2 times a day 07/08/19 25 Active triamcinolone acetonide 0.025 % cream Apply 1 Application topically 2 (two) times a day as needed (rash). 02/27/20 23 Active atorvastatin (LIPITOR) 10 MG tablet Take 10 mg by mouth daily. 02/06/20 24 Active indapamide (LOZOL) 2.5 mg tablet Take 2.5 mg by mouth daily. 03/24/20 24 Active levothyroxine (SYNTHROID, LEVOTHROID) 175 MCG tablet [...] by mouth 2 (two) times a day. 03/03/20 25 Active folic acid (FOLVITE) 1 MG tablet Take 1 mg by mouth daily. 07/15/19 25 Active fluticasone propion-salmeter oL (ADVAIR HFA) 115-21 mcg/actuation inhalerIndicatio ns:Mild persistent asthma, unspecified whether complicated Inhale 2 puffs into the lungs 2 (two) times a day. 36 g 3 10/07/19 25 Active montelukast (SINGULAIR) 10 mg tabletIndication s:Mild persistent asthma, unspecified whether complicated TAKE 1 TABLET BY MOUTH EVERYDAY AT BEDTIME 90 tablet 3 11/10/19 25 Active EMGALITY PEN 120 mg/mL subcutaneous injection Inject 120 mg under the skin every 30 (thirty) days. 11/06/19 Active XIIDRA 5 % ophthalmic solution ISNTILL 1 DROP INTO BOTH EYES TWICE DAILY FOR 3 MONTHS 09/01/19 Active ALPRAZolam (XANAX) 0.5 MG tablet Take 0.5 mg by mouth nightly at bedtime as needed for sleep. Just for procedure Active carboxymethylcel lulose-glycerin, PF, (REFRESH OPTIVE SENSITIVE) 0.5-0.9 % Dpet Place into each eye 4 (four) times a day as needed. Active celecoxib (CELEBREX) 200 MG capsule Take 200 mg by mouth daily as needed for pain (specific location in comments). Active acetaminophen (TYLENOL) 325 mg tablet Take 3 tablets (975 mg total) by mouth every 8 (eight) hours. For one week then q 8 hrs prn moderate pain 02/19/20 Active oxyCODONE HCl 10 mg Tab Take 0.5 tablets (5 mg total) by mouth every 6 (six) hours as needed (severe pain). Partial fill ok 20 tablet 02/19/20 Active clotrimazole (LOTRIMIN) 1 % cream Apply 1 Application topically 2 (two) times a day. 03/03/20 25 Active lactobacillus rhamnosus, GG, (CULTURELLE) 10 billion cell capsule Take 1 capsule by mouth daily. 03/03/20 25 Active CALCIUM CITRATE ORAL Take 200 mg by mouth 2 (two) times a day. 03/03/20 25 Active ID-ergocalcifero l <CRC 1868> ([id number]) 85300 units capsule Take 50,000 Units by mouth once a week. 03/03/20 25 Active B-complex with vitamin C (VITAMIN B COMPLEX WITH C ORAL) Take 1 tablet by mouth daily. 03/03/20 25 Active NURTEC ODT 75 mg tablet Take 75 mg by mouth once as needed. 03/19/20 25 Active zoledronic acid (RECLAST) 5 mg/100 mL PgBk Inject 5 mg into the vein once. Active exemestane (AROMASIN) 25 mg tabletIndication s:Malignant neoplasm of upper-outer quadrant of right breast in female, estrogen receptor positive Take 1 tablet (25 mg total) by mouth daily. 90 tablet 3 03/31/20 25 Active propranoloL (INDERAL) 10 MG immediate release tablet Take 1 tablet (10 mg total) by mouth as needed (palpiations). 30 tablet 06/01/20 25 Active aspirin-acetamin ophen-caffeine (EXCEDRIN MIGRAINE) 250-250-65 mg per tablet Take 1 tablet by mouth every 6 (six) hours as needed for pain (specific location in comments). 025 Discontin ued(No longer taking) DEPAKOTE [address] tablet Take 250 mg by mouth 2 (two) times a day as needed (pain). 2 times a day for 5 days as needed for acute head and ear pain 12/12/19 25 025 Discontin ued(No longer taking) famotidine (PEPCID) 20 MG tabletIndication s:Gastroesophage al reflux disease Take 1 tablet (20 mg total) by mouth daily. 02/19/20 25 025 Discontin ued(No longer taking) predniSONE (DELTASONE) 20 MG tablet Take 2 tablets (40 mg total) by mouth daily. Daily for 3 more days, then 20 mg po daily for 3 days then 10 mg po daily for 3 days then stop 02/20/20 025 Discontin ued(No longer taking) Active Problems Problem Noted Date [...] refill/new prescription. Palpitations 11/09/2024 Assessment & Plan (06/01/2025 2:55 PM EST): Everything was clear she did have a Holter monitor which did reveal 13 short runs of SVT. She does continue to have episodes of palpitations at times and has a lot of anxiety and stress in her life. We are going to go ahead and try propranolol 10 mg on an as-needed basis for palpitations that are not resolved. Assessment & Plan (01/25/2025 4:13 PM EDT): [...] if positive in particular, may refer to [place] for more extensive testing. Malignant neoplasm of [...] mucinous carcinoma that was ER strongly positive>95%, VA positive 60%, HER2 negative by IHC November 25, 2023 - right lumpectomy - multifocal (1.3, 0.3, and 0.1 cm) grade 2 invasive ductal carcinoma. IHC was not repeated, but the biopsy was ER strongly positive >95%, VA positive 60%, and HER2 negative by IHC. No lymph nodes were sampled. 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 IHC was not repeated, but the biopsy was ER strongly positive >95%, VA positive 60%, and HER2 negative by IHC. [...] Last available images here at [facility] from 2018 with a 3 mm right middle lobe nodule, unclear if it is the same nodule and representing growth, or new nodule of no clear significance. Given family history of lung cancer and concern for possible growth, we will repeat CT scan for 6-month follow-up. We will try to request images from [facility]. Obstructive uropathy 10/23/2019 Assessment & Plan [...] breath) on exertion 06/26/2017 Assessment & Plan (06/01/2025 2:55 PM EST): Denies shortness of breath at this time. Assessment & Plan (01/12/2025 10:14 AM EDT): [...] indicated therapies. Should check with PCP and dust control engineer to ensure no evidence of iron deficiency [...] Encounters Date Type Department Care Team Description 06/01/2025 2:30 PM EST Office Visit [facility] [address], [address] [place] [address] Sheree Devi DNP Palpitations (Primary Dx); SOB (shortness of breath) on exertion 04/27/2025 Orders Only [facility] [address] [place] [phone] Homehealth, Farida Rosas MD 03/31/2025 10:30 AM EDT Office Visit [facility], [facility], [facility] [place] [facility] [place] [address] 4th [place] [address] Paz Naqvi, CHIEF LIBRARIAN EXTENSION DEPARTMENT Soledad Mclean MD, MPH Malignant neoplasm of upper-outer quadrant of right breast in female, estrogen receptor positive (Primary Dx); Gastroesophageal reflux disease 03/23/2025 10:30 AM EDT Home Care Visit [facility] [address] [place] [phone] Louise Cuadra, PT PT OASIS DISCHARGE VISIT 03/19/2025 9:30 AM EDT Home Care Visit [facility] [address] [place] [phone] Pily Miguel, RN SN DISCIPLINE DISCHARGE VISIT 03/18/2025 10:30 AM EDT Home Care Visit [facility] [address] [place] [phone] Louise Cuadra, PT PT EVALUATION 03/16/2025 Home Care Visit [facility] [address] [place] [phone] Louise Cuadra, PT TELEPHONE ENCOUNTER from Last 3 Months Immunizations Immunization Administration [...] Pulse 94 06/01/2025 2:25 PM EST Temperature 36.2 C (97.2 F) 03/31/2025 11:09 AM EDT Respiratory Rate 18 03/31/2025 11:09 AM EDT Oxygen Saturation 95% 06/01/2025 2:25 PM EST Inhaled Oxygen Concentration - - Weight 101.6 kg (224 lb) 06/01/2025 2:25 PM EST Height 160.6 cm (5' 3.23 ) 06/01/2025 2:25 PM ES T Body Mass Index 39.39 06/01/2025 2:25 PM EST Plan of Treatment Upcoming Encounters Date Type Department Care Team (Late st Contact Info) Description 09/18/2024 Procedure Pass [facility] [place], Mammography, [facility] Imaging Department [address] [place] [phone] 10/08/2025 10:30 AM EDT Appointment [facility] [place], Mammography, [facility] Imaging Department [address] [place] [address] Fox Martinez MD [address] [place] [address] [email or web address] 10/08/2025 12:00 PM EDT Office Visit [facility], [facility], [facility] [address]th [place] [address] Paz Prado PA-C [address] [place] [address] [email or web address] 11/08/2025 10:00 AM EDT Office Visit [facility] [address] [place] [address] Raquel Henderson MD, PhD [address] [place] [phone] [email or web address] 11/30/2025 10:30 AM EDT Office Visit [facility] [address] [place] [address], [address] [place] [address] Sheree Devi, FARHANA [address] [place] [address] [place] [phone] 04/06/2026 10:30 AM EDT Office Visit [facility], [facility], [facility] [place] [facility] [place] [address] [facility] 4th [place] [address] Paz Naqvi, CHIEF LIBRARIAN EXTENSION DEPARTMENT [address] [place] [address] [email or web address] Soledad Mclean MD, MPH [address] [place] [address] [email or web address] Health Maintenance Due Date Last Done Comments LIPID PANEL 1950 TSH LEVEL 1950 DEPRESSION SCREENING 1962 HEPATITIS C SCREENING 1968 COLOGUARD 1995 FIT TEST 1995 FOBT 1995 SIGMOIDOSCOPY 1995 VIRTUAL COLONOSCOPY 1995 RSV VACCINE (1 - Risk 50-74 years 1-dose series) 2000 OSTEOPOROSIS SCREENING INITIAL (ONE-TIME) 2015 Adult Td,Tdap Booster 09/01/2023 08/31/2013, 003 COVID-19 VACCINE (2024- season) 2025 01/21/2025, 10/03/2023, 10/03/2023, Additional history exists POTASSIUM LEVEL 02/19/2026 02/19/2025, 01/23, 02/17/2025, Additional history exists MAMMOGRAM 09/18/2026 09/18/2024, 09/23, 09/12/2023, Additional history exists COLONOSCOPY 03/09/2027 03/09/2022 COLORECTAL CANCER SCREENING 03/09/2027 PNEUMOCOCCAL VACCINES (50+ years) Completed 08/28/2022, 05/28/2016, 04/09/2011, Additional history exists ZOSTER VACCINES Completed 03/29/2023, 0312/2022, 11/22/2012 INFLUENZA VACCINE Completed 03/26/2025, , 05/01/2023, Additional history exists SMOKING STATUS SCREENING (Once After 26 Yrs) Completed 06/01/2025 HEPATITIS A VACCINES Aged Out No long [...] this topic Medical Devices Implanted Type Area Global Chief Experience Officer Device Identifier Shelf Expiration Date Model / Serial / Lot Right Knee Hardware Seed Loose 7cm Needle W/Trailing Spacer For 2070 - [id number] Implanted:Qty: 1 on 11/25/2023 at [facility] Right: Breast DFMSim 04/04/[id number] / / Explanted Type Area Global Chief Experience Officer Device Identifier Shelf Expiration Date Model / Serial / Lot Stent Ureteral 6fr 22 To 30cm Stretch Coated Vincent - [id number] Implanted:Qty: 1 on 10/24/2019 by Daryl Fu MD at [facility] Left: Ureter Qraved ELVIA 04/14/2022 [id number] / / [id number] Procedures Procedure Name Priority Date/Time Associated Diagnosis Comments BASIC METABOLIC PANEL (BMP) Routine 02/19/2025 5:28 AM EDT Illness, unspecified BI MAMMOGRAM SCREENING WITH TOMOSYNTHESIS WITH CAD (BILATERAL) Routine 09/18/2024 10:17 AM EDT Malignant neoplasm of upper-outer quadrant of right breast in female, estrogen receptor positive ENDOSCOPY, COLON 03/09/2022 9:21 AM EDT from Last 3 Months or Most Recently Relevant to Health Maintenance Results * (ABNORMAL) Basic metabolic panel (02/19/2025 5:28 AM EDT) SODIUM 137 133 - 146 mmol/L [facility] CHLORIDE 99 96 - 108 mmol/L [facility] POTASSIUM 4.3 3.3 - 5.1 mmol/L [facility] CO2 26 21 - 35 mmol/L [facility] BUN 23(H) 6 - 19 mg/dL [facility] CREATININE 0.90 0.5 - 1.5 mg/dL [facility] GLUCOSE 111(H) 70 - 99 mg/dL [facility] CALCIUM 10.0 8.4 - 10.3 mg/dL [facility] EGFR 67 >59 mL/min/1.7 3m2 [facility] Comment:Estimated glomerular filtration rate calculated using the CKD-EPI refit equation. ANION GAP 16 10 - 20 mmol/L [facility] 02/19/2025 5:28 AM EDT 02/19/2025 7:30 AM EDT us Leonardo Sky MD LAB BLOOD BKR ORDERABLES Final R esult [address] [address] * BI MAMMOGRAM SCREENING WITH TOMOSYNTHESIS WITH [...] Patient Name: Teresa Leyvaarthy Attending MD:: TREY MARTINEZ MD Procedure Date: 03/09/2022 9:21 AM Date of : 1950 Age: 71 Admit Type: Outpatient Gender: Female Room: [place] [address] Referring MD: Shahla Madrigal Exam Type: Colonoscopy [...] monitored continuously. The Olympus adult variable colonoscope [id number] #[id number] was introduced through the anus and [...] 9:21 AM Procedure Code(s): --- Professional --- 80300, Colonoscopy, flexible; with removal of tumor(s), polyp(s), or other lesion(s) by snare technique --- Technical --- 01017, Colonoscopy, flexible; with removal of tumor(s), polyp(s), or other lesion(s) by snare technique Diagnosis Code(s): --- Professional --- Z80.0, Family history of malignant neoplasm of digestive organs K63.5, Polyp of colon --- Technical --- Z80.0, Family history of malignant neoplasm of digestive organs K63.5, Polyp of colon CPT copyright 2020 [employer]. All rights reserved. The codes documented in this report are preliminary and upon hospital coder reviewmay be revised to meet current compliance requirements. Procedure Date: 03/09/2022 9:21:31 AM [address] [place] [address] Shahla Madrigal PUBLIC HEALTH GI PROCEDURE [place] GAMA Final Result from Last 3 Months or Most Recently Relevant to Health Maintenance Insurance MEDICARE PART A & B [facility] MEDEX SUPPLEMENT MEDICARE PART A & B [facility] MEDEX SUPPLEMENT MEDICARE PART A & B [facility] MEDEX SUPPLEMENT MEDICARE PART A & B [employer] MEDEX SUPPLEMENT MEDICARE PART A & B [employer] MEDEX SUPPLEMENT MEDICARE PART A & B [employer] MEDEX SUPPLEMENT MEDICARE PART A & B [employer] MEDEX SUPPLEMENT Member Subscriber Plan / Payer (Ef fective 2015-Present) Name:Teresa Parson Relation to Subscriber:Self Name:Teresa Parson Payer ID:[id number] (NAIC) Type:Indemnity Address: [place] [id number] MEDICARE PART A & B [facility] MEDEX SUPPLEMENT MEDICARE PART A & B [facility] MEDEX SUPPLEMENT Advance Directives For more information, please contact: [phone] (9AM - 5PM [place], Saturday-Saturday) Documents on File Type Date Recorded Patient 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 Medical Oncology 01/14/24 Juan Manuel Mota MD [address] [place] [phone] [email or web address] Endocrinology 04/03/24 Additional Source Comments The information contained in this document represents components of the legal health record. It is not the complete legal health record.[facility]
--- OUTSIDE RECORDS SUMMARY | 2025-06-10 19:33 | XMS_ITS | Encounter Summary ---
Author Organization [facility] Address [address] [place] [address] Phone Care Team Providers Care Marionette Performer Name Role Phone Jocelyn Chacon SANITOR Primary Care Provider Shahla Love SANITOR Primary Care Pro vider Self-Referred, Patient Unavailable Unavailab Mariluz Ivy MD Unavailable [phone] Soledad Mclean MD, MPH Unavailable [phone] Juan Manuel Mota MD Unavailable [phone] Encounter Details Date Type Department Care Team (Late st Contact Info) Description 10/24/2019 Procedure Pass [place] Admitting Dept - Virtual Department [address] [place] [address] Social History Tobacco Use Types Packs/Day Years [...] st Contact Info) Description 09/18/2024 Procedure Pass [facility], Mammography, Man[facility] L[facility] Imaging Department [address] [place] [phone] 10/08/2025 10:30 AM EDT Appointment [facility], Mammography, [facility] Imaging Department [address] [place] [phone] Fox Martinez MD [address] [place] [address] [email or web address] 10/08/2025 12:00 PM EDT Office Visit [facility], [address] 9th [place] [address] Paz Prado PA-C [address] [place] [phone] [email or web address] 11/08/2025 10:00 AM EDT Office Visit [facility] [address] [facility] [address] [place] [address] Raquel Henderson MD, PhD [address] [place] [phone] [email or web address] 11/30/2025 10:30 AM EDT Office Visit [facility] [address] [place] [address] 3rd Floor, [address] [place] [address] Sheree Devi, FARHANA [address] [place] [address], [address] [place] [address] 04/06/2026 10:30 AM EDT Office Visit [facility], [facility], [facility] [place] [address] [facility] [address] [place] [address] Paz Naqvi CNP [address] [place] [address] [email or web address] Soledad Mclean MD, MPH [address] [place] [address] [email or web address] documented as of this encounter [...] documented as of this encounter Care Teams Marionette Performer Relationship Specialty Start Date End Date Jocelyn Chacon NP PCP - General 04/11/17 01/04/20 Shahla Madrigal NP [address] [place] [address] [email or web address] PCP - General Family Medicine 01/05/20 Self-Referred, Patient 10/30/23 04/02/24 Mariluz Be MD [email or web address] Obstetrics and Gynecology 10/30/23 Soledad Mclean MD, MPH [address] [place] [phone] [email or web address] Medical Oncology 01/14/24 Juan Manuel Mota MD [address] [place] [address] [email or web address] 04/03/24 documented as of this encounter Additional Source Comments The information contained in this document represents components of the legal health record. It is not the complete legal health record.[facility]
== END 2025-06-10 22:36 | disposition home or self-care (01) ==
PROVIDERS: Emergency Provider Emergency Medicine Emergency Medical Services
DX: G43.909 Migraine, unspecified, not intractable, without status migrainosus (principal); Z79.899 Other long term (current) 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
CPT/HCPCS: 36415; 70450; 80053; 85025; 85652; 86140; 96365; 96375; 99283; 99284; J1100; J1200; J2765; J3475